=== PATIENT | female | born 1955 | race Caucasian/White ===

== ENCOUNTER 2024-06-09 19:38 | Outpatient (REF) | payer MEDICARE, MEDICAID, SELFPAY ==
[2024-06-09 19:59] LABS: Abs Immature Grans 0.01 10^3/uL (0.0-0.06); Absolute Basophil Count 0.04 10^3/uL (0.0-0.2); Absolute Eosinophil Count 0.19 10^3/uL (0.0-0.7); Absolute Lymphocyte Count 0.97 10^3/uL (1.2-3.4); Absolute Neutrophil Count 1.95 10^3/uL (1.2-6.7); Basophils % 1.2 %; Eosinophils % 5.5 %; HCT 29.5 % (36.0-46.0); HGB 9.5 g/dL (11.2-15.7); Immature Grans % 0.3 %; MCH 22.8 pg (27.0-33.0); MCHC 32.2 % (32.0-36.0); MCV 71 fL (80-95); Monocytes % 8.7 %; Neutrophils % 56.3 %; RBC 4.17 10^6/uL (3.93-5.22); RDW 17.8 % (11.7-14.6); WBC 3.46 10^3/uL (4.4-10.8)
[2024-06-09 20:33] LABS: Acanthocytes 1+; Diff Comment RBC Morph Reviewed; Microcytosis 1+; Platelet Count 82 10^3/uL (130-400)
[2024-06-09 21:29] LABS: ALT 31 U/L (14-59); AST 26 U/L (15-37); Albumin 3.7 g/dL (3.4-5.0); Alkaline Phosphatase 122 U/L (46-116); Anion Gap 13.6 mmol/L (3-11); BUN 10 mg/dL (7-18); Bilirubin, Total 1.39 mg/dL (0.2-1.0); CO2 18.4 mmol/L (21.0-32.0); Chloride 99 mmol/L (98-107); Estimated GFR 61.75 (mL/min/1.73m2); Ferritin 37 ng/mL (8-252); Folate > 20.0 ng/mL (8.6-20.0); Glucose 130 mg/dL (74-106); Magnesium 1.6 mg/dL (1.8-2.4); Potassium 5.1 mmol/L (3.5-5.1); Sodium 131 mmol/L (136-145); TSH (W/Ref FT4) 2.38 uIU/mL (0.36-3.74); Total Protein 6.2 g/dL (6.4-8.2); Vitamin B12 909 pg/mL (193-986); Vitamin D 25 Total 54.4 ng/mL (30-100)
[2024-06-09 21:36] LABS: Hemoglobin A1C 6.6 % (<5.7)
[2024-06-09 21:37] LABS: Iron 19 ug/dL (50-170); Total Iron Binding Capacity 486 ug/dL (250-450); Transferrin Sat 4 % (15-50)
[2024-06-09 22:12] LABS: NT-proBNP 114 pg/mL (<300)
== END 2024-06-09 19:39 | disposition home or self-care (01) ==
LOC: LBN 19:38
PROVIDERS: Visit Provider Nurse Practitioner Gerontology
DX: D52.9 Folate deficiency anemia, unspecified (principal); R73.09 Other abnormal glucose; R53.82 Chronic fatigue, unspecified; I11.0 Hypertensive heart disease with heart failure
CPT/HCPCS: 80053; 82306; 82607; 82728; 82746; 83036; 83540; 83550; 83735; 83880; 84443; 85025

== ENCOUNTER 2024-06-11 15:04 | Emergency (ER) | payer MEDICARE, MEDICAID, SELFPAY ==
--- NOTE | 2024-06-11 15:00 | DI.RAD_ITS ---
Exam(s) XR PORTABLE CHEST AP EXAM: XR PORTABLE CHEST AP CLINICAL HISTORY: AMS TECHNIQUE: 2D digital imaging was performed of the chest. One image was obtained. An AP view was ob tained. COMPARISON: No exams were available for comparison FINDINGS: MEDIASTINUM: Normal. HEART: Normal. PULMONARY VASCULATURE: Normal. LUNGS: Clear. PLEURAL SPACE: No pleural effusion or pneumothorax. BONE:Within normal limits for the patient's age. There is mild inferior subluxation of the right olman ral head relative to the glenoid. OTHER FINDINGS:There is elevation of the left hemidiaphragm. IMPRESSION: 1. No acute pulmonary findings. 2. Mild inferior subluxation of the right humeral head relative to the glenoid. DATA REPOSITORY: RADIATION DOSE DELIVERED:
[2024-06-11 15:07] VITALS: BP 137/76; PULSE 90; RESP 15; TEMP 37.1; O2SAT 100
[2024-06-11 15:14] VITALS: BP 137/76; PULSE 90; RESP 15; TEMP 37.1; O2SAT 100
--- NOTE | 2024-06-11 15:15 | DI.CT_ITS ---
Exam(s) CT HEAD WO EXAM: CT HEAD WO CLINICAL HISTORY: Altered mental status. TECHNIQUE: Imaging Protocol: Axial computed tomography images with coronal and sagittal reformatted images were created and reviewed COMPARISON: No exams were available for comparison FINDINGS: Ventricles and Extra axial spaces: Normal in size and morphology for the patient's age. Hemorrhage: None. Cerebral parenchyma: Evidence of an acute territorial infarct. No mass effect. Midline shift: None. Brainstem/Cerebellum: Normal. Calvarium: Normal. Visualized Paranasal sinuses/Mastoids: Clear. Soft Tissues: Unremarkable. IMPRESSION: No acute intracranial process. RADIATION DOSE DELIVERED: 814.69mGy.cm Total DLP DATA REPOSITORY: All CT scans at this facility are submitted to the National Radiology Data Registry (NRDR) Dose Index Registry (DIR) with the [employer] ([employer]). RADIATION OPTIMIZATION: All CT scans at this facility use at least one of these dose optimization te chniques: automated exposure control; mA and/or kV adjustment per patient size (includes targeted exa ms where dose is matched to clinical indication); or iterative reconstruction.
[2024-06-11 15:26] LABS: Abs Immature Grans 0.01 10^3/uL (0.0-0.06); Absolute Basophil Count 0.03 10^3/uL (0.0-0.2); Absolute Eosinophil Count 0.14 10^3/uL (0.0-0.7); Absolute Monocyte Count 0.22 10^3/uL (0.1-0.8); Absolute Neutrophil Count 1.71 10^3/uL (1.2-6.7); Basophils % 1.1 %; HCT 28.4 % (36.0-46.0); Immature Grans % 0.4 %; Lymphocytes % 24.9 %; MCH 22.4 pg (27.0-33.0); MCHC 31.7 % (32.0-36.0); MCV 71 fL (80-95); MPV 9.1 fL (8.0-11.0); Monocytes % 7.8 %; Neutrophils % 60.8 %; RBC 4.01 10^6/uL (3.93-5.22); RDW 17.5 % (11.7-14.6); RDW-SD 44.7 fL; WBC 2.81 10^3/uL (4.4-10.8)
[2024-06-11 15:40] LABS: Ammonia 59 umol/L (11-32)
[2024-06-11 15:47] LABS: ALT 32 U/L (14-59); AST 26 U/L (15-37); Albumin 3.5 g/dL (3.4-5.0); Alkaline Phosphatase 109 U/L (46-116); Anion Gap 8.1 mmol/L (3-11); BUN 10 mg/dL (7-18); Bilirubin, Total 1.47 mg/dL (0.2-1.0); CO2 22.9 mmol/L (21.0-32.0); CREATININE 0.9 mg/dL (0.55-1.02); Calcium 9.2 mg/dL (8.5-10.1); Chloride 96 mmol/L (98-107); Estimated GFR 70.07 (mL/min/1.73m2); Glucose 120 mg/dL (74-106); Magnesium 1.2 mg/dL (1.8-2.4); Potassium 4.7 mmol/L (3.5-5.1); Sodium 127 mmol/L (136-145); Total Protein 6.2 g/dL (6.4-8.2); Troponin I 10 ng/L (<or=51)
[2024-06-11 15:51] LABS: Diff Comment Diff Reviewed; Microcytosis 2+; Platelet Count 60 10^3/uL (130-400)
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
[2024-06-11 16:11] LABS: Acetaminophen < 2 ug/mL (10-30); Salicylate < 2.8 mg/dL (<2.8)
[2024-06-11 16:29] LABS: ETHANOL BLOOD < 3.0 mg/dL (<10)
[2024-06-11] MEDS: levETIRAcetam 2,000 MG in Normal Saline 100 ML 400 MG IVPB (16:36)
[2024-06-11 16:40] LABS: Bilirubin Negative (Negative); Blood Negative (Negative); Clarity Sl Cloudy (Clear); Glucose Negative (Negative); Ketones Negative (Negative); Leukocyte Esterase Trace (Negative); Nitrite Negative (Negative); Specific Gravity 1.015 (1.005-1.025); Urobilinogen 0.2 mg/dL (Up to 0.2); pH 5.5 (5-8)
--- NOTE | 2024-06-11 16:42 | NUR.NOTE ---
Nursing Note: PT stated to this RN And MD If I go back there ([facility] I am going to kill myself. When offered PO medications she declined, when offered food she also declined says I want to kill myself
[2024-06-11 16:51] LABS: Bacteria Moderate HPF (Negative); C & S Indicated? Yes; Casts Negative LPF (Negative); Crystals Negative HPF (Negative); Epithelial Cells Rare HPF (Negative); Mucus Negative (Negative); RBC Negative HPF (0-2)
--- NOTE | 2024-06-11 16:54 | NUR.NOTE ---
Nursing Note: pt pulled IV out stated I don't want it
[2024-06-11 17:13] LABS: Troponin I 10 ng/L (<or=51)
[2024-06-11] MEDS: Haloperidol 5 MG/ML VIAL 4 MG IM (18:59)
[2024-06-11] MEDS: diphenhydrAMINE 50 MG/ML VIAL 12.5 MG IM/IVP (18:59)
--- NOTE | 2024-06-11 19:02 | NUR.NOTE ---
Nursing Note: prior to pt being walked to , patient got her self dressed and was wandering the hallways of the unit looking for a place to leave the building. She threatened to break the windows to get out. Staff offered a place to sit with a table at the day room in zone b to wait to see what her family was going to do. She agreed to walk to the unit with security this RN and medic
[2024-06-11] MEDS: Rifaximin 550 MG TAB PO (20:15)
[2024-06-11] MEDS: Lactulose 20 GM/30 ML CUP 40 GM PO (20:15)
[2024-06-11] MEDS: Magnesium Oxide 400 MG TAB 800 MG PO (20:15)
[2024-06-11] MEDS: LORazepam 1 MG TAB PO (20:15)
[2024-06-11] MEDS: Gabapentin 300 MG CAP 600 MG PO (20:15)
[2024-06-11 20:20] VITALS: RESP 20
--- NOTE | 2024-06-14 08:08 | NUR.NOTE ---
Access chart to reconcile EKG orders with EKG's in [facility]. Duplicate order cancelled. Nursing Note:
== END 2024-06-11 20:22 | disposition skilled nursing facility (03) ==
PROVIDERS: Emergency Provider Emergency Medicine
DX: L29.9 Pruritus, unspecified (principal); D61.818 Other pancytopenia; E72.20 Disorder of urea cycle metabolism, unspecified; E83.42 Hypomagnesemia; R45.1 Restlessness and agitation; E11.9 Type 2 diabetes mellitus without complications; Z86.711 Personal history of pulmonary embolism; Z79.02 Long term (current) use of antithrombotics/antiplatelets; Z79.4 Long term (current) use of insulin
CPT/HCPCS: 36415; 80053; 87077; 96365; 96366; 96372; 96375; 99284; 70450; 71045; 80320; 80329; 81003; 81015; 82140; 83735; 84484; 85025; 87086; 87186; J1200; J1630; J1953

== ENCOUNTER 2024-06-16 21:35 | Outpatient (REF) | payer MEDICARE, MEDICAID, SELFPAY ==
[2024-06-16 19:21] LABS: Abs Immature Grans 0.01 10^3/uL (0.0-0.06); Absolute Basophil Count 0.03 10^3/uL (0.0-0.2); Absolute Eosinophil Count 0.12 10^3/uL (0.0-0.7); Absolute Lymphocyte Count 0.78 10^3/uL (1.2-3.4); Absolute Monocyte Count 0.27 10^3/uL (0.1-0.8); Absolute Neutrophil Count 2.29 10^3/uL (1.2-6.7); Basophils % 0.9 %; Eosinophils % 3.4 %; HCT 28.3 % (36.0-46.0); HGB 8.8 g/dL (11.2-15.7); Immature Grans % 0.3 %; Lymphocytes % 22.3 %; MCH 22.4 pg (27.0-33.0); MCHC 31.1 % (32.0-36.0); MCV 72 fL (80-95); Monocytes % 7.7 %; Neutrophils % 65.4 %; RBC 3.92 10^6/uL (3.93-5.22); RDW 18.1 % (11.7-14.6); RDW-SD 47.5 fL
[2024-06-16 19:59] LABS: Anisocytosis 1+; Diff Comment RBC Morph Reviewed; Microcytosis 1+; Platelet Count 66 10^3/uL (130-400); Poikilocytes 1+
[2024-06-19 16:16] LABS: Levetiracetam 53.5 mcg/mL
== END 2024-06-16 21:36 | disposition home or self-care (01) ==
LOC: LBN 21:35
PROVIDERS: Visit Provider Nurse Practitioner Gerontology
DX: D69.1 Qualitative platelet defects (principal)
CPT/HCPCS: 80177; 85025

== ENCOUNTER 2024-06-23 18:16 | Outpatient (REF) | payer MEDICARE, MEDICAID, SELFPAY ==
[2024-06-23 19:49] LABS: Absolute Basophil Count 0.03 10^3/uL (0.0-0.2); Absolute Eosinophil Count 0.26 10^3/uL (0.0-0.7); Absolute Monocyte Count 0.32 10^3/uL (0.1-0.8); Absolute Neutrophil Count 1.82 10^3/uL (1.2-6.7); Eosinophils % 8.3 %; HCT 26.7 % (36.0-46.0); HGB 8.5 g/dL (11.2-15.7); Lymphocytes % 22.4 %; MCH 22.4 pg (27.0-33.0); MCHC 31.8 % (32.0-36.0); MCV 70 fL (80-95); MPV 10.7 fL (8.0-11.0); Monocytes % 10.2 %; Neutrophils % 58.1 %; RBC 3.79 10^6/uL (3.93-5.22); RDW 17.6 % (11.7-14.6); RDW-SD 45.4 fL; WBC 3.13 10^3/uL (4.4-10.8)
[2024-06-23 20:13] LABS: Diff Comment RBC Morph Reviewed; Microcytosis 2+; Platelet Count 54 10^3/uL (130-400)
[2024-06-23 20:17] LABS: ALT 32 U/L (14-59); AST 20 U/L (15-37); Albumin 3.7 g/dL (3.4-5.0); Alkaline Phosphatase 95 U/L (46-116); Anion Gap 10.2 mmol/L (3-11); BUN 9 mg/dL (7-18); Bilirubin, Total 1.23 mg/dL (0.2-1.0); CO2 25.8 mmol/L (21.0-32.0); CREATININE 0.9 mg/dL (0.55-1.02); Chloride 97 mmol/L (98-107); Estimated GFR 70.07 (mL/min/1.73m2); Glucose 128 mg/dL (74-106); Potassium 4.3 mmol/L (3.5-5.1); Sodium 133 mmol/L (136-145); Total Protein 5.9 g/dL (6.4-8.2)
== END 2024-06-23 18:17 | disposition home or self-care (01) ==
LOC: LBN 18:16
PROVIDERS: Visit Provider Nurse Practitioner Gerontology
DX: E87.6 Hypokalemia (principal)
CPT/HCPCS: 80053; 85025

== ENCOUNTER 2024-07-01 12:06 | Outpatient (REF) | payer MEDICARE, MEDICAID, SELFPAY ==
[2024-07-01 12:17] LABS: HCT 26.3 % (36.0-46.0); HGB 8.2 g/dL (11.2-15.7); MCHC 31.2 % (32.0-36.0); MPV 9.8 fL (8.0-11.0); RBC 3.73 10^6/uL (3.93-5.22); RDW 17.6 % (11.7-14.6); RDW-SD 45.2 fL; WBC 2.79 10^3/uL (4.4-10.8)
[2024-07-01 12:26] LABS: ALT 26 U/L (14-59); AST 18 U/L (15-37); Albumin 3.3 g/dL (3.4-5.0); Alkaline Phosphatase 90 U/L (46-116); Anion Gap 8.5 mmol/L (3-11); BUN 8 mg/dL (7-18); Bilirubin, Total 1.09 mg/dL (0.2-1.0); CO2 24.5 mmol/L (21.0-32.0); CREATININE 0.8 mg/dL (0.55-1.02); Calcium 8.7 mg/dL (8.5-10.1); Chloride 99 mmol/L (98-107); Estimated GFR 80.71 (mL/min/1.73m2); Glucose 163 mg/dL (74-106); Potassium 5.2 mmol/L (3.5-5.1); Sodium 132 mmol/L (136-145); Total Protein 5.6 g/dL (6.4-8.2)
[2024-07-01 12:33] LABS: MCV 71 fL (80-95); Platelet Count 53 10^3/uL (130-400)
== END 2024-07-01 12:07 | disposition home or self-care (01) ==
LOC: LBN 12:06
PROVIDERS: Visit Provider Nurse Practitioner Gerontology
DX: D64.9 Anemia, unspecified (principal); D69.6 Thrombocytopenia, unspecified; R79.89 Other specified abnormal findings of blood chemistry
CPT/HCPCS: 80053; 85027

== ENCOUNTER 2024-07-07 15:05 | Outpatient (REF) | payer MEDICARE, MEDICAID, SELFPAY ==
[2024-07-07 15:41] LABS: HCT 26.3 % (36.0-46.0); HGB 8.2 g/dL (11.2-15.7); MCH 21.8 pg (27.0-33.0); MPV 10.1 fL (8.0-11.0); RBC 3.76 10^6/uL (3.93-5.22); RDW-SD 44.3 fL; WBC 2.78 10^3/uL (4.4-10.8)
[2024-07-07 15:57] LABS: ALT 26 U/L (14-59); AST 21 U/L (15-37); Albumin 3.4 g/dL (3.4-5.0); Alkaline Phosphatase 84 U/L (46-116); Anion Gap 6.5 mmol/L (3-11); BUN 15 mg/dL (7-18); Bilirubin, Total 1.08 mg/dL (0.2-1.0); CO2 28.5 mmol/L (21.0-32.0); CREATININE 1.1 mg/dL (0.55-1.02); Calcium 8.8 mg/dL (8.5-10.1); Chloride 90 mmol/L (98-107); Estimated GFR 55.07 (mL/min/1.73m2); Glucose 191 mg/dL (74-106); Potassium 4.2 mmol/L (3.5-5.1); Sodium 125 mmol/L (136-145); Total Protein 5.7 g/dL (6.4-8.2)
[2024-07-07 16:10] LABS: MCHC 31.2 % (32.0-36.0); MCV 70 fL (80-95); Platelet Count 55 10^3/uL (130-400); RDW 17.4 % (11.7-14.6)
== END 2024-07-07 15:06 | disposition home or self-care (01) ==
LOC: LBN 15:05
PROVIDERS: PCP Nurse Practitioner Gerontology; Visit Provider Nurse Practitioner Gerontology
DX: D69.6 Thrombocytopenia, unspecified (principal)
CPT/HCPCS: 80053; 85027

== ENCOUNTER 2024-07-10 21:20 | Outpatient (REF) | payer MEDICARE, MEDICAID, SELFPAY ==
[2024-07-10 17:49] LABS: ALT 25 U/L (14-59); AST 21 U/L (15-37); Albumin 3.6 g/dL (3.4-5.0); Alkaline Phosphatase 95 U/L (46-116); Anion Gap 9.6 mmol/L (3-11); BUN 19 mg/dL (7-18); Bilirubin, Total 1.13 mg/dL (0.2-1.0); CO2 26.4 mmol/L (21.0-32.0); CREATININE 1.3 mg/dL (0.55-1.02); Calcium 8.9 mg/dL (8.5-10.1); Chloride 96 mmol/L (98-107); Estimated GFR 44.79 (mL/min/1.73m2); Glucose 289 mg/dL (74-106); Potassium 4.1 mmol/L (3.5-5.1); Sodium 132 mmol/L (136-145)
== END 2024-07-10 21:21 | disposition home or self-care (01) ==
LOC: LBN 21:20
PROVIDERS: PCP Nurse Practitioner Gerontology; Visit Provider Nurse Practitioner Gerontology
DX: E87.1 Hypo-osmolality and hyponatremia (principal)
CPT/HCPCS: 80053

== ENCOUNTER 2024-07-14 18:22 | Outpatient (REF) | payer MEDICARE, MEDICAID, SELFPAY ==
[2024-07-14 19:16] LABS: Abs Immature Grans 0.01 10^3/uL (0.0-0.06); Absolute Basophil Count 0.03 10^3/uL (0.0-0.2); Absolute Lymphocyte Count 0.65 10^3/uL (1.2-3.4); Absolute Monocyte Count 0.25 10^3/uL (0.1-0.8); Absolute Neutrophil Count 1.79 10^3/uL (1.2-6.7); Eosinophils % 9.9 %; HCT 25.3 % (36.0-46.0); Immature Grans % 0.3 %; Lymphocytes % 21.5 %; MCH 21.9 pg (27.0-33.0); MCHC 31.6 % (32.0-36.0); MCV 69 fL (80-95); MPV 10.3 fL (8.0-11.0); Monocytes % 8.3 %; RBC 3.66 10^6/uL (3.93-5.22); RDW 17.5 % (11.7-14.6); WBC 3.03 10^3/uL (4.4-10.8)
[2024-07-14 19:36] LABS: AST 22 U/L (15-37); Albumin 3.5 g/dL (3.4-5.0); Alkaline Phosphatase 102 U/L (46-116); BUN 13 mg/dL (7-18); Bilirubin, Total 1.18 mg/dL (0.2-1.0); Calcium 8.7 mg/dL (8.5-10.1); Chloride 89 mmol/L (98-107); Glucose 267 mg/dL (74-106); Sodium 125 mmol/L (136-145)
[2024-07-14 20:08] LABS: ALT 30 U/L (14-59); CREATININE 1.2 mg/dL (0.55-1.02); Estimated GFR 49.31 (mL/min/1.73m2)
[2024-07-14 20:16] LABS: Diff Comment RBC Morph Reviewed; Hypochromasia 2+; Microcytosis 2+; Platelet Count 74 10^3/uL (130-400)
== END 2024-07-14 18:23 | disposition home or self-care (01) ==
LOC: LBN 18:22
PROVIDERS: PCP Nurse Practitioner Gerontology; Visit Provider Nurse Practitioner Gerontology
DX: D69.1 Qualitative platelet defects (principal); E87.1 Hypo-osmolality and hyponatremia
CPT/HCPCS: 80053; 85025

== ENCOUNTER 2024-07-24 09:04 | Outpatient (REF) | payer MEDICARE, MEDICAID, SELFPAY ==
[2024-07-24 11:28] LABS: Abs Immature Grans 0.01 10^3/uL (0.0-0.06); Absolute Basophil Count 0.02 10^3/uL (0.0-0.2); Absolute Eosinophil Count 0.27 10^3/uL (0.0-0.7); Absolute Lymphocyte Count 0.87 10^3/uL (1.2-3.4); Absolute Monocyte Count 0.24 10^3/uL (0.1-0.8); Absolute Neutrophil Count 2.01 10^3/uL (1.2-6.7); Basophils % 0.6 %; Eosinophils % 7.9 %; HCT 25.7 % (36.0-46.0); HGB 8.2 g/dL (11.2-15.7); Immature Grans % 0.3 %; Lymphocytes % 25.4 %; MCHC 31.9 % (32.0-36.0); MCV 69 fL (80-95); MPV 10.3 fL (8.0-11.0); Neutrophils % 58.8 %; RBC 3.72 10^6/uL (3.93-5.22); RDW 18.1 % (11.7-14.6); RDW-SD 44.4 fL; WBC 3.42 10^3/uL (4.4-10.8)
[2024-07-24 11:36] LABS: ALT 26 U/L (14-59); AST 20 U/L (15-37); Albumin 3.3 g/dL (3.4-5.0); Alkaline Phosphatase 94 U/L (46-116); Anion Gap 11.6 mmol/L (3-11); BUN 11 mg/dL (7-18); Bilirubin, Total 0.87 mg/dL (0.2-1.0); CO2 26.4 mmol/L (21.0-32.0); CREATININE 1.1 mg/dL (0.55-1.02); Calcium 8.6 mg/dL (8.5-10.1); Chloride 96 mmol/L (98-107); Estimated GFR 54.73 (mL/min/1.73m2); Glucose 212 mg/dL (74-106); Potassium 3.5 mmol/L (3.5-5.1); Sodium 134 mmol/L (136-145); Total Protein 5.6 g/dL (6.4-8.2)
[2024-07-24 11:47] LABS: Diff Comment Diff Reviewed; Hypochromasia 2+; Microcytosis 2+; Platelet Count 84 10^3/uL (130-400)
== END 2024-07-24 09:05 | disposition home or self-care (01) ==
LOC: LBN 09:04
PROVIDERS: PCP Nurse Practitioner Gerontology; Visit Provider Nurse Practitioner Gerontology
DX: D69.6 Thrombocytopenia, unspecified (principal); E87.1 Hypo-osmolality and hyponatremia; E83.42 Hypomagnesemia
CPT/HCPCS: 80053; 85025

== ENCOUNTER 2024-07-28 20:17 | Outpatient (REF) | payer MEDICARE, MEDICAID, SELFPAY ==
[2024-07-28 20:05] LABS: Abs Immature Grans 0.01 10^3/uL (0.0-0.06); Absolute Basophil Count 0.03 10^3/uL (0.0-0.2); Absolute Eosinophil Count 0.23 10^3/uL (0.0-0.7); Absolute Lymphocyte Count 0.73 10^3/uL (1.2-3.4); Absolute Monocyte Count 0.37 10^3/uL (0.1-0.8); Absolute Neutrophil Count 3.15 10^3/uL (1.2-6.7); Basophils % 0.7 %; Eosinophils % 5.1 %; HCT 26.6 % (36.0-46.0); HGB 8.2 g/dL (11.2-15.7); Immature Grans % 0.2 %; Lymphocytes % 16.2 %; MCH 21.3 pg (27.0-33.0); MCHC 30.8 % (32.0-36.0); MCV 69 fL (80-95); MPV 10.4 fL (8.0-11.0); Monocytes % 8.2 %; Neutrophils % 69.6 %; Platelet Count 104 10^3/uL (130-400); RBC 3.85 10^6/uL (3.93-5.22); RDW 18.2 % (11.7-14.6); RDW-SD 45.2 fL; WBC 4.52 10^3/uL (4.4-10.8)
[2024-07-28 20:22] LABS: Anisocytosis 1+; Diff Comment RBC Morph Reviewed; Hypochromasia 2+
[2024-07-28 20:24] LABS: Microcytosis 1+; Poikilocytes 2+; Polychromasia Present
[2024-07-28 20:34] LABS: ALT 23 U/L (14-59); AST 19 U/L (15-37); Albumin 3.4 g/dL (3.4-5.0); Alkaline Phosphatase 97 U/L (46-116); Anion Gap 9.1 mmol/L (3-11); BUN 12 mg/dL (7-18); Bilirubin, Total 1.19 mg/dL (0.2-1.0); CO2 28.9 mmol/L (21.0-32.0); CREATININE 1.2 mg/dL (0.55-1.02); Calcium 8.7 mg/dL (8.5-10.1); Chloride 91 mmol/L (98-107); Estimated GFR 49.31 (mL/min/1.73m2); Glucose 242 mg/dL (74-106); Potassium 3.9 mmol/L (3.5-5.1); Sodium 129 mmol/L (136-145)
== END 2024-07-28 20:18 | disposition home or self-care (01) ==
LOC: LBN 20:17
PROVIDERS: PCP Nurse Practitioner Gerontology; Visit Provider Nurse Practitioner Gerontology
DX: E87.6 Hypokalemia (principal)
CPT/HCPCS: 80053; 85025

== ENCOUNTER 2024-08-04 18:17 | Outpatient (REF) | payer MEDICARE, MEDICAID, SELFPAY ==
[2024-08-04 20:15] LABS: Abs Immature Grans 0.01 10^3/uL (0.0-0.06); Absolute Basophil Count 0.01 10^3/uL (0.0-0.2); Absolute Eosinophil Count 0.16 10^3/uL (0.0-0.7); Absolute Lymphocyte Count 0.58 10^3/uL (1.2-3.4); Absolute Monocyte Count 0.23 10^3/uL (0.1-0.8); Basophils % 0.4 %; Eosinophils % 6.4 %; HGB 7.6 g/dL (11.2-15.7); Immature Grans % 0.4 %; Lymphocytes % 23.3 %; MCH 21.3 pg (27.0-33.0); MCHC 30.4 % (32.0-36.0); MCV 70 fL (80-95); MPV 10.4 fL (8.0-11.0); Monocytes % 9.2 %; Neutrophils % 60.3 %; RBC 3.56 10^6/uL (3.93-5.22); RDW 18.7 % (11.7-14.6); RDW-SD 46.2 fL; WBC 2.49 10^3/uL (4.4-10.8)
[2024-08-04 20:37] LABS: Anisocytosis 1+; Diff Comment RBC Morph Reviewed; Platelet Count 75 10^3/uL (130-400)
[2024-08-04 20:38] LABS: Hypochromasia 1+; Microcytosis 1+
[2024-08-04 20:43] LABS: ALT 22 U/L (14-59); AST 25 U/L (15-37); Albumin 3.3 g/dL (3.4-5.0); Alkaline Phosphatase 98 U/L (46-116); Anion Gap 11.4 mmol/L (3-11); BUN 12 mg/dL (7-18); Bilirubin, Total 1.13 mg/dL (0.2-1.0); CO2 24.6 mmol/L (21.0-32.0); CREATININE 1.2 mg/dL (0.55-1.02); Calcium 8.6 mg/dL (8.5-10.1); Chloride 97 mmol/L (98-107); Estimated GFR 49.31 (mL/min/1.73m2); Glucose 229 mg/dL (74-106); Potassium 4.2 mmol/L (3.5-5.1); Sodium 133 mmol/L (136-145); Total Protein 5.8 g/dL (6.4-8.2)
== END 2024-08-04 18:18 | disposition home or self-care (01) ==
LOC: LBN 18:17
PROVIDERS: PCP Nurse Practitioner Gerontology; Visit Provider Nurse Practitioner Gerontology
DX: E87.1 Hypo-osmolality and hyponatremia (principal); D64.9 Anemia, unspecified
CPT/HCPCS: 80053; 85025

== ENCOUNTER 2024-08-11 16:43 | Outpatient (REF) | payer MEDICARE, MEDICAID, SELFPAY ==
[2024-08-11 19:15] LABS: Abs Immature Grans 0.01 10^3/uL (0.0-0.06); Absolute Basophil Count 0.02 10^3/uL (0.0-0.2); Absolute Eosinophil Count 0.23 10^3/uL (0.0-0.7); Absolute Lymphocyte Count 0.61 10^3/uL (1.2-3.4); Absolute Monocyte Count 0.39 10^3/uL (0.1-0.8); Basophils % 0.6 %; Eosinophils % 7.3 %; HCT 23.9 % (36.0-46.0); HGB 7.4 g/dL (11.2-15.7); Immature Grans % 0.3 %; Lymphocytes % 19.3 %; MCH 21.4 pg (27.0-33.0); MCV 69 fL (80-95); MPV 10.1 fL (8.0-11.0); Monocytes % 12.3 %; Neutrophils % 60.2 %; RBC 3.46 10^6/uL (3.93-5.22); RDW 18.7 % (11.7-14.6); RDW-SD 46.5 fL; WBC 3.16 10^3/uL (4.4-10.8)
[2024-08-11 19:30] LABS: Diff Comment Diff Reviewed; Hypochromasia 1+; Microcytosis 2+; Platelet Count 66 10^3/uL (130-400)
[2024-08-11 19:39] LABS: ALT 20 U/L (14-59); AST 27 U/L (15-37); Albumin 3.2 g/dL (3.4-5.0); Alkaline Phosphatase 103 U/L (46-116); Anion Gap 7.6 mmol/L (3-11); BUN 11 mg/dL (7-18); Bilirubin, Total 1.23 mg/dL (0.2-1.0); CO2 27.4 mmol/L (21.0-32.0); CREATININE 1.1 mg/dL (0.55-1.02); Calcium 8.6 mg/dL (8.5-10.1); Chloride 93 mmol/L (98-107); Estimated GFR 54.73 (mL/min/1.73m2); Glucose 241 mg/dL (74-106); Potassium 4.2 mmol/L (3.5-5.1); Sodium 128 mmol/L (136-145); Total Protein 5.7 g/dL (6.4-8.2)
== END 2024-08-11 16:44 | disposition home or self-care (01) ==
LOC: LBN 16:43
PROVIDERS: PCP Nurse Practitioner Gerontology; Visit Provider Nurse Practitioner Gerontology
DX: E87.1 Hypo-osmolality and hyponatremia (principal); D69.6 Thrombocytopenia, unspecified
CPT/HCPCS: 80053; 85025

== ENCOUNTER 2024-08-25 17:55 | Outpatient (REF) | payer MEDICARE, MEDICAID, SELFPAY ==
[2024-08-25 18:28] LABS: Abs Immature Grans 0.01 10^3/uL (0.0-0.06); Absolute Basophil Count 0.01 10^3/uL (0.0-0.2); Absolute Eosinophil Count 0.21 10^3/uL (0.0-0.7); Absolute Lymphocyte Count 0.63 10^3/uL (1.2-3.4); Absolute Monocyte Count 0.23 10^3/uL (0.1-0.8); Absolute Neutrophil Count 1.35 10^3/uL (1.2-6.7); Basophils % 0.4 %; Eosinophils % 8.6 %; HCT 23.5 % (36.0-46.0); HGB 7.3 g/dL (11.2-15.7); Immature Grans % 0.4 %; Lymphocytes % 25.8 %; MCH 21.2 pg (27.0-33.0); MCHC 31.1 % (32.0-36.0); MCV 68 fL (80-95); MPV 10.4 fL (8.0-11.0); Monocytes % 9.4 %; Neutrophils % 55.4 %; RBC 3.44 10^6/uL (3.93-5.22); RDW 19.2 % (11.7-14.6); RDW-SD 47.4 fL; Reticulocyte 2.2 % (0.5-2.4); WBC 2.44 10^3/uL (4.4-10.8)
[2024-08-25 18:36] LABS: Platelet Count 71 10^3/uL (130-400)
[2024-08-25 18:37] LABS: Microcytosis 1+
[2024-08-25 19:49] LABS: Ferritin 21 ng/mL (8-252); Vitamin B12 907 pg/mL (193-986)
[2024-08-25 19:50] LABS: Folate > 20.0 ng/mL (8.6-20.0)
[2024-08-26 17:52] LABS: ALT 22 U/L (14-59); AST 22 U/L (15-37); Albumin 3.3 g/dL (3.4-5.0); Alkaline Phosphatase 101 U/L (46-116); Anion Gap 4.9 mmol/L (3-11); BUN 12 mg/dL (7-18); Bilirubin, Total 1.23 mg/dL (0.2-1.0); CO2 29.1 mmol/L (21.0-32.0); CREATININE 1.1 mg/dL (0.55-1.02); Calcium 8.6 mg/dL (8.5-10.1); Chloride 93 mmol/L (98-107); Estimated GFR 54.73 (mL/min/1.73m2); Glucose 200 mg/dL (74-106); NT-proBNP 158 pg/mL (<300); Potassium 4.2 mmol/L (3.5-5.1); Sodium 127 mmol/L (136-145); Total Protein 5.6 g/dL (6.4-8.2)
== END 2024-08-25 17:56 | disposition home or self-care (01) ==
LOC: LBN 17:55
PROVIDERS: PCP Nurse Practitioner Gerontology; Referring Provider Nurse Practitioner Gerontology; Visit Provider Internal Medicine Hematology & Oncology
DX: D64.9 Anemia, unspecified (principal); D51.9 Vitamin B12 deficiency anemia, unspecified
CPT/HCPCS: 80053; 82607; 82728; 82746; 83880; 85025; 85045

== ENCOUNTER 2024-09-01 18:10 | Outpatient (REF) | payer MEDICARE, MEDICAID, SELFPAY ==
[2024-09-01 18:25] LABS: Absolute Basophil Count 0.01 10^3/uL (0.0-0.2); Absolute Eosinophil Count 0.13 10^3/uL (0.0-0.7); Absolute Lymphocyte Count 0.53 10^3/uL (1.2-3.4); Absolute Monocyte Count 0.27 10^3/uL (0.1-0.8); Basophils % 0.5 %; Eosinophils % 6.4 %; HCT 23.1 % (36.0-46.0); MCHC 30.3 % (32.0-36.0); MCV 69 fL (80-95); MPV 9.9 fL (8.0-11.0); Monocytes % 13.2 %; Neutrophils % 53.9 %; RBC 3.33 10^6/uL (3.93-5.22); RDW 19.7 % (11.7-14.6); RDW-SD 48.9 fL; WBC 2.04 10^3/uL (4.4-10.8)
[2024-09-01 18:37] LABS: ALT 19 U/L (14-59); AST 19 U/L (15-37); Albumin 3.2 g/dL (3.4-5.0); Alkaline Phosphatase 100 U/L (46-116); Anion Gap 8.6 mmol/L (3-11); BUN 14 mg/dL (7-18); Bilirubin, Total 1.12 mg/dL (0.2-1.0); CO2 26.4 mmol/L (21.0-32.0); CREATININE 1.2 mg/dL (0.55-1.02); Calcium 8.6 mg/dL (8.5-10.1); Chloride 92 mmol/L (98-107); Estimated GFR 49.31 (mL/min/1.73m2); Glucose 264 mg/dL (74-106); Potassium 4.4 mmol/L (3.5-5.1); Sodium 127 mmol/L (136-145); Total Protein 5.5 g/dL (6.4-8.2)
[2024-09-01 18:49] LABS: Platelet Count 60 10^3/uL (130-400)
[2024-09-01 18:51] LABS: Microcytosis 1+
== END 2024-09-01 18:11 | disposition home or self-care (01) ==
LOC: LBN 18:10
PROVIDERS: PCP Nurse Practitioner Gerontology; Visit Provider Nurse Practitioner Gerontology
DX: E87.1 Hypo-osmolality and hyponatremia (principal); Z79.01 Long term (current) use of anticoagulants; E87.6 Hypokalemia
CPT/HCPCS: 80053; 85025

== ENCOUNTER 2024-09-01 19:52 | Emergency (ER) | payer MEDICARE, MEDICAID, SELFPAY ==
[2024-09-01] VITALS (102 sets, daily range): BP systolic 116–119; BP diastolic 47–55; PULSE 82–89; RESP 13–37; TEMP 37.1–37.2; O2SAT 93–100
--- NOTE | 2024-09-01 19:45 | RT.EKG_ITS ---
APPROVED REPORT Exam: Resting ECG Reason for Exam: chest pain Patient Location: E HR:82 bpm ECG Measurements Heart Rate 82 AXIS MS 175 P 21 QRSd 97 QRS 49 QT 413 T 40 QTc 484 Conclusion Sinus rhythm...normal P axis, V-rate 60- [address] segment or T wave abnormalities to suggest occlusive TN
--- NOTE | 2024-09-01 19:48 | W.ED.GENAD ---
Discharge Plan Disposition Patient Disposition: Home Condition: Good Discharge Details Clinical Impression: Anemia Primary Care Provider: Abbey Smith ED Provider: Ammy Kauffman Home Meds and New Rx's Prescriptions: Continued folic acid 1 mg tablet 1 mg PO DAILY furosemide 40 mg tablet 60 mg PO DAILY Rx Instructions: takes w/20mg tablet for a total dose of 60mg QD magnesium gluconate [Mag-G] 27 mg magnesium (500 mg) tablet 27 mg PO TID pantoprazole [Protonix] 40 mg tablet,delayed release (DR/EC) 40 mg PO DAILY levetiracetam 1,000 mg tablet 1,000 mg PO BID Incruse Ellipta 62.5 mcg/actuation blister with device 1 inh inhalation DAILY lactulose 10 gram/15 mL solution 30 g PO QID Xifaxan 550 mg tablet 550 mg PO BID insulin aspart U-100 100 unit/mL (3 mL) insulin pen 1 sliding scale dose subcut TID spironolactone 100 mg tablet 50 mg PO DAILY cholecalciferol (vitamin D3) 25 mcg (1,000 unit) capsule 25 mcg PO DAILY insulin degludec [Tresiba FlexTouch U-200] 200 unit/mL (3 mL) insulin pen 60 unit subcut BID gabapentin 300 mg capsule 1,200 mg PO QHS cholestyramine (with sugar) 4 gram powder in packet 1 packet PO BID potassium chloride [K-Tab] 20 mEq tablet extended release 20 meq PO DAILY nystatin [Nyamyc] 100,000 unit/gram powder 1 applic topical BID albuterol 90 mcg/actuation aerosol 180 mcg inhalation .Q4 PRN hydroxyzine HCl 10 mg tablet 25 mg PO BID PRN epinephrine 0.3 mg/0.3 mL auto-injector 0.3 ml subcut Q5-15M PRN Rx Instructions: do not exceed 2 doses per episode Ultra Fresh PM Ointment 1 applic ophthalmic (eye) BID cholecalciferol (vitamin D3) [D3 DOTS] 50 mcg (2,000 unit) tablet 50 mcg PO DAILY torsemide 20 mg tablet 40 mg PO DAILY quetiapine [Seroquel] 25 mg tablet 25 mg PO BID hydrocortisone acetate 25 mg suppository 25 mg [place] Q12H PRN Patient Comments: PRN FOR HEMORRHOIDS azelastine 137 mcg (0.1 %) spray,non-aerosol 2 spray intranasal Q12H PRN Patient Comments: PRN FOR ALLERGIES Rx Instructions: administer into each nostril Discharge Instructions Instructions: Hematocrit Test Additional Instructions: Your hemoglobin is not low enough to require a transfusion. Please followup with your primary care doctor about your blood counts, as well as your chest xray which shows some signs of fluid overload. Return to the emergency department for new or worsening symptoms including chest pain, shortness of breath, feeling like you are going to pass out, or if you have any other concerns. HPI General Mode of arrival: EMS. Date/Time Provider Initiated Documentation: 09/01/24 19:57. Limitations to Documentation: no limitations. Information obtained by: patient, EMS and old records reviewed. 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 for Hg of 7.0 on outpatient labs. Patient reports cough for several days and whole-body aches, otherwise denies any symptoms. No chest pain, shortness of breath, lightheadedness, syncope, nausea, vomiting, or other concerns. Related Data Home Medications ?Medication ?Instructions ?Recorded ?Confirmed albuterol 90 mcg/actuation aerosol 180 mcg inhalation .Q4 PRN 06/11/24 09/01/24 inhaler cholecalciferol (vitamin D3) 25 25 mcg PO DAILY 06/11/24 09/01/24 mcg (1,000 unit) capsule cholestyramine (with sugar) 4 gram 1 packet PO BID 06/11/24 09/01/24 powder for susp in a packet epinephrine 0.3 mg/0.3 mL 0.3 ml subcut Q5-15M PRN 06/11/24 09/01/24 injection, auto-injector folic acid 1 mg tablet 1 mg PO DAILY 06/11/24 09/01/24 furosemide 40 mg tablet 60 mg PO DAILY 06/11/24 09/01/24 gabapentin 300 mg capsule 1,200 mg PO QHS 06/11/24 09/01/24 hydroxyzine HCl 10 mg tablet 25 mg PO BID PRN 06/11/24 09/01/24 insulin aspart U-100 100 unit/mL 1 sliding scale dose subcut TID 06/11/24 09/01/24 (3 mL) subcutaneous pen insulin degludec 200 unit/mL (3 60 unit subcut BID 06/11/24 09/01/24 mL) subcutaneous pen (Tresiba FlexTouch U-200 insulin) lactulose 10 gram/15 mL oral 30 g PO QID 06/11/24 09/01/24 solution levetiracetam 1,000 mg tablet 1,000 mg PO BID 06/11/24 09/01/24 magnesium gluconate 27 mg 27 mg PO TID 06/11/24 09/01/24 magnesium (500 mg) tablet (Mag-G) nystatin 100,000 unit/gram topical 1 applic topical BID 06/11/24 09/01/24 powder (Nyamyc) pantoprazole 40 mg tablet,delayed 40 mg PO DAILY 06/11/24 09/01/24 release (Protonix) potassium chloride 20 mEq 20 meq PO DAILY 06/11/24 09/01/24 tablet,extended release (K-Tab) rifaximin 550 mg tablet (Xifaxan) 550 mg PO BID 06/11/24 09/01/24 spironolactone 100 mg tablet 50 mg PO DAILY 06/11/24 09/01/24 umeclidinium 62.5 mcg/actuation 1 inh inhalation DAILY 06/11/24 09/01/24 blister powder for inhalation (Incruse Ellipta) artificial tears with lanolin eye 1 applic ophthalmic (eye) BID 09/01/24 09/01/24 ointment (Ultra Fresh PM eye ointment) azelastine 137 mcg (0.1 %) nasal 2 spray intranasal Q12H PRN 09/01/24 09/01/24 spray cholecalciferol (vitamin D3) 50 50 mcg PO DAILY 09/01/24 09/01/24 mcg (2,000 unit) tablet (D3 DOTS) hydrocortisone acetate 25 mg 25 mg [place] Q12H PRN 09/01/24 09/01/24 rectal suppository quetiapine 25 mg tablet (Seroquel) 25 mg PO BID 09/01/24 09/01/24 torsemide 20 mg tablet 40 mg PO DAILY 09/01/24 09/01/24 Allergies Allergy/AdvReac Type Severity Reaction Status Date / Time acetaminophen Allergy Unknown Other (See Verified 09/01/24 21:03 Comment) cyclosporine Allergy Unknown Other (See Verified 09/01/24 21:03 Comment) fluticasone (From Advair Allergy Unknown Other (See Verified 09/01/24 21:03 Diskus) Comment) ibuprofen Allergy Unknown Other (See Verified 09/01/24 21:03 Comment) pregabalin (From Lyrica) Allergy Unknown Other (See Verified 09/01/24 21:03 Comment) salmeterol Allergy Unknown Other (See Verified 09/01/24 21:03 Comment) strawberry Allergy Unknown Other (See Verified 09/01/24 21:03 Comment) General MARCELLO: 3 Review of Systems Narrative: see HPI Exam Narrative Exam Narrative: General: Alert, well appearing, well nourished, in no acute distress. Head: Normocephalic, atraumatic Neck: Trachea midline, ?Neck supple. ENT: ?MMM.? No oropharygeal lesions or exudate. Cardiac: ?RRR, no murmurs appreciated Resp: No respiratory distress. CTAB. Abd: ?Soft, non-distended, nontender : ?No suprapubic tenderness. No CVA tenderness. Extremities: ?No deformities.? No peripheral edema. Neurologic: GCS 15. ? 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 for Hg of 7.0 on outpatient labs. Patient reports cough for several days and whole-body aches, otherwise denies any symptoms. Vital signs reassuring on arrival. No respiratory distress on exam. Will send CBC & T&S. EKG NSR, appropriate intervals, no ST segment or T wave abnoramlities to suggest occlusive KS. CBC as below, Hg of 7.6. Patient is not symptomatic with this; would not transfuse as this time. Given cough and body aches, respiratory viral panel and CXR ordered. Viral panel negative. CXR with no focal pneumonia on my view, radiology read below with possible CHF. Clinically patient with clear lungs, no respiratory distress, no LE edema, and no hypoxia; no indication of acute heart failure at this time and appropriate for outpatient workup and management. Discharged back to the [facility]; discharge instructions including return precautions were reviewed with patient and sent with patient. All questions were answered and she is in full agreement with the plan. Awaiting transport. Imaging Data Radiologic Study: Imaging: X-Ray Radiologist's impression: FINDINGS: Lungs: No consolidation. Mild vascular congestion centrally. Mild interstitial prominence. Pleural spaces: No pleural effusion. No pneumothorax. Heart/Mediastinum: Mild cardiomegaly. Bones/joints: Unremarkable. IMPRESSION: Consider congestive heart failure or fluid overload. Lab Data Lab results reviewed: Yes I reviewed the patient's lab results. Labs: Laboratory Tests Range/Units 09/01/24 09/01/24 10:23 20:16 WBC (4.4-10.8) 10^3/uL 2.54 L RBC (3.93-5.22) 10^6/uL 3.59 L Hgb (11.2-15.7) g/dL 7.6 L Hct (36.0-46.0) % 24.3 L MCV (80-95) fL 68 L MCH (27.0-33.0) pg 21.2 L MCHC (32.0-36.0) % 31.3 L RDW (11.7-14.6) % 19.0 H Plt Count (130-400) 10^3/uL 78 L MPV (8.0-11.0) fL 9.5 Immature Gran % % 0.4 Neutrophils % % 57.1 Lymphocytes % % 26.8 Monocytes % % 9.8 Eosinophils % % 5.1 Basophils % % 0.8 Nucleated RBC % (0.0-0.3) % 0.0 Absolute Neutrophils (1.2-6.7) 10^3/uL 1.45 Absolute Lymphocytes (1.2-3.4) 10^3/uL 0.68 L Absolute Monocytes (0.1-0.8) 10^3/uL 0.25 Absolute Eosinophils (0.0-0.7) 10^3/uL 0.13 Absolute Basophils (0.0-0.2) 10^3/uL 0.02 RBC Morphology See Below Hypochromasia 1+ Anisocytosis 1+ Microcytosis 2+ COVID-19 Source Nasopharynx SARS-CoV-2 (PCR) (Negative) Negative Influenza Type A (PCR) (Negative) Negative Influenza Type B (PCR) (Negative) Negative RSV (PCR) (Negative) Negative Blood Type Recheck O Positive Quality:SDOH Health Related Social Needs: No Data to Display PFSH All Active Problems (Updated 09/01/24 @ 22:28 by Ammy Kauffman MD) Anemia (Chronic) Social History Smoking risk assessment performed?: No Alcohol Intake: never Drug use: Never Substance use type: does not use Housing: correction Do you feel safe at home: Yes Do you feel safe in your relationship?: Yes
--- NOTE | 2024-09-01 20:00 | DI.RAD_ITS ---
Exam(s) XR CHEST 2V PA LATERAL EXAM: XR CHEST 2V PA LATERAL CLINICAL HISTORY: cough TECHNIQUE: 2D digital imaging was performed. Two views. COMPARISON: CR XR PORTABLE CHEST AP from 06/11/2024 FINDINGS: HEART: Mildly enlarged. Aorta: Mildly tortuous. PULMONARY VASCULATURE: Mildly prominent. MEDIASTINUM: Unremarkable. LUNGS: Mildly increased interstitial markings and peribronchial cuffing. No focal area of consolidat ion. PLEURAL SPACE: No pleural effusion or pneumothorax. BONE:Unremarkable for age. SOFT TISSUES: Unremarkable. IMPRESSION: Mild CHF. DATA REPOSITORY: RADIATION DOSE DELIVERED:
[2024-09-01 20:28] LABS: Abs Immature Grans 0.01 10^3/uL (0.0-0.06); Absolute Basophil Count 0.02 10^3/uL (0.0-0.2); Absolute Eosinophil Count 0.13 10^3/uL (0.0-0.7); Absolute Lymphocyte Count 0.68 10^3/uL (1.2-3.4); Absolute Monocyte Count 0.25 10^3/uL (0.1-0.8); Absolute Neutrophil Count 1.45 10^3/uL (1.2-6.7); Basophils % 0.8 %; Eosinophils % 5.1 %; HCT 24.3 % (36.0-46.0); HGB 7.6 g/dL (11.2-15.7); Immature Grans % 0.4 %; Lymphocytes % 26.8 %; MCH 21.2 pg (27.0-33.0); MCHC 31.3 % (32.0-36.0); MCV 68 fL (80-95); MPV 9.5 fL (8.0-11.0); Monocytes % 9.8 %; Neutrophils % 57.1 %; RBC 3.59 10^6/uL (3.93-5.22); RDW-SD 46.7 fL; WBC 2.54 10^3/uL (4.4-10.8)
[2024-09-01 20:42] LABS: Platelet Count 78 10^3/uL (130-400)
[2024-09-01 20:43] LABS: Anisocytosis 1+; Diff Comment RBC Morph Reviewed; Hypochromasia 1+; Microcytosis 2+
[2024-09-01 21:05] LABS: COVID-19 PCR Negative (Negative); Influenza A PCR Negative (Negative); Influenza B PCR Negative (Negative); RSV PCR Negative (Negative)
[2024-09-01 21:07] LABS: Source Nasopharynx
--- NOTE | 2024-09-01 22:16 | DI.VRAD_ITS ---
PROCEDURE INFORMATION: Exam: XR Chest Exam date and time: 09/01/2024 9:03 PM Age: 69 years old Clinical indication: Cough TECHNIQUE: Imaging protocol: Radiologic exam of the chest. Views: 2 views. COMPARISON: CR XR PORTABLE CHEST AP 06/11/2024 3:32 PM FINDINGS: Lungs: No consolidation. Mild vascular congestion centrally. Mild interstitial prominence. Pleural spaces: No pleural effusion. No pneumothorax. Heart/Mediastinum: Mild cardiomegaly. Bones/joints: Unremarkable. IMPRESSION: Consider congestive heart failure or fluid overload. Dictated and Authenticated by: Bernard Bills MD. Ordering:PELON Gimenez MD
== END 2024-09-01 23:27 | disposition home or self-care (01) ==
PROVIDERS: Emergency Provider Student in an Organized Health Care Education/Training Program; PCP Nurse Practitioner Gerontology
DX: R05.1 Acute cough (principal); R52 Pain, unspecified; D64.9 Anemia, unspecified; K74.60 Unspecified cirrhosis of liver; D61.818 Other pancytopenia; E11.9 Type 2 diabetes mellitus without complications
CPT/HCPCS: 36415; 86850; 86900; 86901; 87637; 93005; 99284; 71046; 85025; 86870; 86880; 86885; 86902; 86905; 93010

== ENCOUNTER 2024-09-03 18:37 | Outpatient (REF) | payer MEDICARE, MEDICAID, SELFPAY ==
[2024-09-03 17:45] LABS: HCT 21.2 % (36.0-46.0); MCH 20.8 pg (27.0-33.0); MCHC 30.2 % (32.0-36.0); MCV 69 fL (80-95); MPV 10.6 fL (8.0-11.0); Platelet Count 55 10^3/uL (130-400); RBC 3.08 10^6/uL (3.93-5.22); RDW 19.3 % (11.7-14.6); RDW-SD 48.1 fL; WBC 2.02 10^3/uL (4.4-10.8)
[2024-09-03 18:00] LABS: ALT 21 U/L (14-59); AST 19 U/L (15-37); Albumin 3.1 g/dL (3.4-5.0); Alkaline Phosphatase 95 U/L (46-116); Anion Gap 5.5 mmol/L (3-11); BUN 12 mg/dL (7-18); CO2 26.5 mmol/L (21.0-32.0); Calcium 8.6 mg/dL (8.5-10.1); Chloride 95 mmol/L (98-107); Estimated GFR 61.36 (mL/min/1.73m2); Glucose 226 mg/dL (74-106); NT-proBNP 276 pg/mL (<300); Sodium 127 mmol/L (136-145); Total Protein 5.2 g/dL (6.4-8.2)
[2024-09-03 18:28] LABS: Absolute Lymphocyte Count 0.61 10^3/uL (1.2-3.4); Absolute Neutrophil Count 0.97 10^3/uL (1.2-6.7)
[2024-09-03 18:29] LABS: HGB 6.4 g/dL (11.2-15.7)
[2024-09-03 18:30] LABS: Absolute Eosinophil Count 0.16 10^3/uL (0.0-0.7); Absolute Monocyte Count 0.28 10^3/uL (0.1-0.8)
[2024-09-03 18:31] LABS: Diff Comment Manual Differential; RBC Morphology Normal
== END 2024-09-03 18:38 | disposition home or self-care (01) ==
LOC: LBN 18:37
PROVIDERS: PCP Nurse Practitioner Gerontology; Visit Provider Nurse Practitioner Gerontology
DX: E87.1 Hypo-osmolality and hyponatremia (principal); E87.6 Hypokalemia
CPT/HCPCS: 80053; 83880; 85025

== ENCOUNTER 2024-09-03 19:52 | Emergency (ER) | payer MEDICARE, MEDICAID, SELFPAY ==
[2024-09-03] VITALS (42 sets, daily range): BP systolic 93–140; BP diastolic 33–60; PULSE 79–88; RESP 10–22; TEMP 36.4–37.1; O2SAT 95–99
--- NOTE | 2024-09-03 20:11 | W.ED.GENAD ---
Discharge Plan Disposition Patient Disposition: Home Condition: Stable Discharge Details Clinical Impression: Anemia, External hemorrhoids, Cirrhosis Primary Care Provider: Abbey Smith ED Provider: Cecilia Kaur Home Meds and New Rx's Prescriptions: No Action folic acid 1 mg tablet 1 mg PO DAILY furosemide 40 mg tablet 60 mg PO DAILY Rx Instructions: takes w/20mg tablet for a total dose of 60mg QD magnesium gluconate [Mag-G] 27 mg magnesium (500 mg) tablet 27 mg PO TID pantoprazole [Protonix] 40 mg tablet,delayed release (DR/EC) 40 mg PO DAILY levetiracetam 1,000 mg tablet 1,000 mg PO BID Incruse Ellipta 62.5 mcg/actuation blister with device 1 inh inhalation DAILY lactulose 10 gram/15 mL solution 30 g PO QID Xifaxan 550 mg tablet 550 mg PO BID insulin aspart U-100 100 unit/mL (3 mL) insulin pen 1 sliding scale dose subcut TID spironolactone 100 mg tablet 50 mg PO DAILY cholecalciferol (vitamin D3) 25 mcg (1,000 unit) capsule 25 mcg PO DAILY insulin degludec [Tresiba FlexTouch U-200] 200 unit/mL (3 mL) insulin pen 60 unit subcut BID gabapentin 300 mg capsule 1,200 mg PO QHS cholestyramine (with sugar) 4 gram powder in packet 1 packet PO BID potassium chloride [K-Tab] 20 mEq tablet extended release 20 meq PO DAILY nystatin [Nyamyc] 100,000 unit/gram powder 1 applic topical BID albuterol 90 mcg/actuation aerosol 180 mcg inhalation .Q4 PRN hydroxyzine HCl 10 mg tablet 25 mg PO BID PRN epinephrine 0.3 mg/0.3 mL auto-injector 0.3 ml subcut Q5-15M PRN Rx Instructions: do not exceed 2 doses per episode Ultra Fresh PM Ointment 1 applic ophthalmic (eye) BID cholecalciferol (vitamin D3) [D3 DOTS] 50 mcg (2,000 unit) tablet 50 mcg PO DAILY torsemide 20 mg tablet 40 mg PO DAILY quetiapine [Seroquel] 25 mg tablet 25 mg PO BID hydrocortisone acetate 25 mg suppository 25 mg [place] Q12H PRN Patient Comments: PRN FOR HEMORRHOIDS azelastine 137 mcg (0.1 %) spray,non-aerosol 2 spray intranasal Q12H PRN Patient Comments: PRN FOR ALLERGIES Rx Instructions: administer into each nostril Discharge Instructions Instructions: Blood transfusion Additional Instructions: You were seen in the emergency department today for evaluation of low hemoglobin. In our department, you had laboratory studies which confirmed that your counts are low. You received a transfusion of packed red blood cell. Your hemoglobin is likely low due to combination of your cirrhosis as well as your bleeding. It is safe for you to return home and continue all medications as prescribed, and follow-up with your outpatient providers for recheck of your labs. Return to the emergency department if you have any concerns. Thank you for allowing us to be part of your care. HPI General Mode of arrival: EMS. Date/Time Provider Initiated Documentation: 09/03/24 19:55. Limitations to Documentation: no limitations. Information obtained by: patient and old records reviewed. HPI Narrative: HPI: This is a 69-year-old female patient with a past medical history significant for cirrhosis, pancytopenia, hemorrhoids, presenting for evaluation of low H&H. The patient resides at a [facility] facility, was seen at our emergency department 2 days ago for similar complaints. At that time the patient had a hemoglobin of 7.6 and was asymptomatic, and did not not receive a transfusion. She reports that she has felt more tired since discharge, she is sleeping excessively. She has a history of bleeding external hemorrhoids that have been present for several months, notes blood on the toilet tissue. She is otherwise been without change in her health, with no recent medication changes, abdominal pain, chest pain, fevers, or illnesses. The patient reports that she has had no change in her hemorrhoidal bleeding, has not noted any significantly bloody stool, hematuria, or hematemesis. Exam: Gen: Awake and alert, in no apparent distress HEENT: Non-icteric sclera, mild conjunctival pallor appreciated Neck: Supple Lungs: No apparent respiratory distress, normal respiratory effort. CV: Appears well perfused, heart with regular rate and rhythm, strong distal pulses Abdomen: Distended but soft, nontender without rigidity, rebound, or guarding : Rectal examination supervised by RICHARD Brandon which shows extensive external hemorrhoidal disease without evidence of thrombosis, anteriorly located hemorrhoid is quite friable. There is no blood appreciated on the wall of after SUN, no palpable internal hemorrhoids. MSK: Moves 4 extremities without apparent limitation in ROM Skin: Visualized skin without rashes, cyanosis. Neuro: Normal Gait, no obvious focal deficits or facial asymmetry. Speaks in full, clear sentences. Psych: Appropriate for situation. MDM: This is a 69-year-old female patient presenting for evaluation of anemia. My differential includes but is not limited to baseline pancytopenia due to cirrhosis, GI losses due to hemorrhoidal bleeding. I have a lower concern for internal hemorrhoids, and with the lack of krystal hematochezia have a lower concern for lower GI bleed such as diverticular bleed, AVM. Considered coagulopathy in the setting of cirrhosis, no evidence for upper GI bleed or variceal bleed on history or physical. We will obtain laboratory studies to include CBC, CMP, magnesium, INR, and type and screen. ED Course: I reviewed the patient's laboratory studies, which showed a leukopenia of 2.3, anemia to 7.0, and thrombocytopenia to 61. The patient's chemistry panel reveals a baseline hyponatremia 186, with no evidence for liver dysfunction. Her magnesium is quite low at 1.3, which has been demonstrated on prior laboratory studies. Bilirubin modestly elevated to 1.2, and her type and screen reveals that she has antibodies. This delayed the administration of her 1 unit of packed red blood cells, which she believes is not indicated given her falling hemoglobin and her symptomatic fatigue. I have provided her with 2 g of magnesium for repletion. I signed out care of this patient to the oncoming provider prior to completion of her transfusion. I anticipate that she will be discharged back to the [facility] after this is complete. Remained hemodynamically appropriate while under my care. Cecilia Kaur MD Related Data Home Medications ?Medication ?Instructions ?Recorded ?Confirmed albuterol 90 mcg/actuation aerosol 180 mcg inhalation .Q4 PRN 06/11/24 09/03/24 inhaler cholecalciferol (vitamin D3) 25 25 mcg PO DAILY 06/11/24 09/03/24 mcg (1,000 unit) capsule cholestyramine (with sugar) 4 gram 1 packet PO BID 06/11/24 09/03/24 powder for susp in a packet epinephrine 0.3 mg/0.3 mL 0.3 ml subcut Q5-15M PRN 06/11/24 09/03/24 injection, auto-injector folic acid 1 mg tablet 1 mg PO DAILY 06/11/24 09/03/24 furosemide 40 mg tablet 60 mg PO DAILY 06/11/24 09/03/24 gabapentin 300 mg capsule 1,200 mg PO QHS 06/11/24 09/03/24 hydroxyzine HCl 10 mg tablet 25 mg PO BID PRN 06/11/24 09/03/24 insulin aspart U-100 100 unit/mL 1 sliding scale dose subcut TID 06/11/24 09/03/24 (3 mL) subcutaneous pen insulin degludec 200 unit/mL (3 60 unit subcut BID 06/11/24 09/03/24 mL) subcutaneous pen (Tresiba FlexTouch U-200 insulin) lactulose 10 gram/15 mL oral 30 g PO QID 06/11/24 09/03/24 solution levetiracetam 1,000 mg tablet 1,000 mg PO BID 06/11/24 09/03/24 magnesium gluconate 27 mg 27 mg PO TID 06/11/24 09/03/24 magnesium (500 mg) tablet (Mag-G) nystatin 100,000 unit/gram topical 1 applic topical BID 06/11/24 09/03/24 powder (Nyamyc) pantoprazole 40 mg tablet,delayed 40 mg PO DAILY 06/11/24 09/03/24 release (Protonix) potassium chloride 20 mEq 20 meq PO DAILY 06/11/24 09/03/24 tablet,extended release (K-Tab) rifaximin 550 mg tablet (Xifaxan) 550 mg PO BID 06/11/24 09/03/24 spironolactone 100 mg tablet 50 mg PO DAILY 06/11/24 09/03/24 umeclidinium 62.5 mcg/actuation 1 inh inhalation DAILY 06/11/24 09/03/24 blister powder for inhalation (Incruse Ellipta) artificial tears with lanolin eye 1 applic ophthalmic (eye) BID 09/01/24 09/03/24 ointment (Ultra Fresh PM eye ointment) azelastine 137 mcg (0.1 %) nasal 2 spray intranasal Q12H PRN 09/01/24 09/03/24 spray cholecalciferol (vitamin D3) 50 50 mcg PO DAILY 09/01/24 09/03/24 mcg (2,000 unit) tablet (D3 DOTS) hydrocortisone acetate 25 mg 25 mg NE Q12H PRN 09/01/24 09/03/24 rectal suppository quetiapine 25 mg tablet (Seroquel) 25 mg PO BID 09/01/24 09/03/24 torsemide 20 mg tablet 40 mg PO DAILY 09/01/24 09/03/24 Allergies Allergy/AdvReac Type Severity Reaction Status Date / Time acetaminophen Allergy Unknown Other (See Verified 09/03/24 19:59 Comment) cyclosporine Allergy Unknown Other (See Verified 09/03/24 19:59 Comment) fluticasone (From Advair Allergy Unknown Other (See Verified 09/03/24 19:59 Diskus) Comment) ibuprofen Allergy Unknown Other (See Verified 09/03/24 19:59 Comment) pregabalin (From Lyrica) Allergy Unknown Other (See Verified 09/03/24 19:59 Comment) salmeterol Allergy Unknown Other (See Verified 09/03/24 19:59 Comment) strawberry Allergy Unknown Other (See Verified 09/03/24 19:59 Comment) General Stated Complaint: GenMedical MARCELLO: 3 Course Vital Signs Vital signs: Vital Signs Temperature 37.1 C 09/03/24 20:00 Pulse 83 09/03/24 20:00 Respiratory Rate 18 09/03/24 20:00 Blood Pressure 135/57 L 09/03/24 20:00 Pulse Oximetry 98 09/03/24 20:00 Temperature 37.1 C 09/03/24 20:00 Temperature Source Temporal Artery Scan 09/03/24 20:00 Pulse 83 09/03/24 20:00 Respiratory Rate 18 09/03/24 20:00 Blood Pressure 135/57 L 09/03/24 20:00 Blood Pressure Position Sitting 09/03/24 20:00 Pulse Oximetry 98 09/03/24 20:00 Oxygen Delivery Method Room Air 09/03/24 20:00 Oxygen Flow Rate 0 09/03/24 20:00 Pain Level 0 09/03/24 20:00 Medical Decision Making Quality:SDOH Health Related Social Needs: No Data to Display PFSH All Active Problems (Updated 09/03/24 @ 23:05 by Cecilia Kaur MD) Cirrhosis (Acute) External hemorrhoids (Acute) Anemia (Chronic) Social History Smoking/Tobacco Use Status: Never Smoking risk assessment performed?: Yes Alcohol Intake: never Drug use: Never Substance use type: does not use Housing: [facility] Do you feel safe at home: Yes Do you feel safe in your relationship?: Yes Additional Social history: [facility]
[2024-09-03 20:18] LABS: Abs Immature Grans 0.01 10^3/uL (0.0-0.06); Absolute Basophil Count 0.01 10^3/uL (0.0-0.2); Absolute Eosinophil Count 0.14 10^3/uL (0.0-0.7); Absolute Lymphocyte Count 0.59 10^3/uL (1.2-3.4); Absolute Monocyte Count 0.26 10^3/uL (0.1-0.8); Absolute Neutrophil Count 1.35 10^3/uL (1.2-6.7); Basophils % 0.4 %; Eosinophils % 5.9 %; HCT 23.2 % (36.0-46.0); Immature Grans % 0.4 %; MCH 20.9 pg (27.0-33.0); MCHC 30.2 % (32.0-36.0); MCV 69 fL (80-95); MPV 9.5 fL (8.0-11.0); Neutrophils % 57.3 %; RBC 3.35 10^6/uL (3.93-5.22); RDW 19.5 % (11.7-14.6); RDW-SD 48.4 fL; WBC 2.36 10^3/uL (4.4-10.8)
[2024-09-03 20:22] LABS: INR 1.1 (0.9-1.1); Prothrombin Time 11.1 sec (9.1-11.1)
[2024-09-03 20:26] LABS: ALT 22 U/L (14-59); AST 20 U/L (15-37); Albumin 3.1 g/dL (3.4-5.0); Alkaline Phosphatase 97 U/L (46-116); Anion Gap 5.9 mmol/L (3-11); BUN 11 mg/dL (7-18); Bilirubin, Total 1.27 mg/dL (0.2-1.0); CO2 25.1 mmol/L (21.0-32.0); CREATININE 1.1 mg/dL (0.55-1.02); Calcium 8.4 mg/dL (8.5-10.1); Chloride 95 mmol/L (98-107); Estimated GFR 54.73 (mL/min/1.73m2); Glucose 230 mg/dL (74-106); Magnesium 1.3 mg/dL (1.8-2.4); Sodium 126 mmol/L (136-145)
[2024-09-03 20:34] LABS: Diff Comment RBC Morph Reviewed; Hypochromasia 1+; Microcytosis 2+; Platelet Count 61 10^3/uL (130-400)
[2024-09-03] MEDS: MAGNESIUM SULFATE 2 GM/50 ML BAG IV_INF (20:41)
[2024-09-04] VITALS (26 sets, daily range): BP systolic 122; BP diastolic 59; PULSE 82; RESP 14–29; O2SAT 97–98
[2024-09-04 01:08] LABS: HCT 24.7 % (36.0-46.0)
[2024-09-04 01:09] LABS: HGB 7.6 g/dL (11.2-15.7)
== END 2024-09-04 01:32 | disposition home or self-care (01) ==
PROVIDERS: Emergency Medicine; Emergency Provider Student in an Organized Health Care Education/Training Program; PCP Nurse Practitioner Gerontology
DX: D64.9 Anemia, unspecified (principal); K74.60 Unspecified cirrhosis of liver; K64.4 Residual hemorrhoidal skin tags; D61.818 Other pancytopenia
CPT/HCPCS: 36430; 80053; 86850; 86900; 86901; 86920; 96365; 99285; 83735; 85014; 85018; 85025; 85610; 86870; 86902; 99284; J3475; P9016

== ENCOUNTER 2024-09-08 19:23 | Outpatient (REF) | payer MEDICARE, MEDICAID, SELFPAY ==
[2024-09-08 18:42] LABS: HCT 29.4 % (36.0-46.0); HGB 9.2 g/dL (11.2-15.7); MCH 22.3 pg (27.0-33.0); MCHC 31.3 % (32.0-36.0); RBC 4.12 10^6/uL (3.93-5.22); RDW-SD 53.7 fL
[2024-09-08 18:56] LABS: Anion Gap 7.4 mmol/L (3-11); BUN 16 mg/dL (7-18); CO2 28.6 mmol/L (21.0-32.0); CREATININE 1.3 mg/dL (0.55-1.02); Calcium 9.6 mg/dL (8.5-10.1); Chloride 95 mmol/L (98-107); Estimated GFR 44.79 (mL/min/1.73m2); Glucose 191 mg/dL (74-106); Potassium 4.5 mmol/L (3.5-5.1); Sodium 131 mmol/L (136-145)
[2024-09-08 19:16] LABS: MCV 71 fL (80-95); Platelet Count 90 10^3/uL (130-400)
[2024-09-08 19:17] LABS: RDW 21.8 % (11.7-14.6)
== END 2024-09-08 19:24 | disposition home or self-care (01) ==
LOC: LBN 19:23
PROVIDERS: PCP Nurse Practitioner Gerontology; Visit Provider Nurse Practitioner Gerontology
DX: E87.1 Hypo-osmolality and hyponatremia (principal)
CPT/HCPCS: 80048; 85027

== ENCOUNTER 2024-09-11 21:18 | Outpatient (REF) | payer MEDICARE, MEDICAID, SELFPAY ==
[2024-09-11 18:32] LABS: Abs Immature Grans 0.02 10^3/uL (0.0-0.06); Absolute Basophil Count 0.01 10^3/uL (0.0-0.2); Absolute Eosinophil Count 0.01 10^3/uL (0.0-0.7); Absolute Lymphocyte Count 0.24 10^3/uL (1.2-3.4); Absolute Monocyte Count 0.13 10^3/uL (0.1-0.8); Absolute Neutrophil Count 3.35 10^3/uL (1.2-6.7); Basophils % 0.3 %; Eosinophils % 0.3 %; HGB 8.7 g/dL (11.2-15.7); Immature Grans % 0.5 %; Lymphocytes % 6.4 %; MCHC 31.1 % (32.0-36.0); MCV 74 fL (80-95); Monocytes % 3.5 %; RBC 3.78 10^6/uL (3.93-5.22); RDW-SD 60.9 fL; WBC 3.76 10^3/uL (4.4-10.8)
[2024-09-11 18:33] LABS: Bilirubin Negative (Negative); Blood Negative (Negative); Clarity Sl Cloudy (Clear); Glucose 100 mg/dL (Negative); Ketones Negative (Negative); Leukocyte Esterase Small (Negative); Nitrite Negative (Negative); Specific Gravity 1.015 (1.005-1.025); Urobilinogen 0.2 mg/dL (Up to 0.2)
[2024-09-11 18:35] LABS: Bacteria Rare HPF (Negative); C & S Indicated? C&S Done As Ordered; Casts Negative LPF (Negative); Crystals Negative HPF (Negative); Epithelial Cells Negative HPF (Negative); Mucus Negative (Negative); RBC 0-2 HPF (0-2)
[2024-09-11 18:41] LABS: Platelet Count 50 10^3/uL (130-400)
[2024-09-11 18:42] LABS: Anisocytosis 1+; Hypochromasia 1+; Microcytosis 1+
[2024-09-11 18:43] LABS: Poikilocytes 2+
[2024-09-11 18:44] LABS: ALT 25 U/L (14-59); AST 22 U/L (15-37); Albumin 3.5 g/dL (3.4-5.0); Alkaline Phosphatase 99 U/L (46-116); Anion Gap 7.8 mmol/L (3-11); BUN 24 mg/dL (7-18); Bilirubin, Total 1.92 mg/dL (0.2-1.0); CO2 28.2 mmol/L (21.0-32.0); CREATININE 1.4 mg/dL (0.55-1.02); Chloride 86 mmol/L (98-107); Estimated GFR 40.98 (mL/min/1.73m2); Glucose 295 mg/dL (74-106); NT-proBNP 195 pg/mL (<300); Potassium 4.4 mmol/L (3.5-5.1); Total Protein 5.9 g/dL (6.4-8.2)
[2024-09-11 18:53] LABS: Sodium 122 mmol/L (136-145)
== END 2024-09-11 21:19 | disposition home or self-care (01) ==
LOC: LBN 21:18
PROVIDERS: PCP Nurse Practitioner Gerontology; Visit Provider Nurse Practitioner Gerontology
DX: N39.0 Urinary tract infection, site not specified (principal); R50.9 Fever, unspecified; E86.0 Dehydration
CPT/HCPCS: 80053; 81003; 81015; 83880; 85025; 87086

== ENCOUNTER 2024-09-15 18:08 | Outpatient (REF) | payer MEDICARE, MEDICAID, SELFPAY ==
[2024-09-15 18:47] LABS: Abs Immature Grans 0.04 10^3/uL (0.0-0.06); Absolute Basophil Count 0.05 10^3/uL (0.0-0.2); Absolute Eosinophil Count 0.11 10^3/uL (0.0-0.7); Absolute Monocyte Count 0.55 10^3/uL (0.1-0.8); Absolute Neutrophil Count 4.38 10^3/uL (1.2-6.7); Basophils % 0.7 %; Eosinophils % 1.5 %; HCT 32.9 % (36.0-46.0); HGB 10.5 g/dL (11.2-15.7); Immature Grans % 0.5 %; MCHC 31.9 % (32.0-36.0); MCV 75 fL (80-95); Monocytes % 7.5 %; Neutrophils % 59.8 %; Platelet Count 124 10^3/uL (130-400); RBC 4.38 10^6/uL (3.93-5.22); RDW 26.3 % (11.7-14.6); RDW-SD 68.8 fL; WBC 7.33 10^3/uL (4.4-10.8)
[2024-09-15 18:54] LABS: Anisocytosis 1+
[2024-09-15 19:04] LABS: Anion Gap 9.4 mmol/L (3-11); BUN 16 mg/dL (7-18); CO2 27.6 mmol/L (21.0-32.0); CREATININE 1.3 mg/dL (0.55-1.02); Calcium 9.5 mg/dL (8.5-10.1); Chloride 94 mmol/L (98-107); Estimated GFR 44.79 (mL/min/1.73m2); Glucose 154 mg/dL (74-106); Potassium 4.4 mmol/L (3.5-5.1); Sodium 131 mmol/L (136-145)
== END 2024-09-15 18:09 | disposition home or self-care (01) ==
LOC: LBN 18:08
PROVIDERS: PCP Nurse Practitioner Gerontology; Visit Provider Nurse Practitioner Gerontology
DX: N39.0 Urinary tract infection, site not specified (principal); R50.9 Fever, unspecified; E86.0 Dehydration
CPT/HCPCS: 80048; 85025

== ENCOUNTER 2024-09-22 17:46 | Outpatient (REF) | payer MEDICARE, MEDICAID, SELFPAY ==
[2024-09-22 19:12] LABS: Abs Immature Grans 0.01 10^3/uL (0.0-0.06); Absolute Basophil Count 0.03 10^3/uL (0.0-0.2); Absolute Eosinophil Count 0.11 10^3/uL (0.0-0.7); Absolute Lymphocyte Count 0.68 10^3/uL (1.2-3.4); Absolute Monocyte Count 0.37 10^3/uL (0.1-0.8); Basophils % 0.7 %; Eosinophils % 2.7 %; HCT 33.1 % (36.0-46.0); HGB 10.7 g/dL (11.2-15.7); Immature Grans % 0.2 %; Lymphocytes % 16.6 %; MCH 25.5 pg (27.0-33.0); MCHC 32.3 % (32.0-36.0); MCV 79 fL (80-95); MPV 9.9 fL (8.0-11.0); Neutrophils % 70.8 %; RDW 27.9 % (11.7-14.6); RDW-SD 76.1 fL; WBC 4.09 10^3/uL (4.4-10.8)
[2024-09-22 19:23] LABS: Anion Gap 8.9 mmol/L (3-11); BUN 17 mg/dL (7-18); CO2 28.1 mmol/L (21.0-32.0); CREATININE 1.1 mg/dL (0.55-1.02); Calcium 9.2 mg/dL (8.5-10.1); Chloride 93 mmol/L (98-107); Estimated GFR 54.73 (mL/min/1.73m2); Glucose 302 mg/dL (74-106); Potassium 4.4 mmol/L (3.5-5.1); Sodium 130 mmol/L (136-145)
[2024-09-22 19:48] LABS: Platelet Count 71 10^3/uL (130-400)
[2024-09-22 19:49] LABS: Anisocytosis 2+; Diff Comment RBC Morph Reviewed; Poikilocytes 1+
== END 2024-09-22 17:47 | disposition home or self-care (01) ==
LOC: LBN 17:46
PROVIDERS: PCP Nurse Practitioner Gerontology; Visit Provider Nurse Practitioner Gerontology
DX: E11.69 Type 2 diabetes mellitus with other specified complication (principal)
CPT/HCPCS: 80048; 85025

== ENCOUNTER 2024-09-29 17:59 | Outpatient (REF) | payer MEDICARE, MEDICAID, SELFPAY ==
[2024-09-29 18:16] LABS: Absolute Basophil Count 0.02 10^3/uL (0.0-0.2); Absolute Eosinophil Count 0.14 10^3/uL (0.0-0.7); Absolute Lymphocyte Count 0.94 10^3/uL (1.2-3.4); Absolute Monocyte Count 0.28 10^3/uL (0.1-0.8); Absolute Neutrophil Count 1.93 10^3/uL (1.2-6.7); Basophils % 0.6 %; Eosinophils % 4.2 %; HCT 32.5 % (36.0-46.0); Lymphocytes % 28.4 %; MCH 26.8 pg (27.0-33.0); MCHC 33.8 % (32.0-36.0); MCV 79 fL (80-95); MPV 10.2 fL (8.0-11.0); Monocytes % 8.5 %; Neutrophils % 58.3 %; RBC 4.11 10^6/uL (3.93-5.22); RDW 27.2 % (11.7-14.6); RDW-SD 75.1 fL; WBC 3.31 10^3/uL (4.4-10.8)
[2024-09-29 18:27] LABS: Anion Gap 8.2 mmol/L (3-11); BUN 18 mg/dL (7-18); CO2 28.8 mmol/L (21.0-32.0); CREATININE 1.2 mg/dL (0.55-1.02); Calcium 9.5 mg/dL (8.5-10.1); Chloride 91 mmol/L (98-107); Estimated GFR 49.31 (mL/min/1.73m2); Glucose 353 mg/dL (74-106); Magnesium 1.6 mg/dL (1.8-2.4); Potassium 4.7 mmol/L (3.5-5.1); Sodium 128 mmol/L (136-145)
[2024-09-29 19:29] LABS: Anisocytosis 2+; Diff Comment RBC Morph Reviewed; Platelet Count 75 10^3/uL (130-400)
[2024-09-29 19:30] LABS: Poikilocytes 1+
== END 2024-09-29 18:00 | disposition home or self-care (01) ==
LOC: LBN 17:59
PROVIDERS: PCP Nurse Practitioner Gerontology; Visit Provider Nurse Practitioner Gerontology
DX: E83.42 Hypomagnesemia (principal); E87.6 Hypokalemia; E87.1 Hypo-osmolality and hyponatremia; E11.69 Type 2 diabetes mellitus with other specified complication
CPT/HCPCS: 80048; 83735; 85025

== ENCOUNTER 2024-10-06 19:28 | Outpatient (REF) | payer MEDICARE, MEDICAID, SELFPAY ==
[2024-10-06 19:37] LABS: Ferritin 273 ng/mL (8-252)
[2024-10-06 20:20] LABS: NT-proBNP 133 pg/mL (<300)
[2024-10-07 11:08] LABS: Anion Gap 10.2 mmol/L (3-11); BUN 17 mg/dL (7-18); CO2 26.8 mmol/L (21.0-32.0); CREATININE 1.2 mg/dL (0.55-1.02); Calcium 9.1 mg/dL (8.5-10.1); Chloride 92 mmol/L (98-107); Estimated GFR 49.31 (mL/min/1.73m2); Glucose 297 mg/dL (74-106); Potassium 4.2 mmol/L (3.5-5.1); Sodium 129 mmol/L (136-145)
== END 2024-10-06 19:29 | disposition home or self-care (01) ==
LOC: LBN 19:28
PROVIDERS: PCP Nurse Practitioner Gerontology; Visit Provider Nurse Practitioner Gerontology
DX: D64.9 Anemia, unspecified (principal); D50.9 Iron deficiency anemia, unspecified
CPT/HCPCS: 80048; 82728; 83880; 85025

== ENCOUNTER 2024-10-13 19:33 | Outpatient (REF) | payer MEDICARE, MEDICAID, SELFPAY ==
[2024-10-13 20:07] LABS: Anion Gap 7.5 mmol/L (3-11); BUN 16 mg/dL (7-18); CO2 28.5 mmol/L (21.0-32.0); CREATININE 1.1 mg/dL (0.55-1.02); Chloride 92 mmol/L (98-107); Estimated GFR 54.73 (mL/min/1.73m2); Glucose 209 mg/dL (74-106); Magnesium 1.4 mg/dL (1.8-2.4); Potassium 4.2 mmol/L (3.5-5.1); Sodium 128 mmol/L (136-145)
[2024-10-13 20:32] LABS: Abs Immature Grans 0.02 10^3/uL (0.0-0.06); Absolute Basophil Count 0.03 10^3/uL (0.0-0.2); Absolute Eosinophil Count 0.13 10^3/uL (0.0-0.7); Absolute Lymphocyte Count 0.94 10^3/uL (1.2-3.4); Absolute Monocyte Count 0.29 10^3/uL (0.1-0.8); Absolute Neutrophil Count 2.01 10^3/uL (1.2-6.7); Basophils % 0.9 %; Eosinophils % 3.8 %; HGB 10.9 g/dL (11.2-15.7); Immature Grans % 0.6 %; Lymphocytes % 27.5 %; MCH 28.2 pg (27.0-33.0); MCHC 35.2 % (32.0-36.0); MCV 80 fL (80-95); MPV 9.7 fL (8.0-11.0); Monocytes % 8.5 %; Neutrophils % 58.7 %; RBC 3.86 10^6/uL (3.93-5.22); RDW 26.3 % (11.7-14.6); RDW-SD 71.8 fL; WBC 3.42 10^3/uL (4.4-10.8)
[2024-10-13 21:01] LABS: Anisocytosis 1+; Diff Comment RBC Morph Reviewed; Platelet Count 70 10^3/uL (130-400); Polychromasia Present
[2024-10-13 21:02] LABS: Poikilocytes 1+
== END 2024-10-13 19:34 | disposition home or self-care (01) ==
LOC: LBN 19:33
PROVIDERS: PCP Nurse Practitioner Gerontology; Visit Provider Nurse Practitioner Gerontology
DX: E83.42 Hypomagnesemia (principal); E87.1 Hypo-osmolality and hyponatremia; D50.9 Iron deficiency anemia, unspecified
CPT/HCPCS: 80048; 83735; 85025

== ENCOUNTER 2024-10-20 18:28 | Outpatient (REF) | payer MEDICARE, MEDICAID, SELFPAY ==
[2024-10-20 19:18] LABS: Abs Immature Grans 0.01 10^3/uL (0.0-0.06); Absolute Basophil Count 0.03 10^3/uL (0.0-0.2); Absolute Eosinophil Count 0.25 10^3/uL (0.0-0.7); Absolute Monocyte Count 0.37 10^3/uL (0.1-0.8); Basophils % 0.8 %; Eosinophils % 6.3 %; HCT 34.9 % (36.0-46.0); HGB 12.4 g/dL (11.2-15.7); Immature Grans % 0.3 %; MCHC 35.5 % (32.0-36.0); MCV 82 fL (80-95); MPV 9.8 fL (8.0-11.0); Monocytes % 9.3 %; Neutrophils % 53.3 %; RBC 4.28 10^6/uL (3.93-5.22); RDW 24.9 % (11.7-14.6); RDW-SD 70.3 fL
[2024-10-20 19:32] LABS: Anion Gap 10.1 mmol/L (3-11); BUN 14 mg/dL (7-18); CO2 26.9 mmol/L (21.0-32.0); CREATININE 1.1 mg/dL (0.55-1.02); Calcium 9.6 mg/dL (8.5-10.1); Chloride 91 mmol/L (98-107); Estimated GFR 54.73 (mL/min/1.73m2); Glucose 243 mg/dL (74-106); Potassium 4.4 mmol/L (3.5-5.1); Sodium 128 mmol/L (136-145)
[2024-10-20 19:39] LABS: Absolute Neutrophil Count 2.13 10^3/uL (1.2-6.7); Platelet Count 93 10^3/uL (130-400)
[2024-10-20 19:40] LABS: Anisocytosis 2+; Diff Comment RBC Morph Reviewed; Poikilocytes 1+
== END 2024-10-20 18:29 | disposition home or self-care (01) ==
LOC: LBN 18:28
PROVIDERS: PCP Nurse Practitioner Gerontology; Visit Provider Nurse Practitioner Gerontology
DX: E87.1 Hypo-osmolality and hyponatremia (principal); G89.4 Chronic pain syndrome
CPT/HCPCS: 80048; 85025

== ENCOUNTER 2024-10-30 22:36 | Outpatient (REF) | payer MEDICARE, MEDICAID, SELFPAY ==
[2024-10-30 21:43] LABS: Bilirubin Negative (Negative); Blood Negative (Negative); Clarity Clear (Clear); Glucose Negative (Negative); Ketones Negative (Negative); Leukocyte Esterase Negative (Negative); Nitrite Negative (Negative); Specific Gravity 1.015 (1.005-1.025); Urobilinogen 0.2 mg/dL (Up to 0.2)
== END 2024-10-30 22:37 | disposition home or self-care (01) ==
LOC: LBN 22:36
PROVIDERS: PCP Nurse Practitioner Gerontology; Visit Provider Nurse Practitioner Gerontology
DX: N39.0 Urinary tract infection, site not specified (principal)
CPT/HCPCS: 81003; 87086

== ENCOUNTER 2024-11-10 19:57 | Outpatient (REF) | payer MEDICARE, MEDICAID, SELFPAY ==
[2024-11-10 19:46] LABS: Abs Immature Grans 0.01 10^3/uL (0.0-0.06); Absolute Basophil Count 0.02 10^3/uL (0.0-0.2); Absolute Eosinophil Count 0.16 10^3/uL (0.0-0.7); Absolute Lymphocyte Count 0.88 10^3/uL (1.2-3.4); Absolute Monocyte Count 0.33 10^3/uL (0.1-0.8); Absolute Neutrophil Count 1.93 10^3/uL (1.2-6.7); Basophils % 0.6 %; Eosinophils % 4.8 %; HCT 31.6 % (36.0-46.0); HGB 11.4 g/dL (11.2-15.7); Immature Grans % 0.3 %; Lymphocytes % 26.4 %; MCH 31.4 pg (27.0-33.0); MCHC 36.1 % (32.0-36.0); MCV 87 fL (80-95); MPV 10.7 fL (8.0-11.0); Monocytes % 9.9 %; RBC 3.63 10^6/uL (3.93-5.22); RDW 20.1 % (11.7-14.6); RDW-SD 65.6 fL; WBC 3.33 10^3/uL (4.4-10.8)
[2024-11-10 19:54] LABS: Anion Gap 10.3 mmol/L (3-11); BUN 17 mg/dL (7-18); CO2 26.7 mmol/L (21.0-32.0); CREATININE 1.3 mg/dL (0.55-1.02); Calcium 9.5 mg/dL (8.5-10.1); Chloride 93 mmol/L (98-107); Estimated GFR 44.79 (mL/min/1.73m2); Glucose 411 mg/dL (74-106); Magnesium 1.4 mg/dL (1.8-2.4); Potassium 4.6 mmol/L (3.5-5.1); Sodium 130 mmol/L (136-145)
[2024-11-10 20:07] LABS: Anisocytosis 2+; Platelet Count 84 10^3/uL (130-400)
== END 2024-11-10 19:58 | disposition home or self-care (01) ==
LOC: LBN 19:57
PROVIDERS: PCP Nurse Practitioner Gerontology; Visit Provider Nurse Practitioner Gerontology
DX: E83.42 Hypomagnesemia (principal); E87.1 Hypo-osmolality and hyponatremia; E11.69 Type 2 diabetes mellitus with other specified complication
CPT/HCPCS: 80048; 83735; 85025

== ENCOUNTER 2024-11-13 11:48 | Emergency (ER) | payer MEDICARE, MEDICAID, SELFPAY ==
[2024-11-13 11:49] VITALS: BP 136/71; PULSE 82; RESP 18; TEMP 36.4; O2SAT 96
[2024-11-13 11:52] VITALS: BP 136/71; PULSE 82; RESP 18; TEMP 36.4; O2SAT 96
--- NOTE | 2024-11-13 12:35 | W.ED.GENAD ---
Discharge Plan Disposition Patient Disposition: Home Condition: Good Discharge Details Clinical Impression: Edema of both lower legs, URI (upper respiratory infection) Primary Care Provider: Abbey Smith ED Provider: Jenny Bustillos Home Meds and New Rx's Prescriptions: Continued folic acid 1 mg tablet 1 mg PO DAILY magnesium gluconate [Mag-G] 27 mg magnesium (500 mg) tablet 27 mg PO TID pantoprazole [Protonix] 40 mg tablet,delayed release (DR/EC) 40 mg PO DAILY levetiracetam 1,000 mg tablet 1,000 mg PO BID Incruse Ellipta 62.5 mcg/actuation blister with device 1 inh inhalation DAILY lactulose 10 gram/15 mL solution 30 g PO QID Xifaxan 550 mg tablet 550 mg PO BID insulin aspart U-100 100 unit/mL (3 mL) insulin pen 1 sliding scale dose subcut TID spironolactone 100 mg tablet 50 mg PO DAILY insulin degludec [Tresiba FlexTouch U-200] 200 unit/mL (3 mL) insulin pen 60 unit subcut BID gabapentin 300 mg capsule 1,200 mg PO QHS nystatin [Nyamyc] 100,000 unit/gram powder 1 applic topical BID albuterol 90 mcg/actuation aerosol 180 mcg inhalation .Q4 PRN hydroxyzine HCl 10 mg tablet 25 mg PO BID PRN epinephrine 0.3 mg/0.3 mL auto-injector 0.3 ml subcut Q5-15M PRN Rx Instructions: do not exceed 2 doses per episode cholecalciferol (vitamin D3) [D3 DOTS] 50 mcg (2,000 unit) tablet 50 mcg PO DAILY torsemide 20 mg tablet 60 mg PO DAILY quetiapine [Seroquel] 25 mg tablet 25 mg PO BID hydrocortisone acetate 25 mg suppository 25 mg GA Q12H PRN Patient Comments: PRN FOR HEMORRHOIDS azelastine 137 mcg (0.1 %) spray,non-aerosol 2 spray intranasal Q12H PRN Patient Comments: PRN FOR ALLERGIES Rx Instructions: administer into each nostril gabapentin 300 mg capsule 600 mg PO QAM Discharge Instructions Instructions: Swelling, Upper Respiratory Infection ED Additional Instructions: As we discussed, your exam and labs are reassuring. You do have significant swelling in your lower legs and I encourage that you elevate these as much as possible and continue with the compression. Please continue with your diuretics. Your chest x-ray did not show pneumonia or excess fluid. Your body aches, runny nose, cough and sinus pain are likely associated with viral infection. You were negative for flu and covid today. Please continue with your home medciations. Rest. Fluids as recommended by your primary care. If you develop any new/worsening symptoms, please seek care urgently once again. Otherwise, please follow up with primary care in 1-2 weeks. Referrals: Abbey Smith NP [Primary Care Provider] - [facility] General Date/Time Provider Initiated Documentation: 11/13/24 12:14. Limitations to Documentation: no limitations. Information obtained by: patient, RN notes reviewed and old records reviewed. History of Present Illness 69 year old F presents to the emergency department with the chief complaint of BLE edema, body aches, cough, runny nose, described as moderate and similar to prior episodes, Quality is described as aching (general body aches), Patient started experiencing this day(s) (2) and it has been constant. No relieving factors improve symptom(s), No exacerbating factors reported . Patient notes cough, malaise and weakness (generalized fatigue); denies chest pain, diaphoresis, fever/chills, nausea/vomiting, rash and shortness of breath. Patient did receive the following treatments prior to arrival, none Related Data Home Medications ?Medication ?Instructions ?Recorded ?Confirmed albuterol 90 mcg/actuation aerosol 180 mcg inhalation .Q4 PRN 06/11/24 11/13/24 inhaler epinephrine 0.3 mg/0.3 mL 0.3 ml subcut Q5-15M PRN 06/11/24 11/13/24 injection, auto-injector folic acid 1 mg tablet 1 mg PO DAILY 06/11/24 11/13/24 gabapentin 300 mg capsule 1,200 mg PO QHS 06/11/24 11/13/24 hydroxyzine HCl 10 mg tablet 25 mg PO BID PRN 06/11/24 11/13/24 insulin aspart U-100 100 unit/mL 1 sliding scale dose subcut TID 06/11/24 11/13/24 (3 mL) subcutaneous pen insulin degludec 200 unit/mL (3 60 unit subcut BID 06/11/24 11/13/24 mL) subcutaneous pen (Tresiba FlexTouch U-200 insulin) lactulose 10 gram/15 mL oral 30 g PO QID 06/11/24 11/13/24 solution levetiracetam 1,000 mg tablet 1,000 mg PO BID 06/11/24 11/13/24 magnesium gluconate 27 mg 27 mg PO TID 06/11/24 11/13/24 magnesium (500 mg) tablet (Mag-G) nystatin 100,000 unit/gram topical 1 applic topical BID 06/11/24 11/13/24 powder (Nyamyc) pantoprazole 40 mg tablet,delayed 40 mg PO DAILY 06/11/24 11/13/24 release (Protonix) rifaximin 550 mg tablet (Xifaxan) 550 mg PO BID 06/11/24 11/13/24 spironolactone 100 mg tablet 50 mg PO DAILY 06/11/24 11/13/24 umeclidinium 62.5 mcg/actuation 1 inh inhalation DAILY 06/11/24 11/13/24 blister powder for inhalation (Incruse Ellipta) azelastine 137 mcg (0.1 %) nasal 2 spray intranasal Q12H PRN 09/01/24 11/13/24 spray cholecalciferol (vitamin D3) 50 50 mcg PO DAILY 09/01/24 11/13/24 mcg (2,000 unit) tablet (D3 DOTS) hydrocortisone acetate 25 mg 25 mg GA Q12H PRN 09/01/24 11/13/24 rectal suppository quetiapine 25 mg tablet (Seroquel) 25 mg PO BID 09/01/24 11/13/24 torsemide 20 mg tablet 60 mg PO DAILY 09/01/24 11/13/24 gabapentin 300 mg capsule 600 mg PO QAM 11/13/24 11/13/24 Allergies Allergy/AdvReac Type Severity Reaction Status Date / Time amitriptyline Allergy Intermediate Unknown Verified 11/13/24 12:01 azithromycin Allergy Intermediate Unknown Verified 11/13/24 12:01 ciprofloxacin Allergy Intermediate Unknown Verified 11/13/24 12:01 codeine Allergy Intermediate Unknown Verified 11/13/24 12:01 cortisone Allergy Intermediate Unknown Verified 11/13/24 12:01 erythromycin base Allergy Intermediate Unknown Verified 11/13/24 12:01 guaifenesin (From Robitussin) Allergy Intermediate Unknown Verified 11/13/24 12:01 iron Allergy Intermediate Unknown Verified 11/13/24 12:01 metronidazole (From Flagyl) Allergy Intermediate Unknown Verified 11/13/24 12:01 morphine Allergy Intermediate Unknown Verified 11/13/24 12:01 oxycodone (From Percocet) Allergy Intermediate Unknown Verified 11/13/24 12:01 Penicillins Allergy Intermediate Unknown Verified 11/13/24 12:01 Sulfa (Sulfonamide Allergy Intermediate Unknown Verified 11/13/24 12:01 Antibiotics) acetaminophen Allergy Unknown Other (See Verified 11/13/24 12:01 Comment) cyclosporine Allergy Unknown Other (See Verified 11/13/24 12:01 Comment) fluticasone (From Advair Allergy Unknown Other (See Verified 11/13/24 12:01 Diskus) Comment) ibuprofen Allergy Unknown Other (See Verified 11/13/24 12:01 Comment) pregabalin (From Lyrica) Allergy Unknown Other (See Verified 11/13/24 12:01 Comment) salmeterol Allergy Unknown Other (See Verified 11/13/24 12:01 Comment) strawberry Allergy Unknown Other (See Verified 11/13/24 12:01 Comment) General Stated Complaint: GenMedical MARCELLO: 4 Review of Systems Constitutional Constitutional: Reports as per HPI and Denies headache(s) ENT Ears, Nose, Mouth, and Throat: Reports as per HPI and Denies headache(s) Cardiovascular Cardiovascular: Reports as per HPI, Denies chest pain and Denies dyspnea Respiratory Respiratory: Reports as per HPI and Denies dyspnea Gastrointestinal Gastrointestinal: Reports as per HPI, Denies abdominal pain, Denies change in bowel habits, Denies nausea and Denies vomiting Integumentary/Breasts Skin/Breast: Reports as per HPI and Denies rash Neurologic Neurologic: Reports as per HPI and Denies headache(s) Exam Const General: cooperative, healthy appearing, comfortable, no acute distress, well developed and well groomed Nutritional Appearance: average body habitus and well nourished Orientation: alert and awake [facility] Head: normal to inspection, normocephalic and atraumatic General nose exam: nares normal Face and sinus: normal facial exam and face symmetric Mouth: oral mucosae normal, lip normal, tongue normal, oropharynx normal and moist mucous membranes Throat: tonsils normal and uvula midline Eyes General: appearance normal, both eyes and all related structures Neck Neck: normal visual inspection Resp Effort & Inspection: normal respiratory effort, able to speak in complete sentences and no respiratory distress Auscultation: clear to auscultation bilaterally, no rales, no rhonchi and no wheezes Cardio Rate: regular rate Rhythm: regular rhythm Heart Sounds: S1 normal and S2 normal Skin General skin exam: no rashes or lesions noted Neuro General: patient alert and patient awake Cognition: normal cognition Speech: speech normal Gait: normal gait Extrem General: no calf tenderness, edema Laterality: bilateral (2+ pitting edema distal to the knee) and pedal edema Course Vital Signs Vital signs: Vital Signs Temperature 36.4 C L 11/13/24 11:49 Pulse 82 11/13/24 11:49 Respiratory Rate 18 11/13/24 11:49 Blood Pressure 136/71 11/13/24 11:49 Pulse Oximetry 96 11/13/24 11:49 Temperature 36.4 C L 11/13/24 11:52 Temperature Source Tympanic 11/13/24 11:52 Pulse 82 11/13/24 11:52 Respiratory Rate 18 11/13/24 11:52 Blood Pressure 136/71 11/13/24 11:52 Pulse Oximetry 96 11/13/24 11:52 Pain Level 6 11/13/24 11:52 Medical Decision Making Patient is a pleasant 69 year old female, brought in via ems, with c/c of increased BLE edema, general body aches. She noted increased swelling about four days ago. Has history of this, no chagne in her diuretics recently, no missed doses. Endorses sinus pressure, runny nose and cough as well. Cough started today. ENT symptoms and bodyaches began 2 days ago. States she has had some SOB with this as well, this seems to be increased from her baseline SOB. No fevers/chills. No cahnge in bowel or bladder habits. PMH signficant for cirrhosis and anemia. Had transfusion in August, none needed since then. Resides at assisted living facility. On exam, patient appears nontoxic. She is 2+ distal pulses. She does have 2+ pitting edema below the knee. While the patient does report some generalized bodyaches I do not appreciate any evidence to suggest anasarca, no swelling above the knee nothing into the abdomen. Her lungs are clear, no evidence to suggest pneumonia or fluid overload. Abdomen is benign. She does report some sinus tenderness but this seems to be nonfocal, bilateral and with the onset about 2 days ago, not suggestive of a bacterial cause. Patient does have significant lower extremity edema, she while this does have this at baseline, she reports that it is elevated compared to her normal. Will obtain BNP as well as chest x-ray. With general body aches, considered flu or COVID, will do testing on this. Will also obtain baseline labs given patient's medical history. Discussed plan with the patient is in agreement. Will begin her on IV diuretic. CXR reviewed by radiologist: GABINO: 2 views: Heart size is normal. The mediastinum is not widened. Lungs are clear. No infiltrates nor pleural effusions. Labs reviewed. Magnesium is low, will replenish orally. Platelets are low at 82 but this appears to be baseline for the patient. Stable H&H. Troponin within normal limits. BNP within normal limits. I discussed these findings with the patient. She is feeling improved. She is negative for flu and COVID. We did discuss that her body aches as well as her ENT symptoms are likely associated with viral illness despite having been negative for flu and COVID. I did encourage supportive care. She reports that she is allergic to everything thus if declines any analgesics for her body aches. I did encourage follow-up with primary care. I do encourage her elevating her legs and continuing with compression on her legs to help with the swelling. Given the BNP, I do not see need to change her current diuretic management. I discussed this plan with the patient who is in agreement with this plan. Return precautions were discussed. All of her questions and concerns were addressed and she is in agreement this plan. This documentation was generated using [employer] system, please disregard any oddities of phrase or misspellings. Quality:SDOH Health Related Social Needs: No Data to Display PFSH All Active Problems (Updated 11/13/24 @ 15:05 by EVANS Franco) URI (upper respiratory infection) (Acute) Edema of both lower legs (Acute) Nail dystrophy (Acute) Social History Smoking/Tobacco Use Status: Never Smoking risk assessment performed?: Yes Alcohol Intake: never Drug use: Never Substance use type: does not use Housing: half-way Do you feel safe at home: Yes Do you feel safe in your relationship?: Yes Additional Social history: lives at the [facility]
--- NOTE | 2024-11-13 12:45 | RT.EKG_ITS ---
APPROVED REPORT Exam: Resting ECG Reason for Exam: fluid overload Patient Location: E HR:87 bpm ECG Measurements Heart Rate 87 AXIS CA 236 P 31 QRSd 95 QRS 53 QT 421 T 53 QTc 506 Conclusion Sinus rhythm...normal P axis, V-rate 60- 99 Prolonged CA interval...CA >220, V-rate 50- 90 Prolonged QT interval...QTc >500mS No STEMI
--- NOTE | 2024-11-13 13:00 | DI.RAD_ITS ---
Exam(s) XR CHEST 2V PA LATERAL EXAM: XR CHEST 2V PA LATERAL CLINICAL HISTORY: cough, increased LE edema. TECHNIQUE: 2D digital imaging was performed. COMPARISON: CR,XR XR CHEST 2V PA LATERAL from 09/01/2024 FINDINGS: 2 views: Heart size is normal. The mediastinum is not widened. Lungs are clear. No infiltrates nor pleural effusions. IMPRESSION: No acute pulmonary findings. DATA REPOSITORY: RADIATION DOSE DELIVERED:
[2024-11-13] MEDS: Furosemide 40 MG/4 ML VIAL IVP (13:37)
[2024-11-13 13:41] LABS: Abs Immature Grans 0.01 10^3/uL (0.0-0.06); Absolute Basophil Count 0.03 10^3/uL (0.0-0.2); Absolute Eosinophil Count 0.26 10^3/uL (0.0-0.7); Absolute Lymphocyte Count 0.97 10^3/uL (1.2-3.4); Absolute Monocyte Count 0.27 10^3/uL (0.1-0.8); Absolute Neutrophil Count 1.63 10^3/uL (1.2-6.7); Basophils % 0.9 %; Eosinophils % 8.2 %; HCT 31.6 % (36.0-46.0); HGB 11.4 g/dL (11.2-15.7); Immature Grans % 0.3 %; Lymphocytes % 30.6 %; MCH 31.5 pg (27.0-33.0); MCHC 36.1 % (32.0-36.0); MCV 87 fL (80-95); MPV 9.1 fL (8.0-11.0); Monocytes % 8.5 %; Neutrophils % 51.5 %; RBC 3.62 10^6/uL (3.93-5.22); RDW 18.8 % (11.7-14.6); RDW-SD 61.8 fL; WBC 3.17 10^3/uL (4.4-10.8)
[2024-11-13 14:01] LABS: Diff Comment Diff Reviewed; Platelet Count 82 10^3/uL (130-400); RBC Morphology Normal
[2024-11-13 14:11] LABS: ALT 26 U/L (14-59); AST 23 U/L (15-37); Albumin 3.3 g/dL (3.4-5.0); Alkaline Phosphatase 103 U/L (46-116); Anion Gap 5.6 mmol/L (3-11); BUN 15 mg/dL (7-18); Bilirubin, Total 2.4 mg/dL (0.2-1.0); CO2 31.4 mmol/L (21.0-32.0); Calcium 9.6 mg/dL (8.5-10.1); Chloride 98 mmol/L (98-107); Estimated GFR 61.36 (mL/min/1.73m2); Glucose 157 mg/dL (74-106); Magnesium 1.5 mg/dL (1.8-2.4); NT-proBNP 98 pg/mL (<300); Potassium 3.9 mmol/L (3.5-5.1); Sodium 135 mmol/L (136-145); Total Protein 5.9 g/dL (6.4-8.2); Troponin I 17 ng/L (<or=51)
[2024-11-13 14:55] VITALS: BP 142/62; PULSE 66
[2024-11-13] MEDS: Magnesium Oxide 400 MG TAB 800 MG PO (15:15)
--- NOTE | 2024-11-14 07:35 | NUR.NOTE ---
Nursing Note:Needed to access the chart to find the time of discharge on the patient from her visit yesterday 11/13/24.
== END 2024-11-13 15:26 | disposition home or self-care (01) ==
PROVIDERS: Emergency Provider Physician Assistant; PCP Nurse Practitioner Gerontology
DX: R22.43 Localized swelling, mass and lump, lower limb, bilateral (principal); J06.9 Acute upper respiratory infection, unspecified; R94.31 Abnormal electrocardiogram [ECG] [EKG]
CPT/HCPCS: 80053; 82962; 93005; 96374; 99284; 71046; 83735; 83880; 84484; 85025; 93010; J1940

== ENCOUNTER 2024-11-17 17:14 | Outpatient (REF) | payer MEDICARE, MEDICAID, SELFPAY ==
[2024-11-17 18:06] LABS: Abs Immature Grans 0.01 10^3/uL (0.0-0.06); Absolute Basophil Count 0.02 10^3/uL (0.0-0.2); Absolute Eosinophil Count 0.22 10^3/uL (0.0-0.7); Absolute Lymphocyte Count 1.03 10^3/uL (1.2-3.4); Absolute Monocyte Count 0.31 10^3/uL (0.1-0.8); Absolute Neutrophil Count 2.67 10^3/uL (1.2-6.7); Basophils % 0.5 %; Eosinophils % 5.2 %; HCT 30.3 % (36.0-46.0); Immature Grans % 0.2 %; Lymphocytes % 24.2 %; MCH 31.5 pg (27.0-33.0); MCHC 36.3 % (32.0-36.0); MCV 87 fL (80-95); Monocytes % 7.3 %; Neutrophils % 62.6 %; RBC 3.49 10^6/uL (3.93-5.22); RDW 17.5 % (11.7-14.6); RDW-SD 53.4 fL; WBC 4.26 10^3/uL (4.4-10.8)
[2024-11-17 18:14] LABS: Anion Gap 10.8 mmol/L (3-11); BUN 13 mg/dL (7-18); CO2 28.2 mmol/L (21.0-32.0); CREATININE 1.2 mg/dL (0.55-1.02); Chloride 87 mmol/L (98-107); Estimated GFR 49.31 (mL/min/1.73m2); Glucose 270 mg/dL (74-106); Potassium 3.8 mmol/L (3.5-5.1); Sodium 126 mmol/L (136-145)
[2024-11-17 18:34] LABS: Platelet Count 72 10^3/uL (130-400)
[2024-11-17 18:49] LABS: Bilirubin Negative (Negative); Blood Small (Negative); Clarity Clear (Clear); Glucose Negative (Negative); Ketones Negative (Negative); Leukocyte Esterase Large (Negative); Nitrite Negative (Negative); Specific Gravity <= 1.005 (1.005-1.025)
[2024-11-17 19:43] LABS: Bacteria Many HPF (Negative); C & S Indicated? C&S Done As Ordered; Casts Negative LPF (Negative); Crystals Negative HPF (Negative); Epithelial Cells Rare HPF (Negative); Mucus Negative (Negative); RBC 0-2 HPF (0-2); WBC 20-50 HPF (0-5)
== END 2024-11-17 17:15 | disposition home or self-care (01) ==
LOC: LBN 17:14
PROVIDERS: PCP Nurse Practitioner Gerontology; Visit Provider Nurse Practitioner Gerontology
DX: E87.6 Hypokalemia (principal); R71.0 Precipitous drop in hematocrit; R71.8 Other abnormality of red blood cells
CPT/HCPCS: 80048; 87077; 81003; 81015; 85025; 87086; 87186

== ENCOUNTER 2024-11-25 09:26 | Emergency (ER) | payer MEDICARE, MEDICAID, SELFPAY ==
[2024-11-25] VITALS (30 sets, daily range): BP systolic 109–127; BP diastolic 51–74; PULSE 61–91; RESP 12–20; TEMP 37.2; O2SAT 94–100
--- NOTE | 2024-11-25 09:30 | RT.EKG_ITS ---
APPROVED REPORT Exam: Resting ECG Reason for Exam: chest pain Patient Location: E HR:87 bpm ECG Measurements Heart Rate 87 AXIS AL 235 P 33 QRSd 98 QRS 59 QT 413 T 60 QTc 498 Conclusion Sinus rhythm...normal P axis, V-rate 60- 99 Prolonged AL interval...AL >220, V-rate 50- 90 No STEMI
--- NOTE | 2024-11-25 09:45 | DI.CT_ITS ---
Exam(s) CT CHEST/ABD/PEL W EXAM: CT CHEST/ABD/PEL W CLINICAL HISTORY: abd pain, lower abdominal pains, intermittant CP. TECHNIQUE: Imaging Protocol: Axial computed tomography images with coronal and sagittal reformatted images were created and reviewed. Computer aided detection (CAD) was utilized. CONTRAST MATERIAL: Intravenous: Omnipaque 350 Contrast volume:100 ml Oral: / no COMPARISON: CR XR CHEST 2V PA LATERAL from 11/13/2024 FINDINGS: CHEST: Pulmonary parenchyma: No consolidation. No dominant measurable mass. Tracheobronchial tree: No bronchiectasis. No mucous plugging.No bronchial wall thickening. Pleura: No effusion or pneumothorax. Mediastinum: Within normal limits. Pulmonary arteries: No visible emboli. Cardiovascular: The heart is mildly enlarged. Mitral annular and aortic valvular calcifications. Mi nimal coronary artery calcifications.. No pericardial effusion. Thoracic aorta non-dilated. Bones: Unremarkable for age. No lytic or blastic lesions.No compression fractures. Soft tissues: Unremarkable. ABDOMEN and PELVIS: Liver: Normal density. No suspicious mass. Tips noted. Appears patent. Hepatic arteries are mildly prominent. Splenic vein is prominent. Mild perisplenic varices. Gallbladder and biliary tract: No evidence of stones or wall thickening. No biliary dilatation. Pancreas: Normal density, no abnormal calcifications or inflammatory process. Spleen: Enlarged at 14.3 cm. Kidneys: Normal size, contour and axis. No radiodense stones. No obstructive uropathy. No suspicious masses seen. Adrenal glands: No masses seen. Aorta: Abdominal portion non-dilated. Lymph nodes: Within normal limits. Soft tissues: Unremarkable. Bladder: Unremarkable. Bowel: No obstruction or bowel wall thickening. Peritoneal cavity: No ascites. No focal collection. No mesenteric inflammatory response. No free ai r. Bones: Unremarkable for age. Reproductive organs: Hysterectomy. IMPRESSION: No acute abnormality in the chest, abdomen or pelvis. TIP shunt again noted which appears patent. Splenomegaly. RADIATION DOSE DELIVERED: 414.27mGy.cm Total DLP DATA REPOSITORY: All CT scans at this facility are submitted to the National Radiology Data Registry (NRDR) Dose Index Registry (DIR) with the [employer] (A[employer]). RADIATION OPTIMIZATION: All CT scans at this facility use at least one of these dose optimization te chniques: automated exposure control; mA and/or kV adjustment per patient size (includes targeted exa ms where dose is matched to clinical indication); or iterative reconstruction.
--- NOTE | 2024-11-25 09:49 | W.ED.GENAD ---
Discharge Plan Disposition Patient Disposition: Home Discharge Details Clinical Impression: Irritation of vulva, Hemorrhoid Primary Care Provider: bAbey Smith ED Provider: Ruth Aleman Home Meds and New Rx's Prescriptions: New ketoconazole 2 % cream 1 applic topical DAILY Qty: 15 0RF Rx Instructions: Apply to affected and immediate surrounding area for 2 weeks. Continued folic acid 1 mg tablet 1 mg PO DAILY pantoprazole [Protonix] 40 mg tablet,delayed release (DR/EC) 40 mg PO DAILY levetiracetam 1,000 mg tablet 1,000 mg PO BID Incruse Ellipta 62.5 mcg/actuation blister with device 1 inh inhalation DAILY lactulose 10 gram/15 mL solution 30 g PO QID Xifaxan 550 mg tablet 550 mg PO BID insulin aspart U-100 100 unit/mL (3 mL) insulin pen 1 sliding scale dose subcut TID spironolactone 100 mg tablet 50 mg PO DAILY insulin degludec [Tresiba FlexTouch U-200] 200 unit/mL (3 mL) insulin pen 64 unit subcut BID nystatin [Nyamyc] 100,000 unit/gram powder 1 applic topical BID albuterol 90 mcg/actuation aerosol 180 mcg inhalation .Q4 PRN hydroxyzine HCl 10 mg tablet 25 mg PO BID PRN epinephrine 0.3 mg/0.3 mL auto-injector 0.3 ml subcut Q5-15M PRN Rx Instructions: do not exceed 2 doses per episode cholecalciferol (vitamin D3) [D3 DOTS] 50 mcg (2,000 unit) tablet 50 mcg PO DAILY torsemide 20 mg tablet 40 mg PO BID quetiapine [Seroquel] 25 mg tablet 25 mg PO BID hydrocortisone acetate 25 mg suppository 25 mg NJ Q12H PRN Patient Comments: PRN FOR HEMORRHOIDS azelastine 137 mcg (0.1 %) spray,non-aerosol 2 spray intranasal Q12H PRN Patient Comments: PRN FOR ALLERGIES Rx Instructions: administer into each nostril gabapentin 300 mg capsule 600 mg PO HS Lactobacillus acidophilus Tablet 50 mmu cells PO DAILY linezolid 600 mg tablet 600 mg PO BID magnesium oxide 500 mg magnesium tablet 500 mg PO TID Patient Comments: TAKE ONE TABLET BY MOUTH THREE TIMES A DAY polyethylene glycol 3350 [ClearLax] 17 gram/dose powder 17 g PO BID Discharge Instructions Additional Instructions: Your workup today was reassuring. There are no abnormalities noted on your CT scan of chest/abdomen/pelvis or signs of UTI at this time. You may follow up with general surgery for treatment of your external hemorrhoid if it continues to bother you You were given a dose of oral fluconazole to help with your tanner intertrigo. Please use the ketoconazole cream prescribed. You may continue to use the nystatin powder. Keep your groin area clean and dry, cleaning promptly after each bowel movement of or urine output. Stay well hydrated. Drink plenty of fluids throughout the day and eat regular meals. Continue to take your medications as prescribed. Return to emergency care if you develop new severe abdominal pain, inability to urinate, new vomiting/are unable to hold down food or fluids, chest pains, shortness of breath, episodes of passing out, or if you are very worried and need to be rechecked again immediately. Referrals: [facility] [Provider Group] Abbey Smith NP [Primary Care Provider] - [facility] General Date/Time Provider Initiated Documentation: 11/25/24 09:30. HPI Narrative: Reny is a 69 year old female who presents to the emergency department today for evaluation of groin pain. She reports she has had intermittent chest pains, swelling to her vulvar area, nausea, and lower back pain x 1 month. Reports cough for the last few days, denies other viral symptoms. Has been able to take PO without difficulty. She denies fever, sore throat, shortness of breath, vomiting, change in bowel function. History also obtained from RICHARD Francois at the [facility]- she reports pt complained of vaginal/groin pain this morning and was seen by ACAD[employer]ICE PRESIDENT; pt requested to come to ED for evaluation. PT is currently being treated for UTI with linezolid. H/o urinary incontinence, wears depends. She did not receive her AM medicines. Physical exam remarkable for diffuse abdominal tenderness with palpation; no rigidity or guarding, normoactive BS. Diffuse lower back pain with palpation, appears uncomfortable with sitting up. +erythema and faintly ertythematous rash with satelline lesions to skin folds in groin, tender to palpation. +external hemorrhoid. Normal heart sounds. Easy work of breathing, lung sounds clear bilaterally. D/dx includes but is not limited to: UTI, pyelonephritis, tanner intertrigo, viral illness, muscle strain, PNA. Pt does not meet SIRS criteria. Low suspicion for ACS based on reassuring history, troponins (initial and 1 hour) obtained. I independently interpreted the following tests: CBC, CMP, and troponin (15, 18) all reassuring, no significant changes from baseline. UA not consistent with UTI. EKG unremarkable, NSR raet 87, no changes with acute ischemia, prolonged NJ (235), slightly prolonged QTc (497, no change from previous) CT chest/abdomen/pelvis performed- no acute abnormalities noted by radiologist While in the emergency department, Reny received PO diflucan for treatment of tanner intertrigo. AM meds ordered. Topical ketoconazole given for antifungal/antiinflammatory effect. I did review pt's urine culture results from 11/17/24- >100,00 enteroccocuc avius- grp d, no resistance. Workup today reassuring, symptoms most consistent with tanner intertrigo. No concern for superimposed bacterial infection/cellulitis at this time. Unclear etiology of abdominal and lower back pain, recommend further evaluation and f/u with PCP. Reviewed discharge instructions with patient, including symptomatic management and red flags indicating need for return to emergency care. Pt to be discharged back to the [facility]. Referral made to general surgery for management of external hemorrhoids. Related Data Home Medications ?Medication ?Instructions ?Recorded ?Confirmed albuterol 90 mcg/actuation aerosol 180 mcg inhalation .Q4 PRN 06/11/24 11/25/24 inhaler epinephrine 0.3 mg/0.3 mL 0.3 ml subcut Q5-15M PRN 06/11/24 11/25/24 injection, auto-injector folic acid 1 mg tablet 1 mg PO DAILY 06/11/24 11/25/24 hydroxyzine HCl 10 mg tablet 25 mg PO BID PRN 06/11/24 11/25/24 insulin aspart U-100 100 unit/mL 1 sliding scale dose subcut TID 06/11/24 11/25/24 (3 mL) subcutaneous pen insulin degludec 200 unit/mL (3 64 unit subcut BID 06/11/24 11/25/24 mL) subcutaneous pen (Tresiba FlexTouch U-200 insulin) lactulose 10 gram/15 mL oral 30 g PO QID 06/11/24 11/25/24 solution levetiracetam 1,000 mg tablet 1,000 mg PO BID 06/11/24 11/25/24 nystatin 100,000 unit/gram topical 1 applic topical BID 06/11/24 11/25/24 powder (Nyamyc) pantoprazole 40 mg tablet,delayed 40 mg PO DAILY 06/11/24 11/25/24 release (Protonix) rifaximin 550 mg tablet (Xifaxan) 550 mg PO BID 06/11/24 11/25/24 spironolactone 100 mg tablet 50 mg PO DAILY 06/11/24 11/25/24 umeclidinium 62.5 mcg/actuation 1 inh inhalation DAILY 06/11/24 11/25/24 blister powder for inhalation (Incruse Ellipta) azelastine 137 mcg (0.1 %) nasal 2 spray intranasal Q12H PRN 09/01/24 11/25/24 spray cholecalciferol (vitamin D3) 50 50 mcg PO DAILY 09/01/24 11/25/24 mcg (2,000 unit) tablet (D3 DOTS) hydrocortisone acetate 25 mg 25 mg NJ Q12H PRN 09/01/24 11/25/24 rectal suppository quetiapine 25 mg tablet (Seroquel) 25 mg PO BID 09/01/24 11/25/24 torsemide 20 mg tablet 40 mg PO BID 09/01/24 11/25/24 gabapentin 300 mg capsule 600 mg PO HS 11/13/24 11/25/24 Lactobacillus acidophilus 50 mmu cells PO DAILY 11/25/24 11/25/24 ketoconazole 2 % topical cream 1 applic topical DAILY #15 grams 11/25/24 linezolid 600 mg tablet 600 mg PO BID 11/25/24 11/25/24 magnesium oxide 500 mg PO TID 11/25/24 11/25/24 polyethylene glycol 3350 17 17 g PO BID 11/25/24 11/25/24 gram/dose oral powder (ClearLax) Previous Rx's ?Medication ?Instructions ?Recorded ketoconazole 2 % topical cream 1 applic topical DAILY #15 grams 11/25/24 Allergies Allergy/AdvReac Type Severity Reaction Status Date / Time amitriptyline Allergy Intermediate Unknown Verified 11/25/24 10:04 azithromycin Allergy Intermediate Unknown Verified 11/25/24 10:04 ciprofloxacin Allergy Intermediate Unknown Verified 11/25/24 10:04 codeine Allergy Intermediate Unknown Verified 11/25/24 10:04 cortisone Allergy Intermediate Unknown Verified 11/25/24 10:04 erythromycin base Allergy Intermediate Unknown Verified 11/25/24 10:04 guaifenesin (From Robitussin) Allergy Intermediate Unknown Verified 11/25/24 10:04 iron Allergy Intermediate Unknown Verified 11/25/24 10:04 metronidazole (From Flagyl) Allergy Intermediate Unknown Verified 11/25/24 10:04 morphine Allergy Intermediate Unknown Verified 11/25/24 10:04 oxycodone (From Percocet) Allergy Intermediate Unknown Verified 11/25/24 10:04 Penicillins Allergy Intermediate Unknown Verified 11/25/24 10:04 Sulfa (Sulfonamide Allergy Intermediate Unknown Verified 11/25/24 10:04 Antibiotics) acetaminophen Allergy Unknown Other (See Verified 11/25/24 10:04 Comment) cyclosporine Allergy Unknown Other (See Verified 11/25/24 10:04 Comment) fluticasone (From Advair Allergy Unknown Other (See Verified 11/25/24 10:04 Diskus) Comment) ibuprofen Allergy Unknown Other (See Verified 11/25/24 10:04 Comment) pregabalin (From Lyrica) Allergy Unknown Other (See Verified 11/25/24 10:04 Comment) salmeterol Allergy Unknown Other (See Verified 11/25/24 10:04 Comment) strawberry Allergy Unknown Other (See Verified 11/25/24 10:04 Comment) General Stated Complaint: [employer] MARGARINE MARCELLO: 3 Review of Systems Narrative: see HPI Exam Const General: cooperative, healthy appearing and comfortable Nutritional Appearance: average body habitus Orientation: alert HENMT Mouth: moist mucous membranes Resp Effort & Inspection: normal respiratory effort and able to speak in complete sentences Auscultation: clear to auscultation bilaterally Cardio Rate: regular rate Rhythm: regular rhythm GI Inspection: normal to inspection and non-distended Palpation: soft, not firm, no guarding, not rigid and tender (diffuse) Auscultation: normal bowel sounds Rectal Exam - female: hemorrhoids (external hemorrhoid noted at 6 o clock position) External Female Exam: erythema (along skin folds with faintly erythematous rash), no external swelling and no ecchymosis Back/Spine/Pelvis Thoracic/Lumbar Spine: paraspinal tenderness (diffuse) Course Vital Signs Vital signs: Vital Signs Temperature 37.2 C 11/25/24 09:31 Pulse 88 11/25/24 09:31 Respiratory Rate 20 11/25/24 09:31 Blood Pressure 127/70 11/25/24 09:31 Pulse Oximetry 94 11/25/24 09:31 Temperature 37.2 C 11/25/24 09:31 Temperature Source Oral 11/25/24 09:31 Pulse 88 11/25/24 09:31 Respiratory Rate 20 11/25/24 09:31 Blood Pressure 127/70 11/25/24 09:31 Blood Pressure Position Sitting 11/25/24 09:31 Pulse Oximetry 94 11/25/24 09:31 Oxygen Delivery Method Room Air 11/25/24 09:31 Oxygen Flow Rate 0 11/25/24 09:31 Medical Decision Making Imaging Data Radiologic Study: Radiologist's impression: Exam(s) CT CHEST/ABD/PEL W EXAM: CT CHEST/ABD/PEL W CLINICAL HISTORY: abd pain, lower abdominal pains, intermittant CP. TECHNIQUE: Imaging Protocol: Axial computed tomography images with coronal and sagittal reformatted images were created and reviewed. Computer aided detection (CAD) was utilized. CONTRAST MATERIAL: Intravenous: Omnipaque 350 Contrast volume:100 ml Oral: / no COMPARISON: CR XR CHEST 2V PA LATERAL from 11/13/2024 FINDINGS: CHEST: Pulmonary parenchyma: No consolidation. No dominant measurable mass. Tracheobronchial tree: No bronchiectasis. No mucous plugging.No bronchial wall thickening. Pleura: No effusion or pneumothorax. Mediastinum: Within normal limits. Pulmonary arteries: No visible emboli. Cardiovascular: The heart is mildly enlarged. Mitral annular and aortic valvular calcifications. Minimal coronary artery calcifications.. No pericardial effusion. Thoracic aorta non-dilated. Bones: Unremarkable for age. No lytic or blastic lesions.No compression fractures. Soft tissues: Unremarkable. ABDOMEN and PELVIS: Liver: Normal density. No suspicious mass. Tips noted. Appears patent. Hepatic arteries are mildly prominent. Splenic vein is prominent. Mild perisplenic varices. Gallbladder and biliary tract: No evidence of stones or wall thickening. No biliary dilatation. Pancreas: Normal density, no abnormal calcifications or inflammatory process. Spleen: Enlarged at 14.3 cm. Kidneys: Normal size, contour and axis. No radiodense stones. No obstructive uropathy. No suspicious masses seen. Adrenal glands: No masses seen. Aorta: Abdominal portion non-dilated. Lymph nodes: Within normal limits. Soft tissues: Unremarkable. Bladder: Unremarkable. Bowel: No obstruction or bowel wall thickening. Peritoneal cavity: No ascites. No focal collection. No mesenteric inflammatory response. No free air. Bones: Unremarkable for age. Reproductive organs: Hysterectomy. IMPRESSION: No acute abnormality in the chest, abdomen or pelvis. TIP shunt again noted which appears patent. Splenomegaly. Quality:SDOH Health Related Social Needs: No Data to Display PFSH All Active Problems (Updated 11/25/24 @ 13:04 by Ruth Hamilton) Hemorrhoid (Acute) Irritation of vulva (Acute) URI (upper respiratory infection) (Acute) Edema of both lower legs (Acute) Nail dystrophy (Acute) Social History Smoking/Tobacco Use Status: Never Smoking risk assessment performed?: Yes Alcohol Intake: never Drug use: Never Substance use type: does not use Housing: long term Do you feel safe at home: Yes Do you feel safe in your relationship?: Yes Additional Social history: lives at the [facility]
[2024-11-25 10:31] LABS: Abs Immature Grans 0.02 10^3/uL (0.0-0.06); Absolute Basophil Count 0.01 10^3/uL (0.0-0.2); Absolute Eosinophil Count 0.14 10^3/uL (0.0-0.7); Absolute Lymphocyte Count 0.71 10^3/uL (1.2-3.4); Absolute Neutrophil Count 2.08 10^3/uL (1.2-6.7); Basophils % 0.3 %; Eosinophils % 4.3 %; HCT 29.8 % (36.0-46.0); HGB 10.8 g/dL (11.2-15.7); Immature Grans % 0.6 %; Lymphocytes % 21.8 %; MCH 31.9 pg (27.0-33.0); MCHC 36.2 % (32.0-36.0); MCV 88 fL (80-95); MPV 9.9 fL (8.0-11.0); Monocytes % 9.2 %; Neutrophils % 63.8 %; RBC 3.39 10^6/uL (3.93-5.22); RDW 15.4 % (11.7-14.6); RDW-SD 45.1 fL; WBC 3.26 10^3/uL (4.4-10.8)
[2024-11-25 10:48] LABS: ALT 24 U/L (14-59); AST 23 U/L (15-37); Albumin 3.3 g/dL (3.4-5.0); Alkaline Phosphatase 100 U/L (46-116); Anion Gap 8.3 mmol/L (3-11); BUN 17 mg/dL (7-18); Bilirubin, Total 2.1 mg/dL (0.2-1.0); CO2 30.7 mmol/L (21.0-32.0); CREATININE 1.1 mg/dL (0.55-1.02); Chloride 94 mmol/L (98-107); Estimated GFR 54.73 (mL/min/1.73m2); Glucose 152 mg/dL (74-106); Potassium 3.6 mmol/L (3.5-5.1); Sodium 133 mmol/L (136-145); Total Protein 5.9 g/dL (6.4-8.2); Troponin I 15 ng/L (<or=51)
[2024-11-25 10:53] LABS: Diff Comment Diff Reviewed; Platelet Count 77 10^3/uL (130-400); RBC Morphology Normal
[2024-11-25 11:19] LABS: Bilirubin Negative (Negative); Blood Negative (Negative); Clarity Clear (Clear); Glucose 250 mg/dL (Negative); Ketones Negative (Negative); Leukocyte Esterase Negative (Negative); Nitrite Negative (Negative); Urobilinogen 0.2 mg/dL (Up to 0.2); pH 6.5 (5-8)
[2024-11-25] MEDS: Ketoconazole 2% CREAM 15 GM TUBE TP (11:26)
[2024-11-25] MEDS: Fluconazole 150 MG TAB PO (11:26)
[2024-11-25 11:40] LABS: Troponin I 18 ng/L (<or=51)
[2024-11-25] MEDS: Omnipaque 350 MG/ML 500 ML BTL-Imaging package IJ (11:59)
[2024-11-25] MEDS: Normal Saline - Diluent 50 ML VIAL IJ (12:01)
[2024-11-25] MEDS: Linezolid 600 MG TAB PO (13:02)
[2024-11-25] MEDS: Pantoprazole 40 MG TABCR PO (13:02)
[2024-11-25] MEDS: QUEtiapine 25 MG TAB PO (13:02)
[2024-11-25] MEDS: Torsemide 20 MG TAB 40 MG PO (13:02)
[2024-11-25] MEDS: Rifaximin 550 MG TAB PO (13:02)
[2024-11-25] MEDS: Spironolactone 50 MG TAB PO (13:02)
[2024-11-25] MEDS: levETIRAcetam 500 MG TAB 1000 MG PO (13:03)
[2024-11-25] MEDS: Magnesium Oxide 400 MG TAB PO (13:03)
== END 2024-11-25 14:10 | disposition home or self-care (01) ==
PROVIDERS: Emergency Provider Nurse Practitioner Family; PCP Nurse Practitioner Gerontology
DX: N90.89 Other specified noninflammatory disorders of vulva and perineum (principal); K64.8 Other hemorrhoids; R11.0 Nausea
CPT/HCPCS: 36415; 36416; 51701; 74177; 80053; 82962; 93005; 99285; 71260; 81003; 84484; 85025; 93010; 99284; J3490

== ENCOUNTER 2024-12-02 15:35 | Observation (INO) | payer MEDICARE, MEDICAID, SELFPAY ==
[2024-12-02] VITALS (178 sets, daily range): BP systolic 96–139; BP diastolic 36–65; PULSE 49–90; RESP 10–37; TEMP 36.9–37.9; O2SAT 77–100
--- NOTE | 2024-12-02 15:30 | RT.EKG_ITS ---
APPROVED REPORT Exam: Resting ECG Reason for Exam: abd pain/back Patient Location: E HR:77 bpm ECG Measurements Heart Rate 77 AXIS IA 178 P 9 QRSd 98 QRS 55 QT 447 T 65 QTc 505 Conclusion Sinus rhythm...normal P axis, V-rate 60- 99 Prolonged QT interval...QTc >500mS
--- NOTE | 2024-12-02 15:40 | W.ED.GENAD ---
Discharge Plan Disposition Patient Disposition: Admit to [facility] Condition: Stable Discharge Details Clinical Impression: Hypomagnesemia, Left sided abdominal pain Primary Care Provider: Abbey Smith ED Provider: Ruth Aleman Home Meds and New Rx's Prescriptions: No Action folic acid 1 mg tablet 1 mg PO DAILY pantoprazole [Protonix] 40 mg tablet,delayed release (DR/EC) 40 mg PO DAILY levetiracetam 1,000 mg tablet 1,000 mg PO BID Incruse Ellipta 62.5 mcg/actuation blister with device 1 inh inhalation DAILY lactulose 10 gram/15 mL solution 30 g PO QID Xifaxan 550 mg tablet 550 mg PO BID insulin aspart U-100 100 unit/mL (3 mL) insulin pen 1 sliding scale dose subcut TID spironolactone 100 mg tablet 50 mg PO DAILY insulin degludec [Tresiba FlexTouch U-200] 200 unit/mL (3 mL) insulin pen 64 unit subcut BID nystatin [Nyamyc] 100,000 unit/gram powder 1 applic topical BID albuterol 90 mcg/actuation aerosol 180 mcg inhalation .Q4 PRN hydroxyzine HCl 10 mg tablet 25 mg PO BID PRN epinephrine 0.3 mg/0.3 mL auto-injector 0.3 ml subcut Q5-15M PRN Rx Instructions: do not exceed 2 doses per episode cholecalciferol (vitamin D3) [D3 DOTS] 50 mcg (2,000 unit) tablet 50 mcg PO DAILY torsemide 20 mg tablet 40 mg PO BID quetiapine [Seroquel] 25 mg tablet 25 mg PO BID hydrocortisone acetate 25 mg suppository 25 mg MO Q12H PRN Patient Comments: PRN FOR HEMORRHOIDS azelastine 137 mcg (0.1 %) spray,non-aerosol 2 spray intranasal Q12H PRN Patient Comments: PRN FOR ALLERGIES Rx Instructions: administer into each nostril gabapentin 300 mg capsule 600 mg PO HS ibuprofen [Advil] 200 mg tablet 200 mg PO TID-QID PRN Lactobacillus acidophilus Tablet 50 mmu cells PO DAILY linezolid 600 mg tablet 600 mg PO BID magnesium oxide 500 mg magnesium tablet 500 mg PO TID Patient Comments: TAKE ONE TABLET BY MOUTH THREE TIMES A DAY polyethylene glycol 3350 [ClearLax] 17 gram/dose powder 17 g PO BID ketoconazole 2 % cream 1 applic topical DAILY Qty: 15 0RF Rx Instructions: Apply to affected and immediate surrounding area for 2 weeks. HPI General Date/Time Provider Initiated Documentation: 12/02/24 15:40. HPI Narrative: Reny is a 69 year old female who presents to the emergency department today for evaluation of L sided abdominal pain radiating around to flank and down L thigh accompanied by L sided headache with lightheadedness, neck/shoulder discomfort, tingling to L side of face, L arm, L leg, and R foot, nausea w/ decreased PO intake, and shortness of breath with exertion x 2-3 days. She reports she has not been able to take anything for WHIPPLE due to allergies, reports headache has been getting worse since onset. Also reports chills yesterday. Denies vision changes, trauma, sore throat, congestion, cough, vomiting, change in bowel/bladder dysfunction, dysuria. Was recently treated for UTI. Past medical history is significant for T2DM, GILLESPIE related cirrhosis, esophageal varices, chronic hyponatremia, and pancytopenia (per previous ED records). Physical exam remarkable for patient who appears uncomfortable, but is able to be distracted. Abdomen is soft, nondistended, tender to palpation to the left upper and lower quadrant. Easy work of breathing, lung sounds clear bilaterally. Sinus rhythm, normal heart sounds. 5/5 muscle strength upper and lower extremities. Sensation grossly intact. Tenderness to palpation of left paraspinal and trapezius muscles, no midline tenderness/step-off/deformity. Patient does not cooperate with cranial nerve exam, however normal facial strength is noted, no droop noted. Slightly tacky mucous membranes. Strong peripheral radial pulses bilaterally. Had a italo horse in R leg when lifting leg. D/dx includes but is not limited to: Diverticulitis, colitis, mesenteric adenitis, mesenteric ischemia, electrolyte imbalance, dehydration, migraine headache, DKA/HHS, muscle spasm. Patient does not meet SIRS criteria for sepsis I independently interpreted the following tests: CBC notable for significantly worsening thrombocytopenia, platelets 21. Anemia slightly worsened from previous, H&H today 9.4 and 25 (compared to 10.8 and 28.9 on 11/25/2024). Hypomagnesemia noted, magnesium 1.2. Slightly elevated lactate of 2.1. EKG notable for slightly prolonged QTc of 505. Otherwise normal sinus rhythm, rate 77, normal MO interval. No changes consistent with acute ischemia. While in the emergency department, Reny received 2 g IV magnesium and 400 mg p.o. magnesium for prolonged QTc in setting of hypomagnesemia. 700 cc IV fluid given for rehydration. Reny reports headache is only slightly improved. CTA abdomen/pelvis performed. Discussed findings with radiologist Dr. Castro. Lack of contrast within TIPS shunt concerning for possible occlusion. Spleen is noted to be enlarged, unchanged from previous. Head CT obtained due to thrombocytopenia and WHIPPLE; unremarkable. Discussed case with Dr Shah, hospitalist at [facility]. Unclear cause of abdominal pain. She recommended that IR review images; Dr Mera reviewed images and reported that TIPS appeared patent, though US can be used to confirm. Bladder is noted to be dilated; there is no fluid to tap for diagnostic paracentesis. Unclear etiology of abdominal pain. Discussed case with Dr. Chaney, hospitalist. Patient to be admitted for overnight observation/magnesium repletion. Recommend ultrasound in morning. Related Data Home Medications ?Medication ?Instructions ?Recorded ?Confirmed albuterol 90 mcg/actuation aerosol 180 mcg inhalation .Q4 PRN 06/11/24 12/02/24 inhaler epinephrine 0.3 mg/0.3 mL 0.3 ml subcut Q5-15M PRN 06/11/24 12/02/24 injection, auto-injector folic acid 1 mg tablet 1 mg PO DAILY 06/11/24 12/02/24 hydroxyzine HCl 10 mg tablet 25 mg PO BID PRN 06/11/24 12/02/24 insulin aspart U-100 100 unit/mL 1 sliding scale dose subcut TID 06/11/24 12/02/24 (3 mL) subcutaneous pen insulin degludec 200 unit/mL (3 64 unit subcut BID 06/11/24 12/02/24 mL) subcutaneous pen (Tresiba FlexTouch U-200 insulin) lactulose 10 gram/15 mL oral 30 g PO QID 06/11/24 12/02/24 solution levetiracetam 1,000 mg tablet 1,000 mg PO BID 06/11/24 12/02/24 nystatin 100,000 unit/gram topical 1 applic topical BID 06/11/24 12/02/24 powder (Nyamyc) pantoprazole 40 mg tablet,delayed 40 mg PO DAILY 06/11/24 12/02/24 release (Protonix) rifaximin 550 mg tablet (Xifaxan) 550 mg PO BID 06/11/24 12/02/24 spironolactone 100 mg tablet 50 mg PO DAILY 06/11/24 12/02/24 umeclidinium 62.5 mcg/actuation 1 inh inhalation DAILY 06/11/24 12/02/24 blister powder for inhalation (Incruse Ellipta) azelastine 137 mcg (0.1 %) nasal 2 spray intranasal Q12H PRN 09/01/24 12/02/24 spray cholecalciferol (vitamin D3) 50 50 mcg PO DAILY 09/01/24 12/02/24 mcg (2,000 unit) tablet (D3 DOTS) hydrocortisone acetate 25 mg 25 mg MO Q12H PRN 09/01/24 12/02/24 rectal suppository quetiapine 25 mg tablet (Seroquel) 25 mg PO BID 09/01/24 12/02/24 torsemide 20 mg tablet 40 mg PO BID 09/01/24 12/02/24 gabapentin 300 mg capsule 600 mg PO HS 11/13/24 12/02/24 Lactobacillus acidophilus 50 mmu cells PO DAILY 11/25/24 12/02/24 ketoconazole 2 % topical cream 1 applic topical DAILY #15 grams 11/25/24 12/02/24 linezolid 600 mg tablet 600 mg PO BID 11/25/24 12/02/24 magnesium oxide 500 mg PO TID 11/25/24 12/02/24 polyethylene glycol 3350 17 17 g PO BID 11/25/24 12/02/24 gram/dose oral powder (ClearLax) ibuprofen 200 mg tablet (Advil) 200 mg PO TID-QID PRN 12/02/24 12/02/24 Previous Rx's ?Medication ?Instructions ?Recorded ketoconazole 2 % topical cream 1 applic topical DAILY #15 grams 11/25/24 Allergies Allergy/AdvReac Type Severity Reaction Status Date / Time amitriptyline Allergy Intermediate Unknown Verified 11/25/24 10:04 azithromycin Allergy Intermediate Unknown Verified 11/25/24 10:04 ciprofloxacin Allergy Intermediate Unknown Verified 11/25/24 10:04 codeine Allergy Intermediate Unknown Verified 11/25/24 10:04 cortisone Allergy Intermediate Unknown Verified 11/25/24 10:04 erythromycin base Allergy Intermediate Unknown Verified 11/25/24 10:04 guaifenesin (From Robitussin) Allergy Intermediate Unknown Verified 11/25/24 10:04 iron Allergy Intermediate Unknown Verified 11/25/24 10:04 metronidazole (From Flagyl) Allergy Intermediate Unknown Verified 11/25/24 10:04 morphine Allergy Intermediate Unknown Verified 11/25/24 10:04 oxycodone (From Percocet) Allergy Intermediate Unknown Verified 11/25/24 10:04 Penicillins Allergy Intermediate Unknown Verified 11/25/24 10:04 Sulfa (Sulfonamide Allergy Intermediate Unknown Verified 11/25/24 10:04 Antibiotics) acetaminophen Allergy Unknown Other (See Verified 11/25/24 10:04 Comment) cyclosporine Allergy Unknown Other (See Verified 11/25/24 10:04 Comment) fluticasone (From Advair Allergy Unknown Other (See Verified 11/25/24 10:04 Diskus) Comment) ibuprofen Allergy Unknown Other (See Verified 11/25/24 10:04 Comment) pregabalin (From Lyrica) Allergy Unknown Other (See Verified 11/25/24 10:04 Comment) salmeterol Allergy Unknown Other (See Verified 11/25/24 10:04 Comment) strawberry Allergy Unknown Other (See Verified 11/25/24 10:04 Comment) General MARCELLO: 3 Review of Systems Narrative: see HPI Exam Const Nutritional Appearance: obese Orientation: alert and awake [facility] General nose exam: external nose normal Face and sinus: normal facial exam and dry mucous membranes (slightly tacky) Neck Neck: normal visual inspection, full ROM and no lymphadenopathy Other: +tenderness with palpation of L trapezius and paraspinal muscles Resp Effort & Inspection: normal respiratory effort and able to speak in complete sentences Auscultation: clear to auscultation bilaterally Cardio Rate: regular rate Rhythm: regular rhythm Pulses: normal peripheral pulses GI Inspection: normal to inspection and non-distended Palpation: soft, not firm, not rigid and tender in the LLQ Auscultation: normal bowel sounds Neuro Cranial Nerves: facial strength normal, tongue midline and able to rotate head bilaterally Motor: muscle tone normal throughout and strength 5/5 throughout Sensory Exam: no sensory deficits noted Extrem General: normal to inspection and pedal edema bilaterally (moderate) Medical Decision Making Imaging Data Radiologic Study: Radiologist's impression: Exam(s) CT ABDOMEN PELVIS CTA EXAM: CT ABDOMEN PELVIS CTA CLINICAL HISTORY: L sided abd pain, thrombocytopenia. TECHNIQUE: Imaging Protocol: Axial computed tomography images with coronal and sagittal reformatted images were created and reviewed CONTRAST MATERIAL: Intravenous: Omnipaque 350 Contrast volume:100 ml Oral: None COMPARISON: CT CT CHEST/ABD/PEL W from 11/25/2024 FINDINGS: ABDOMINAL AORTA: There is no evidence of abdominal aortic aneurysm and there is also no aneurysmal dilatation of the iliac arteries nor of the common femoral arteries. The celiac, SMA, and inferior mesenteric arteries are patent. There is no significant stenosis at the origin of these vessels nor at the origin of the renal arteries.There is no evidence of aortic dissection. ABDOMEN: There is no ascites. LIVER: There is again noted a TIPS shunt in place which extends from the main portal vein to the intrahepatic IVC. There is paucity of contrast within the TIPS shunt which may imply that it is occluded. No discrete focal hepatic lesions identified. GALLBLADDER/BILIARY: The gallbladder surgically absent. CBD is mildly dilated. PANCREAS: No evidence of pancreatic mass nor dilatation of the pancreatic duct. SPLEEN: The spleen is again noted to be significantly enlarged, measuring 15.5 cm AP and measuring 15 cm craniocaudal. The splenic vein is again noted to be patent and dilated to diameter of 1.4 cm. It is not thrombosed but there are multiple collaterals. There also para esophageal gastric varices. ADRENALS: There are no significant adrenal masses. KIDNEYS: No cysts evident. No calculi nor hydronephrosis. No solid renal masses. ABDOMINAL AORTA: The abdominal aorta is not enlarged. LYMPH NODES: Multiple slightly enlarged mesenteric lymph nodes are noted. No gross lymphadenopathy. No obvious mesenteric masses. ABDOMINAL WALL: No evidence of significant anterior abdominal wall hernia. GI: Small bowel loops are fluid-filled and upper normal diameters. There is no evidence of small-bowel obstruction nor free air nor abscess. Moderate amount of fecal material is noted throughout the colon. PELVIS: LYMPH NODES: There is no intrapelvic nor inguinal adenopathy. GI: No evidence of appendicitis.No evidence of sigmoid diverticulitis. URINARY BLADDER: Urinary bladder is distended, measuring 15 cm AP by 6.6 cm craniocaudal by 13 cm AP. REPRODUCTIVE: The uterus is surgically absent. There are no abnormal adnexal masses nor free fluid in the pelvis. OSSEOUS: No significant osseous lesions.. No fractures evident. Chronic disc space narrowing at L3-4 and L5-S1 levels noted. Schmorl's node invaginations are noted in the superior endplate of L4. IMPRESSION: 1. No evidence of abdominal aortic aneurysm nor nor abdominal aortic dissection. Iliac arteries are also intact. 2. TIPS shunt in place. Difficult on this study to confirm if there is flow in the shunt but there is possibly that this shunt is occluded here. There are multiple collateral vessels in gastric/para esophageal varices. If clinically indicated Doppler ultrasound of the TIPS stent can be performed to determine patency. 3. Spleen is significantly enlarged measuring up to 15.5 cm. The splenic vein is patent but enlarged to diameter 1.4 cm. 4. Previous cholecystectomy. CBD is mildly dilated most probably consistent with post cholecystectomy status. 5. previous hysterectomy. No abnormal adnexal masses. The urinary bladder is significantly distended. Radiologic Study #2: Radiologist's impression: Exam(s) CT HEAD WO EXAM: CT HEAD WO CLINICAL HISTORY: headache. TECHNIQUE: Imaging Protocol: Axial computed tomography images with coronal and sagittal reformatted images were created and reviewed COMPARISON: CT CT HEAD WO from 06/11/2024 FINDINGS: There are no skull fractures. There is no fluid in the visualized paranasal sinuses. There is no evidence of intracranial hemorrhage, mass effect, or shift of midline structures. There are no extra-axial fluid collections. The ventricles are not enlarged or shifted and there is no blood within the ventricular system nor within the basal cisterns. IMPRESSION: No acute intracranial findings on this noninfused CT scan of the brain. 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
[2024-12-02 16:21] LABS: Abs Immature Grans 0.01 10^3/uL (0.0-0.06); Absolute Basophil Count 0.01 10^3/uL (0.0-0.2); Absolute Eosinophil Count 0.12 10^3/uL (0.0-0.7); Absolute Monocyte Count 0.16 10^3/uL (0.1-0.8); Absolute Neutrophil Count 2.33 10^3/uL (1.2-6.7); Basophils % 0.3 %; Eosinophils % 3.8 %; HCT 25.2 % (36.0-46.0); HGB 9.4 g/dL (11.2-15.7); Immature Grans % 0.3 %; Lactate 2.1 mmol/L (<or=2.0); MCH 32.9 pg (27.0-33.0); MCHC 37.3 % (32.0-36.0); MCV 88 fL (80-95); MPV 9.6 fL (8.0-11.0); Monocytes % 5.1 %; Neutrophils % 74.5 %; RBC 2.86 10^6/uL (3.93-5.22); RDW 12.6 % (11.7-14.6); RDW-SD 39.5 fL; WBC 3.13 10^3/uL (4.4-10.8)
[2024-12-02] MEDS: hydrOXYzine HCL 25 MG TAB PO (16:38)
[2024-12-02] MEDS: Prochlorperazine 10 MG/2 ML VIAL IVP (16:38)
[2024-12-02] MEDS: Lactated Ringers 500 ML IV (16:38)
[2024-12-02] MEDS: Lidocaine 5% Patch 1 PATCH TP (16:38)
--- NOTE | 2024-12-02 16:45 | DI.CT_ITS ---
Exam(s) CT ABDOMEN PELVIS CTA EXAM: CT ABDOMEN PELVIS CTA CLINICAL HISTORY: L sided abd pain, thrombocytopenia. TECHNIQUE: Imaging Protocol: Axial computed tomography images with coronal and sagittal reformatted images were created and reviewed CONTRAST MATERIAL: Intravenous: Omnipaque 350 Contrast volume:100 ml Oral: None COMPARISON: CT CT CHEST/ABD/PEL W from 11/25/2024 FINDINGS: ABDOMINAL AORTA: There is no evidence of abdominal aortic aneurysm and there is also no aneurysmal di latation of the iliac arteries nor of the common femoral arteries. The celiac, SMA, and inferior mes enteric arteries are patent. There is no significant stenosis at the origin of these vessels nor at the origin of the renal arteries.There is no evidence of aortic dissection. ABDOMEN: There is no ascites. LIVER: There is again noted a TIPS shunt in place which extends from the main portal vein to the intr ahepatic IVC. There is paucity of contrast within the TIPS shunt which may imply that it is occluded . No discrete focal hepatic lesions identified. GALLBLADDER/BILIARY: The gallbladder surgically absent. CBD is mildly dilated. PANCREAS: No evidence of pancreatic mass nor dilatation of the pancreatic duct. SPLEEN: The spleen is again noted to be significantly enlarged, measuring 15.5 cm AP and measuring 15 cm craniocaudal. The splenic vein is again noted to be patent and dilated to diameter of 1.4 cm. I t is not thrombosed but there are multiple collaterals. There also para esophageal gastric varices. ADRENALS: There are no significant adrenal masses. KIDNEYS: No cysts evident. No calculi nor hydronephrosis. No solid renal masses. ABDOMINAL AORTA: The abdominal aorta is not enlarged. LYMPH NODES: Multiple slightly enlarged mesenteric lymph nodes are noted. No gross lymphadenopathy. No obvious mesenteric masses. ABDOMINAL WALL: No evidence of significant anterior abdominal wall hernia. GI: Small bowel loops are fluid-filled and upper normal diameters. There is no evidence of small-bow el obstruction nor free air nor abscess. Moderate amount of fecal material is noted throughout the c olon. PELVIS: LYMPH NODES: There is no intrapelvic nor inguinal adenopathy. GI: No evidence of appendicitis.No evidence of sigmoid diverticulitis. URINARY BLADDER: Urinary bladder is distended, measuring 15 cm AP by 6.6 cm craniocaudal by 13 cm AP. REPRODUCTIVE: The uterus is surgically absent. There are no abnormal adnexal masses nor free fluid i n the pelvis. OSSEOUS: No significant osseous lesions.. No fractures evident. Chronic disc space narrowing at L3- 4 and L5-S1 levels noted. Schmorl's node invaginations are noted in the superior endplate of L4. IMPRESSION: 1. No evidence of abdominal aortic aneurysm nor nor abdominal aortic dissection. Iliac arteries are also intact. 2. TIPS shunt in place. Difficult on this study to confirm if there is flow in the shunt but there i s possibly that this shunt is occluded here. There are multiple collateral vessels in gastric/para e sophageal varices. If clinically indicated Doppler ultrasound of the TIPS stent can be performed to determine patency. 3. Spleen is significantly enlarged measuring up to 15.5 cm. The splenic vein is patent but enlarged to diameter 1.4 cm. 4. Previous cholecystectomy. CBD is mildly dilated most probably consistent with post cholecystectom y status. 5. previous hysterectomy. No abnormal adnexal masses. The urinary bladder is significantly distended. Findings discussed by phone with ER provider 12/02/2024 at 7:20 p.m. RADIATION DOSE DELIVERED: 917.93mGy.cm Total DLP DATA REPOSITORY: All CT scans at this facility are submitted to the National Radiology Data Registry (NRDR) Dose Index Registry (DIR) with the [employer] ([employer]). RADIATION OPTIMIZATION: All CT scans at this facility use at least one of these dose optimization te chniques: automated exposure control; mA and/or kV adjustment per patient size (includes targeted exa ms where dose is matched to clinical indication); or iterative reconstruction.
[2024-12-02 16:47] LABS: Platelet Count 21 10^3/uL (130-400)
[2024-12-02 16:48] LABS: ALT 39 U/L (14-59); AST 40 U/L (15-37); Albumin 3.5 g/dL (3.4-5.0); Alkaline Phosphatase 102 U/L (46-116); Anion Gap 5.5 mmol/L (3-11); BUN 23 mg/dL (7-18); Bilirubin, Total 2.6 mg/dL (0.2-1.0); CO2 32.5 mmol/L (21.0-32.0); CREATININE 1.1 mg/dL (0.55-1.02); Calcium 9.1 mg/dL (8.5-10.1); Chloride 93 mmol/L (98-107); Estimated GFR 54.73 (mL/min/1.73m2); Glucose 104 mg/dL (74-106); Lipase 108 U/L (<78); Magnesium 1.2 mg/dL (1.8-2.4); NT-proBNP 197 pg/mL (<300); Potassium 3.5 mmol/L (3.5-5.1); Sodium 131 mmol/L (136-145); Total Protein 6.1 g/dL (6.4-8.2); Troponin I 11 ng/L (<or=51)
[2024-12-02 16:52] LABS: Bilirubin Negative (Negative); Blood Negative (Negative); Clarity Clear (Clear); Glucose Negative (Negative); Ketones Negative (Negative); Leukocyte Esterase Negative (Negative); Nitrite Negative (Negative); Specific Gravity 1.015 (1.005-1.025); Urobilinogen 0.2 mg/dL (Up to 0.2)
[2024-12-02 17:22] LABS: INR 1.2 (0.9-1.1); PTT Activated 28.1 sec (20.6-30.2); Prothrombin Time 12.1 sec (9.1-11.1)
[2024-12-02 17:33] LABS: D-Dimer 758 ng/mlFEU (<500)
[2024-12-02 17:49] LABS: Troponin I 10 ng/L (<or=51)
--- NOTE | 2024-12-02 18:15 | RT.EKG_ITS ---
APPROVED REPORT Exam: Resting ECG Reason for Exam: prolonged QTc, hypomag Patient Location: E HR:78 bpm ECG Measurements Heart Rate 78 AXIS OR 181 P 37 QRSd 96 QRS 48 QT 451 T 52 QTc 513 Conclusion Sinus rhythm...normal P axis, V-rate 60- 99 Prolonged QT interval...QTc >500mS
[2024-12-02] MEDS: Magnesium Oxide 400 MG TAB PO (18:17)
[2024-12-02] MEDS: MAGNESIUM SULFATE 2 GM/50 ML BAG IV_INF ×2 (18:17→23:49)
[2024-12-02] MEDS: Normal Saline - Diluent 50 ML VIAL IJ (18:37)
[2024-12-02] MEDS: Omnipaque 350 MG/ML 100 ML BTL IJ (18:37)
--- NOTE | 2024-12-02 19:30 | DI.CT_ITS ---
Exam(s) CT HEAD WO EXAM: CT HEAD WO CLINICAL HISTORY: headache. TECHNIQUE: Imaging Protocol: Axial computed tomography images with coronal and sagittal reformatted images were created and reviewed COMPARISON: CT CT HEAD WO from 06/11/2024 FINDINGS: There are no skull fractures. There is no fluid in the visualized paranasal sinuses. There is no evidence of intracranial hemorrhage, mass effect, or shift of midline structures. There are no extra-axial fluid collections. The ventricles are not enlarged or shifted and there is no blo od within the ventricular system nor within the basal cisterns. IMPRESSION: No acute intracranial findings on this noninfused CT scan of the brain. Report called by myself to ER provider 12/02/2024 at 8:15 p.m. RADIATION DOSE DELIVERED: 839.81mGy.cm Total DLP DATA REPOSITORY: All CT scans at this facility are submitted to the National Radiology Data Registry (NRDR) Dose Index Registry (DIR) with the [employer] ([employer]). RADIATION OPTIMIZATION: All CT scans at this facility use at least one of these dose optimization te chniques: automated exposure control; mA and/or kV adjustment per patient size (includes targeted exa ms where dose is matched to clinical indication); or iterative reconstruction.
[2024-12-02 19:41] LABS: Troponin I 12 ng/L (<or=51)
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
[2024-12-02] MEDS: Potassium Bicarbonate/Cit AC 25 MEQ TABLET.EFF PO (22:07)
[2024-12-02 22:19] LABS: Fibrinogen 352 mg/dL (171-384)
[2024-12-02 23:00] LABS: COVID-19 PCR Negative (Negative); Influenza A PCR Negative (Negative); Influenza B PCR Negative (Negative); RSV PCR Negative (Negative)
[2024-12-02 23:02] LABS: Source Nasopharynx
--- NOTE | 2024-12-02 23:13 | W.PC.ACHO ---
Registration Status: Primary Language: Preferred Language: ED Information & Data Chief Complaint Abd Prob 12/02/24 15:50 Chief Complaint Abd Prob 12/02/24 15:42 Triage Note 2 days of left sided 12/02/24 15:42 abdominal pain and back pain . Reports feeling like someone kicked her in the back. Reports 7/10 pain in head, abdomen and back, leg as well. LBM today, normal for her (on lactulose). Denies urinary symptoms. Most Recent Vital Signs Temperature 36.9 C 12/02/24 23:05 Temperature Source Oral 12/02/24 15:42 Pulse 85 12/02/24 23:05 Pulse 77 12/02/24 17:40 Respiratory Rate 17 12/02/24 23:05 Blood Pressure 126/52 L 12/02/24 23:05 Blood Pressure Mean 85 12/02/24 16:15 Blood Pressure Position Supine 12/02/24 15:42 Pulse Oximetry 96 12/02/24 23:05 Oxygen Delivery Method Room Air 12/02/24 15:42 Oxygen Flow Rate 0 12/02/24 15:42 Pain Level 10 12/02/24 23:05 Allergies amitriptyline Allergy (Intermediate, Verified 11/25/24 10:04) Unknown azithromycin Allergy (Intermediate, Verified 11/25/24 10:04) Unknown ciprofloxacin Allergy (Intermediate, Verified 11/25/24 10:04) Unknown codeine Allergy (Intermediate, Verified 11/25/24 10:04) Unknown cortisone Allergy (Intermediate, Verified 11/25/24 10:04) Unknown erythromycin base Allergy (Intermediate, Verified 11/25/24 10:04) Unknown guaifenesin (From Robitussin) Allergy (Intermediate, Verified 11/25/24 10:04) Unknown iron Allergy (Intermediate, Verified 11/25/24 10:04) Unknown metronidazole (From Flagyl) Allergy (Intermediate, Verified 11/25/24 10:04) Unknown morphine Allergy (Intermediate, Verified 11/25/24 10:04) Unknown oxycodone (From Percocet) Allergy (Intermediate, Verified 11/25/24 10:04) Unknown Penicillins Allergy (Intermediate, Verified 11/25/24 10:04) Unknown Sulfa (Sulfonamide Antibiotics) Allergy (Intermediate, Verified 11/25/24 10:04) Unknown acetaminophen Allergy (Unknown, Verified 11/25/24 10:04) Other (See Comment) per [facility] records cyclosporine Allergy (Unknown, Verified 11/25/24 10:04) Other (See Comment) per [facility] records fluticasone (From Advair Diskus) Allergy (Unknown, Verified 11/25/24 10:04) Other (See Comment) per [facility] records ibuprofen Allergy (Unknown, Verified 11/25/24 10:04) Other (See Comment) per [facility] records pregabalin (From Lyrica) Allergy (Unknown, Verified 11/25/24 10:04) Other (See Comment) per [facility] records salmeterol Allergy (Unknown, Verified 11/25/24 10:04) Other (See Comment) per [facility] Records strawberry Allergy (Unknown, Verified 11/25/24 10:04) Other (See Comment) per [facility] records Active Medications Generic Name Dose Route Start Last Admin Trade Name Freq PRN Reason Stop Dose Admin Iohexol 100 ml 12/02/24 18:45 12/02/24 18:37 Omnipaque 350 Mg/Ml 100 Ml Btl IJ 01/01/25 23:59 100 ml DIRECTED YVROSE Administration Sodium Chloride 50 ml 12/02/24 18:45 12/02/24 18:37 Normal Saline - Diluent 50 Ml Vial IJ 50 ml .FOR DI USE YVROSE Administration IV IV Catheter Type [Right Peripheral IV Antecubital] IV Catheter Type [Left Forearm Saline Lock ] IV Catheter Type [Left Hand] Saline Lock IV Catheter Gauge [Right 18 Antecubital] IV Catheter Gauge [Left 20 Forearm] IV Catheter Gauge [Left Hand] 22 Diagnostics 12/02/24 12/02/24 12/02/24 Range/Units 22:19 19:12 17:15 WBC (4.4-10.8) 10^3/uL RBC (3.93-5.22) 10^6/uL Hgb (11.2-15.7) g/dL Hct (36.0-46.0) % MCV (80-95) fL MCH (27.0-33.0) pg MCHC (32.0-36.0) % RDW (11.7-14.6) % Plt Count (130-400) 10^3/uL MPV (8.0-11.0) fL Immature Gran % % Neutrophils % % Lymphocytes % % Monocytes % % Eosinophils % % Basophils % % Nucleated RBC % (0.0-0.3) % Absolute Neutrophils (1.2-6.7) 10^3/uL Absolute Lymphocytes (1.2-3.4) 10^3/uL Absolute Monocytes (0.1-0.8) 10^3/uL Absolute Eosinophils (0.0-0.7) 10^3/uL Absolute Basophils (0.0-0.2) 10^3/uL PT (9.1-11.1) sec INR (0.9-1.1) APTT (20.6-30.2) sec Fibrinogen D-Dimer (<500) ng/mlFEU VBG Lactate (<or=2.0) mmol/L Sodium (136-145) mmol/L Potassium (3.5-5.1) mmol/L Chloride (98-107) mmol/L Carbon Dioxide (21.0-32.0) mmol/L Anion Gap (3-11) mmol/L BUN (7-18) mg/dL Creatinine (0.55-1.02) mg/dL Est GFR (CKD-EPI 2020) (mL/min/1.73m2) Glucose (74-106) mg/dL Calcium (8.5-10.1) mg/dL Phosphorus 4.0 (2.6-4.7) mg/dL Magnesium (1.8-2.4) mg/dL Total Bilirubin (0.2-1.0) mg/dL AST (15-37) U/L ALT (14-59) U/L Alkaline Phosphatase (46-116) U/L Troponin I 12 10 (<or=51) ng/L NT-Pro-B Natriuret Pep (<300) pg/mL Total Protein (6.4-8.2) g/dL Albumin (3.4-5.0) g/dL Lipase (<78) U/L Urine Color (Yellow) Urine Clarity (Clear) Urine pH (5-8) Ur Specific [place] (1.005-1.025) Urine Protein (Neg-Trace) mg/dL Urine Ketones (Negative) mg/dL Urine Blood (Negative) Urine Nitrite (Negative) Urine Bilirubin (Negative) Urine Urobilinogen (Up to 0.2) mg/dL Ur Leukocyte Esterase (Negative) Urine Glucose (Negative) mg/dL COVID-19 Source Nasopharynx SARS-CoV-2 (PCR) Negative (Negative) Influenza Type A (PCR) Negative (Negative) Influenza Type B (PCR) Negative (Negative) RSV (PCR) Negative (Negative) Pathology Consult Spec 12/02/24 12/02/24 Range/Units 16:26 16:12 WBC 3.13 L (4.4-10.8) 10^3/uL RBC 2.86 L (3.93-5.22) 10^6/uL Hgb 9.4 L (11.2-15.7) g/dL Hct 25.2 L (36.0-46.0) % MCV 88 (80-95) fL MCH 32.9 (27.0-33.0) pg MCHC 37.3 H (32.0-36.0) % RDW 12.6 (11.7-14.6) % Plt Count 21 L* (130-400) 10^3/uL MPV 9.6 (8.0-11.0) fL Immature Gran % 0.3 % Neutrophils % 74.5 % Lymphocytes % 16.0 % Monocytes % 5.1 % Eosinophils % 3.8 % Basophils % 0.3 % Nucleated RBC % 0.0 (0.0-0.3) % Absolute Neutrophils 2.33 (1.2-6.7) 10^3/uL Absolute Lymphocytes 0.50 L (1.2-3.4) 10^3/uL Absolute Monocytes 0.16 (0.1-0.8) 10^3/uL Absolute Eosinophils 0.12 (0.0-0.7) 10^3/uL Absolute Basophils 0.01 (0.0-0.2) 10^3/uL PT 12.1 H (9.1-11.1) sec INR 1.2 H (0.9-1.1) APTT 28.1 (20.6-30.2) sec Fibrinogen Pending D-Dimer 758 H (<500) ng/mlFEU VBG Lactate 2.1 (<or=2.0) mmol/L Sodium 131 L (136-145) mmol/L Potassium 3.5 (3.5-5.1) mmol/L Chloride 93 L (98-107) mmol/L Carbon Dioxide 32.5 H (21.0-32.0) mmol/L Anion Gap 5.5 (3-11) mmol/L BUN 23 H (7-18) mg/dL Creatinine 1.1 H (0.55-1.02) mg/dL Est GFR (CKD-EPI 2020) 54.73 (mL/min/1.73m2) Glucose 104 (74-106) mg/dL Calcium 9.1 (8.5-10.1) mg/dL Phosphorus (2.6-4.7) mg/dL Magnesium 1.2 L (1.8-2.4) mg/dL Total Bilirubin 2.6 H (0.2-1.0) mg/dL AST 40 H (15-37) U/L ALT 39 (14-59) U/L Alkaline Phosphatase 102 (46-116) U/L Troponin I 11 (<or=51) ng/L NT-Pro-B Natriuret Pep 197 (<300) pg/mL Total Protein 6.1 L (6.4-8.2) g/dL Albumin 3.5 (3.4-5.0) g/dL Lipase 108 H (<78) U/L Urine Color Yellow (Yellow) Urine Clarity Clear (Clear) Urine pH 7.0 (5-8) Ur Specific [place] 1.015 (1.005-1.025) Urine Protein Negative (Neg-Trace) mg/dL Urine Ketones Negative (Negative) mg/dL Urine Blood Negative (Negative) Urine Nitrite Negative (Negative) Urine Bilirubin Negative (Negative) Urine Urobilinogen 0.2 (Up to 0.2) mg/dL Ur Leukocyte Esterase Negative (Negative) Urine Glucose Negative (Negative) mg/dL COVID-19 Source SARS-CoV-2 (PCR) (Negative) Influenza Type A (PCR) (Negative) Influenza Type B (PCR) (Negative) RSV (PCR) (Negative) Pathology Consult Spec Pending [id number] Documentation Fingerstick Glucose Start: 12/02/24 15:58 Freq: .Stat Status: Active Protocol: Activity Type Activity Date Activity User E-sign Co-sign Detail Recorded Client Recorded Date Recorded By Document 12/02/24 16:13 BKG DAEMON(3) [id number] 12/02/24 16:15 BKG DAEMON(4) Intake and Output - 24 Hour Total 12/02/24 15:27 thru 12/02/24 22:31 Intake Total 1000 Output Total 3075 Balance -2074 Weight 87.3 kg Intake: IV 550 Oral 450 Output: Urine 3075 Other: # Voids 1 # Bowel Movements 2 Falls Risk Assessment History of Falls No History 12/02/24 15:50 Contributing Factors No Factors 12/02/24 15:50 Ambulatory Aids Independent 12/02/24 15:50 Tubes/Lines None 12/02/24 15:50 Gait Evaluation No gait disturbance 12/02/24 15:50 Fall Total Score 0 12/02/24 15:50 Level of Risk Standard/Low Risk 12/02/24 15:50 Problems (Last Reviewed 12/02/24 @ 21:51 by José Chaney) Thrombocytopenia (Chronic) Liver 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) (Acute) Abdominal pain (Acute) Left sided abdominal pain (Acute) Hypomagnesemia (Acute) Edema of both lower legs (Acute) v v v v v v v v v Sending and/or Receiving Nurses: Please use comment section below to note any information pertinent to the patient hand-off not included above. Information / Comments: 5'5 87.3kg hx of concern:GILLESPIE last week she was here for UTI and yeast infection. yeast infection improving very slowly. wears brief mostly continent. has voided 2L total, voiding well. small smear of stool, hx of hemorrhoids, ractal prolapse. Baseline: impulsive; poor historian. IR team @ [facility] consulted for TIPS shut, not concerned. stay overnight for ultrasound in am. LFTs poor, overall dehydrated, Plts 21 pt got mag, K+, 500mls LR, compazine, zofran, hydroxazine, lidoderm left lower back SBA/1x 18g LAC 20gLFA Report received from: [place] B @ [id number]
[2024-12-02] MEDS: Normal Saline Flush 10 ML SYR IVP (23:49)
[2024-12-02 23:53] LABS: TSH (W/Ref FT4) 4.58 uIU/mL (0.36-3.74)
[2024-12-03 00:10] LABS: FREE T4 0.76 ng/dL (0.76-1.46)
[2024-12-03 03:25] VITALS: BP 120/65; PULSE 81; RESP 15; TEMP 37.4; O2SAT 94
[2024-12-03] MEDS: Acetaminophen 325 MG TAB PO ×2 (05:05→15:39)
[2024-12-03 06:42] LABS: HCT 22.7 % (36.0-46.0); HGB 8.3 g/dL (11.2-15.7); MCH 32.5 pg (27.0-33.0); MCHC 36.6 % (32.0-36.0); MCV 89 fL (80-95); MPV 9.2 fL (8.0-11.0); RBC 2.55 10^6/uL (3.93-5.22); RDW 12.6 % (11.7-14.6); RDW-SD 39.3 fL; WBC 3.87 10^3/uL (4.4-10.8)
[2024-12-03 06:49] LABS: INR 1.2 (0.9-1.1); Prothrombin Time 11.7 sec (9.1-11.1)
[2024-12-03 06:55] LABS: ALT 35 U/L (14-59); AST 34 U/L (15-37); Albumin 3.2 g/dL (3.4-5.0); Alkaline Phosphatase 98 U/L (46-116); Anion Gap 7.1 mmol/L (3-11); BUN 27 mg/dL (7-18); Bilirubin, Total 2.5 mg/dL (0.2-1.0); CO2 30.9 mmol/L (21.0-32.0); CREATININE 1.1 mg/dL (0.55-1.02); Calcium 8.9 mg/dL (8.5-10.1); Chloride 96 mmol/L (98-107); Estimated GFR 54.73 (mL/min/1.73m2); Glucose 67 mg/dL (74-106); Magnesium 2.1 mg/dL (1.8-2.4); Potassium 4.1 mmol/L (3.5-5.1); Sodium 134 mmol/L (136-145); Total Protein 5.5 g/dL (6.4-8.2)
[2024-12-03 06:58] LABS: Platelet Count 21 10^3/uL (130-400)
[2024-12-03 07:45] VITALS: BP 104/51; PULSE 77; RESP 15; TEMP 36.6; O2SAT 97
--- NOTE | 2024-12-03 08:00 | DI.US_ITS ---
Exam(s) US ABDOMEN LIMITED EXAM: US ABDOMEN LIMITED CLINICAL HISTORY: Obstructed TIPS TECHNIQUE: Ultrasound abdomen performed using standard protocol. COMPARISON: CT CT ABDOMEN PELVIS CTA from 12/02/2024 FINDINGS: LIVER: Coarse echotexture, consistent with cirrhosis.. No focal liver lesions are seen. Flow is not ed within the TIPS throughout its length. No visible filling defects. GALLBLADDER: Cholecystectomy BILIARY SYSTEM: No intrahepatic or extrahepatic biliary ductal dilation. Right KIDNEY: Normal size. No evidence of renal calculi. No evidence of hydronephrosis. No renal mas s or cyst identified. PANCREAS: Normal where visualized. ASCITES: None seen. IMPRESSION: Blood flow is visible within the TIPS without evidence of areas of narrowing or other filling defects . Cirrhotic appearing liver. No ascites. DATA REPOSITORY:
[2024-12-03] MEDS: Glucose Oral Gel 15 GM/37.5 GM TUBE PO (08:04)
[2024-12-03] MEDS: Normal Saline Flush 10 ML SYR IVP ×2 (09:04→19:37)
[2024-12-03] MEDS: Lactulose 20 GM/30 ML CUP 30 GM PO ×3 (09:05→19:36)
--- NOTE | 2024-12-03 09:07 | PGE_ITS ---
Date of Service Date of service: 12/03/24 Time of Service: 09:07 Assessment and Plan Assessment and plan (1) Abdominal pain: Start date: 12/02/24 Status: Acute Assessment and plan: Resolved and afebrile TIPS procedure status postcholecystectomy with mildly dilated common bile duct occlusion ruled out as per US of the abdomen Chronic cirrhosis without significant ascites- continue outpatient management with symptomatic treatment while inpatient . Resides at the [facility] and report GI symptoms among other residents. Will resume diet s/p imaging and evaluate tolerance (2) Hypomagnesemia: Start date: 12/02/24 Status: Chronic Assessment and plan: Resolve - Magnesium in AM Continue oral magnesium PRN antiemetics for her nausea at the residential. 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 US shows patent TIPS Follow-up [facility] gastroenterology on discharge as per PCP (4) Edema of both lower legs: Status: Chronic Assessment and plan: On chronic diuretics BMP in AM Echocardiogram outpatient . (5) Pancytopenia: Status: Chronic Assessment and plan: Thrombocytopenia slightly worsened but otherwise stable at 21 w/o acute bleeding. Occult blood stool No anticoagulation and TEDS for DVT prophylaxis (6) Hyponatremia: Status: Chronic Assessment and plan: Na 134 - chronic w/o marked confusion (7) Type 2 diabetes mellitus: Status: Chronic Assessment and plan: Continue glucometer measurements before meals and at bedtime with moderate sliding scale correction insulin coverage while hospitalized. Resume outpatient therapy on d/c (8) Hypoglycemia: Status: Acute Assessment and plan: Gluc 67- corrected at 145 D5%LR @ 80cc/hr while NPO And as above Resume diet s/p US and evaluate tolerance Subjective Subjective Patient reports: no new complaints, feels better, tolerating liquids well (NPO), tolerating a regular diet (NPO) and other (Reports feeling tired, no further abdominal pain); denies voiding w/o difficulty, nausea, vomiting, shortness of breath or fever Exam Narrative Exam Narrative: Constitutional The patient in bed, sleepy but arousable - comfortable without acute distress HENMT: Facial structures with normal appearance, slighlty dry oral mucous membranes Eyes: slightly icteric sclera, well aligned, intact ROM Neuro:alert and oriented X3 ( no time orientation except year). No neurological focal deficit Resp: Unlabored breathing, clear lung bilaterally Cardio: regular rhythm, S1, S2, no murmur,positive bilateral pedal and radial pulses GI: Abdomen is not distended, soft and non tender, bowel sounds are present : Negative Costovertebral angle tenderness, no bladder distension Extremities: moves all 4 ext Psych: RASS 0, congruent mood and flat affect. Objective Last Vital Signs Temp 36.6 C 12/03/24 07:45 Pulse 77 12/03/24 07:45 Resp 15 12/03/24 07:45 BP 104/51 L 12/03/24 07:45 Pulse Ox 97 12/03/24 07:45 Laboratory Results - last 24 hr 12/02/24 12/02/24 12/02/24 16:12 16:26 17:15 WBC 3.13 L RBC 2.86 L Hgb 9.4 L Hct 25.2 L MCV 88 MCH 32.9 MCHC 37.3 H RDW 12.6 Plt Count 21 L* MPV 9.6 Immature Gran % 0.3 Neutrophils % 74.5 Lymphocytes % 16.0 Monocytes % 5.1 Eosinophils % 3.8 Basophils % 0.3 Nucleated RBC % 0.0 Absolute Neutrophils 2.33 Absolute Lymphocytes 0.50 L Absolute Monocytes 0.16 Absolute Eosinophils 0.12 Absolute Basophils 0.01 PT 12.1 H INR 1.2 H APTT 28.1 D-Dimer 758 H VBG Lactate 2.1 Sodium 131 L Potassium 3.5 Chloride 93 L Carbon Dioxide 32.5 H Anion Gap 5.5 BUN 23 H Creatinine 1.1 H Est GFR (CKD-EPI 2020) 54.73 Glucose 104 Calcium 9.1 Phosphorus 4.0 Magnesium 1.2 L Total Bilirubin 2.6 H AST 40 H ALT 39 Alkaline Phosphatase 102 Troponin I 11 10 NT-Pro-B Natriuret Pep 197 Total Protein 6.1 L Albumin 3.5 Lipase 108 H TSH 4.58 H Free T4 0.76 Urine Color Yellow Urine Clarity Clear Urine pH 7.0 Ur Specific [place] 1.015 Urine Protein Negative Urine Ketones Negative Urine Blood Negative Urine Nitrite Negative Urine Bilirubin Negative Urine Urobilinogen 0.2 Ur Leukocyte Esterase Negative Urine Glucose Negative COVID-19 Source SARS-CoV-2 (PCR) Influenza Type A (PCR) Influenza Type B (PCR) RSV (PCR) 12/02/24 12/02/24 12/03/24 19:12 22:19 06:23 WBC 3.87 L RBC 2.55 L Hgb 8.3 L Hct 22.7 L MCV 89 MCH 32.5 MCHC 36.6 H RDW 12.6 Plt Count 21 L* MPV 9.2 Immature Gran % Neutrophils % Lymphocytes % Monocytes % Eosinophils % Basophils % Nucleated RBC % Absolute Neutrophils Absolute Lymphocytes Absolute Monocytes Absolute Eosinophils Absolute Basophils PT 11.7 H INR 1.2 H APTT D-Dimer VBG Lactate Sodium 134 L Potassium 4.1 Chloride 96 L Carbon Dioxide 30.9 Anion Gap 7.1 BUN 27 H Creatinine 1.1 H Est GFR (CKD-EPI 2020) 54.73 Glucose 67 L Calcium 8.9 Phosphorus Magnesium 2.1 Total Bilirubin 2.5 H AST 34 ALT 35 Alkaline Phosphatase 98 Troponin I 12 NT-Pro-B Natriuret Pep Total Protein 5.5 L Albumin 3.2 L Lipase TSH Free T4 Urine Color Urine Clarity Urine pH Ur Specific [place] Urine Protein Urine Ketones Urine Blood Urine Nitrite Urine Bilirubin Urine Urobilinogen Ur Leukocyte Esterase Urine Glucose COVID-19 Source Nasopharynx SARS-CoV-2 (PCR) Negative Influenza Type A (PCR) Negative Influenza Type B (PCR) Negative RSV (PCR) Negative Time Spent with Patient Time Spent with Patient: >50 minutes Time was spent: preparing to see the patient(eg.review tests), obtaining and/or reviewing separately otained hiistory, ordering medications,tests, procedures, referring, communicating with other health critical care registered nurse, indepentently interpreting results, counseling the patient and care coordination
[2024-12-03] MEDS: Torsemide 20 MG TAB 40 MG PO ×2 (09:08→15:05)
[2024-12-03] MEDS: levETIRAcetam 500 MG TAB 1000 MG PO ×2 (09:09→19:36)
[2024-12-03] MEDS: Rifaximin 550 MG TAB PO ×2 (09:10→19:37)
[2024-12-03] MEDS: Pantoprazole 40 MG TABCR PO (09:10)
[2024-12-03] MEDS: Cholecalciferol (Vitamin D3) 1,000 UNIT TAB 2000 UNITS PO (09:11)
[2024-12-03] MEDS: QUEtiapine 25 MG TAB PO ×2 (09:11→19:37)
[2024-12-03] MEDS: Lactobacillus Acidophilus CAP 1 CAP PO (09:12)
[2024-12-03] MEDS: Spironolactone 50 MG TAB PO (09:12)
[2024-12-03] MEDS: Folic Acid 1 MG TAB PO (09:13)
[2024-12-03] MEDS: DEXTROSE 5%-LACTATED RINGERS 1,000 ML 80 ML IV (09:24)
--- NOTE | 2024-12-03 09:40 | INITIAL_ITS ---
Date of service: 12/03/24 Time of Service: 09:40 Care Management Initial Assmt Initial Assessment Reason for Hospitalization: abdominal pain and hypomagnesemia Functional Status/Living Situation Patient Presentation: Reny presented to the ED yesterday afternoon with c/o abdominal pain, low grade fever and hypomagnesemia. She is on daily lactulose for her liver failure. She is s/p TIPS, and there is some question this may be occluded. Reny was sleeping a good amount today, but CM found her awake this afternoon. She stated that she was feeling a bit better. She was happy to know that Mary Grace from the [facility] had called to check on her. Reny stated that the [facility] is home to her. Her sister visits sometimes, and she does get involved in the activities at the facility. Town of Residence: [place] at the [facility] Resides with: Other (lives at the [facility]) Significant Other/Family: Local (has a sister and a niece.) Caregiver/Guardian: the [facility] Employment Status: Unemployed Medications Medication Management: No Issues/Barriers identified Physical Functioning/Mobility Assistive Device: There is a walker in her room, but she stated that she doesn't usually use a walker, only here. Advance Directives Advance Directives: Do you have an Advance Directive: AD On File at [facility]: N 06/11/24 15:15 Date Asked 12/02/24 12/02/24 15:53 AD Date Reviewed COLST On File at [facility] COLST Date Scanned Code Status Resuscitation Status DNR/DNI Insurance Coverage/Financial Issues Insurance: AARP/.HLTH [place] Replacement Medicaid of [place] Care Team Visit Care Team Role Provider Type Tracie Juarez APRN MD [facility] STAFF PHYSICIAN Abbey Smith NP Primary Care Provider NURSE PRACTITIONER Ruth Hamilton Emergency Provider NURSE PRACTITIONER José Chaney Admit Provider NON-[facility] STAFF PHYSICIAN Attending Provider Discharge Potential Discharge Needs: Other (Facility provider f/u) Anticipated Barriers to Discharge: None Identified Patient/Family Education Needs: Review discharge instructions, discuss Ask Me Three Transportation: [facility] (unsure how she transports. PT consult is ordered, but not completed yet.) Plan: Anticipate that Reny will return to the [facility] once medically cleared. She will f/u with the facility provider and continue per her plan of care. She will transport via [facility]. CM will continue to follow. Social Determinants of Health Screening Social Determinants of health last assessed in clinic: 12/02/24 Will the Patient Participate in the Screening?: Declined to provide Do you worry about having a steady place to live?: no Problems where you live: no known problems In the past 12 months, have you had to go without electric, gas, oil or water in your home?: no Has lack of transportation kept you from medical appointments or from doing things needed for daily living?: no Has anyone in your life made you feel unsafe or unsupported?: no How hard is it for you to pay for the very basics like food, housing, medical care, and heating? Would you say it is:: Not hard at all Do you want help finding or keeping work or a job?: I do not need or want help If for any reason you need help with day-to-day activities such as bathing, preparing meals, shopping, managing finances, etc., do you get the help you need?: I need a lot more help How often do you feel lonely or isolated from those around you?: Never Do you speak a language other than [place] at home?: No Does the patient want assistance with any of the above?: No Health Related Social Needs Health related social needs: problems with daily activities (Z73.9) PFSH All Active Problems (Updated 12/03/24 @ 09:17 by Tracie Juarez APRN) Hypoglycemia (Acute) Type 2 diabetes mellitus (Chronic) Pancytopenia (Chronic) Hyponatremia (Chronic) Thrombocytopenia (Chronic) Liver 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) (Chronic) Abdominal pain (Acute) Left sided abdominal pain (Acute) Hypomagnesemia (Chronic) Hemorrhoid (Acute) Irritation of vulva (Acute) URI (upper respiratory infection) (Acute) Edema of both lower legs (Chronic) Nail dystrophy (Acute) Social History Smoking/Tobacco Use Status: Never Smoking risk assessment performed?: Yes Alcohol Intake: never Drug use: Never Substance use type: does not use Housing: assisted living facility Do you feel safe at home: Yes Do you feel safe in your relationship?: Yes Additional Social history: lives at [facility] Within the Past 30 Days Yes or No: No
[2024-12-03] MEDS: Magnesium Oxide 400 MG TAB PO ×3 (10:18→19:37)
[2024-12-03] MEDS: Umeclidinium 7 CAP INHALER 1 CAP IH (11:00)
[2024-12-03 11:43] VITALS: BP 113/68; PULSE 86; RESP 16; TEMP 36.8; O2SAT 97
[2024-12-03] MEDS: Insulin Aspart 300 UNITS/3 ML PEN SC ×3 (12:46→22:08)
[2024-12-03 15:31] VITALS: BP 111/51; PULSE 80; RESP 20; TEMP 36.8; O2SAT 96
[2024-12-03 19:32] VITALS: BP 113/58; PULSE 85; RESP 15; TEMP 36.5; O2SAT 96
[2024-12-03] MEDS: Gabapentin 300 MG CAP 600 MG PO (19:36)
[2024-12-03] MEDS: Polyethylene Glycol 3350 17 GM PACKET PO (19:37)
[2024-12-04 06:40] LABS: HCT 21.6 % (36.0-46.0); HGB 7.9 g/dL (11.2-15.7); MCH 32.6 pg (27.0-33.0); MCHC 36.6 % (32.0-36.0); MCV 89 fL (80-95); MPV 9.4 fL (8.0-11.0); RBC 2.42 10^6/uL (3.93-5.22); RDW 12.7 % (11.7-14.6); RDW-SD 40.1 fL; WBC 2.85 10^3/uL (4.4-10.8)
[2024-12-04 06:49] LABS: INR 1.2 (0.9-1.1); Prothrombin Time 12.2 sec (9.1-11.1)
[2024-12-04 06:56] LABS: ALT 32 U/L (14-59); AST 30 U/L (15-37); Albumin 3.2 g/dL (3.4-5.0); Alkaline Phosphatase 98 U/L (46-116); Anion Gap 9.2 mmol/L (3-11); BUN 26 mg/dL (7-18); Bilirubin, Total 2.4 mg/dL (0.2-1.0); CO2 30.8 mmol/L (21.0-32.0); CREATININE 1.2 mg/dL (0.55-1.02); Calcium 8.7 mg/dL (8.5-10.1); Chloride 97 mmol/L (98-107); Estimated GFR 49.31 (mL/min/1.73m2); Glucose 80 mg/dL (74-106); Magnesium 1.4 mg/dL (1.8-2.4); Potassium 3.7 mmol/L (3.5-5.1); Sodium 137 mmol/L (136-145); Total Protein 5.7 g/dL (6.4-8.2)
[2024-12-04 07:22] LABS: Platelet Count 17 10^3/uL (130-400)
[2024-12-04 07:30] VITALS: BP 97/48; PULSE 79; RESP 20; TEMP 37.3; O2SAT 93
[2024-12-04] MEDS: Umeclidinium 7 CAP INHALER 1 CAP IH (07:54)
[2024-12-04] MEDS: QUEtiapine 25 MG TAB PO (08:14)
[2024-12-04] MEDS: Pantoprazole 40 MG TABCR PO (08:14)
[2024-12-04] MEDS: Cholecalciferol (Vitamin D3) 1,000 UNIT TAB 2000 UNITS PO (08:14)
[2024-12-04] MEDS: Torsemide 20 MG TAB 40 MG PO (08:14)
[2024-12-04] MEDS: Rifaximin 550 MG TAB PO (08:14)
[2024-12-04] MEDS: Magnesium Oxide 400 MG TAB PO ×2 (08:14→13:08)
[2024-12-04] MEDS: levETIRAcetam 500 MG TAB 1000 MG PO (08:14)
[2024-12-04] MEDS: Spironolactone 50 MG TAB PO (08:15)
[2024-12-04] MEDS: Folic Acid 1 MG TAB PO (08:15)
[2024-12-04] MEDS: Lactulose 20 GM/30 ML CUP 30 GM PO ×2 (08:15→11:47)
[2024-12-04] MEDS: Normal Saline Flush 10 ML SYR IVP (08:15)
[2024-12-04] MEDS: Lactobacillus Acidophilus CAP 1 CAP PO (08:15)
[2024-12-04] MEDS: Acetaminophen 325 MG TAB PO (08:18)
[2024-12-04] MEDS: MAGNESIUM SULFATE 4 GM/100 ML BAG IV_INF (09:14)
--- NOTE | 2024-12-04 10:04 | DSE_ITS ---
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 female patient from the [facility] with a PMHx of T2DM, GILLESPIE related cirrhosis, esophageal varices, chronic hyponatremia, pancytopenia , recent UTI and chronic cirrhosis secondary to GILLESPIE with esophageal varices s/p TIPS presented to the ED for evaluation of L sided abdominal pain radiating around to flank and down L thigh accompanied by L sided headache with lightheadedness, neck/shoulder discomfort, tingling to L side of face, L arm, L leg, and R foot, nausea w/ decreased PO intake, chills and shortness of breath with exertion x 2-3 days. Work-up in the ED questioned TIPS occlusion as per CT of the abdomen, ongoing slepnomegaly. [facility] gastroenterology reviewed the CT and did not believe that the TIPS was occluded and recommended an abdominal US. CBC reflected chronic pantocytopenia with Platelets at 21 w/o acute source of bleeding, chemistry reflected chronic hyponatremia with Na 134, Mg was 1.2 treated with IV replacement, lactate 2.1 but otherwise without actionable items. UA was n egative. QTc was 505 as per an showing negative sings of coronary occlusion with negative troponins. The patient was admitted to observation for follow-up abdominal ultrasound. Ultrasound for follow-up confirmed TIPS patency. on the day of discharge the patient was hemodynamically stable and afebrile, tolerated oral intake. Labs showed ongoing pancytopenia without meeting criteria for transfusion. The patient will return to the [facility] with as needed oral compazine for nausea and will need to follow-up with [facility] GI and hemato-oncology as per outpatient practitioner referrals. Spoke to hematology at [facility] Dr. Lara with recommendations against platelet transfusion in the absence of bleeding with platelets most likely to be sequestered in the spleen, agrees that further work-up is needed and also recommended for discussion with Dr. Alon Mead who sees the patient in hematology in [facility]. Dr Mead also recommended against platelet transfusion today and will see the patient next Sunday for further work-up; she had missed her appointment on 12/03/24. Spoke to Dr. Hernandez pathologist at [facility] who agrees with no platelets transfusion with the current clinical picture. Case and recommendation discussed with Dr. Laina Leal, medical detailist at the [facility]; patient to return to ED if acute bleeding and CBC to be repeated on 12/06/2024. Recommendations for outpatient PCP follow-up: Needs referral to GI and hemato-oncology Dr. Alon Mead appointment on Sunday12/10/24 to be confirmed and verified Should follow palliative care outpatient Pancytopenia trending/ CBC in 2 days CBC ordered for 12/06/[address] Leslie [place] Meds and New Rx's Prescriptions: New prochlorperazine maleate [Compazine] 5 mg tablet 5 mg PO QID PRNQty: 40 0RF Continued folic acid 1 mg tablet 1 mg PO DAILY pantoprazole [Protonix] 40 mg tablet,delayed release (DR/EC) 40 mg PO DAILY levetiracetam 1,000 mg tablet 1,000 mg PO BID Incruse Ellipta 62.5 mcg/actuation blister with device 1 inh inhalation DAILY lactulose 10 gram/15 mL solution 30 g PO QID Xifaxan 550 mg tablet 550 mg PO BID insulin aspart U-100 100 unit/mL (3 mL) insulin pen 1 sliding scale dose subcut TID spironolactone 100 mg tablet 50 mg PO DAILY insulin degludec [Tresiba FlexTouch U-200] 200 unit/mL (3 mL) insulin pen 64 unit subcut BID nystatin [Nyamyc] 100,000 unit/gram powder 1 applic topical BID albuterol 90 mcg/actuation aerosol 180 mcg inhalation .Q4 PRN hydroxyzine HCl 10 mg tablet 25 mg PO BID PRN epinephrine 0.3 mg/0.3 mL auto-injector 0.3 ml subcut Q5-15M PRN Rx Instructions: do not exceed 2 doses per episode cholecalciferol (vitamin D3) [D3 DOTS] 50 mcg (2,000 unit) tablet 50 mcg PO DAILY torsemide 20 mg tablet 40 mg PO BID quetiapine [Seroquel] 25 mg tablet 25 mg PO BID hydrocortisone acetate 25 mg suppository 25 mg RI Q12H PRN Patient Comments: PRN FOR HEMORRHOIDS azelastine 137 mcg (0.1 %) spray,non-aerosol 2 spray intranasal Q12H PRN Patient Comments: PRN FOR ALLERGIES Rx Instructions: administer into each nostril gabapentin 300 mg capsule 600 mg PO HS Lactobacillus acidophilus Tablet 50 mmu cells PO DAILY magnesium oxide 500 mg magnesium tablet 500 mg PO TID Patient Comments: TAKE ONE TABLET BY MOUTH THREE TIMES A DAY polyethylene glycol 3350 [ClearLax] 17 gram/dose powder 17 g PO BID ketoconazole 2 % cream 1 applic topical DAILY Qty: 15 0RF Rx Instructions: Apply to affected and immediate surrounding area for 2 weeks. Held ibuprofen [Advil] 200 mg tablet 200 mg PO TID-QID PRN Hold Instructions: Resume on 12/18/24. Discussed with PCP Discontinued linezolid 600 mg tablet 600 mg PO BID No Action spironolactone 50 mg tablet 50 mg PO DAILY Discharge Instructions Referrals: Abbey Smith [employer] [Primary Care Provider] - (PCP follow-up within 7 days of discharge -will need to see GI and hemato-onco at [facility] ) Activity:: Activity as Tolerated Equipment/Supplies:: Walker Diet:: diabetic Discharge Orders Discharge Orders: Discharge Order (Routine); Ordered 12/04/24 Ordered By: Tracie Juarez DS: Summary Time Spent with Patient providing and/or coordinating discharge services: Greater than 30 minutes Status at Discharge Functional status at discharge: uses cane/walker Overall status at discharge: patient is progressing back to baseline Mental Status: mental status grossly normal Speech and Movement: speech and movement normal Mood: congruent mood Affect: normal affect Quality:SDOH Health Related Social Needs: Health related social needs problems with daily activi ties (Z73.9) Exam Narrative Exam Narrative: Constitutional The patient in bed, sleepy but arousable - comfortable without acute distress HENMT: Facial structures with normal appearance, slighlty dry oral mucous membranes Eyes: slightly icteric sclera, well aligned, intact ROM Neuro:alert and oriented X3 ( no time orientation except year). No neurological focal deficit Resp: Unlabored breathing, clear lung bilaterally Cardio: regular rhythm, S1, S2, no murmur,positive bilateral pedal and radial pulses GI: Abdomen is not distended, soft and non tender, bowel sounds are present : Negative Costovertebral angle tenderness, no bladder distension Extremities: moves all 4 ext Psych: RASS 0, congruent mood and flat affect. Psych Mental Status: mental status grossly normal Speech and Movement: speech and movement normal Mood: congruent mood Affect: normal affect DS: Data Vitals/I&O Vitals and I&O: Vital Signs Temperature 37.3 C 12/04/24 07:30 Temperature Source Temporal Artery Scan 12/04/24 07:30 Pulse 79 12/04/24 07:30 Pulse Rhythm Regular 12/02/24 23:56 Pulse 77 12/02/24 17:40 Respiratory Rate 20 12/04/24 07:30 Respiratory Effort Normal, Non-Labored 12/02/24 23:56 Respiratory Depth Normal 12/02/24 23:56 Respiratory Pattern Normal 12/02/24 23:56 Blood Pressure 97/48 L 12/04/24 07:30 Blood Pressure Mean 85 12/02/24 16:15 Blood Pressure Position Supine 12/02/24 15:42 Pulse Oximetry 93 12/04/24 07:30 Oxygen Delivery Method Room Air 12/04/24 07:30 Oxygen Flow Rate 0 12/04/24 07:30 Pain Level 6 12/04/24 08:18 Comment RN notified 12/04/24 07:30 Intake & Output 12/03/24 12/03/24 12/04/24 11:59 23:59 11:59 Intake Total 1210 / 1848.667 638.667 / 1848.667 Output Total 1400 / 3450 2050 / 3450 1100 / 1100 Balance -190 / -1601.333 -1411.333 / -1601.333 -1100 / -1100 Weight 81.9 kg 83 kg Intake: IV 30 / 668.667 638.667 / 668.667 Oral 1180 / 1180 Output: Urine 1400 / 3450 2050 / 3450 1100 / 1100 Other: Urine Color Straw Straw Straw Urine Appearance Clear Clear Clear Urine Odor None Normal Normal Stool Size Moderate Moderate Stool Characteristics Soft Soft Brown Formed Data Completed and Pending Labs on day of discharge: Labs from last 24 hours 12/04/24 12/02/24 12/02/24 06:10 16:12 16:12 WBC 2.85 L RBC 2.42 L Hgb 7.9 L Hct 21.6 L MCV 89 MCH 32.6 MCHC 36.6 H RDW 12.7 Plt Count 17 L* MPV 9.4 PT 12.2 H INR 1.2 H Sodium 137 Potassium 3.7 Chloride 97 L Carbon Dioxide 30.8 Anion Gap 9.2 BUN 26 H Creatinine 1.2 H Est GFR (CKD-EPI 2020) 49.31 Glucose 80 Calcium 8.7 Magnesium 1.4 L Total Bilirubin 2.4 H AST 30 ALT 32 Alkaline Phosphatase 98 Total Protein 5.7 L Albumin 3.2 L Pathology Consult Spec SEE COMMENT Cancelled PFSH All Active Problems (Updated 12/04/24 @ 09:18 by Tracie Juarez APRN) Hypoglycemia (Acute) Type 2 diabetes mellitus (Chronic) Pancytopenia (Chronic) Hyponatremia (Chronic) Thrombocytopenia (Chronic) Liver 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) (Chronic) Abdominal pain (Acute) Left sided abdominal pain (Acute) Hypomagnesemia (Chronic) Hemorrhoid (Acute) Irritation of vulva (Acute) URI (upper respiratory infection) (Acute) Edema of both lower legs (Chronic) Nail dystrophy (Acute) Social History Smoking/Tobacco Use Status: Never Smoking risk assessment performed?: Yes Alcohol Intake: never Drug use: Never Substance use type: does not use Housing: assisted living facility Do you feel safe at home: Yes Do you feel safe in your relationship?: Yes Additional Social history: [facility] Time Spent with Patient Time Spent with Patient: 70-84 minutes4 Time was spent: preparing to see the patient(eg.review tests), obtaining and/or reviewing separately otained hiistory, ordering medications,tests, procedures, referring, communicating with other health direct care professional, indepentently interpreting results, counseling the patient and care coordination
--- NOTE | 2024-12-04 10:17 | PT.INIE ---
PT Notes Visit Reasons: Abdominal pain, Hypomagnesemia Physical Therapy Inpatient Initial Evaluation Date: 12/04/2024 Referring Doctor: Tracie Juarez NP PT Orders: PT CONSULT: Eval for assistive device , Safety Consult for D/C Precautions: IV B anticupital fossa Patient Profile/Admitting Diagnosis: Patient is 69-year-old female presenting from the [facility] with abdominal pain patient diagnosed with hypomagnesia. Patient admitted for observation and medical management. 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 She ambulates without assistive device and receives assistance for ADLs and meals . Equipment Owned/DME: None Subjective: Patient reports she is tired and does not need to use the walker for walking. Objective: [] General Observation: Female supine in bed IV infusing. Mental Status: Alert and oriented to person and place. Able to follow commands. Agreeable to participate Pain: Denies ROM: [] BUE: WNL BLE: WNL Strength: [] BUE: grossly 5/5 RLE:Hip flexion: 3+/5; hip abduction: 3-/5; hip extension: 3 /5; knee extension: 4 /5; knee flexion: 3- /5 ankle DF: 4 /5 ; ankle PF: 4/5 LLE: Hip flexion: 3+ /5; hip abduction: 3- /5; hip extension:3 /5; knee extension: 4 /5; knee flexion: 3- /5 ankle DF: 4/5 ; ankle PF: 4 /5 Interpretation: Sensation: intact Bed Mobility/Transfers: [] Supine to sit independent Sit to stand SBA Stand to sit SBA Bed to chair SBA Gait: ambulation without AD CGA 75 feet with wide GLORIA, stagger stepping , reduced step length, wavering path side to side in ordoñez ambulation 50 feet with SBA with FWW reciprocal pattern , improved step length no stagger steps and straight path Balance: [] Static Sitting: Normal Dynamic Sitting:Good Static Standing: Good Dynamic Standing: Fair+ Special Tests: 4 STAGE BALANCE TEST: Feet together 30 seconds 1/2 Stance 20 seconds Tandem stance 6 seconds Single leg stance left 2 seconds, right 4 seconds Mobility Limitations Standardized Measure [] [facility] 6 clicks Basic Mobility Inpatient Short Form: [] Raw Score: 22 CMS Score: 20.91% Informed Consent/Education: Patient instructed in purpose of PT consult. Assessment: Patient is a 69-year-old female who presents with clinical signs and symptoms consistent with current/admitting diagnoses that have resulted to mobility limitations, gait instability, generalized weakness, and impairment of motor control as demonstrated by the following impairment level findings: 1. Decreased strength to BUE and BLE major muscle groups 2. Impaired standing balance without upper extremity support 3. Impaired functional activity tolerance Impairments are contributing to the following functional limitations: 1. Inability to safely ambulate without assistive device 2. Increase completion time for mobility ADL performance 3. Increased fall risk Patient is assessed as a moderate complexity based on the following: History: 69-year-old female with impairment level findings, functional limitations, and past medical history as indicated above Examination: Demonstrable impairment in strength, balance, and mobility level with underlying impairments and functional limitations as documented above Presentation: Evolving/stable Decision Making: Moderate Goals: N/A. d/t patient discharge back to the [facility] Plan of Care/Treatment Plan: N/A. PT evaluation only DISCHARGE RECOMMENDATIONS: Return to the [facility] with PT to progress with gait training. Patient would benefit from FWW to improve stability with ambulation TREATMENT CODE/TIME: [id number] Thank you for the opportunity to participate in the care of this patient. Letty Royal PT [facility]
[2024-12-04 11:18] VITALS: BP 109/63; PULSE 73; RESP 16; TEMP 36.6; O2SAT 94
[2024-12-04] MEDS: Insulin Aspart 300 UNITS/3 ML PEN SC (11:41)
--- NOTE | 2024-12-04 11:55 | W.PM.PROGNOT ---
Date of Service Date of service: 12/04/24 Time of Service: 11:55 Assessment and Plan Assessment and plan (1) Abdominal pain: Start date: 12/02/24 Status: Acute Assessment and plan: Resolved and afebrile TIPS procedure status postcholecystectomy with mildly dilated common bile duct occlusion ruled out as per US of the abdomen Chronic cirrhosis without significant ascites- continue outpatient management with symptomatic treatment while inpatient . Resides at the [facility] and report GI symptoms among other residents. Will resume diet s/p imaging and evaluate tolerance (2) Hypomagnesemia: Start date: 12/02/24 Status: Chronic Assessment and plan: Resolve - Magnesium in AM Continue oral magnesium PRN antiemetics for her nausea at the correction. 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 US shows patent TIPS Follow-up [facility] gastroenterology on discharge as per PCP (4) Edema of both lower legs: Status: Chronic Assessment and plan: On chronic diuretics BMP in AM Echocardiogram outpatient . (5) Pancytopenia: Status: Chronic Assessment and plan: Thrombocytopenia slightly worsened with baselin around 70 on 11/25/24, presenting on 12/02 at 24 but otherwise stable at 21 X 2 days w/o acute bleeding and negative occult blood in stools - platelets at at 17 today . Occult blood stool No anticoagulation and TEDS for DVT prophylaxis (6) Hyponatremia: Status: Chronic Assessment and plan: Na 134 - chronic w/o marked confusion (7) Type 2 diabetes mellitus: Status: Chronic Assessment and plan: Continue glucometer measurements before meals and at bedtime with moderate sliding scale correction insulin coverage while hospitalized. Resume outpatient therapy on d/c (8) Hypoglycemia: Status: Acute Assessment and plan: Gluc 67- corrected at 145 D5%LR @ 80cc/hr while NPO And as above Resume diet s/p US and evaluate tolerance Subjective Subjective Patient reports: no new complaints, feels better, tolerating liquids well, tolerating a regular diet, bowel movement and other (Reports feeling tired, no further abdominal pain); denies voiding w/o difficulty, nausea, vomiting, shortness of breath or fever Exam Narrative Exam Narrative: Constitutional The patient in bed, sleepy but arousable - comfortable without acute distress HENMT: Facial structures with normal appearance, slighlty dry oral mucous membranes Eyes: slightly icteric sclera, well aligned, intact ROM Neuro:alert and oriented X3 ( no time orientation except year). No neurological focal deficit Resp: Unlabored breathing, clear lung bilaterally Cardio: regular rhythm, S1 S2, no murmur, positive bilateral pedal and radial pulses GI: Abdomen is not distended, soft and non tender, bowel sounds are present : Negative Costovertebral angle tenderness, no bladder distension Extremities: moves all 4 ext Psych: RASS 0, congruent mood and flat affect. Objective Last Vital Signs Temp 36.6 C 12/04/24 11:18 Pulse 73 12/04/24 11:18 Resp 16 12/04/24 11:18 BP 109/63 12/04/24 11:18 Pulse Ox 94 12/04/24 11:18 Laboratory Results - last 24 hr 12/02/24 12/02/24 12/04/24 16:12 16:12 06:10 WBC 2.85 L RBC 2.42 L Hgb 7.9 L Hct 21.6 L MCV 89 MCH 32.6 MCHC 36.6 H RDW 12.7 Plt Count 17 L* MPV 9.4 PT 12.2 H INR 1.2 H Sodium 137 Potassium 3.7 Chloride 97 L Carbon Dioxide 30.8 Anion Gap 9.2 BUN 26 H Creatinine 1.2 H Est GFR (CKD-EPI 2020) 49.31 Glucose 80 Calcium 8.7 Magnesium 1.4 L Total Bilirubin 2.4 H AST 30 ALT 32 Alkaline Phosphatase 98 Total Protein 5.7 L Albumin 3.2 L Pathology Consult Spec Cancelled SEE COMMENT
[2024-12-04 12:59] LABS: Ammonia 70 umol/L (11-32)
[2024-12-04 13:33] LABS: Bilirubin, Direct 0.7 mg/dL (0.0-0.2)
--- NOTE | 2024-12-04 13:58 | CMDISCH_ITS ---
Date of service: 12/04/24 Time of Service: 13:59 LACE Index Scoring Tool Questions: Length of Stay (in days): 2 Was the patient admitted via the E.D.?: Yes Comorbidities: Diabetes w/o Complication and Liver or Renal Disease E.D. Visits: 5 Answers: Total Score: 14 Risk of Readmission: High Risk Care Management Discharge Plan Reason for Hospitalization: abdominal pain Discharge Plan: Reny is discharged home to the [facility] today. She will f/u with the facility provider. She will have a palliative care visit on 12/08. She will see hematology on 12/10. CBC to be repeated on 12/06/24. She is also being referred to GI and hemato-oncology. Reny will follow her prescribed plan of care and transport via [facility] private vehicle, as coordinated by CM. Reny is very happy to be returning home. Patient/Family Education Needs: Review of discharge instructions, activity, limitations, and discuss ask me 3. SDOH Health Related Social Needs: Health related social needs problems with daily activi ties (Z73.9)
== END 2024-12-04 14:21 | disposition skilled nursing facility (03) ==
LOC: ER 22:23 → MS 23:34
PROVIDERS: Admitting Provider Family Medicine; Emergency Provider Nurse Practitioner Family; PCP Nurse Practitioner Gerontology; Responsible Provider Nurse Practitioner Acute Care; Visit Provider Family Medicine
DX: R10.32 Left lower quadrant pain (principal); E83.42 Hypomagnesemia; R60.0 Localized edema; E11.22 Type 2 diabetes mellitus with diabetic chronic kidney disease; N18.31 Chronic kidney disease, stage 3a; Z79.4 Long term (current) use of insulin; D69.6 Thrombocytopenia, unspecified; E87.1 Hypo-osmolality and hyponatremia; D61.818 Other pancytopenia; Z66 Do not resuscitate; K74.69 Other cirrhosis of liver; J44.9 Chronic obstructive pulmonary disease, unspecified; Z95.828 Presence of other vascular implants and grafts; E11.649 Type 2 diabetes mellitus with hypoglycemia without coma; I85.10 Secondary esophageal varices without bleeding; Z79.899 Other long term (current) drug therapy
CPT/HCPCS: 00123; 36415; 36416; 80053; 82962; 83690; 85027; 85384; 86850; 86900; 86901; 87637; 93005; 94640; 96361; 96365; 96366; 96375; 97162; 97530; 99285; 70450; 74174; 76705; 81003; 82140; 82248; 82270; 83605; 83735; 83880; 84100; 84439; 84443; 84484; 85025; 85379; 85610; 85730; 93010; 94664; 99223; 99233; 99239; G0378; J0780; J1815; J3475; J3490

== ENCOUNTER 2024-12-06 08:35 | Outpatient (REF) | payer MEDICARE, MEDICAID, SELFPAY ==
[2024-12-06 09:11] LABS: BUN 16 mg/dL (7-18); CREATININE 1.1 mg/dL (0.55-1.02); Calcium 8.9 mg/dL (8.5-10.1); Chloride 97 mmol/L (98-107); Estimated GFR 54.73 (mL/min/1.73m2); Glucose 145 mg/dL (74-106); Sodium 134 mmol/L (136-145)
[2024-12-06 09:15] LABS: Abs Immature Grans 0.03 10^3/uL (0.0-0.06); Absolute Basophil Count 0.01 10^3/uL (0.0-0.2); Absolute Eosinophil Count 0.13 10^3/uL (0.0-0.7); Absolute Lymphocyte Count 0.73 10^3/uL (1.2-3.4); Absolute Monocyte Count 0.34 10^3/uL (0.1-0.8); Absolute Neutrophil Count 2.37 10^3/uL (1.2-6.7); Basophils % 0.3 %; Eosinophils % 3.6 %; HGB 7.7 g/dL (11.2-15.7); Immature Grans % 0.8 %; Lymphocytes % 20.2 %; MCH 32.5 pg (27.0-33.0); MCV 88 fL (80-95); MPV 10.6 fL (8.0-11.0); Monocytes % 9.4 %; Neutrophils % 65.7 %; RBC 2.37 10^6/uL (3.93-5.22); RDW 12.5 % (11.7-14.6); RDW-SD 39.5 fL; WBC 3.61 10^3/uL (4.4-10.8)
[2024-12-06 09:29] LABS: HCT 20.8 % (36.0-46.0); Platelet Count 25 10^3/uL (130-400)
[2024-12-06 09:30] LABS: Diff Comment PLT Morph Reviewed; RBC Morphology Normal
== END 2024-12-06 08:36 | disposition home or self-care (01) ==
LOC: LBN 08:35
PROVIDERS: Nurse Practitioner Acute Care; PCP Nurse Practitioner Gerontology; Visit Provider Nurse Practitioner Gerontology
DX: D61.818 Other pancytopenia (principal); D69.6 Thrombocytopenia, unspecified; E83.42 Hypomagnesemia; E87.6 Hypokalemia; K74.69 Other cirrhosis of liver; K76.82 Hepatic encephalopathy
CPT/HCPCS: 80048; 85025

== ENCOUNTER 2024-12-09 19:35 | Outpatient (REF) | payer MEDICARE, MEDICAID, SELFPAY ==
[2024-12-09 18:18] LABS: HCT 22.5 % (36.0-46.0); MCH 32.7 pg (27.0-33.0); MCHC 35.6 % (32.0-36.0); MPV 10.1 fL (8.0-11.0); Platelet Count 106 10^3/uL (130-400); RBC 2.45 10^6/uL (3.93-5.22); RDW 13.1 % (11.7-14.6); RDW-SD 42.3 fL; WBC 4.84 10^3/uL (4.4-10.8)
[2024-12-09 18:37] LABS: ALT 34 U/L (14-59); AST 23 U/L (15-37); Albumin 3.7 g/dL (3.4-5.0); Alkaline Phosphatase 139 U/L (46-116); Anion Gap 7.9 mmol/L (3-11); BUN 14 mg/dL (7-18); CO2 28.1 mmol/L (21.0-32.0); CREATININE 1.4 mg/dL (0.55-1.02); Calcium 8.9 mg/dL (8.5-10.1); Chloride 95 mmol/L (98-107); Estimated GFR 40.98 (mL/min/1.73m2); Ferritin 434 ng/mL (8-252); Glucose 184 mg/dL (74-106); Potassium 4.2 mmol/L (3.5-5.1); Sodium 131 mmol/L (136-145); Total Protein 5.8 g/dL (6.4-8.2)
[2024-12-09 18:43] LABS: Bands % 1 %; MCV 92 fL (80-95)
[2024-12-09 18:44] LABS: Absolute Eosinophil Count 0.05 10^3/uL (0.0-0.7); Absolute Lymphocyte Count 1.31 10^3/uL (1.2-3.4); Absolute Monocyte Count 0.24 10^3/uL (0.1-0.8)
[2024-12-09 18:45] LABS: Diff Comment Manual Differential; Metamyelocytes % 1; Myelocytes % 1; Promyelocytes % 1
[2024-12-09 18:47] LABS: Hypochromasia 1+
== END 2024-12-09 19:36 | disposition home or self-care (01) ==
LOC: LBN 19:35
PROVIDERS: PCP Nurse Practitioner Gerontology; Referring Provider Nurse Practitioner Gerontology
DX: D63.1 Anemia in chronic kidney disease (principal); E87.8 Other disorders of electrolyte and fluid balance, not elsewhere classified; E61.1 Iron deficiency
CPT/HCPCS: 80053; 82728; 85025

== ENCOUNTER 2024-12-21 16:00 | Outpatient (REF) | payer MEDICARE, MEDICAID, SELFPAY ==
[2024-12-21 17:37] LABS: Bilirubin Negative (Negative); Blood Trace-lysed (Negative); Clarity Cloudy (Clear); Glucose 500 mg/dL (Negative); Ketones Negative (Negative); Leukocyte Esterase Moderate (Negative); Nitrite Negative (Negative); Urobilinogen 0.2 mg/dL (Up to 0.2)
[2024-12-21 17:44] LABS: Bacteria Packed HPF (Negative); C & S Indicated? C&S Done As Ordered; Casts Negative LPF (Negative); Crystals Negative HPF (Negative); Epithelial Cells Negative HPF (Negative); Mucus Negative (Negative); RBC 0-2 HPF (0-2); WBC 20-50 HPF (0-5)
== END 2024-12-21 16:01 | disposition home or self-care (01) ==
LOC: LBN 16:00
PROVIDERS: Internal Medicine; PCP Nurse Practitioner Gerontology; Referring Provider Nurse Practitioner Gerontology; Visit Provider Nurse Practitioner Gerontology
DX: N39.0 Urinary tract infection, site not specified (principal)
CPT/HCPCS: 87077; 81003; 81015; 87086; 87186

== ENCOUNTER 2024-12-25 17:54 | Outpatient (REF) | payer MEDICARE, MEDICAID, SELFPAY ==
[2024-12-25 18:00] LABS: Abs Immature Grans 0.01 10^3/uL (0.0-0.06); Absolute Basophil Count 0.01 10^3/uL (0.0-0.2); Absolute Lymphocyte Count 0.61 10^3/uL (1.2-3.4); Absolute Monocyte Count 0.23 10^3/uL (0.1-0.8); Absolute Neutrophil Count 1.83 10^3/uL (1.2-6.7); Basophils % 0.4 %; Eosinophils % 3.6 %; HCT 30.3 % (36.0-46.0); HGB 10.5 g/dL (11.2-15.7); Immature Grans % 0.4 %; Lymphocytes % 21.9 %; MCH 32.1 pg (27.0-33.0); MCHC 34.7 % (32.0-36.0); MCV 93 fL (80-95); MPV 9.9 fL (8.0-11.0); Monocytes % 8.2 %; Neutrophils % 65.5 %; RBC 3.27 10^6/uL (3.93-5.22); RDW 15.7 % (11.7-14.6); RDW-SD 53.3 fL; WBC 2.79 10^3/uL (4.4-10.8)
[2024-12-25 18:11] LABS: ALT 30 U/L (14-59); AST 24 U/L (15-37); Albumin 3.7 g/dL (3.4-5.0); Alkaline Phosphatase 141 U/L (46-116); Anion Gap 7.8 mmol/L (3-11); BUN 15 mg/dL (7-18); CO2 29.2 mmol/L (21.0-32.0); CREATININE 1.3 mg/dL (0.55-1.02); Chloride 90 mmol/L (98-107); Estimated GFR 44.79 (mL/min/1.73m2); Glucose 423 mg/dL (74-106); Magnesium 1.4 mg/dL (1.8-2.4); Potassium 4.4 mmol/L (3.5-5.1); Sodium 127 mmol/L (136-145); Total Protein 6.1 g/dL (6.4-8.2)
[2024-12-25 18:19] LABS: Diff Comment PLT Morph Reviewed; Platelet Count 77 10^3/uL (130-400); RBC Morphology Normal
== END 2024-12-25 17:55 | disposition home or self-care (01) ==
LOC: LBN 17:54
PROVIDERS: PCP Nurse Practitioner Gerontology; Visit Provider Nurse Practitioner Gerontology
DX: E87.6 Hypokalemia (principal); E83.42 Hypomagnesemia; D50.9 Iron deficiency anemia, unspecified
CPT/HCPCS: 80053; 83735; 85025

== ENCOUNTER 2024-12-29 19:05 | Outpatient (REF) | payer MEDICARE, MEDICAID, SELFPAY ==
[2024-12-29 18:14] LABS: Anion Gap 6.9 mmol/L (3-11); BUN 25 mg/dL (7-18); CO2 30.1 mmol/L (21.0-32.0); CREATININE 1.2 mg/dL (0.55-1.02); Calcium 8.7 mg/dL (8.5-10.1); Chloride 92 mmol/L (98-107); Estimated GFR 49.31 (mL/min/1.73m2); Glucose 335 mg/dL (74-106); Potassium 4.2 mmol/L (3.5-5.1); Sodium 129 mmol/L (136-145)
[2024-12-31 14:51] LABS: Ferritin 226 ng/mL (8-252)
== END 2024-12-29 19:06 | disposition home or self-care (01) ==
LOC: LBN 19:05
PROVIDERS: Internal Medicine Hematology & Oncology; PCP Nurse Practitioner Gerontology; Visit Provider Nurse Practitioner Gerontology
DX: E87.6 Hypokalemia (principal); D64.9 Anemia, unspecified
CPT/HCPCS: 80048; 82728

== ENCOUNTER 2025-01-05 18:25 | Outpatient (REF) | payer MEDICARE, MEDICAID, SELFPAY ==
[2025-01-05 18:26] LABS: Abs Immature Grans 0.03 10^3/uL (0.0-0.06); Absolute Basophil Count 0.02 10^3/uL (0.0-0.2); Absolute Eosinophil Count 0.13 10^3/uL (0.0-0.7); Absolute Monocyte Count 0.35 10^3/uL (0.1-0.8); Basophils % 0.6 %; Eosinophils % 3.8 %; HCT 26.2 % (36.0-46.0); HGB 9.2 g/dL (11.2-15.7); Immature Grans % 0.9 %; Lymphocytes % 23.3 %; MCH 31.8 pg (27.0-33.0); MCHC 35.1 % (32.0-36.0); MCV 91 fL (80-95); MPV 10.6 fL (8.0-11.0); Monocytes % 10.2 %; Neutrophils % 61.2 %; RBC 2.89 10^6/uL (3.93-5.22); RDW 14.6 % (11.7-14.6); RDW-SD 48.8 fL; WBC 3.43 10^3/uL (4.4-10.8)
[2025-01-05 18:27] LABS: Bilirubin Negative (Negative); Blood Trace-lysed (Negative); Clarity Sl Cloudy (Clear); Glucose Negative (Negative); Ketones Negative (Negative); Leukocyte Esterase Large (Negative); Nitrite Negative (Negative); Urobilinogen 0.2 mg/dL (Up to 0.2); pH 6.5 (5-8)
[2025-01-05 18:31] LABS: Anion Gap 7.6 mmol/L (3-11); BUN 15 mg/dL (7-18); CO2 29.4 mmol/L (21.0-32.0); CREATININE 1.2 mg/dL (0.55-1.02); Calcium 9.2 mg/dL (8.5-10.1); Chloride 88 mmol/L (98-107); Estimated GFR 49.31 (mL/min/1.73m2); Glucose 234 mg/dL (74-106); Potassium 4.3 mmol/L (3.5-5.1); Sodium 125 mmol/L (136-145)
[2025-01-05 18:35] LABS: Bacteria Packed HPF (Negative); C & S Indicated? C&S Done As Ordered; WBC >50 HPF (0-5)
[2025-01-05 18:53] LABS: Diff Comment PLT Morph Reviewed; Platelet Count 56 10^3/uL (130-400); RBC Morphology Normal
== END 2025-01-05 18:26 | disposition home or self-care (01) ==
LOC: LBN 18:25
PROVIDERS: PCP Nurse Practitioner Gerontology; Visit Provider Nurse Practitioner Gerontology
DX: N39.0 Urinary tract infection, site not specified (principal)
CPT/HCPCS: 80048; 87077; 81003; 81015; 85025; 87086; 87186

== ENCOUNTER 2025-01-26 21:19 | Outpatient (REF) | payer MEDICARE, MEDICAID, SELFPAY ==
[2025-01-26 20:03] LABS: Abs Immature Grans 0.01 10^3/uL (0.0-0.06); Absolute Basophil Count 0.02 10^3/uL (0.0-0.2); Absolute Eosinophil Count 0.16 10^3/uL (0.0-0.7); Absolute Lymphocyte Count 0.98 10^3/uL (1.2-3.4); Absolute Monocyte Count 0.32 10^3/uL (0.1-0.8); Basophils % 0.5 %; Eosinophils % 4.1 %; HCT 32.2 % (36.0-46.0); HGB 10.9 g/dL (11.2-15.7); Immature Grans % 0.3 %; Lymphocytes % 25.2 %; MCH 30.4 pg (27.0-33.0); MCHC 33.9 % (32.0-36.0); MCV 90 fL (80-95); MPV 10.7 fL (8.0-11.0); Magnesium 1.3 mg/dL (1.8-2.4); Monocytes % 8.2 %; Neutrophils % 61.7 %; Platelet Count 92 10^3/uL (130-400); RBC 3.58 10^6/uL (3.93-5.22); RDW 14.7 % (11.7-14.6); RDW-SD 48.4 fL; WBC 3.89 10^3/uL (4.4-10.8)
[2025-01-26 20:16] LABS: Hemoglobin A1C 7.4 % (<5.7)
== END 2025-01-26 21:20 | disposition home or self-care (01) ==
LOC: LBN 21:19
PROVIDERS: PCP Nurse Practitioner Gerontology; Visit Provider Nurse Practitioner Gerontology
DX: R73.03 Prediabetes (principal); E83.42 Hypomagnesemia; D63.1 Anemia in chronic kidney disease
CPT/HCPCS: 83036; 83735; 85025

== ENCOUNTER 2025-02-02 18:18 | Outpatient (REF) | payer MEDICARE, MEDICAID, SELFPAY ==
[2025-02-02 18:35] LABS: Abs Immature Grans 0.01 10^3/uL (0.0-0.06); Absolute Basophil Count 0.03 10^3/uL (0.0-0.2); Absolute Eosinophil Count 0.25 10^3/uL (0.0-0.7); Absolute Lymphocyte Count 0.89 10^3/uL (1.2-3.4); Absolute Monocyte Count 0.26 10^3/uL (0.1-0.8); Absolute Neutrophil Count 2.05 10^3/uL (1.2-6.7); Basophils % 0.9 %; Eosinophils % 7.2 %; HCT 31.9 % (36.0-46.0); Immature Grans % 0.3 %; Lymphocytes % 25.5 %; MCH 30.6 pg (27.0-33.0); MCHC 34.5 % (32.0-36.0); MCV 89 fL (80-95); MPV 10.7 fL (8.0-11.0); Monocytes % 7.4 %; Neutrophils % 58.7 %; RBC 3.59 10^6/uL (3.93-5.22); RDW 14.6 % (11.7-14.6); WBC 3.49 10^3/uL (4.4-10.8)
[2025-02-02 18:47] LABS: Anion Gap 9.2 mmol/L (3-11); BUN 15 mg/dL (7-18); CO2 29.8 mmol/L (21.0-32.0); CREATININE 1.3 mg/dL (0.55-1.02); Calcium 9.1 mg/dL (8.5-10.1); Chloride 86 mmol/L (98-107); Estimated GFR 44.79 (mL/min/1.73m2); Glucose 398 mg/dL (74-106); Potassium 4.1 mmol/L (3.5-5.1); Sodium 125 mmol/L (136-145)
[2025-02-02 18:57] LABS: Platelet Count 76 10^3/uL (130-400)
== END 2025-02-02 18:19 | disposition home or self-care (01) ==
LOC: LBN 18:18
PROVIDERS: PCP Nurse Practitioner Gerontology; Visit Provider Nurse Practitioner Gerontology
DX: E87.8 Other disorders of electrolyte and fluid balance, not elsewhere classified (principal)
CPT/HCPCS: 80048; 85025

== ENCOUNTER 2025-02-09 18:27 | Outpatient (REF) | payer MEDICARE, MEDICAID, SELFPAY ==
[2025-02-09 19:06] LABS: Absolute Basophil Count 0.02 10^3/uL (0.0-0.2); Absolute Eosinophil Count 0.27 10^3/uL (0.0-0.7); Absolute Lymphocyte Count 0.79 10^3/uL (1.2-3.4); Absolute Monocyte Count 0.32 10^3/uL (0.1-0.8); Absolute Neutrophil Count 2.11 10^3/uL (1.2-6.7); Basophils % 0.6 %; Eosinophils % 7.7 %; HGB 10.5 g/dL (11.2-15.7); Lymphocytes % 22.5 %; MCH 31.2 pg (27.0-33.0); MCHC 36.2 % (32.0-36.0); MCV 86 fL (80-95); MPV 10.6 fL (8.0-11.0); Monocytes % 9.1 %; Neutrophils % 60.1 %; RBC 3.37 10^6/uL (3.93-5.22); RDW 14.3 % (11.7-14.6); RDW-SD 44.8 fL; WBC 3.51 10^3/uL (4.4-10.8)
[2025-02-09 19:21] LABS: INR 1.1 (0.9-1.1); Prothrombin Time 10.9 sec (9.1-11.1)
[2025-02-09 19:27] LABS: Platelet Count 75 10^3/uL (130-400)
[2025-02-09 19:36] LABS: ALT 32 U/L (14-59); AST 25 U/L (15-37); Albumin 3.7 g/dL (3.4-5.0); Alkaline Phosphatase 135 U/L (46-116); Anion Gap 10.1 mmol/L (3-11); BUN 15 mg/dL (7-18); Bilirubin, Total 2.1 mg/dL (0.2-1.0); CO2 27.9 mmol/L (21.0-32.0); CREATININE 1.1 mg/dL (0.55-1.02); Calcium 8.7 mg/dL (8.5-10.1); Chloride 84 mmol/L (98-107); Estimated GFR 54.73 (mL/min/1.73m2); Glucose 385 mg/dL (74-106); NT-proBNP 82 pg/mL (<300); Potassium 3.6 mmol/L (3.5-5.1)
[2025-02-09 19:52] LABS: Sodium 122 mmol/L (136-145)
[2025-02-09 20:42] LABS: Ferritin 66 ng/mL (8-252)
== END 2025-02-09 18:28 | disposition home or self-care (01) ==
LOC: LBN 18:27
PROVIDERS: Internal Medicine Hematology & Oncology; PCP Nurse Practitioner Gerontology; Visit Provider Nurse Practitioner Gerontology
DX: D50.9 Iron deficiency anemia, unspecified (principal)
CPT/HCPCS: 80053; 82728; 83880; 85025; 85610

== ENCOUNTER → 2025-02-12 12:44 | Outpatient (BNVA) | payer MEDICARE, MEDICAID, SELFPAY | PROVIDERS: PCP Nurse Practitioner Gerontology; Referring Provider Nurse Practitioner Gerontology; Visit Provider Surgery | DX: K64.4 Residual hemorrhoidal skin tags (principal); K64.8 Other hemorrhoids; K75.81 Nonalcoholic steatohepatitis (NASH); K74.60 Unspecified cirrhosis of liver | CPT/HCPCS: 99203 ==

== ENCOUNTER 2025-02-24 10:43 | Outpatient (REF) | payer MEDICARE, MEDICAID, SELFPAY ==
[2025-02-24 10:43] LABS: Abs Immature Grans 0.01 10^3/uL (0.0-0.06); HCT 33.0 % (36.0-46.0); HGB 11.7 g/dL (11.2-15.7); Immature Grans % 0.2 %; MCH 29.9 pg (27.0-33.0); MCHC 35.5 % (32.0-36.0); MCV 84 fL (80-95); MPV 9.7 fL (8.0-11.0); RBC 3.91 10^6/uL (3.93-5.22); RDW 14.1 % (11.7-14.6); RDW-SD 43.3 fL; WBC 4.60 10^3/uL (4.4-10.8)
[2025-02-24 10:47] LABS: ALT 29 U/L (14-59); AST 28 U/L (15-37); Albumin 3.6 g/dL (3.4-5.0); Alkaline Phosphatase 135 U/L (46-116); Anion Gap 7.5 mmol/L (3-11); BUN 17 mg/dL (7-18); Bilirubin, Total 2.5 mg/dL (0.2-1.0); CO2 30.5 mmol/L (21.0-32.0); Calcium 8.7 mg/dL (8.5-10.1); Chloride 83 mmol/L (98-107); Estimated GFR 61.36 (mL/min/1.73m2); Glucose 170 mg/dL (74-106); Potassium 3.6 mmol/L (3.5-5.1); Total Protein 5.9 g/dL (6.4-8.2)
[2025-02-24 10:57] LABS: Sodium 121 mmol/L (136-145)
[2025-02-24 11:04] LABS: Platelet Count 92 10^3/uL (130-400); RBC Morphology Normal
== END 2025-02-24 10:44 | disposition home or self-care (01) ==
LOC: LBN 10:43
PROVIDERS: PCP Nurse Practitioner Gerontology; Visit Provider Nurse Practitioner Gerontology
DX: E87.8 Other disorders of electrolyte and fluid balance, not elsewhere classified (principal); D63.1 Anemia in chronic kidney disease
CPT/HCPCS: 80053; 85025

== ENCOUNTER 2025-03-02 19:31 | Outpatient (REF) | payer MEDICARE, MEDICAID, SELFPAY ==
[2025-03-02 20:05] LABS: Abs Immature Grans 0.01 10^3/uL (0.0-0.06); HCT 32.2 % (36.0-46.0); HGB 11.5 g/dL (11.2-15.7); Immature Grans % 0.3 %; MCH 30.7 pg (27.0-33.0); MCHC 35.7 % (32.0-36.0); MCV 86 fL (80-95); MPV 10.0 fL (8.0-11.0); RBC 3.74 10^6/uL (3.93-5.22); RDW 14.6 % (11.7-14.6); RDW-SD 45.7 fL; WBC 3.83 10^3/uL (4.4-10.8)
[2025-03-02 20:32] LABS: ALT 32 U/L (14-59); AST 25 U/L (15-37); Albumin 3.7 g/dL (3.4-5.0); Alkaline Phosphatase 137 U/L (46-116); Anion Gap 6.3 mmol/L (3-11); BUN 15 mg/dL (7-18); Bilirubin, Total 2.0 mg/dL (0.2-1.0); CO2 28.7 mmol/L (21.0-32.0); Calcium 8.8 mg/dL (8.5-10.1); Chloride 83 mmol/L (98-107); Estimated GFR 49.31 (mL/min/1.73m2); Ferritin 76 ng/mL (8-252); Glucose 249 mg/dL (74-106); Potassium 4.4 mmol/L (3.5-5.1); Total Protein 6.1 g/dL (6.4-8.2)
[2025-03-02 20:33] LABS: Platelet Count 89 10^3/uL (130-400); RBC Morphology Normal
[2025-03-02 20:47] LABS: Sodium 118 mmol/L (136-145)
== END 2025-03-02 19:32 | disposition home or self-care (01) ==
LOC: LBN 19:31
PROVIDERS: PCP Nurse Practitioner Gerontology; Visit Provider Nurse Practitioner Family
DX: D63.1 Anemia in chronic kidney disease (principal); E87.8 Other disorders of electrolyte and fluid balance, not elsewhere classified
CPT/HCPCS: 80053; 82728; 85025

== ENCOUNTER 2025-03-02 23:09 | Emergency (ER) | payer MEDICARE, MEDICAID, SELFPAY ==
[2025-03-02] VITALS (7 sets, daily range): BP systolic 130–148; BP diastolic 67–82; PULSE 95–96; RESP 15–20; O2SAT 94–98
--- NOTE | 2025-03-02 23:11 | W.ED.GENAD ---
Discharge Plan Disposition Patient Disposition: Senior Living Facility(SNF) Discharge Details Clinical Impression: Hyponatremia Primary Care Provider: Lianet Smith ED Provider: Ernesto Ruff and Da Rx's Prescriptions: Continued folic acid 1 mg tablet 1 mg PO DAILY pantoprazole [Protonix] 40 mg tablet,delayed release (DR/EC) 40 mg PO DAILY levetiracetam 1,000 mg tablet 1,000 mg PO BID Incruse Ellipta 62.5 mcg/actuation blister with device 1 inh inhalation DAILY lactulose 10 gram/15 mL solution 30 g PO QID Xifaxan 550 mg tablet 550 mg PO BID insulin aspart U-100 100 unit/mL (3 mL) insulin pen 1 sliding scale dose subcut TID insulin degludec [Tresiba FlexTouch U-200] 200 unit/mL (3 mL) insulin pen 64 unit subcut BID nystatin [Nyamyc] 100,000 unit/gram powder 1 applic topical BID albuterol 90 mcg/actuation aerosol 180 mcg inhalation .Q4 PRN hydroxyzine HCl 10 mg tablet 25 mg PO BID PRN epinephrine 0.3 mg/0.3 mL auto-injector 0.3 ml subcut Q5-15M PRN Rx Instructions: do not exceed 2 doses per episode cholecalciferol (vitamin D3) [D3 DOTS] 50 mcg (2,000 unit) tablet 50 mcg PO DAILY torsemide 20 mg tablet 40 mg PO BID quetiapine [Seroquel] 25 mg tablet 25 mg PO BID hydrocortisone acetate 25 mg suppository 25 mg [place] Q12H PRN Patient Comments: PRN FOR HEMORRHOIDS azelastine 137 mcg (0.1 %) spray,non-aerosol 2 spray intranasal Q12H PRN Patient Comments: PRN FOR ALLERGIES Rx Instructions: administer into each nostril gabapentin 300 mg capsule 600 mg PO HS ibuprofen [Advil] 200 mg tablet 200 mg PO TID-QID PRN spironolactone 50 mg tablet 50 mg PO DAILY prochlorperazine maleate [Compazine] 5 mg tablet 5 mg PO QID PRNQty: 40 0RF Lactobacillus acidophilus Tablet 50 mmu cells PO DAILY magnesium oxide 500 mg magnesium tablet 500 mg PO TID Patient Comments: TAKE ONE TABLET BY MOUTH THREE TIMES A DAY polyethylene glycol 3350 [ClearLax] 17 gram/dose powder 17 g PO BID ketoconazole 2 % cream 1 applic topical DAILY Qty: 15 0RF Rx Instructions: Apply to affected and immediate surrounding area for 2 weeks. Discharge Instructions Instructions: Hyponatremia Additional Instructions: You were seen for hyponatremia as your sodium was quite low when checked earlier in the day. It did come up slightly on its own on repeat check tonight. You received normal saline overnight with repeat sodium done this morning. It is now close to your baseline and when corrected for your glucose is 124. You are on 2 different diuretics and fairly large doses which may be contributing to your hyponatremia. Discussed with your provider the possibility of salt tablets to help with this problem. Your sodium should be rechecked in 2 to 3 days. Return to ED for any confusion or mental status change, neurologic change, other concerns. HPI General Mode of arrival: EMS. Date/Time Provider Initiated Documentation: 03/02/25 23:11. Limitations to Documentation: no limitations. Information obtained by: patient, RN notes reviewed and old records reviewed. HPI Narrative: Patient presents to ED by ambulance from [facility] with reported hyponatremia. Patient has history of same. She reports feeling completely baseline with no confusion, weakness, paresthesias. She has been eating and drinking normally. She denies any vomiting or diarrhea. They have been limiting her free water intake. She has labs drawn periodically and has been drifting down from her normal 125-130 range, now 118 when checked today. She reports having this worked up in the past with apparently no clear etiology being found. Related Data Home Medications ?Medication ?Instructions ?Recorded ?Confirmed albuterol 90 mcg/actuation aerosol 180 mcg inhalation .Q4 PRN 06/11/24 03/03/25 inhaler epinephrine 0.3 mg/0.3 mL 0.3 ml subcut Q5-15M PRN 06/11/24 03/03/25 injection, auto-injector folic acid 1 mg tablet 1 mg PO DAILY 06/11/24 03/03/25 hydroxyzine HCl 10 mg tablet 25 mg PO BID PRN 06/11/24 03/03/25 insulin aspart U-100 100 unit/mL 1 sliding scale dose subcut TID 06/11/24 03/03/25 (3 mL) subcutaneous pen insulin degludec 200 unit/mL (3 64 unit subcut BID 06/11/24 03/03/25 mL) subcutaneous pen (Tresiba FlexTouch U-200 insulin) lactulose 10 gram/15 mL oral 30 g PO QID 06/11/24 03/03/25 solution levetiracetam 1,000 mg tablet 1,000 mg PO BID 06/11/24 03/03/25 nystatin 100,000 unit/gram topical 1 applic topical BID 06/11/24 03/03/25 powder (Nyamyc) pantoprazole 40 mg tablet,delayed 40 mg PO DAILY 06/11/24 03/03/25 release (Protonix) rifaximin 550 mg tablet (Xifaxan) 550 mg PO BID 06/11/24 03/03/25 umeclidinium 62.5 mcg/actuation 1 inh inhalation DAILY 06/11/24 03/03/25 blister powder for inhalation (Incruse Ellipta) azelastine 137 mcg (0.1 %) nasal 2 spray intranasal Q12H PRN 09/01/24 03/03/25 spray cholecalciferol (vitamin D3) 50 50 mcg PO DAILY 09/01/24 03/03/25 mcg (2,000 unit) tablet (D3 DOTS) hydrocortisone acetate 25 mg 25 mg [place] Q12H PRN 09/01/24 03/03/25 rectal suppository quetiapine 25 mg tablet (Seroquel) 25 mg PO BID 09/01/24 03/03/25 torsemide 20 mg tablet 40 mg PO BID 09/01/24 03/03/25 gabapentin 300 mg capsule 600 mg PO HS 11/13/24 03/03/25 Lactobacillus acidophilus 50 mmu cells PO DAILY 11/25/24 03/03/25 ketoconazole 2 % topical cream 1 applic topical DAILY #15 grams 11/25/24 03/03/25 magnesium oxide 500 mg PO TID 11/25/24 03/03/25 polyethylene glycol 3350 17 17 g PO BID 11/25/24 03/03/25 gram/dose oral powder (ClearLax) ibuprofen 200 mg tablet (Advil) 200 mg PO TID-QID PRN 12/02/24 03/03/25 Held on 12/04/24. Instructions: Resume on 12/18/24. Discussed with PCP prochlorperazine maleate 5 mg 5 mg PO QID PRN #40 tabs 04/17/25 07/15/25 tablet (Compazine) spironolactone 50 mg tablet 50 mg PO DAILY 12/04/24 03/03/25 Previous Rx's ?Medication ?Instructions ?Recorded ketoconazole 2 % topical cream 1 applic topical DAILY #15 grams 11/25/24 prochlorperazine maleate 5 mg 5 mg PO QID PRN #40 tabs 12/04/24 tablet (Compazine) Allergies Allergy/AdvReac Type Severity Reaction Status Date / Time amitriptyline Allergy Intermediate Unknown Verified 02/17/25 13:00 azithromycin Allergy Intermediate Unknown Verified 02/17/25 13:00 ciprofloxacin Allergy Intermediate Unknown Verified 02/17/25 13:00 codeine Allergy Intermediate Unknown Verified 02/17/25 13:00 cortisone Allergy Intermediate Unknown Verified 02/17/25 13:00 erythromycin base Allergy Intermediate Unknown Verified 02/17/25 13:00 guaifenesin (From Robitussin) Allergy Intermediate Unknown Verified 02/17/25 13:00 iron Allergy Intermediate Unknown Verified 02/17/25 13:00 metronidazole (From Flagyl) Allergy Intermediate Unknown Verified 02/17/25 13:00 morphine Allergy Intermediate Unknown Verified 02/17/25 13:00 oxycodone (From Percocet) Allergy Intermediate Unknown Verified 02/17/25 13:00 Penicillins Allergy Intermediate Unknown Verified 02/17/25 13:00 Sulfa (Sulfonamide Allergy Intermediate Unknown Verified 02/17/25 13:00 Antibiotics) acetaminophen Allergy Unknown Other (See Verified 02/17/25 13:00 Comment) cyclosporine Allergy Unknown Other (See Verified 02/17/25 13:00 Comment) fluticasone (From Advair Allergy Unknown Other (See Verified 02/17/25 13:00 Diskus) Comment) ibuprofen Allergy Unknown Other (See Verified 02/17/25 13:00 Comment) pregabalin (From Lyrica) Allergy Unknown Other (See Verified 02/17/25 13:00 Comment) salmeterol Allergy Unknown Other (See Verified 02/17/25 13:00 Comment) strawberry Allergy Unknown Other (See Verified 02/17/25 13:00 Comment) General MARCELLO: 3 Exam Narrative Exam Narrative: Const: WDWN elderly female in NAD. VS per triage. HEENT: NC/AT. Normal facial exam. Neck: Supple. Trachea midline. Lungs: Normal respiratory effort. GI: Soft/ND/NT. Neuro: A+O x 3. Normal speech, mentation, gait. Cranial nerves II - XII grossly intact. No gross motor or sensory deficit. Medical Decision Making Patient presenting to ED with worsening hyponatremia. Patient currently asymptomatic with no complaints. IV established and given her chronic hyponatremia and lack of symptoms we will proceed with just a 500 mL bolus of saline. Repeat CBC and BMP obtained tonight. Patient's sodium is 120 tonight. Her glucose is 219 so her corrected sodium is 122. Continues to have evidence of pancytopenia but it is much improved compared to previous values. Platelet count is 92. After 500 mL bolus we will continue saline at 100 and hour until 5 AM. Repeat BMP at 6 AM. Patient received just about 1 L of normal saline overnight. Repeat BMP this morning with a sodium of 122 which corrects to 124 as her glucose remains at 213. She has had no changes in mental status and no complaints. While she reports no known etiology for her hyponatremia I do note that she is on both spironolactone and torsemide which is likely contributing. She may benefit from being on sodium tablets to help keep her level reasonable. In any event I think she is safe for discharge back to ECF, repeat labs in a couple of days and follow-up with provider there. Return precautions provided. Medical Records Medical records reviewed: Yes I reviewed the patient's medical records. Lab Data Lab results reviewed: Yes I reviewed the patient's lab results. 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
[2025-03-03] VITALS (35 sets, daily range): BP systolic 119–137; BP diastolic 59–76; PULSE 88–95; RESP 16; O2SAT 90–98
[2025-03-03] LABS: HCT 31.7 % (36.0-46.0); HGB 11.4 g/dL (11.2-15.7); MCH 29.7 pg (27.0-33.0); MCHC 36.0 % (32.0-36.0); MCV 83 fL (80-95); MPV 9.2 fL (8.0-11.0); RBC 3.84 10^6/uL (3.93-5.22); RDW 14.1 % (11.7-14.6); RDW-SD 41.4 fL; WBC 4.06 10^3/uL (4.4-10.8)
[2025-03-03] MEDS: Normal Saline 500 ML IV (00:02)
[2025-03-03 00:09] LABS: Anion Gap 8.6 mmol/L (3-11); BUN 13 mg/dL (7-18); CO2 28.4 mmol/L (21.0-32.0); Calcium 9.0 mg/dL (8.5-10.1); Chloride 83 mmol/L (98-107); Estimated GFR 54.73 (mL/min/1.73m2); Glucose 219 mg/dL (74-106); Potassium 3.7 mmol/L (3.5-5.1)
[2025-03-03 00:13] LABS: Sodium 120 mmol/L (136-145)
[2025-03-03 00:14] LABS: Platelet Count 92 10^3/uL (130-400)
[2025-03-03] MEDS: Normal Saline 1,000 ML 100 ML IV (01:14)
[2025-03-03 06:15] LABS: Anion Gap 8.5 mmol/L (3-11); BUN 14 mg/dL (7-18); CO2 29.5 mmol/L (21.0-32.0); Calcium 8.5 mg/dL (8.5-10.1); Chloride 84 mmol/L (98-107); Estimated GFR 61.36 (mL/min/1.73m2); Glucose 213 mg/dL (74-106); Potassium 3.7 mmol/L (3.5-5.1)
[2025-03-03 06:38] LABS: Sodium 122 mmol/L (136-145)
== END 2025-03-03 07:22 | disposition skilled nursing facility (03) ==
PROVIDERS: Emergency Provider Emergency Medicine; PCP Nurse Practitioner Gerontology
DX: E87.1 Hypo-osmolality and hyponatremia (principal)
CPT/HCPCS: 80048; 85027; 96360; 96361; 99284; 99283

== ENCOUNTER 2025-03-05 21:01 | Outpatient (REF) | payer MEDICARE, MEDICAID, SELFPAY ==
[2025-03-05 17:03] LABS: Anion Gap 8.0 mmol/L (3-11); BUN 15 mg/dL (7-18); CO2 30.0 mmol/L (21.0-32.0); Calcium 9.2 mg/dL (8.5-10.1); Chloride 84 mmol/L (98-107); Estimated GFR 61.36 (mL/min/1.73m2); Glucose 250 mg/dL (74-106); Potassium 4.1 mmol/L (3.5-5.1)
[2025-03-05 17:05] LABS: Sodium 122 mmol/L (136-145)
== END 2025-03-05 21:02 | disposition home or self-care (01) ==
LOC: LBN 21:01
PROVIDERS: PCP Nurse Practitioner Gerontology; Visit Provider Nurse Practitioner Gerontology
DX: E87.8 Other disorders of electrolyte and fluid balance, not elsewhere classified (principal)
CPT/HCPCS: 80048

== ENCOUNTER 2025-03-10 02:10 | Outpatient (CLI) | payer MEDICARE, MEDICAID, SELFPAY ==
--- NOTE | 2025-03-10 | DI.MAMMO_ITS ---
Exam(s) MG MAMMO SCREENING 60 MIN DUR EXAM: MG MAMMO SCREENING 60 MIN DUR CLINICAL HISTORY: SCREENING PREVENTITIVE TECHNIQUE: Mammograms were interpreted according to the usual protocol including computer analysis with CAD system, tomosynthesis and C-view imaging. COMPARISON: None. FINDINGS: There is suboptimal positioning on both MLO views with little pectoral muscle. The patient could not tolerate full compression. The breasts are composed of mainly fatty density , Breast Density category A. No suspicious masses or suspicious microcalcifications are seen. There are scattered bilateral benign appearing calcifications. No skin thickening or abnormal axillary lymph nodes are seen. There has been no significant change from prior exams. IMPRESSION: BI-RADS Category 2 - Benign Findings Yearly screening mammography is recommended. Breast Density- Category A - The breast are almost entirely fatty. Breast density Category C or D implies that the patient has dense breast tissue. Dense breast tissue can make it harder to find cancer on a mammogram. Dense breast tissue is also associated with an increased risk of breast cancer. This information about the result of the mammogram report was provided to the patient to raise their awareness. Use this report when you speak with the patient about their risks for breast cancer, which includes their family history. At that time, you may recommend additional screening tests (Ultrasound or MRI) as these tests may add significant information. A negative radiographic report should not delay biopsy if a dominant or clinically suspicious mass is present. Up to ten percent of cancers are not identified on mammography. A negative report may reinforce clinical impression. Adenosis and dense breasts may obscure an underlying neoplasm. False positive reports average 6 to 10%. Patient will receive a letter notifying them of these results.
== END 2025-03-10 02:30 ==
LOC: DI 02:11
PROVIDERS: PCP Nurse Practitioner Gerontology; Visit Provider Nurse Practitioner Gerontology
DX: Z12.31 Encounter for screening mammogram for malignant neoplasm of breast (principal); R92.313 Mammographic fatty tissue density, bilateral breasts
CPT/HCPCS: 77063; 77067

== ENCOUNTER 2025-03-10 17:11 | Outpatient (REF) | payer MEDICARE, MEDICAID, SELFPAY ==
[2025-03-10 15:28] LABS: Abs Immature Grans 0.00 10^3/uL (0.0-0.06); HCT 32.3 % (36.0-46.0); HGB 11.9 g/dL (11.2-15.7); Immature Grans % 0.0 %; MCH 30.8 pg (27.0-33.0); MCHC 36.8 % (32.0-36.0); MCV 84 fL (80-95); MPV 9.6 fL (8.0-11.0); RBC 3.86 10^6/uL (3.93-5.22); RDW 14.3 % (11.7-14.6); RDW-SD 43.3 fL; WBC 3.81 10^3/uL (4.4-10.8)
[2025-03-10 15:35] LABS: ALT 31 U/L (14-59); AST 28 U/L (15-37); Albumin 3.9 g/dL (3.4-5.0); Alkaline Phosphatase 138 U/L (46-116); Anion Gap 7.9 mmol/L (3-11); BUN 12 mg/dL (7-18); Bilirubin, Total 2.0 mg/dL (0.2-1.0); CO2 29.1 mmol/L (21.0-32.0); Calcium 9.3 mg/dL (8.5-10.1); Chloride 86 mmol/L (98-107); Estimated GFR 69.64 (mL/min/1.73m2); Glucose 206 mg/dL (74-106); Potassium 4.4 mmol/L (3.5-5.1); Total Protein 6.2 g/dL (6.4-8.2)
[2025-03-10 15:41] LABS: Sodium 123 mmol/L (136-145)
[2025-03-10 16:13] LABS: Platelet Count 94 10^3/uL (130-400)
== END 2025-03-10 17:12 | disposition home or self-care (01) ==
LOC: LBN 17:11
PROVIDERS: PCP Nurse Practitioner Gerontology; Visit Provider Nurse Practitioner Gerontology
DX: E87.8 Other disorders of electrolyte and fluid balance, not elsewhere classified (principal); D63.1 Anemia in chronic kidney disease
CPT/HCPCS: 80053; 85025

== ENCOUNTER 2025-03-16 18:24 | Outpatient (REF) | payer MEDICARE, MEDICAID, SELFPAY ==
[2025-03-16 18:33] LABS: Abs Immature Grans 0.01 10^3/uL (0.0-0.06); HCT 32.5 % (36.0-46.0); HGB 11.5 g/dL (11.2-15.7); Immature Grans % 0.3 %; MCH 29.9 pg (27.0-33.0); MCHC 35.4 % (32.0-36.0); MCV 85 fL (80-95); MPV 10.3 fL (8.0-11.0); RBC 3.84 10^6/uL (3.93-5.22); RDW 14.9 % (11.7-14.6); RDW-SD 45.5 fL; WBC 3.93 10^3/uL (4.4-10.8)
[2025-03-16 18:43] LABS: Anion Gap 8.1 mmol/L (3-11); BUN 13 mg/dL (7-18); CO2 29.9 mmol/L (21.0-32.0); Calcium 9.2 mg/dL (8.5-10.1); Chloride 85 mmol/L (98-107); Estimated GFR 61.36 (mL/min/1.73m2); Glucose 198 mg/dL (74-106); Potassium 4.2 mmol/L (3.5-5.1)
[2025-03-16 18:53] LABS: Sodium 123 mmol/L (136-145)
[2025-03-16 19:08] LABS: Platelet Count 86 10^3/uL (130-400)
== END 2025-03-16 18:25 | disposition home or self-care (01) ==
LOC: LBN 18:24
PROVIDERS: PCP Nurse Practitioner Gerontology; Visit Provider Nurse Practitioner Gerontology
DX: E87.8 Other disorders of electrolyte and fluid balance, not elsewhere classified (principal)
CPT/HCPCS: 80048; 85025

== ENCOUNTER 2025-03-25 18:29 | Outpatient (REF) | payer MEDICARE, MEDICAID, SELFPAY ==
[2025-03-25 18:07] LABS: Abs Immature Grans 0.01 10^3/uL (0.0-0.06); HCT 29.6 % (36.0-46.0); HGB 10.9 g/dL (11.2-15.7); Immature Grans % 0.3 %; MCH 30.5 pg (27.0-33.0); MCHC 36.8 % (32.0-36.0); MCV 83 fL (80-95); MPV 10.7 fL (8.0-11.0); RBC 3.57 10^6/uL (3.93-5.22); RDW 14.5 % (11.7-14.6); RDW-SD 43.7 fL; WBC 3.05 10^3/uL (4.4-10.8)
[2025-03-25 18:23] LABS: Platelet Count 72 10^3/uL (130-400); RBC Morphology Normal
[2025-03-25 18:25] LABS: Anion Gap 8.2 mmol/L (3-11); BUN 17 mg/dL (7-18); CO2 28.8 mmol/L (21.0-32.0); Calcium 8.7 mg/dL (8.5-10.1); Chloride 87 mmol/L (98-107); Estimated GFR 49.31 (mL/min/1.73m2); Glucose 310 mg/dL (74-106); Potassium 4.0 mmol/L (3.5-5.1)
[2025-03-25 18:33] LABS: Sodium 124 mmol/L (136-145)
== END 2025-03-25 18:30 | disposition home or self-care (01) ==
LOC: LBN 18:29
PROVIDERS: PCP Nurse Practitioner Gerontology; Visit Provider Nurse Practitioner Gerontology
DX: E87.1 Hypo-osmolality and hyponatremia (principal)
CPT/HCPCS: 80048; 85025

== ENCOUNTER 2025-03-30 18:00 | Outpatient (REF) | payer MEDICARE, MEDICAID, SELFPAY ==
[2025-03-30 19:06] LABS: Abs Immature Grans 0.01 10^3/uL (0.0-0.06); HCT 31.8 % (36.0-46.0); HGB 11.4 g/dL (11.2-15.7); Immature Grans % 0.3 %; MCH 30.1 pg (27.0-33.0); MCHC 35.8 % (32.0-36.0); MCV 84 fL (80-95); MPV 10.4 fL (8.0-11.0); RBC 3.79 10^6/uL (3.93-5.22); RDW 14.8 % (11.7-14.6); RDW-SD 45.2 fL; WBC 3.64 10^3/uL (4.4-10.8)
[2025-03-30 19:18] LABS: Anion Gap 7.2 mmol/L (3-11); BUN 17 mg/dL (7-18); CO2 30.8 mmol/L (21.0-32.0); Calcium 9.2 mg/dL (8.5-10.1); Chloride 85 mmol/L (98-107); Estimated GFR 49.31 (mL/min/1.73m2); Glucose 256 mg/dL (74-106); Potassium 4.1 mmol/L (3.5-5.1)
[2025-03-30 19:24] LABS: Platelet Count 92 10^3/uL (130-400)
[2025-03-30 19:25] LABS: RBC Morphology Normal
[2025-03-30 19:27] LABS: Sodium 123 mmol/L (136-145)
== END 2025-03-30 18:01 | disposition home or self-care (01) ==
LOC: LBN 18:00
PROVIDERS: PCP Nurse Practitioner Gerontology; Visit Provider Nurse Practitioner Gerontology
DX: D63.1 Anemia in chronic kidney disease (principal)
CPT/HCPCS: 80048; 85025

== ENCOUNTER 2025-04-11 22:28 | Emergency (ER) | payer MEDICARE, MEDICAID, SELFPAY ==
--- NOTE | 2025-04-11 22:29 | W.ED.GENAD ---
Discharge Plan Disposition Patient Disposition: Transfer-Acute Inpatient Care Specific Acute Inpt Facility: [facility] Condition: Serious Discharge Details Clinical Impression: Ischemia, bowel Primary Care Provider: Lianet Smith ED Provider: Ernesto Ruff [place] Jackie and Da Rx's Prescriptions: No Action hydrocortisone-pramoxine 1-1 % cream 1 applic RI TID-QID PRN (Reason: itching) Qty: 30 1RF pantoprazole [Protonix] 40 mg tablet,delayed release (DR/EC) 40 mg PO DAILY levetiracetam 1,000 mg tablet 1,000 mg PO BID Incruse Ellipta 62.5 mcg/actuation blister with device 1 inh inhalation DAILY lactulose 10 gram/15 mL solution 30 g PO QID Xifaxan 550 mg tablet 550 mg PO BID insulin aspart U-100 100 unit/mL (3 mL) insulin pen 1 sliding scale dose subcut TID insulin degludec [Tresiba FlexTouch U-200] 200 unit/mL (3 mL) insulin pen 64 unit subcut BID albuterol 90 mcg/actuation aerosol 180 mcg inhalation .Q4 PRN hydroxyzine HCl 10 mg tablet 25 mg PO BID PRN epinephrine 0.3 mg/0.3 mL auto-injector 0.3 ml subcut Q5-15M PRN Rx Instructions: do not exceed 2 doses per episode torsemide 20 mg tablet 40 mg PO BID quetiapine [Seroquel] 25 mg tablet 25 mg PO BID hydrocortisone acetate 25 mg suppository 25 mg RI Q12H PRN Patient Comments: PRN FOR HEMORRHOIDS azelastine 137 mcg (0.1 %) spray,non-aerosol 2 spray intranasal Q12H PRN Patient Comments: PRN FOR ALLERGIES Rx Instructions: administer into each nostril gabapentin 300 mg capsule 600 mg PO HS ibuprofen [Advil] 200 mg tablet 200 mg PO TID-QID PRN spironolactone 50 mg tablet 50 mg PO DAILY prochlorperazine maleate [Compazine] 5 mg tablet 5 mg PO QID PRNQty: 40 0RF polyethylene glycol 3350 [ClearLax] 17 gram/dose powder 17 g PO BID ketoconazole 2 % cream 1 applic topical DAILY Qty: 15 0RF Rx Instructions: Apply to affected and immediate surrounding area for 2 weeks. HPI General Mode of arrival: EMS. Date/Time Provider Initiated Documentation: 04/11/25 22:29. Limitations to Documentation: no limitations. Information obtained by: patient, RN notes reviewed and old records reviewed. HPI Narrative: Patient presents to ED from [facility] with complaint of abdominal pain and distention. Patient has a history of cirrhosis secondary to GILLESPIE. She also reports history of cholecystectomy and hysterectomy. She is taking lactulose twice a day. Reports essentially no bowel movement to speak of since yesterday. Began having abdominal pain around 10 AM this morning. Has worsened throughout the day and is generalized. She has nausea but no vomiting. She feels bloated and distended. She denies any fever, chest pain, shortness of breath, back pain, urinary symptoms. She has multiple allergies including to NSAIDs and opiates and because of her liver disease cannot use acetaminophen. Related Data Home Medications ?Medication ?Instructions ?Recorded ?Confirmed albuterol 90 mcg/actuation aerosol 180 mcg inhalation .Q4 PRN 06/11/24 04/11/25 inhaler epinephrine 0.3 mg/0.3 mL 0.3 ml subcut Q5-15M PRN 06/11/24 04/11/25 injection, auto-injector hydroxyzine HCl 10 mg tablet 25 mg PO BID PRN 06/11/24 04/11/25 insulin aspart U-100 100 unit/mL 1 sliding scale dose subcut TID 06/11/24 04/11/25 (3 mL) subcutaneous pen insulin degludec 200 unit/mL (3 64 unit subcut BID 06/11/24 04/11/25 mL) subcutaneous pen (Tresiba FlexTouch U-200 insulin) lactulose 10 gram/15 mL oral 30 g PO QID 06/11/24 04/11/25 solution levetiracetam 1,000 mg tablet 1,000 mg PO BID 06/11/24 04/11/25 pantoprazole 40 mg tablet,delayed 40 mg PO DAILY 06/11/24 04/11/25 release (Protonix) rifaximin 550 mg tablet (Xifaxan) 550 mg PO BID 06/11/24 04/11/25 umeclidinium 62.5 mcg/actuation 1 inh inhalation DAILY 06/11/24 04/11/25 blister powder for inhalation (Incruse Ellipta) azelastine 137 mcg (0.1 %) nasal 2 spray intranasal Q12H PRN 09/01/24 04/11/25 spray hydrocortisone acetate 25 mg 25 mg RI Q12H PRN 09/01/24 04/11/25 rectal suppository quetiapine 25 mg tablet (Seroquel) 25 mg PO BID 09/01/24 04/11/25 torsemide 20 mg tablet 40 mg PO BID 09/01/24 04/11/25 gabapentin 300 mg capsule 600 mg PO HS 11/13/24 04/11/25 ketoconazole 2 % topical cream 1 applic topical DAILY #15 grams 11/25/24 04/11/25 polyethylene glycol 3350 17 17 g PO BID 11/25/24 04/11/25 gram/dose oral powder (ClearLax) ibuprofen 200 mg tablet (Advil) 200 mg PO TID-QID PRN 12/02/24 04/11/25 prochlorperazine maleate 5 mg 5 mg PO QID PRN #40 tabs 12/04/24 04/11/25 tablet (Compazine) spironolactone 50 mg tablet 50 mg PO DAILY 12/04/24 04/11/25 hydrocortisone-pramoxine 1 %-1 % 1 applic RI TID-QID PRN itching 03/12/25 04/11/25 rectal cream #30 grams Previous Rx's ?Medication ?Instructions ?Recorded ketoconazole 2 % topical cream 1 applic topical DAILY #15 grams 11/25/24 prochlorperazine maleate 5 mg 5 mg PO QID PRN #40 tabs 12/04/24 tablet (Compazine) hydrocortisone-pramoxine 1 %-1 % 1 applic RI TID-QID PRN itching 03/12/25 rectal cream #30 grams Allergies Allergy/AdvReac Type Severity Reaction Status Date / Time amitriptyline Allergy Intermediate Unknown Verified 03/12/25 13:20 azithromycin Allergy Intermediate Unknown Verified 03/12/25 13:20 ciprofloxacin Allergy Intermediate Unknown Verified 03/12/25 13:20 codeine Allergy Intermediate Unknown Verified 03/12/25 13:20 cortisone Allergy Intermediate Unknown Verified 03/12/25 13:20 erythromycin base Allergy Intermediate Unknown Verified 03/12/25 13:20 guaifenesin (From Robitussin) Allergy Intermediate Unknown Verified 03/12/25 13:20 iron Allergy Intermediate Unknown Verified 03/12/25 13:20 metronidazole (From Flagyl) Allergy Intermediate Unknown Verified 03/12/25 13:20 morphine Allergy Intermediate Unknown Verified 03/12/25 13:20 oxycodone (From Percocet) Allergy Intermediate Unknown Verified 03/12/25 13:20 Penicillins Allergy Intermediate Unknown Verified 03/12/25 13:20 Sulfa (Sulfonamide Allergy Intermediate Unknown Verified 03/12/25 13:20 Antibiotics) acetaminophen Allergy Unknown Other (See Verified 03/12/25 13:20 Comment) cyclosporine Allergy Unknown Other (See Verified 03/12/25 13:20 Comment) fluticasone (From Advair Allergy Unknown Other (See Verified 03/12/25 13:20 Diskus) Comment) ibuprofen Allergy Unknown Other (See Verified 03/12/25 13:20 Comment) pregabalin (From Lyrica) Allergy Unknown Other (See Verified 03/12/25 13:20 Comment) salmeterol Allergy Unknown Other (See Verified 03/12/25 13:20 Comment) strawberry Allergy Unknown Other (See Verified 03/12/25 13:20 Comment) General MARCELLO: 3 Exam Narrative Exam Narrative: Const: Obese female in NAD, but does appear uncomfortable. VS per triage. HEENT: NC/AT. Normal facial exam. Neck: Supple. Trachea midline. Lungs: Normal respiratory effort. Lungs are clear. Cor: RRR with murmur. Good radial pulses. GI: Soft. Seems distended and tympanitic. Diffuse tenderness without guarding. Neuro: A+O x 3. Normal speech, mentation, gait. Cranial nerves II - XII grossly intact. No gross motor or sensory deficit. Medical Decision Making Patient presenting to ED with abdominal pain that is generalized in nature as well as distention and nausea. Managing pain is somewhat difficult with patient due to allergies. She appears quite uncomfortable. After long discussion we have decided to try low-dose of hydromorphone to see if we can get her comfortable. Will use ondansetron for nausea. Does have a history of hyponatremia which is chronic so we will start LR pending labs. Given the tympanitic distention, nausea, lack of bowel movements suspect possible bowel obstruction. Does not appear to have a fluid wave so doubt spontaneous bacterial peritonitis. 02:30 - Patient with multiple episodes of vomiting, unclear if related to hydromorphone or GI etiology. She did not develop any type of allergic reaction. She was given ondansetron and prochlorperazine. Laboratory studies are significant for a white count of 3.7, hemoglobin 11.6, platelets 83. These are around her baseline. Her venous gas shows a pH of 7.48 and pCO2 of 43 and a lactate of 1.8. Her sodium is low at 119. Typically runs in the lower 120 range. She is on LR at 200 an hour. Creatinine is baseline at 1.1. Total bilirubin also baseline at 2.2 with normal AST and ALT. Magnesium quite low at 1.1 and this was replaced intravenously. Lipase a little up at 185. Received a call from radiology to report that patient has probable ischemic bowel involving terminal ileum and ascending colon with pneumatosis but no perforation. I have ordered the patient for a liter of LR. She will also receive ceftriaxone. She has allergies to metronidazole and penicillins. Call placed to [facility] to inquire about transfer of patient whose chronic comorbidities would make surgery and management of her acute problem very risky here. 03:00 - Discussed with surgery at [facility]. We discussed patient's comorbidities, CODE STATUS, presentation and findings. He did feel patient should be evaluated at a tertiary care facility. Did recommend fluid resuscitation which we have started. Discussed with ED physician, Dr. Baird. Patient will be accepted as an ED to ED transfer. She remains hemodynamically stable currently. She is DNR/DNI. Did discuss with her the use of pressors if her blood pressure became persistently low. She was okay with this short-term. She understands that she is going to [facility] to be evaluated and discuss all options available to her. She will be transferred by ambulance with medic on an emergent basis. Medical Records Medical records reviewed: Yes I reviewed the patient's medical records. Lab Data Lab results reviewed: Yes I reviewed the patient's lab results. Lab results narrative: see MDM Quality:SDOH Health Related Social Needs: Health related social needs daily activities Critical Care Time Critical Care Time Critical Care Time: Yes Total Critical Care Time: 60 Attestation: Upon my evaluation, this patient had a high probability of imminent or life-threatening deterioration, which required my direct attention, intervention, and personal management. I have personally provided 60 minutes of critical care time exclusive of time spent on separately billable procedures. Time includes monitoring for potential decompensation, ordering of tests and medications, review of laboratory and radiology results, discussion with consultants and documentation . Interventions were performed as documented above in procedures. 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) Hemorrhoid (Acute) Irritation of vulva (Acute) Nail dystrophy (Acute) Medical History (Updated 04/12/25 @ 03:11 by Ernesto Ruff MD) Thrombocytopenia Type 2 diabetes mellitus Pancytopenia Liver 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) Surgical History (Updated 04/12/25 @ 00:33 by Ernesto Ruff MD) S/P cholecystectomy S/P hysterectomy S/P TIPS (transjugular intrahepatic portosystemic shunt) Social History Smoking/Tobacco Use Status: Never Smoking risk assessment performed?: Yes Alcohol Intake: never Drug use: Never Substance use type: does not use Housing: assisted living facility Do you feel safe at home: Yes Do you feel safe in your relationship?: Yes Additional Social history: lives at the [facility]
[2025-04-11 22:33] VITALS: BP 141/67; PULSE 80; RESP 18; TEMP 37.1; O2SAT 95
[2025-04-11] MEDS: Lactated Ringers 1,000 ML 200 ML IV (23:27)
[2025-04-11] MEDS: HYDROmorphone 2 MG/ML SYR 0.5 MG IVP (23:27)
[2025-04-11 23:37] LABS: BE (Venous) 9 mmol/L (-2-3); HCO3 (Venous) 32 mmol/L (23-28); O2 Sat (Venous) 75 %; TCO2 (Venous) 29 mmol/L (24-29); pCO2 (Venous) 43 mmHg (41-51); pO2 (Venous) 41 mmHg
[2025-04-11 23:40] LABS: Abs Immature Grans 0.02 10^3/uL (0.0-0.06); HCT 31.5 % (36.0-46.0); HGB 11.6 g/dL (11.2-15.7); Immature Grans % 0.5 %; MCH 29.7 pg (27.0-33.0); MCHC 36.8 % (32.0-36.0); MCV 81 fL (80-95); MPV 9.3 fL (8.0-11.0); RBC 3.90 10^6/uL (3.93-5.22); RDW 14.6 % (11.7-14.6); RDW-SD 42.5 fL; WBC 3.73 10^3/uL (4.4-10.8)
[2025-04-11 23:50] LABS: Platelet Count 83 10^3/uL (130-400)
[2025-04-11] MEDS: Ondansetron 4 MG/2 ML VIAL IVP (23:55)
[2025-04-11 23:56] LABS: ALT 27 U/L (14-59); AST 23 U/L (15-37); Albumin 3.6 g/dL (3.4-5.0); Alkaline Phosphatase 122 U/L (46-116); Anion Gap 5.8 mmol/L (3-11); BUN 14 mg/dL (7-18); Bilirubin, Total 2.2 mg/dL (0.2-1.0); CO2 31.2 mmol/L (21.0-32.0); Calcium 8.8 mg/dL (8.5-10.1); Chloride 82 mmol/L (98-107); Estimated GFR 54.73 (mL/min/1.73m2); Glucose 244 mg/dL (74-106); Magnesium 1.1 mg/dL (1.8-2.4); Potassium 3.6 mmol/L (3.5-5.1); Total Protein 6.5 g/dL (6.4-8.2)
[2025-04-11 23:59] LABS: Sodium 119 mmol/L (136-145)
--- NOTE | 2025-04-12 00:03 | DI.CT_ITS ---
Exam(s) CT ABDOMEN PELVIS W EXAM: CT ABDOMEN PELVIS W CLINICAL HISTORY: abd pain/distension. TECHNIQUE: Imaging Protocol: Axial computed tomography images with coronal and sagittal reformatted images were created and reviewed CONTRAST MATERIAL: Intravenous: Omnipaque-350 75cc Oral: None COMPARISON: CT CT ABDOMEN PELVIS CTA from 12/02/2024 FINDINGS: VISUALIZED LUNG BASES: No nodules nor pleural effusions evident. ABDOMEN: GI: There is significant pneumatosis in the right-side of the colon, indicating significant bowel ischemia. This extends from the cecum up to the proximal transverse colon. There is no gas within the portal venous system evident. LIVER: TIPS stent again noted. No distinct masses in liver and no gas within intrahepatic portal veins. No dilated intrahepatic ducts. GALLBLADDER/BILIARY: Gallbladder surgically absent. CBD is not dilated. PANCREAS: No evidence of pancreatic mass nor dilatation of the pancreatic duct. SPLEEN: Splenomegaly again noted. Craniocaudal spleen measurement is 14.5 cm. There are no intrasplenic lesions evident. Splenic vein is again noted be wide measuring up to 1.6 cm. No intraluminal thrombosis. Other collateral vessels also seen. The TIPS stent again extends from the main portal vein to the IVC. ADRENALS: There are no significant adrenal masses. KIDNEYS:No cysts evident. No solid renal masses. No calculi nor hydronephrosis.. ABDOMINAL AORTA: Abdominal aorta is not enlarged. Celiac and superior mesenteric arteries are patent as is the inferior mesenteric artery. LYMPH NODES:There is no retroperitoneal nor paraaortic adenopathy. ABDOMINAL WALL: No evidence of significant anterior abdominal wall nor inguinal hernia. GI: There is uniform circumferential wall thickening of the navarro of the duodenal C-loop PELVIS: GI: No evidence of appendicitis.No evidence of sigmoid diverticulitis. LYMPH NODES: There is no intrapelvic nor inguinal adenopathy. REPRODUCTIVE: Uterus is again noted be surgically absent.. There are no adnexal masses nor free fluid in the pelvis. URINARY BLADDER: There is mild uniform thickening of the urinary bladder wall. No intramural nor intraluminal gas. No radiopaque calculi. OSSEOUS: No fractures and no significant osseous lesions. Degenerative changes both hips. Multilevel facet arthropathy. This most evident at L4-5 level. No listhesis. Advanced disc space narrowing at L5-S1. Schmorl's node invagination noted in the superior endplate of L4. Also multiple Schmorl's nodes in the opposing endplates L4 and L5. IMPRESSION: 1. There is pneumatosis coli of the entire right side of the colon from the tip of the cecum to and including the a hepatic flexure of the colon. These findings are concerning for significant acute bowel ischemia. 2. Cirrhotic appearing liver with TIPS stent in place and there is also splenomegaly again noted. There is no ascites. 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 3. There is some bladder distension and uniform thickening of the bladder wall. Possible cystitis. 4. There has been prior hysterectomy and cholecystectomy. Preliminary virtual Radiology report was reviewed. RADIATION DOSE DELIVERED: 701.25mGy.cm Total DLP DATA REPOSITORY: All CT scans at this facility are submitted to the National Radiology Data Registry (NRDR) Dose Index Registry (DIR) with the [employer] (ACR). RADIATION OPTIMIZATION: All CT scans at this facility use at least one of these dose optimization techniques: automated exposure control; mA and/or kV adjustment per patient size (includes targeted exams where dose is matched to clinical indication); or iterative reconstruction.
[2025-04-12 00:10] LABS: Lipase 185 U/L (<78)
[2025-04-12] MEDS: MAGNESIUM SULFATE 2 GM/50 ML BAG IV_INF (00:21)
[2025-04-12] MEDS: Prochlorperazine 10 MG/2 ML VIAL 5 MG IVP ×2 (00:46→03:27)
[2025-04-12] MEDS: Normal Saline - Diluent 50 ML VIAL IJ (01:05)
[2025-04-12] MEDS: Normal Saline Flush 10 ML SYR IVP (01:05)
[2025-04-12] MEDS: Omnipaque 350 MG/ML 100 ML BTL IJ (01:05)
[2025-04-12 01:23] LABS: Ammonia 21 umol/L (11-32)
--- NOTE | 2025-04-12 01:59 | DI.VRAD_ITS ---
Addendum created by Hong Vargas MD on 04/12/2025 2:01:50 AM EDT: ADDENDUM: THIS REPORT CONTAINS FINDINGS THAT MAY BE CRITICAL TO PATIENT CARE. The findings were verbally communicated via telephone conference with RUBI GOMEZ at 2:00 AM EDT on 04/12/2025. The findings were acknowledged and understood. Discussion regarding features of pneumatosis coli and distal pneumatosis intestinalis concerning for acute bowel ischemia. Recommendation for emergent surgical consultation. Additional features of cirrhosis, splenomegaly, tips stent also discussed. Initial report created on 04/12/2025 1:58:51 AM EDT: PROCEDURE INFORMATION: Exam: CT Abdomen And Pelvis With Contrast Exam date and time: 04/12/2025 12:31 AM Age: 69 years old Clinical indication: Abdominal pain; Additional info: Abd pain/distension TECHNIQUE: Imaging protocol: Computed tomography of the abdomen and pelvis with contrast. Contrast material: OMNI 350; Contrast volume: 75 ml; Contrast route: INTRAVENOUS (IV); COMPARISON: CT ABDOMEN PELVIS CTA 12/02/2024 6:43 PM FINDINGS: Lungs: Mild lung base atelectasis bilaterally. Pleural spaces: No pleural effusion. Heart: Moderate cardiac enlargement. Mitral valve calcification. Minor coronary artery atherosclerotic calcium is visible. No pericardial effusion. Liver: Fatty liver change and features suggesting mild cirrhosis. Gallbladder and biliary ducts: Previous cholecystectomy. Pancreas: Normal. No ductal dilation. Spleen: Splenomegaly. Cephalo caudal length of spleen is 14.7 cm. Adrenal glands: The adrenal glands are normal in size and contour bilaterally. Kidneys and ureters: Kidneys are unremarkable bilaterally. No obstructive uropathy. No inflammatory features. Stomach and bowel: Gastric contour is unremarkable. There is wall thickening of the gastric antrum and pyloric region which could represent a gastritis process. Small bowel loops are normal in course. There is concern for pneumatosis intestinalis of the terminal ileum. This is concerning for ischemia of the distal small bowel. No proximal small bowel distension. No obstructive features of small bowel. Large bowel with features concerning for right colon pneumatosis coli. This is concerning for right colonic ischemia. See axial series 8: Images 70 through 42 for features of terminal ileum and right colon pneumatosis intestinalis. Also see coronal series 4: Images 56 through 34. Appendix: No evidence of appendicitis. Intraperitoneal space: No free fluid in the abdomen or pelvis. No free air. Vasculature: Tips stent extending from the right portal vein to the right hepatic vein. There appears to be contrast flow within the stent. Lymph nodes: Unremarkable. No enlarged lymph nodes. Urinary bladder: Urinary bladder is distended. There is wall thickening of the bladder measuring up to 8 mm. This could represent a cystitis process. There is no intravesicular gas. Reproductive: Previous hysterectomy. Bones/joints: Degenerative lumbar spine. Soft tissues: Abdominal wall soft tissues are unremarkable. IMPRESSION: 1. Pneumatosis coli of the right colon extending from the region of the cecum to the hepatic flexure. Distal ileum pneumatosis intestinalis. These findings are concerning for acute bowel ischemia. 2. Tips stent is in place. There appears to be contrast opacification within the tips stent. No portal venous gas evident. 3. Splenomegaly. 4. Cirrhotic liver change. 5. No free fluid. No free air. 6. Bladder distension and bladder wall thickening. Can not exclude cystitis. 7. Hiatal hernia without acute features. 8. Lung base atelectasis. 9. Degenerative lumbar spine. Dictated and Authenticated by: Hong Vargas MD. Orderin Speedy Orozco MD
[2025-04-12] MEDS: cefTRIAXone 2 GM/50 ML BAG IVPB (02:16)
[2025-04-12] MEDS: Lactated Ringers 1,000 ML 200 ML IV (02:16)
[2025-04-12] MEDS: Lactated Ringers 500 ML 1000 ML IV (02:17)
[2025-04-12 03:31] VITALS: PULSE 89; RESP 22; O2SAT 94
== END 2025-04-12 03:47 | disposition short-term general hospital (02) ==
PROVIDERS: Emergency Provider Emergency Medicine; PCP Nurse Practitioner Gerontology
DX: K55.9 Vascular disorder of intestine, unspecified (principal)
CPT/HCPCS: 36415; 80053; 82805; 83690; 96361; 96365; 96366; 96368; 96375; 96376; 99291; 74177; 82140; 83605; 83735; 85025; J0696; J0780; J1171; J2405; J3475; J3490

== ENCOUNTER 2025-04-19 14:26 | Observation (INO) | payer MEDICARE, MEDICAID, SELFPAY ==
[2025-04-19] VITALS (29 sets, daily range): BP systolic 102–136; BP diastolic 44–56; PULSE 71–86; RESP 14–19; TEMP 36.7; O2SAT 94–100
--- NOTE | 2025-04-19 14:30 | RT.EKG_ITS ---
APPROVED REPORT Exam: Resting ECG Reason for Exam: abd pain Patient Location: E HR:75 bpm ECG Measurements Heart Rate 75 AXIS WI 199 P 56 QRSd 103 QRS 80 QT 445 T 65 QTc 496 Conclusion Sinus rhythm...normal P axis, V-rate 60- 99 No STEMI
--- NOTE | 2025-04-19 14:30 | DI.CT_ITS ---
Exam(s) CT ABDOMEN PELVIS W EXAM: CT ABDOMEN PELVIS W CLINICAL HISTORY: Abdominal pain TECHNIQUE: Imaging Protocol: Axial computed tomography images with coronal and sagittal reformatted images were created and reviewed. CONTRAST MATERIAL: Intravenous: Omnipaque 350 Contrast volume:80 mL Oral: No COMPARISON: CT CT CHEST/ABD/PEL W from 11/25/[address] ABDOMEN PELVIS CTA from 12/02/[address] ABDOMEN PELVIS W from 04/12/2025 FINDINGS: ABDOMEN: Lung Bases: No acute abnormality. Liver: Normal density. There is a TIPS in place. No suspicious hepatic masses are present. Portal, Superior Mesenteric, and Splenic Veins: Please see below under bowel. Gallbladder and Biliary Tract: Status post cholecystectomy. There is no significant biliary ductal dilatation. Pancreas: There has been no change in appearance of the pancreas. No peripancreatic fluid collections or inflammation is seen. Spleen: The spleen is enlarged. Adrenals: No masses seen. Kidneys: Normal size, contour and axis. No radiodense stones or obstructive uropathy. No masses seen. Abdominal Aorta: Abdominal portion non-dilated. Atherosclerotic calcification is present. Bowel: There is diffuse thickening of the wall of the stomach. This is mildly improved compared to the prior examination. There is a small air-fluid collection at the medial aspect of the distal stomach/antrum. This may represent ulcer (series 8, image 34). There is no evidence of bowel obstruction . There is again seen pneumatosis involving the cecum ascending colon and proximal transverse colon. There has been progression compared to the prior examination. There is a focus of air which appears to be intravascular (series 4, image 36. There is also focus of extra luminal air in the right upper quadrant (series 4, image 28) just beneath the liver adjacent to the abdominal wall. There is stool throughout the colon suggesting constipation. Peritoneal Cavity: No ascites, collection or mesenteric inflammatory response. Please see the above discussion under bowel. Lymph Nodes: Within normal limits. Bones: Within normal limits for the patient's age. There is no change in appearance of the bones compared to the prior examinations. Soft Tissues: Unremarkable. PELVIS: Bladder: Symmetric distention, no gross wall thickening. Reproductive Organs: Uterus is not visualized. Lymph Nodes: Within normal limits. Bones: Within normal limits for the patient's age. IMPRESSION: 1. There has been slight progression of the extent of the pneumatosis coli since the prior examination. 2. There does appear to be a small focus of extraluminal air in the right upper quadrant. 3. There also appears to be a small focus of air in a vascular structure suggesting portal venous gas. 4. Slight improvement in the bowel wall thickening seen in the distal stomach and duodenum. 5. Small air-fluid collection at the medial aspect of the distal stomach which may represent an ulcer. 6. There is stool throughout the colon suggesting constipation. 7. Findings were discussed with Dr. Ovalle at 4:20 p.m. on 04/19/2025. RADIATION DOSE DELIVERED: 689.38mGy.cm Total DLP DATA REPOSITORY: All CT scans at this facility are submitted to the National Radiology Data Registry (NRDR) Dose Index Registry (DIR) with the [employer] (ACR). RADIATION OPTIMIZATION: All CT scans at this facility use at least one of these dose optimization techniques: automated exposure control; mA and/or kV adjustment per patient size (includes targeted exams where dose is matched to clinical indication); or iterative reconstruction.
--- NOTE | 2025-04-19 14:37 | W.ED.GENAD ---
Discharge Plan Disposition Patient Disposition: Admit to [facility] Condition: Serious Discharge Details Clinical Impression: Pneumatosis coli, Constipation, Abdominal pain, Hypomagnesemia Primary Care Provider: Lianet Smith ED Provider: Cruzito Ovalle Home Meds and New Rx's Prescriptions: No Action hydrocortisone-pramoxine 1-1 % cream 1 applic AZ TID-QID PRN (Reason: itching) Qty: 30 1RF pantoprazole [Protonix] 40 mg tablet,delayed release (DR/EC) 40 mg PO DAILY levetiracetam 1,000 mg tablet 1,000 mg PO BID Incruse Ellipta 62.5 mcg/actuation blister with device 1 inh inhalation DAILY lactulose 10 gram/15 mL solution 30 g PO QID Xifaxan 550 mg tablet 550 mg PO BID insulin degludec [Tresiba FlexTouch U-200] 200 unit/mL (3 mL) insulin pen 40 unit subcut BID albuterol 90 mcg/actuation aerosol 180 mcg inhalation .Q4 PRN epinephrine 0.3 mg/0.3 mL auto-injector 0.3 ml subcut Q5-15M PRN Rx Instructions: do not exceed 2 doses per episode torsemide 20 mg tablet 40 mg PO BID quetiapine [Seroquel] 25 mg tablet 25 mg PO BID gabapentin 300 mg capsule 600 mg PO HS spironolactone 50 mg tablet 50 mg PO DAILY cholecalciferol (vitamin D3) [Vitamin D3] 50 mcg (2,000 unit) capsule 50 mcg PO DAILY nitrofurantoin macrocrystal 100 mg capsule 100 mg PO BID Rx Instructions: Stop 04/20/25 magnesium L-lactate 84 mg tablet extended release 84 mg PO QID folic acid 1 mg tablet 1 mg PO DAILY Patient Comments: GIVE ONE TABLET BY MOUTH EVERY MORNING FOR SUPPLEMENT insulin lispro 100 unit/mL insulin pen 1 sliding scale dose SUBCUT TID Rx Instructions: Use per sliding scale SQ TID; inject 10 units SQ TID in addition to sliding scale; hold for BS <201 Acidophilus probiotic 0.5 mg tablet 0.5 mg PO BID bisacodyl 10 mg suppository 10 mg [place] DAILY PRN polyethylene glycol 3350 [ClearLax] 17 gram/dose powder 17 g PO BID HPI General Date/Time Provider Initiated Documentation: 04/19/25 14:37. HPI Narrative: MDM/Narrative: Initial Assessment: 69-year-old female with abdominal pain and constipation. Differential Diagnosis: - Constipation: History of fatty liver disease, inadequate lactulose administration. Plan: If no SBO, Increase lactulose dosage, consider enema and other prokinetic options. - Bowel obstruction: Potential twisting of intestines. Plan: Obtain CT scan to rule out obstruction. ED Course: - CT scan of the abdomen obtained. Final Assessment: CT scan performed to evaluate for bowel obstruction. Awaiting results to tailor treatment for abdominal pain and constipation. Clinical Impression: - Constipation - Abdominal pain [address] Gracia general surgery at [facility] who knows the patient well and manage her care during her most recent admission in their facility. I made him aware of the imaging findings today of free air in the right upper quadrant as well as portal venous gas. He states that given the patient's advanced comorbidities she is not a surgical candidate as he suspects that the patient would not survive the operation. He recommends that the patient is transition to comfort care. Will plan to admit to the hospitalist for further management. [address] Dawson (hospitalist) who agrees to admit patient pending palliative care consultation. Disposition: Admission [facility] HPI: The patient is a 69-year-old female with a known diagnosis of hepatic steatosis, presenting with abdominal pain. She reports constipation, with her last bowel movement occurring two days ago. She was recently hospitalized for five days due to complications related to hepatic steatosis and subsequently transferred to [facility]. The patient suspects that her constipation may be associated with her liver condition. She has been prescribed lactulose to be taken three times daily but is currently taking it only once daily. She has a history of hyperammonemia secondary to her liver condition. There have been no surgical interventions involving the intestines. The abdominal pain commenced yesterday and has intensified today. The pain is localized to the lower back and left side and is described as feeling like a bruise. She denies vomiting but reports nausea and anorexia. There are no associated fevers or chills. She has no history of paracentesis for ascites. PAST SURGICAL HISTORY: - Hysterectomy - Cholecystectomy ROS: Negative besides as mentioned above Exam: Vital signs: Reviewed. General Appearance: Alert and oriented. No acute distress. HEENT: NCAT, EOMI, not icteric. External ears normal. No rhinorrhea. Moist mucous membranes. Neck: Supple, full range of motion, no observable masses, No meningeal sign. Respiratory: No Respiratory distress. No tachypnea. Cardiovascular: RRR, no edema. Gastrointestinal: Diffuse abdominal tenderness. Back: No midline tenderness to palpation or palpable step-offs of the C/T/L spine. Skin: Warm and dry, no rash. Neurological: Normal Gait, Grossly intact. Psychiatric: Appropriate for situation. Labs: Laboratory Tests Range/Units 04/19/25 04/19/25 04/19/25 15:13 15:25 16:15 WBC (4.4-10.8) 10^3/uL 2.99 L RBC (3.93-5.22) 10^6/uL 3.53 L Hgb (11.2-15.7) g/dL 10.6 L Hct (36.0-46.0) % 29.1 L MCV (80-95) fL 82 MCH (27.0-33.0) pg 30.0 MCHC (32.0-36.0) % 36.4 H RDW (11.7-14.6) % 15.0 H Plt Count (130-400) 10^3/uL 88 L MPV (8.0-11.0) fL 9.1 Immature Gran % % 0.3 Neutrophils % % 58.2 Lymphocytes % % 25.4 Monocytes % % 10.4 Eosinophils % % 5.0 Basophils % % 0.7 Nucleated RBC % (0.0-0.3) % 0.0 Absolute Neutrophils (1.2-6.7) 10^3/uL 1.74 Absolute Lymphocytes (1.2-3.4) 10^3/uL 0.76 L Absolute Monocytes (0.1-0.8) 10^3/uL 0.31 Absolute Eosinophils (0.0-0.7) 10^3/uL 0.15 Absolute Basophils (0.0-0.2) 10^3/uL 0.02 PT (9.1-11.1) sec 12.0 H INR (0.9-1.1) 1.2 H APTT (20.6-30.2) sec 26.9 VBG Lactate (<or=2.0) mmol/L 2.0 Sodium (136-145) mmol/L 126 L Potassium (3.5-5.1) mmol/L 3.6 Chloride (98-107) mmol/L 86 L Carbon Dioxide (21.0-32.0) mmol/L 30.3 Anion Gap (3-11) mmol/L 9.7 BUN (7-18) mg/dL 11 Creatinine (0.55-1.02) mg/dL 1.1 H Est GFR (CKD-EPI 2020) (mL/min/1.73m2) 54.73 Glucose (74-106) mg/dL 189 H Calcium (8.5-10.1) mg/dL 8.8 Magnesium (1.8-2.4) mg/dL 1.1 L Total Bilirubin (0.2-1.0) mg/dL 2.6 H AST (15-37) U/L 21 ALT (14-59) U/L 24 Alkaline Phosphatase (46-116) U/L 113 Troponin I (<or=51) ng/L 12 10 Total Protein (6.4-8.2) g/dL 6.3 L Albumin (3.4-5.0) g/dL 3.7 Range/Units 04/19/25 17:38 WBC (4.4-10.8) 10^3/uL RBC (3.93-5.22) 10^6/uL Hgb (11.2-15.7) g/dL Hct (36.0-46.0) % MCV (80-95) fL MCH (27.0-33.0) pg MCHC (32.0-36.0) % RDW (11.7-14.6) % Plt Count (130-400) 10^3/uL MPV (8.0-11.0) fL Immature Gran % % Neutrophils % % Lymphocytes % % Monocytes % % Eosinophils % % Basophils % % Nucleated RBC % (0.0-0.3) % Absolute Neutrophils (1.2-6.7) 10^3/uL Absolute Lymphocytes (1.2-3.4) 10^3/uL Absolute Monocytes (0.1-0.8) 10^3/uL Absolute Eosinophils (0.0-0.7) 10^3/uL Absolute Basophils (0.0-0.2) 10^3/uL PT (9.1-11.1) sec INR (0.9-1.1) APTT (20.6-30.2) sec VBG Lactate (<or=2.0) mmol/L Sodium (136-145) mmol/L Potassium (3.5-5.1) mmol/L Chloride (98-107) mmol/L Carbon Dioxide (21.0-32.0) mmol/L Anion Gap (3-11) mmol/L BUN (7-18) mg/dL Creatinine (0.55-1.02) mg/dL Est GFR (CKD-EPI 2020) (mL/min/1.73m2) Glucose (74-106) mg/dL Calcium (8.5-10.1) mg/dL Magnesium (1.8-2.4) mg/dL Total Bilirubin (0.2-1.0) mg/dL AST (15-37) U/L ALT (14-59) U/L Alkaline Phosphatase (46-116) U/L Troponin I (<or=51) ng/L Cancelled Total Protein (6.4-8.2) g/dL Albumin (3.4-5.0) g/dL Radiology: Exam(s) CT ABDOMEN PELVIS W EXAM: CT ABDOMEN PELVIS W CLINICAL HISTORY: Abdominal pain TECHNIQUE: Imaging Protocol: Axial computed tomography images with coronal and sagittal reformatted images were created and reviewed. CONTRAST MATERIAL: Intravenous: Omnipaque 350 Contrast volume:80 mL Oral: No COMPARISON: CT CT CHEST/ABD/PEL W from 11/25/[address] ABDOMEN PELVIS CTA from 12/02/[address] ABDOMEN PELVIS W from 04/12/2025 FINDINGS: ABDOMEN: Lung Bases: No acute abnormality. Liver: Normal density. There is a TIPS in place. No suspicious hepatic masses are present. Portal, Superior Mesenteric, and Splenic Veins: Please see below under bowel. Gallbladder and Biliary Tract: Status post cholecystectomy. There is no significant biliary ductal dilatation. Pancreas: There has been no change in appearance of the pancreas. No peripancreatic fluid collections or inflammation is seen. Spleen: The spleen is enlarged. Adrenals: No masses seen. Kidneys: Normal size, contour and axis. No radiodense stones or obstructive uropathy. No masses seen. Abdominal Aorta: Abdominal portion non-dilated. Atherosclerotic calcification is present. Bowel: There is diffuse thickening of the wall of the stomach. This is mildly improved compared to the prior examination. There is a small air-fluid collection at the medial aspect of the distal stomach/antrum. This may represent ulcer (series 8, image 34). There is no evidence of bowel obstruction. There is again seen pneumatosis involving the cecum ascending colon and proximal transverse colon. There has been progression compared to the prior examination. There is a focus of air which appears to be intravascular (series 4, image 36. There is also focus of extra luminal air in the right upper quadrant (series 4, image 28) just beneath the liver adjacent to the abdominal wall. There is stool throughout the colon suggesting constipation. Peritoneal Cavity: No ascites, collection or mesenteric inflammatory response. Please see the above discussion under bowel. Lymph Nodes: Within normal limits. Bones: Within normal limits for the patient's age. There is no change in appearance of the bones compared to the prior examinations. Soft Tissues: Unremarkable. PELVIS: Bladder: Symmetric distention, no gross wall thickening. Reproductive Organs: Uterus is not visualized. Lymph Nodes: Within normal limits. Bones: Within normal limits for the patient's age. IMPRESSION: 1. There has been slight progression of the extent of the pneumatosis coli since the prior examination. 2. There does appear to be a small focus of extraluminal air in the right upper quadrant. 3. There also appears to be a small focus of air in a vascular structure suggesting portal venous gas. 4. Slight improvement in the bowel wall thickening seen in the distal stomach and duodenum. 5. Small air-fluid collection at the medial aspect of the distal stomach which may represent an ulcer. 6. There is stool throughout the colon suggesting constipation. 7. Findings were discussed with Dr. Ovalle at 4:20 p.m. on 04/19/2025. RADIATION DOSE DELIVERED: 689.38mGy.cm Total DLP DATA REPOSITORY: All CT scans at this facility are submitted to the National Radiology Data Registry (NRDR) Dose Index Registry (DIR) with the [employer] (ACR). RADIATION OPTIMIZATION: All CT scans at this facility use at least one of these dose optimization techniques: automated exposure control; mA and/or kV adjustment per patient size (includes targeted exams where dose is matched to clinical indication); or iterative reconstruction. Related Data Home Medications ?Medication ?Instructions ?Recorded ?Confirmed albuterol 90 mcg/actuation aerosol 180 mcg inhalation .Q4 PRN 06/11/24 04/19/25 inhaler epinephrine 0.3 mg/0.3 mL 0.3 ml subcut Q5-15M PRN 06/11/24 04/19/25 injection, auto-injector insulin degludec 200 unit/mL (3 40 unit subcut BID 06/11/24 04/19/25 mL) subcutaneous pen (Tresiba FlexTouch U-200 insulin) lactulose 10 gram/15 mL oral 30 g PO QID 06/11/24 04/19/25 solution levetiracetam 1,000 mg tablet 1,000 mg PO BID 06/11/24 04/19/25 pantoprazole 40 mg tablet,delayed 40 mg PO DAILY 06/11/24 04/19/25 release (Protonix) rifaximin 550 mg tablet (Xifaxan) 550 mg PO BID 06/11/24 04/19/25 umeclidinium 62.5 mcg/actuation 1 inh inhalation DAILY 06/11/24 04/19/25 blister powder for inhalation (Incruse Ellipta) quetiapine 25 mg tablet (Seroquel) 25 mg PO BID 09/01/24 04/19/25 torsemide 20 mg tablet 40 mg PO BID 09/01/24 04/19/25 gabapentin 300 mg capsule 600 mg PO HS 11/13/24 04/19/25 polyethylene glycol 3350 17 17 g PO BID 11/25/24 04/19/25 gram/dose oral powder (ClearLax) spironolactone 50 mg tablet 50 mg PO DAILY 12/04/24 04/19/25 hydrocortisone-pramoxine 1 %-1 % 1 applic AZ TID-QID PRN itching 03/12/25 04/19/25 rectal cream #30 grams Acidophilus probiotic 0.5 mg PO BID 04/19/25 04/19/25 bisacodyl 10 mg rectal suppository 10 mg AZ DAILY PRN 04/19/25 04/19/25 cholecalciferol (vitamin D3) 50 50 mcg PO DAILY 04/19/25 04/19/25 mcg (2,000 unit) capsule (Vitamin D3) folic acid 1 mg tablet 1 mg PO DAILY 04/19/25 04/19/25 insulin lispro 100 unit/mL 1 sliding scale dose subcut TID 04/19/25 04/19/25 subcutaneous pen magnesium L-lactate 84 mg 84 mg PO QID 04/19/25 04/19/25 tablet,extended release nitrofurantoin macrocrystal 100 mg 100 mg PO BID 04/19/25 04/19/25 capsule Previous Rx's ?Medication ?Instructions ?Recorded hydrocortisone-pramoxine 1 %-1 % 1 applic AZ TID-QID PRN itching 03/12/25 rectal cream #30 grams Allergies Allergy/AdvReac Type Severity Reaction Status Date / Time amitriptyline Allergy Intermediate Unknown Verified 03/12/25 13:20 azithromycin Allergy Intermediate Unknown Verified 03/12/25 13:20 ciprofloxacin Allergy Intermediate Unknown Verified 03/12/25 13:20 codeine Allergy Intermediate Unknown Verified 04/19/25 15:00 cortisone Allergy Intermediate Unknown Verified 04/19/25 15:00 erythromycin base Allergy Intermediate Unknown Verified 04/19/25 15:00 guaifenesin (From Robitussin) Allergy Intermediate Unknown Verified 03/12/25 13:20 iron Allergy Intermediate Unknown Verified 04/19/25 15:00 metronidazole (From Flagyl) Allergy Intermediate Unknown Verified 04/19/25 15:00 morphine Allergy Intermediate Unknown Verified 03/12/25 13:20 oxycodone (From Percocet) Allergy Intermediate Unknown Verified 04/19/25 15:00 Penicillins Allergy Intermediate Unknown Verified 03/12/25 13:20 Sulfa (Sulfonamide Allergy Intermediate Unknown Verified 03/12/25 13:20 Antibiotics) acetaminophen Allergy Unknown Other (See Verified 04/19/25 15:00 Comment) cyclosporine Allergy Unknown Other (See Verified 04/19/25 15:00 Comment) fluticasone (From Advair Allergy Unknown Other (See Verified 04/19/25 15:00 Diskus) Comment) ibuprofen Allergy Unknown Other (See Verified 04/19/25 15:00 Comment) pregabalin (From Lyrica) Allergy Unknown Other (See Verified 04/19/25 15:00 Comment) salmeterol Allergy Unknown Other (See Verified 04/19/25 15:00 Comment) strawberry Allergy Unknown Other (See Verified 04/19/25 15:00 Comment) General Stated Complaint: Abd Prob MARCELLO: 3 Course Vital Signs Vital signs: Vital Signs Temperature 36.7 C 04/19/25 14:28 Pulse 76 04/19/25 14:28 Respiratory Rate 18 04/19/25 14:28 Blood Pressure 136/53 L 04/19/25 14:28 Pulse Oximetry 96 04/19/25 14:28 Temperature 36.7 C 04/19/25 14:28 Temperature Source Oral 04/19/25 14:28 Pulse 76 04/19/25 14:28 Respiratory Rate 18 04/19/25 14:28 Blood Pressure 136/53 L 04/19/25 14:28 Pulse Oximetry 96 04/19/25 14:28 Oxygen Delivery Method Room Air 04/19/25 14:28 Oxygen Flow Rate 0 04/19/25 14:28 Pain Level 7 04/19/25 14:28 Medical Decision Making Quality:SDOH Health Related Social Needs: Health related social needs daily activities PFSH All Active Problems (Updated 04/19/25 @ 19:11 by Cruzito Ovalle MD) Hypomagnesemia (Acute) Abdominal pain (Acute) Constipation (Acute) Pneumatosis coli (Acute) Ischemia, bowel (Acute) Hyponatremia (Acute) Edema of both lower legs (Acute) [employer] exam for high-risk Medicare patient (Acute) Hemorrhoid (Acute) Irritation of vulva (Acute) Nail dystrophy (Acute) Medical History (Updated 04/19/25 @ 19:11 by Cruzito Ovalle MD) Thrombocytopenia Type 2 diabetes mellitus Pancytopenia 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
[2025-04-19 15:23] LABS: Abs Immature Grans 0.01 10^3/uL (0.0-0.06); HCT 29.1 % (36.0-46.0); HGB 10.6 g/dL (11.2-15.7); Immature Grans % 0.3 %; MCH 30.0 pg (27.0-33.0); MCHC 36.4 % (32.0-36.0); MCV 82 fL (80-95); MPV 9.1 fL (8.0-11.0); RBC 3.53 10^6/uL (3.93-5.22); RDW 15.0 % (11.7-14.6); RDW-SD 45.2 fL; WBC 2.99 10^3/uL (4.4-10.8)
[2025-04-19] MEDS: Normal Saline 1,000 ML 1000 ML IV (15:25)
[2025-04-19 15:43] LABS: Platelet Count 88 10^3/uL (130-400)
[2025-04-19] MEDS: Normal Saline Flush 10 ML SYR IVP (15:44)
[2025-04-19] MEDS: Omnipaque 350 MG/ML 100 ML BTL IJ (15:44)
[2025-04-19] MEDS: Normal Saline - Diluent 50 ML VIAL IJ (15:44)
[2025-04-19 15:45] LABS: ALT 24 U/L (14-59); AST 21 U/L (15-37); Albumin 3.7 g/dL (3.4-5.0); Alkaline Phosphatase 113 U/L (46-116); Anion Gap 9.7 mmol/L (3-11); BUN 11 mg/dL (7-18); Bilirubin, Total 2.6 mg/dL (0.2-1.0); CO2 30.3 mmol/L (21.0-32.0); Calcium 8.8 mg/dL (8.5-10.1); Chloride 86 mmol/L (98-107); Estimated GFR 54.73 (mL/min/1.73m2); Glucose 189 mg/dL (74-106); Magnesium 1.1 mg/dL (1.8-2.4); Potassium 3.6 mmol/L (3.5-5.1); Sodium 126 mmol/L (136-145); Total Protein 6.3 g/dL (6.4-8.2); Troponin I 12 ng/L (<or=51)
[2025-04-19 15:48] LABS: INR 1.2 (0.9-1.1); PTT Activated 26.9 sec (20.6-30.2); Prothrombin Time 12.0 sec (9.1-11.1)
[2025-04-19] MEDS: MAGNESIUM SULFATE 4 GM/100 ML BAG IV_INF (16:23)
[2025-04-19 16:47] LABS: Troponin I 10 ng/L (<or=51)
[2025-04-19] MEDS: Lactulose 20 GM/30 ML CUP 30 GM PO (17:22)
--- NOTE | 2025-04-19 17:56 | NUR.NOTE ---
Access pt chart of [facility] for Dr. Cruzito Ovalle. Patient was just discharged from that facility 04/15/2025. Printed DC summary, H&P, Nephrology and Surgical notes. Nursing Note:
--- NOTE | 2025-04-19 19:38 | W.PM.HP.N ---
Date of service: 04/19/25 Time of Service: 19:30 Assessment and Plan Assessment and plan (1) Pneumatosis coli: Status: Acute Assessment and plan: Onset approximately April 11, worsening per imaging and symptoms Not a surgical candidate per [facility] Supportive care for constipation Palliative care consulted for Apr 22 due to holiday weekend (2) Constipation: Status: Acute Assessment and plan: Presenting complaint of constipation Likely secondary to under-dosing of lactulose after long-term use Resume TID lactulose dosing, check ammonia with morning labs Continue home polyethylene glycol BID Continue home acidophilus daily Continue home PRN bisacodyl NM Consider enema, partial bowel prep (3) Hypomagnesemia: Status: Acute Assessment and plan: Acute on chronic Mag 4 mg IV given in ED Check morning labs (4) Hyponatremia: Status: Acute Assessment and plan: NS 1L bolus given in ED Check morning labs (5) Metabolic dysfunction-associated steatotic liver disease (MASLD): Status: Chronic Assessment and plan: Chronic with subsequent cirrhosis, MELD score 13 Patient sees [facility] GI Unclear life expectancy Continue lactulose, spironolactone, torsemide, rifaximin (6) Asymptomatic bacteriuria: Status: Acute Assessment and plan: Recent prescription for nitrofurantoin, culture not available Will check UA (7) Acquired pancytopenia: Status: Acute Assessment and plan: CBC below baseline across all results Secondary to cirrhosis Hold anticoagulation (8) Diabetes mellitus type 2, insulin dependent: Status: Acute Assessment and plan: Home regimen reportedly degludec 40 BID Will start on basal 10u BID with resistant correctional (9) COPD (chronic obstructive pulmonary disease): Status: Chronic Assessment and plan: Continue home regimen Duonebs PRN (10) History of seizure disorder: Status: Acute Assessment and plan: Unclear history, on levetiracetam, quetiapine Will continue home regimen (11) Chronic GERD: Status: Acute Assessment and plan: Continue home PPI History of Present Illness History of Present Illness Chief Complaint: constipation Narrative: Reny Lewis is a 69 year old woman presenting in the ED April 19 with abdominal pain for 2 days, after not having a bowel movement for 3 days. She had also presented April 11 with the same symptoms, and was transferred to [facility] where she was diagnosed with pneumatosis coli, decompensated cirrhosis and hyponatremia and discharged April 13. She has not been able to take her full daily doses of lactulose which she takes for hyperammonemia. No history of ascites requiring paracenteses. She reports nausea and poor appetite. No chest pain, no SOB. PMH: GILLESPIE, cirrhosis, 2015 TIPS, pancytopenia, DM on insulin, cholecystectomy, hysterectomy, bladder suspension, numerous medication allergies. In the ED, vitals were unremarkable. EKG unremarkable. CT abdomen showed worsening pneumatosis coli, small RUQ free air, small portal venous gas, stool throughout colon, distal stomach small air/fluid. CBC with pancytopenia, PLT 88, H&H 10.6/29.1, RBC low 3.53, WBC low 2.99, all somewhat worse from baseline. Chemistries with hyponatremia 126, hypochloremia 86, creatinine 1.1 (baseline), glucose 189, magnesium 1.1, tbili 2.6, troponin unremarkable. No transaminitis. Ammonia/lipase not checked. INR elevated 1.2. ED attending contacted [facility] Dr Gracia: familiar with patient and case from Apr 11- hospitalization, advised patient not surgical candidate, recommending comfort care. Patient is admitted for supportive care, awaiting palliative care consultation on SundayApril 22, due to holiday weekend. PFSH All Active Problems (Updated 04/20/25 @ 02:22 by Mynor Dawson MD) Chronic GERD (Acute) History of seizure disorder (Acute) Asymptomatic bacteriuria (Acute) Metabolic dysfunction-associated steatotic liver disease (MASLD) (Chronic) COPD (chronic obstructive pulmonary disease) (Chronic) Diabetes mellitus type 2, insulin dependent (Acute) Acquired pancytopenia (Acute) Hypomagnesemia (Acute) Abdominal pain (Acute) Constipation (Acute) Pneumatosis coli (Acute) Ischemia, bowel (Acute) Hyponatremia (Acute) Edema of both lower legs (Acute) [employer] exam for high-risk Medicare patient (Acute) Hemorrhoid (Acute) Irritation of vulva (Acute) Nail dystrophy (Acute) Medical History (Updated 04/20/25 @ 02:22 by Mynor Dawson MD) Thrombocytopenia Type 2 diabetes mellitus Pancytopenia Liver 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) Surgical History (Updated 04/12/25 @ 00:33 by Ernesto Ruff MD) S/P cholecystectomy S/P hysterectomy S/P TIPS (transjugular intrahepatic portosystemic shunt) Social History Smoking/Tobacco Use Status: Never Smoking risk assessment performed?: Yes Alcohol Intake: never Drug use: Never Substance use type: does not use Housing: intermediate Do you feel safe at home: Yes Do you feel safe in your relationship?: Yes Additional Social history: lives at the [facility] Allergies and Home Medications Allergies Allergy/AdvReac Type Severity Reaction Status Date / Time amitriptyline Allergy Intermediate Unknown Verified 03/12/25 13:20 azithromycin Allergy Intermediate Unknown Verified 03/12/25 13:20 ciprofloxacin Allergy Intermediate Unknown Verified 03/12/25 13:20 codeine Allergy Intermediate Unknown Verified 04/19/25 15:00 cortisone Allergy Intermediate Unknown Verified 04/19/25 15:00 erythromycin base Allergy Intermediate Unknown Verified 04/19/25 15:00 guaifenesin (From Robitussin) Allergy Intermediate Unknown Verified 03/12/25 13:20 iron Allergy Intermediate Unknown Verified 04/19/25 15:00 metronidazole (From Flagyl) Allergy Intermediate Unknown Verified 04/19/25 15:00 morphine Allergy Intermediate Unknown Verified 03/12/25 13:20 oxycodone (From Percocet) Allergy Intermediate Unknown Verified 04/19/25 15:00 Penicillins Allergy Intermediate Unknown Verified 03/12/25 13:20 Sulfa (Sulfonamide Allergy Intermediate Unknown Verified 03/12/25 13:20 Antibiotics) acetaminophen Allergy Unknown Other (See Verified 04/19/25 15:00 Comment) cyclosporine Allergy Unknown Other (See Verified 04/19/25 15:00 Comment) fluticasone (From Advair Allergy Unknown Other (See Verified 04/19/25 15:00 Diskus) Comment) ibuprofen Allergy Unknown Other (See Verified 04/19/25 15:00 Comment) pregabalin (From Lyrica) Allergy Unknown Other (See Verified 04/19/25 15:00 Comment) salmeterol Allergy Unknown Other (See Verified 04/19/25 15:00 Comment) strawberry Allergy Unknown Other (See Verified 04/19/25 15:00 Comment) Home Medications ?Medication ?Instructions ?Recorded ?Confirmed ?Type albuterol 90 mcg/actuation aerosol 180 mcg inhalation .Q4 PRN 06/11/24 04/19/25 History inhaler epinephrine 0.3 mg/0.3 mL 0.3 ml subcut Q5-15M PRN 06/11/24 04/19/25 History injection, auto-injector insulin degludec 200 unit/mL (3 40 unit subcut BID 06/11/24 04/19/25 History mL) subcutaneous pen (Tresiba FlexTouch U-200 insulin) lactulose 10 gram/15 mL oral 30 g PO QID 06/11/24 04/19/25 History solution levetiracetam 1,000 mg tablet 1,000 mg PO BID 06/11/24 04/19/25 History pantoprazole 40 mg tablet,delayed 40 mg PO DAILY 06/11/24 04/19/25 History release (Protonix) rifaximin 550 mg tablet (Xifaxan) 550 mg PO BID 06/11/24 04/19/25 History umeclidinium 62.5 mcg/actuation 1 inh inhalation DAILY 06/11/24 04/19/25 History blister powder for inhalation (Incruse Ellipta) quetiapine 25 mg tablet (Seroquel) 25 mg PO BID 09/01/24 04/19/25 History torsemide 20 mg tablet 40 mg PO BID 09/01/24 04/19/25 History gabapentin 300 mg capsule 600 mg PO HS 11/13/24 04/19/25 History polyethylene glycol 3350 17 17 g PO BID 11/25/24 04/19/25 History gram/dose oral powder (ClearLax) spironolactone 50 mg tablet 50 mg PO DAILY 12/04/24 04/19/25 History hydrocortisone-pramoxine 1 %-1 % 1 applic NM TID-QID PRN itching 03/12/25 04/19/25 Rx rectal cream #30 grams Acidophilus probiotic 0.5 mg PO BID 04/19/25 04/19/25 History bisacodyl 10 mg rectal suppository 10 mg NM DAILY PRN 04/19/25 04/19/25 History cholecalciferol (vitamin D3) 50 50 mcg PO DAILY 04/19/25 04/19/25 History mcg (2,000 unit) capsule (Vitamin D3) folic acid 1 mg tablet 1 mg PO DAILY 04/19/25 04/19/25 History insulin lispro 100 unit/mL 1 sliding scale dose subcut TID 04/19/25 04/19/25 History subcutaneous pen magnesium L-lactate 84 mg 84 mg PO QID 04/19/25 04/19/25 History tablet,extended release nitrofurantoin macrocrystal 100 mg 100 mg PO BID 04/19/25 04/19/25 History capsule Exam Narrative Exam Narrative: General: This is an obese, chronically ill-appearing woman in no acute distress HEENT: Normocephalic, atraumatic CV: RRR no MRG Resp: CTAB GI: mild distention with diffuse tenderness across all 4 quadrants MSK: voluntary motion x4 Neuro: Awake, alert, no focal deficits Results Labs 04/19/25 15:13 04/19/25 15:13 Labs: Laboratory Results - last 24 hr 04/19/25 04/19/25 04/19/25 15:13 15:25 16:15 WBC 2.99 L RBC 3.53 L Hgb 10.6 L Hct 29.1 L MCV 82 MCH 30.0 MCHC 36.4 H RDW 15.0 H Plt Count 88 L MPV 9.1 Immature Gran % 0.3 Neutrophils % 58.2 Lymphocytes % 25.4 Monocytes % 10.4 Eosinophils % 5.0 Basophils % 0.7 Nucleated RBC % 0.0 Absolute Neutrophils 1.74 Absolute Lymphocytes 0.76 L Absolute Monocytes 0.31 Absolute Eosinophils 0.15 Absolute Basophils 0.02 PT 12.0 H INR 1.2 H APTT 26.9 VBG Lactate 2.0 Sodium 126 L Potassium 3.6 Chloride 86 L Carbon Dioxide 30.3 Anion Gap 9.7 BUN 11 Creatinine 1.1 H Est GFR (CKD-EPI 2020) 54.73 Glucose 189 H Calcium 8.8 Magnesium 1.1 L Total Bilirubin 2.6 H AST 21 ALT 24 Alkaline Phosphatase 113 Troponin I 12 10 Total Protein 6.3 L Albumin 3.7 04/19/25 17:38 WBC RBC Hgb Hct MCV MCH MCHC RDW Plt Count MPV Immature Gran % Neutrophils % Lymphocytes % Monocytes % Eosinophils % Basophils % Nucleated RBC % Absolute Neutrophils Absolute Lymphocytes Absolute Monocytes Absolute Eosinophils Absolute Basophils PT INR APTT VBG Lactate Sodium Potassium Chloride Carbon Dioxide Anion Gap BUN Creatinine Est GFR (CKD-EPI 2020) Glucose Calcium Magnesium Total Bilirubin AST ALT Alkaline Phosphatase Troponin I Cancelled Total Protein Albumin Last Vital Signs Temp 36.7 C 04/19/25 14:41 Pulse 83 04/19/25 17:16 Resp 18 08/31/25 17:16 BP 106/52 L 04/19/25 17:15 Pulse Ox 99 04/19/25 17:16 Time Spent Time spent with Patient: 40-54 minutes Time was spent: preparing to see the patient(eg.review tests), obtaining and/or reviewing separately otained hiistory, ordering medications,tests, procedures, referring, communicating with other health critical care specialist, indepentently interpreting results, counseling the patient and care coordination
[2025-04-19] MEDS: Insulin Glargine 300 UNITS/3 ML PEN 10 UNITS SC (22:53)
--- NOTE | 2025-04-19 23:59 | W.PC.ACHO ---
Registration Status: ADM CORRINE Primary Language: Preferred Language: ED Information & Data Chief Complaint Abd Prob 04/19/25 14:37 Triage Note pt c/o abdominal pain and 04/19/25 14:28 constipation pt on lactulose Medical / Surgical History (Last Reviewed 04/11/25 @ 22:34 by Ernesto Ruff MD) Thrombocytopenia Type 2 diabetes mellitus Pancytopenia Liver 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) (Last Updated 04/12/25 @ 00:33 by Ernesto Ruff MD) S/P cholecystectomy S/P hysterectomy S/P TIPS (transjugular intrahepatic portosystemic shunt) Most Recent Vital Signs Temperature 36.7 C 04/19/25 14:41 Temperature Source Oral 04/19/25 14:41 Pulse 76 04/19/25 19:59 Pulse Rhythm Regular 04/19/25 21:59 Pulse 84 04/19/25 17:16 Respiratory Rate 16 04/19/25 19:59 Respiratory Effort Normal 04/19/25 21:59 Respiratory Depth Normal 04/19/25 21:59 Respiratory Pattern Normal 04/19/25 21:59 Blood Pressure 106/45 L 04/19/25 19:59 Blood Pressure Mean 65 04/19/25 19:59 Pulse Oximetry 94 04/19/25 19:59 Oxygen Delivery Method Room Air 04/19/25 19:59 Oxygen Flow Rate 0 04/19/25 19:59 Pain Level 7 04/19/25 14:41 Allergies amitriptyline Allergy (Intermediate, Verified 03/12/25 13:20) Unknown azithromycin Allergy (Intermediate, Verified 03/12/25 13:20) Unknown ciprofloxacin Allergy (Intermediate, Verified 03/12/25 13:20) Unknown codeine Allergy (Intermediate, Verified 04/19/25 15:00) Unknown cortisone Allergy (Intermediate, Verified 04/19/25 15:00) Unknown erythromycin base Allergy (Intermediate, Verified 04/19/25 15:00) Unknown guaifenesin (From Robitussin) Allergy (Intermediate, Verified 03/12/25 13:20) Unknown iron Allergy (Intermediate, Verified 04/19/25 15:00) Unknown metronidazole (From Flagyl) Allergy (Intermediate, Verified 04/19/25 15:00) Unknown morphine Allergy (Intermediate, Verified 03/12/25 13:20) Unknown oxycodone (From Percocet) Allergy (Intermediate, Verified 04/19/25 15:00) Unknown Penicillins Allergy (Intermediate, Verified 03/12/25 13:20) Unknown Sulfa (Sulfonamide Antibiotics) Allergy (Intermediate, Verified 03/12/25 13:20) Unknown acetaminophen Allergy (Unknown, Verified 04/19/25 15:00) Other (See Comment) [facility] cyclosporine Allergy (Unknown, Verified 04/19/25 15:00) Other (See Comment) [facility] fluticasone (From Advair Diskus) Allergy (Unknown, Verified 04/19/25 15:00) Other (See Comment) per [facility] ibuprofen Allergy (Unknown, Verified 04/19/25 15:00) Other (See Comment) per [facility] pregabalin (From Lyrica) Allergy (Unknown, Verified 04/19/25 15:00) Other (See Comment) per [facility] records salmeterol Allergy (Unknown, Verified 04/19/25 15:00) Other (See Comment) per [facility] strawberry Allergy (Unknown, Verified 04/19/25 15:00) Other (See Comment) per [facility] records Active Medications Generic Name Dose Route Start Last Admin Trade Name Freq PRN Reason Stop Dose Admin Insulin Glargine 10 units 04/19/25 22:00 04/19/25 22:53 Insulin Glargine 300 Units/3 Ml Pen SC 10 units Q12H YVROSE Administration Iohexol 100 ml 04/19/25 15:45 04/19/25 15:44 Omnipaque 350 Mg/Ml 100 Ml Btl IJ 05/19/25 23:59 80 ml DIRECTED YVROSE Administration Sodium Chloride 0 ml 04/19/25 15:43 04/19/25 15:44 Normal Saline Flush 10 Ml Syr IVP 10 ml PRN PRN Administration Sodium Chloride 50 ml 04/19/25 15:45 04/19/25 15:44 Normal Saline - Diluent 50 Ml Vial IJ 50 ml DIRECTED YVROSE Administration IV IV Catheter Type [Right Peripheral IV Forearm] IV Catheter Type [Right Wrist] Saline Lock IV Catheter Gauge [Right 18 Forearm] IV Catheter Gauge [Right Wrist 18 ] Diet Orders Category Date Time Status Regular/Normal [DIET] Nutrition 04/20/25 Breakfast Ordered Diagnostics 04/19/25 04/19/25 04/19/25 Range/Units 17:38 16:15 15:25 WBC (4.4-10.8) 10^3/uL RBC (3.93-5.22) 10^6/uL Hgb (11.2-15.7) g/dL Hct (36.0-46.0) % MCV (80-95) fL MCH (27.0-33.0) pg MCHC (32.0-36.0) % RDW (11.7-14.6) % Plt Count (130-400) 10^3/uL MPV (8.0-11.0) fL Immature Gran % % Neutrophils % % Lymphocytes % % Monocytes % % Eosinophils % % Basophils % % Nucleated RBC % (0.0-0.3) % Absolute Neutrophils (1.2-6.7) 10^3/uL Absolute Lymphocytes (1.2-3.4) 10^3/uL Absolute Monocytes (0.1-0.8) 10^3/uL Absolute Eosinophils (0.0-0.7) 10^3/uL Absolute Basophils (0.0-0.2) 10^3/uL PT 12.0 H (9.1-11.1) sec INR 1.2 H (0.9-1.1) APTT 26.9 (20.6-30.2) sec VBG Lactate (<or=2.0) mmol/L Sodium (136-145) mmol/L Potassium (3.5-5.1) mmol/L Chloride (98-107) mmol/L Carbon Dioxide (21.0-32.0) mmol/L Anion Gap (3-11) mmol/L BUN (7-18) mg/dL Creatinine (0.55-1.02) mg/dL Est GFR (CKD-EPI 2020) (mL/min/1.73m2) Glucose (74-106) mg/dL Calcium (8.5-10.1) mg/dL Magnesium (1.8-2.4) mg/dL Total Bilirubin (0.2-1.0) mg/dL AST (15-37) U/L ALT (14-59) U/L Alkaline Phosphatase (46-116) U/L Troponin I Cancelled 10 (<or=51) ng/L Total Protein (6.4-8.2) g/dL Albumin (3.4-5.0) g/dL 04/19/25 Range/Units 15:13 WBC 2.99 L (4.4-10.8) 10^3/uL RBC 3.53 L (3.93-5.22) 10^6/uL Hgb 10.6 L (11.2-15.7) g/dL Hct 29.1 L (36.0-46.0) % MCV 82 (80-95) fL MCH 30.0 (27.0-33.0) pg MCHC 36.4 H (32.0-36.0) % RDW 15.0 H (11.7-14.6) % Plt Count 88 L (130-400) 10^3/uL MPV 9.1 (8.0-11.0) fL Immature Gran % 0.3 % Neutrophils % 58.2 % Lymphocytes % 25.4 % Monocytes % 10.4 % Eosinophils % 5.0 % Basophils % 0.7 % Nucleated RBC % 0.0 (0.0-0.3) % Absolute Neutrophils 1.74 (1.2-6.7) 10^3/uL Absolute Lymphocytes 0.76 L (1.2-3.4) 10^3/uL Absolute Monocytes 0.31 (0.1-0.8) 10^3/uL Absolute Eosinophils 0.15 (0.0-0.7) 10^3/uL Absolute Basophils 0.02 (0.0-0.2) 10^3/uL PT (9.1-11.1) sec INR (0.9-1.1) APTT (20.6-30.2) sec VBG Lactate 2.0 (<or=2.0) mmol/L Sodium 126 L (136-145) mmol/L Potassium 3.6 (3.5-5.1) mmol/L Chloride 86 L (98-107) mmol/L Carbon Dioxide 30.3 (21.0-32.0) mmol/L Anion Gap 9.7 (3-11) mmol/L BUN 11 (7-18) mg/dL Creatinine 1.1 H (0.55-1.02) mg/dL Est GFR (CKD-EPI 2020) 54.73 (mL/min/1.73m2) Glucose 189 H (74-106) mg/dL Calcium 8.8 (8.5-10.1) mg/dL Magnesium 1.1 L (1.8-2.4) mg/dL Total Bilirubin 2.6 H (0.2-1.0) mg/dL AST 21 (15-37) U/L ALT 24 (14-59) U/L Alkaline Phosphatase 113 (46-116) U/L Troponin I 12 (<or=51) ng/L Total Protein 6.3 L (6.4-8.2) g/dL Albumin 3.7 (3.4-5.0) g/dL [id number] Documentation Fingerstick Glucose Start: 04/19/25 21:14 Freq: AC & HS Status: Active Protocol: Activity Type Activity Date Activity User E-sign Co-sign Detail Recorded Client Recorded Date Recorded By Document 04/19/25 22:00 RH [id number] 04/19/25 22:16 RH Intake and Output - 24 Hour Total 04/19/25 14:20 thru 04/19/25 23:04 Intake Total 1130 Balance 1130 Weight 89.811 kg Intake: IV 1010 Oral 120 Other: Urine Color Yellow Urine Appearance Clear Stool Size Small Stool Characteristics Soft Falls Risk Assessment History of Falls No History 04/19/25 21:05 Contributing Factors No Factors 04/19/25 21:05 Ambulatory Aids Independent 04/19/25 14:36 Tubes/Lines None 04/19/25 14:36 Gait Evaluation No gait disturbance 04/19/25 14:36 Cognition No cognitive impairment 04/19/25 14:36 Fall Total Score 0 04/19/25 21:05 Level of Risk Standard/Low Risk 04/19/25 21:05 Problems (Last Reviewed 04/11/25 @ 22:34 by Ernesto Ruff MD) Hypomagnesemia (Acute) Abdominal pain (Acute) Constipation (Acute) Pneumatosis coli (Acute) Notes 04/19/25 17:56 Nursing Notes by Kirsten Mahan Access pt chart of [facility] for Dr. Cruzito Ovalle. Patient was just discharged from that facility 04/15/2025. Printed DC summary, H&P, Nephrology and Surgical notes. Nursing Note: Initialized on 04/19/25 17:56 - END OF NOTE v v v v v v v v v Sending and/or Receiving Nurses: Please use comment section below to note any information pertinent to the patient hand-off not included above. Information / Comments: pt is from [facility], came to ER compaining of abdominal pain/constipation. PMH of live disease with cirrhosis GILLESPIE, paliative care consulted, independent, on RA, VS stable,MG still infusing when arrived to floor. Report received from: Efraín
[2025-04-20 02:51] LABS: Glucose Negative (Negative)
[2025-04-20 03:01] LABS: C & S Indicated? Yes; RBC 0-2 HPF (0-2)
[2025-04-20 06:33] LABS: Abs Immature Grans 0.00 10^3/uL (0.0-0.06); HCT 29.8 % (36.0-46.0); HGB 10.7 g/dL (11.2-15.7); Immature Grans % 0.0 %; MCH 29.9 pg (27.0-33.0); MCHC 35.9 % (32.0-36.0); MCV 83 fL (80-95); MPV 8.6 fL (8.0-11.0); RBC 3.58 10^6/uL (3.93-5.22); RDW 15.2 % (11.7-14.6); RDW-SD 45.3 fL; WBC 3.48 10^3/uL (4.4-10.8)
[2025-04-20 06:45] LABS: Ammonia 35 umol/L (11-32)
[2025-04-20 06:46] LABS: ALT 18 U/L (14-59); AST 17 U/L (15-37); Albumin 3.6 g/dL (3.4-5.0); Alkaline Phosphatase 105 U/L (46-116); Anion Gap 7.8 mmol/L (3-11); BUN 10 mg/dL (7-18); Bilirubin, Total 2.5 mg/dL (0.2-1.0); CO2 31.2 mmol/L (21.0-32.0); Calcium 8.9 mg/dL (8.5-10.1); Chloride 92 mmol/L (98-107); Estimated GFR 54.73 (mL/min/1.73m2); Glucose 159 mg/dL (74-106); Magnesium 1.8 mg/dL (1.8-2.4); Platelet Count 93 10^3/uL (130-400); Potassium 3.5 mmol/L (3.5-5.1); Sodium 131 mmol/L (136-145); Total Protein 6.0 g/dL (6.4-8.2)
[2025-04-20 07:03] LABS: Lipase 167 U/L (<78)
[2025-04-20 08:00] VITALS: BP 121/59; PULSE 81; RESP 16; TEMP 36.1; O2SAT 97
[2025-04-20] MEDS: Umeclidinium 7 CAP INHALER IH (08:04)
[2025-04-20] MEDS: Insulin Glargine 300 UNITS/3 ML PEN 10 UNITS SC ×2 (08:18→21:49)
[2025-04-20] MEDS: levETIRAcetam 500 MG TAB 1000 MG PO ×2 (08:20→20:19)
[2025-04-20] MEDS: Rifaximin 550 MG TAB PO ×2 (08:20→20:19)
[2025-04-20] MEDS: Lactobacillus Acidophilus CAP 1 CAP PO (08:20)
[2025-04-20] MEDS: Spironolactone 50 MG TAB PO (08:20)
[2025-04-20] MEDS: Pantoprazole 40 MG TABCR PO (08:20)
[2025-04-20] MEDS: Polyethylene Glycol 3350 17 GM PACKET PO ×2 (08:21→17:42)
[2025-04-20] MEDS: Torsemide 20 MG TAB 40 MG PO ×2 (08:21→20:18)
[2025-04-20] MEDS: QUEtiapine 25 MG TAB PO ×2 (08:21→20:19)
[2025-04-20] MEDS: Lactulose 20 GM/30 ML CUP 30 GM PO ×3 (08:22→19:37)
--- NOTE | 2025-04-20 10:46 | W.PM.PROGNOT ---
Date of Service Date of service: 04/20/25 Time of Service: 11:35 Assessment and Plan Assessment and plan (1) Pneumatosis coli: Status: Acute Assessment and plan: Onset approximately April 11, worsening per CT imaging and symptoms Not a surgical candidate per [facility] where she follows for her care Continue supportive care for constipation Pending palliative care consulted for Apr 22 due to holiday weekend (2) Constipation: Status: Acute Assessment and plan: Presenting complaint of constipation Likely secondary to under-dosing of lactulose after long-term use Increasing TID lactulose dosing to QID on admission, ammonia up to 35- thought process is altered Home polyethylene glycol BID increased to TID - Ongoing home acidophilus daily Ongoing home PRN bisacodyl ME Considered enema but patient is refusing Consider partial bowel prep (3) Hypomagnesemia: Status: Acute Assessment and plan: Acute on chronic now resolved s/p supplementation Check morning labs (4) Hyponatremia: Status: Acute Assessment and plan: NS 1L bolus given in ED Na 131 Check morning labs (5) Metabolic dysfunction-associated steatotic liver disease (MASLD): Status: Chronic Assessment and plan: Chronic with subsequent cirrhosis, MELD score 13 Sees [facility] Unclear life expectancy- palliative care consult ordered Ongoing lactulose, spironolactone, torsemide, rifaximin (6) Asymptomatic bacteriuria: Status: Acute Assessment and plan: Recent prescription for nitrofurantoin, culture not available UA positive for leukocute esterase - awaiting culture to give antibiotics if required Urine Cx pending (7) Acquired pancytopenia: Status: Acute Assessment and plan: CBC below baseline across all results Continue to trend Secondary to cirrhosis Hold anticoagulation- INR 1.2 on admit (8) Diabetes mellitus type 2, insulin dependent: Status: Acute Assessment and plan: Finger stick AC and HS with SSI coverage resistant correctional scale Home regimen reportedly degludec 40 BID Ongoing basal 10u BID (9) COPD (chronic obstructive pulmonary disease): Status: Chronic Assessment and plan: Ongoing home regimen Duonebs PRN (10) History of seizure disorder: Status: Acute Assessment and plan: On home dose levetiracetam Will continue home regimen On quetiapine at home but denies psych history (11) Chronic GERD: Status: Acute Assessment and plan: Continue home dose PPI Discussed with Dr. Leslie Subjective Subjective Patient reports: no new complaints, feels better (No c/o pain , does not want to be here), tolerating liquids well, voiding w/o difficulty and no bowel movement; denies nausea, vomiting, shortness of breath or fever Exam Narrative Exam Narrative: Constitutional The patient comfortable without acute distress Eyes: non-icteric sclera Neuro:alert and oriented X3 ( no time orientation except year). No neurological focal deficit Resp: Unlabored breathing, clear lung bilaterally Cardio: regular rhythm, S1, S2, no murmur, trace LEs swelling GI: Abdomen is large - mildly distended, soft and non-tender, bowel sounds are present : Negative Costovertebral angle tenderness, no bladder distension Extremities: moves all 4 ext Psych: RASS 1 Psych Speech and Movement: speech and movement normal and agitated Mood: labile mood and irritable mood Affect: normal affect, labile affect, hostile and irritable affect Thought Process: circumstantial, illogical, impoverished and perseverating Insight: poor Judgment: limited Objective Last Vital Signs Temp 36.1 C L 04/20/25 08:00 Pulse 81 04/20/25 08:00 Resp 16 04/20/25 08:00 BP 121/59 L 04/20/25 08:00 Pulse Ox 97 04/20/25 08:00 Laboratory Results - last 24 hr 04/19/25 04/19/25 04/19/25 15:13 15:25 16:15 WBC 2.99 L RBC 3.53 L Hgb 10.6 L Hct 29.1 L MCV 82 MCH 30.0 MCHC 36.4 H RDW 15.0 H Plt Count 88 L MPV 9.1 Immature Gran % 0.3 Neutrophils % 58.2 Lymphocytes % 25.4 Monocytes % 10.4 Eosinophils % 5.0 Basophils % 0.7 Nucleated RBC % 0.0 Absolute Neutrophils 1.74 Absolute Lymphocytes 0.76 L Absolute Monocytes 0.31 Absolute Eosinophils 0.15 Absolute Basophils 0.02 PT 12.0 H INR 1.2 H APTT 26.9 VBG Lactate 2.0 Sodium 126 L Potassium 3.6 Chloride 86 L Carbon Dioxide 30.3 Anion Gap 9.7 BUN 11 Creatinine 1.1 H Est GFR (CKD-EPI 2020) 54.73 Glucose 189 H Calcium 8.8 Magnesium 1.1 L Total Bilirubin 2.6 H AST 21 ALT 24 Alkaline Phosphatase 113 Ammonia Troponin I 12 10 Total Protein 6.3 L Albumin 3.7 Lipase Urine Color Urine Clarity Urine pH Ur Specific [place] Urine Protein Urine Ketones Urine Blood Urine Nitrite Urine Bilirubin Urine Urobilinogen Ur Leukocyte Esterase Urine RBC Urine WBC Ur Epithelial Cells Urine Crystals Urine Bacteria Urine Casts Urine Mucus Ur Culture Indicated? Urine Glucose 04/19/25 04/20/25 04/20/25 17:38 02:30 06:17 WBC 3.48 L RBC 3.58 L Hgb 10.7 L Hct 29.8 L MCV 83 MCH 29.9 MCHC 35.9 RDW 15.2 H Plt Count 93 L MPV 8.6 Immature Gran % 0.0 Neutrophils % 65.0 Lymphocytes % 21.0 Monocytes % 10.3 Eosinophils % 3.4 Basophils % 0.3 Nucleated RBC % 0.0 Absolute Neutrophils 2.26 Absolute Lymphocytes 0.73 L Absolute Monocytes 0.36 Absolute Eosinophils 0.12 Absolute Basophils 0.01 PT INR APTT VBG Lactate Sodium 131 L Potassium 3.5 Chloride 92 L Carbon Dioxide 31.2 Anion Gap 7.8 BUN 10 Creatinine 1.1 H Est GFR (CKD-EPI 2020) 54.73 Glucose 159 H Calcium 8.9 Magnesium 1.8 Total Bilirubin 2.5 H AST 17 ALT 18 Alkaline Phosphatase 105 Ammonia 35 H Troponin I Cancelled Total Protein 6.0 L Albumin 3.6 Lipase 167 H Urine Color Yellow Urine Clarity Clear Urine pH 7.0 Ur Specific [place] 1.010 Urine Protein Negative Urine Ketones Negative Urine Blood Negative Urine Nitrite Negative Urine Bilirubin Negative Urine Urobilinogen 0.2 Ur Leukocyte Esterase Large H Urine RBC 0-2 Urine WBC 10-20 H Ur Epithelial Cells Few Urine Crystals Negative Urine Bacteria Moderate Urine Casts Negative Urine Mucus Trace Ur Culture Indicated? Yes Urine Glucose Negative Time Spent with Patient Time Spent with Patient: >50 minutes Time was spent: preparing to see the patient(eg.review tests), obtaining and/or reviewing separately otained hiistory, ordering medications,tests, procedures, referring, communicating with other health women's health care nurse practitioner, indepentently interpreting results, counseling the patient, care coordination and other
[2025-04-20] MEDS: Insulin Aspart 300 UNITS/3 ML PEN SC ×2 (12:55→17:44)
[2025-04-21] MEDS: Pantoprazole 40 MG TABCR PO (06:10)
[2025-04-21 07:23] VITALS: BP 109/53; PULSE 84; RESP 17; TEMP 37.1; O2SAT 94
[2025-04-21] MEDS: Insulin Aspart 300 UNITS/3 ML PEN SC ×2 (08:21→12:14)
[2025-04-21] MEDS: Lactulose 20 GM/30 ML CUP 30 GM PO ×2 (08:22→12:31)
[2025-04-21] MEDS: Spironolactone 50 MG TAB PO (08:22)
[2025-04-21] MEDS: Lactobacillus Acidophilus CAP 1 CAP PO (08:22)
[2025-04-21] MEDS: Torsemide 20 MG TAB 40 MG PO (08:22)
[2025-04-21] MEDS: Rifaximin 550 MG TAB PO (08:23)
[2025-04-21] MEDS: QUEtiapine 25 MG TAB PO (08:23)
[2025-04-21] MEDS: levETIRAcetam 500 MG TAB 1000 MG PO (08:23)
[2025-04-21] MEDS: Polyethylene Glycol 3350 17 GM PACKET PO (08:24)
[2025-04-21] MEDS: Umeclidinium 7 CAP INHALER IH (09:19)
--- NOTE | 2025-04-21 11:42 | DSE_ITS ---
Date of service: 04/21/25 Time of Service: 11:42 DS: Diagnosis Discharge Diagnosis (1) Pneumatosis coli: Status: Acute (2) Constipation: Status: Acute (3) Hypomagnesemia: Status: Acute (4) Hyponatremia: Status: Acute (5) Metabolic dysfunction-associated steatotic liver disease (MASLD): Status: Chronic (6) Asymptomatic bacteriuria: Status: Acute (7) Acquired pancytopenia: Status: Acute (8) Diabetes mellitus type 2, insulin dependent: Status: Acute (9) COPD (chronic obstructive pulmonary disease): Status: Chronic (10) History of seizure disorder: Status: Acute (11) Chronic GERD: Status: Acute Discharge Plan Disposition Patient Disposition: Long-Term Facility(SNF) Condition: Stable Condition: Stable Discharge Details Reason For Visit: Pneumatosis Admit Date/Time: 04/19/25 19:22 Admit Provider: Mynor Dawson Attending Provider: Mynor Dawson Primary Care Provider: Lianet Smith Hospital Course Hospital Course: This is a 69-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 She had a similar presentation on April 11 and was transferred to [facility] where she was diagnosed with pneumatosis coli. They determined that she was not a surgical candidate in was discharged back to home with palliative care consultation and supportive care/symptom management. She had been unable to tolerate her full doses of lactulose and continued having nausea and poor appetite so was brought back here to the emergency department for evaluation. Labs vitals all unremarkable but CAT scan of the abdomen did show worsening pneumatosis coli [facility] was contacted again and they only recommend comfort care at this point stating she is not a surgical candidate. She was admitted to the medical surgical unit and monitored over the weekend. Hemodynamically she remained stable. She was tolerating oral intake, bowels functioning. She is stable for discharge back to the [facility]. She will be followed up outpatient with palliative. discharge discussed with DR Leslie Home Meds and New Rx's Prescriptions: Continued hydrocortisone-pramoxine 1-1 % cream 1 applic [place] TID-QID PRN (Reason: itching) Qty: 30 1RF pantoprazole [Protonix] 40 mg tablet,delayed release (DR/EC) 40 mg PO DAILY levetiracetam 1,000 mg tablet 1,000 mg PO BID Incruse Ellipta 62.5 mcg/actuation blister with device 1 inh inhalation DAILY lactulose 10 gram/15 mL solution 30 g PO QID Xifaxan 550 mg tablet 550 mg PO BID insulin degludec [Tresiba FlexTouch U-200] 200 unit/mL (3 mL) insulin pen 40 unit subcut BID albuterol 90 mcg/actuation aerosol 180 mcg inhalation .Q4 PRN epinephrine 0.3 mg/0.3 mL auto-injector 0.3 ml subcut Q5-15M PRN Rx Instructions: do not exceed 2 doses per episode torsemide 20 mg tablet 40 mg PO BID quetiapine [Seroquel] 25 mg tablet 25 mg PO BID gabapentin 300 mg capsule 600 mg PO HS spironolactone 50 mg tablet 50 mg PO DAILY cholecalciferol (vitamin D3) [Vitamin D3] 50 mcg (2,000 unit) capsule 50 mcg PO DAILY nitrofurantoin macrocrystal 100 mg capsule 100 mg PO BID Rx Instructions: Stop 04/20/25 magnesium L-lactate 84 mg tablet extended release 84 mg PO QID folic acid 1 mg tablet 1 mg PO DAILY Patient Comments: GIVE ONE TABLET BY MOUTH EVERY MORNING FOR SUPPLEMENT insulin lispro 100 unit/mL insulin pen 1 sliding scale dose SUBCUT TID Rx Instructions: Use per sliding scale SQ TID; inject 10 units SQ TID in addition to sliding scale; hold for BS <201 Acidophilus probiotic 0.5 mg tablet 0.5 mg PO BID bisacodyl 10 mg suppository 10 mg [place] DAILY PRN polyethylene glycol 3350 [ClearLax] 17 gram/dose powder 17 g PO BID Discharge Instructions Instructions: Constipation in adults Referrals: [facility] [Provider Group] Lianet Smith NP [Primary Care Provider, Medicine] Activity:: Activity as Tolerated Equipment/Supplies:: No Equipment Needed Diet:: As Tolerated Discharge Orders Discharge Orders: Discharge Order (Routine); Ordered 04/21/25 Ordered By: Lauren Blair DS: Summary Time Spent with Patient providing and/or coordinating discharge services: Greater than 30 minutes Status at Discharge Functional status at discharge: independent ambulation Overall status at discharge: patient is progressing back to baseline Mental Status: mental status grossly normal Speech and Movement: speech and movement normal Mood: congruent mood Affect: normal affect Quality:SDOH Health Related Social Needs: Health related social needs daily activities Exam Const General: cooperative, comfortable and no acute distress Nutritional Appearance: obese Orientation: alert, awake, oriented to person, oriented to place and oriented to time Limitations: other limitations (cognitive) [facility] Head: normal to inspection, normocephalic and atraumatic Mouth: oral mucosae normal Neck Neck: normal visual inspection and full ROM Chest Chest: normal inspection of the chest Resp Effort & Inspection: normal respiratory effort Auscultation: clear to auscultation bilaterally Cardio Rate: regular rate Rhythm: regular rhythm GI Inspection: normal to inspection and obesity Palpation: soft and nontender Auscultation: normal bowel sounds Skin General skin exam: no rashes or lesions noted Neuro General: patient alert, patient awake and patient oriented x3 Extrem General: normal to inspection, full ROM and no edema Psych Mental Status: mental status grossly normal Speech and Movement: speech and movement normal Mood: congruent mood Affect: normal affect Attitude: cooperative Insight: poor Judgment: poor DS: Data Vitals/I&O Vitals and I&O: Vital Signs Temperature 37.1 C 04/21/25 07:23 Temperature Source Temporal Artery Scan 04/21/25 07:23 Pulse 84 04/21/25 07:23 Pulse Rhythm Regular 04/19/25 21:59 Pulse 84 04/19/25 17:16 Respiratory Rate 17 04/21/25 07:23 Respiratory Effort Normal 04/19/25 21:59 Respiratory Depth Normal 04/19/25 21:59 Respiratory Pattern Normal 04/19/25 21:59 Blood Pressure 109/53 L 04/21/25 07:23 Blood Pressure Mean 71 04/21/25 07:23 Pulse Oximetry 94 04/21/25 07:23 Oxygen Delivery Method Room Air 04/21/25 07:23 Oxygen Flow Rate 0 04/21/25 07:23 Pain Level 7 04/19/25 14:41 Comment rn notified 04/21/25 07:23 Intake & Output 04/20/25 04/20/25 04/21/25 11:59 23:59 11:59 Intake Total 120 / 120 Output Total 300 / 300 Balance -300 / -180 120 / -180 Intake: Oral 120 / 120 Output: Urine 300 / 300 Other: Urine Color Yellow Yellow Urine Appearance Clear Clear Stool Size Moderate Stool Characteristics Soft Data Completed and Pending Labs on day of discharge: Preliminary micro results at discharge 04/20/25 02:30 Urine - Reflex from [facility] Urine Culture - Preliminary Enterococcus species Gram negative marylu PFSH All Active Problems (Updated 04/20/25 @ 02:22 by Mynor Dawson MD) Chronic GERD (Acute) History of seizure disorder (Acute) Asymptomatic bacteriuria (Acute) Metabolic dysfunction-associated steatotic liver disease (MASLD) (Chronic) COPD (chronic obstructive pulmonary disease) (Chronic) Diabetes mellitus type 2, insulin dependent (Acute) Acquired pancytopenia (Acute) Hypomagnesemia (Acute) Abdominal pain (Acute) Constipation (Acute) Pneumatosis coli (Acute) Ischemia, bowel (Acute) Hyponatremia (Acute) Edema of both lower legs (Acute) 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 (Acute) Hemorrhoid (Acute) Irritation of vulva (Acute) Nail dystrophy (Acute) Medical History (Updated 04/20/25 @ 02:22 by Mynor Dawson MD) Thrombocytopenia Type 2 diabetes mellitus Pancytopenia Liver cirrhosis secondary to MUÑOZ (nonalcoholic steatohepatitis) Surgical History (Updated 04/12/25 @ 00:33 by Ernesto Ruff MD) S/P cholecystectomy S/P hysterectomy S/P TIPS (transjugular intrahepatic portosystemic shunt) Social History Smoking/Tobacco Use Status: Never Smoking risk assessment performed?: Yes Alcohol Intake: never Drug use: Never Substance use type: does not use Housing: half-way Do you feel safe at home: Yes Do you feel safe in your relationship?: Yes Additional Social history: lives at the [facility] Time Spent with Patient Time Spent with Patient: 45-69 minutes Time was spent: preparing to see the patient(eg.review tests), obtaining and/or reviewing separately otained hiistory, ordering medications,tests, procedures, referring, communicating with other health family member caretaker, indepentently interpreting results and counseling the patient
--- NOTE | 2025-04-21 12:04 | W.PC.ACHO ---
Registration Status: ADM CORRINE Primary Language: Preferred Language: ED Information & Data Chief Complaint Abd Prob 04/19/25 14:37 Triage Note pt c/o abdominal pain and 04/19/25 14:28 constipation pt on lactulose Medical / Surgical History (Last Reviewed 04/11/25 @ 22:34 by Ernesto Ruff MD) Thrombocytopenia Type 2 diabetes mellitus Pancytopenia Liver 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) (Last Updated 04/12/25 @ 00:33 by Ernesto Ruff MD) S/P cholecystectomy S/P hysterectomy S/P TIPS (transjugular intrahepatic portosystemic shunt) Most Recent Vital Signs Temperature 37.1 C 04/21/25 07:23 Temperature Source Temporal Artery Scan 04/21/25 07:23 Pulse 84 04/21/25 07:23 Pulse Rhythm Regular 04/19/25 21:59 Pulse 84 04/19/25 17:16 Respiratory Rate 17 04/21/25 07:23 Respiratory Effort Normal 04/19/25 21:59 Respiratory Depth Normal 04/19/25 21:59 Respiratory Pattern Normal 04/19/25 21:59 Blood Pressure 109/53 L 04/21/25 07:23 Blood Pressure Mean 71 04/21/25 07:23 Pulse Oximetry 94 04/21/25 07:23 Oxygen Delivery Method Room Air 04/21/25 07:23 Oxygen Flow Rate 0 04/21/25 07:23 Pain Level 7 04/19/25 14:41 Comment rn notified 04/21/25 07:23 Allergies amitriptyline Allergy (Intermediate, Verified 03/12/25 13:20) Unknown azithromycin Allergy (Intermediate, Verified 03/12/25 13:20) Unknown ciprofloxacin Allergy (Intermediate, Verified 03/12/25 13:20) Unknown codeine Allergy (Intermediate, Verified 04/19/25 15:00) Unknown cortisone Allergy (Intermediate, Verified 04/19/25 15:00) Unknown erythromycin base Allergy (Intermediate, Verified 04/19/25 15:00) Unknown guaifenesin (From Robitussin) Allergy (Intermediate, Verified 03/12/25 13:20) Unknown iron Allergy (Intermediate, Verified 04/19/25 15:00) Unknown metronidazole (From Flagyl) Allergy (Intermediate, Verified 04/19/25 15:00) Unknown morphine Allergy (Intermediate, Verified 03/12/25 13:20) Unknown oxycodone (From Percocet) Allergy (Intermediate, Verified 04/19/25 15:00) Unknown Penicillins Allergy (Intermediate, Verified 03/12/25 13:20) Unknown Sulfa (Sulfonamide Antibiotics) Allergy (Intermediate, Verified 03/12/25 13:20) Unknown acetaminophen Allergy (Unknown, Verified 04/19/25 15:00) Other (See Comment) per Retirement records cyclosporine Allergy (Unknown, Verified 04/19/25 15:00) Other (See Comment) per Retirement records fluticasone (From Advair Diskus) Allergy (Unknown, Verified 04/19/25 15:00) Other (See Comment) per Retirement records ibuprofen Allergy (Unknown, Verified 04/19/25 15:00) Other (See Comment) per Retirement records pregabalin (From Lyrica) Allergy (Unknown, Verified 04/19/25 15:00) Other (See Comment) per Retirement records salmeterol Allergy (Unknown, Verified 04/19/25 15:00) Other (See Comment) per Retirement Records strawberry Allergy (Unknown, Verified 04/19/25 15:00) Other (See Comment) per Retirement records Active Medications Generic Name Dose Route Start Last Admin Trade Name Freq PRN Reason Stop Dose Admin Acidophilus/Pectin 1 cap 04/20/25 08:30 04/21/25 08:22 Lactobacillus Acidophilus Cap PO 1 cap DAILY YVROSE Administration Insulin Aspart 0 units 04/20/25 08:00 04/21/25 08:21 Insulin Aspart 300 Units/3 Ml Pen SC 3 units 0800,1200,1700 YVROSE Administration Protocol Insulin Glargine 10 units 04/19/25 22:00 04/20/25 21:49 Insulin Glargine 300 Units/3 Ml Pen SC 10 units Q12H YVROSE Administration Lactulose 30 gm 04/20/25 08:30 04/21/25 08:22 Lactulose 20 Gm/30 Ml Cup PO 30 gm QID YVROSE Administration Levetiracetam 1,000 mg 04/20/25 08:30 04/21/25 08:23 Levetiracetam 500 Mg Tab PO 1,000 mg BID YVROSE Administration Pantoprazole Sodium 40 mg 04/20/25 07:30 04/21/25 06:10 Pantoprazole 40 Mg Tabcr PO 40 mg DAILY@0730 YVROSE Administration Polyethylene Glycol 17 gm 04/20/25 08:30 04/20/25 08:21 Polyethylene Glycol 3350 17 Gm Packet PO 17 gm On Hold: 04/20/25 13:34 BID YVROSE Administration Polyethylene Glycol 17 gm 04/20/25 14:00 04/21/25 08:24 Polyethylene Glycol 3350 17 Gm Packet PO 17 gm TID YVROSE Administration Quetiapine Fumarate 25 mg 04/20/25 08:30 04/21/25 08:23 Quetiapine 25 Mg Tab PO 25 mg BID YVROSE Administration Rifaximin 550 mg 04/20/25 08:30 04/21/25 08:23 Rifaximin 550 Mg Tab PO 550 mg BID YVROSE Administration Sodium Chloride 0 ml 04/19/25 15:43 04/19/25 15:44 Normal Saline Flush 10 Ml Syr IVP 10 ml PRN PRN Administration Spironolactone 50 mg 04/20/25 08:30 04/21/25 08:22 Spironolactone 50 Mg Tab PO 50 mg DAILY YVROSE Administration Torsemide 40 mg 04/20/25 08:30 04/21/25 08:22 Torsemide 20 Mg Tab PO 40 mg BID YVROSE Administration Umeclidinium [place] 0 cap 04/20/25 08:30 04/21/25 09:19 Umeclidinium 7 Cap Inhaler IH 1 puff DAILY YVROSE Administration IV IV Catheter Type [Right Peripheral IV Forearm] IV Catheter Type [Right Wrist] Saline Lock IV Catheter Gauge [Right 18 Forearm] IV Catheter Gauge [Right Wrist 18 ] 04/20/25 02:30 Urine Culture - Preliminary Urine - Reflex from [facility] Enterococcus species Gram negative marylu [id number] Documentation Fingerstick Glucose Start: 04/19/25 21:14 Freq: AC & HS Status: Active Protocol: Activity Type Activity Date Activity User E-sign Co-sign Detail Recorded Client Recorded Date Recorded By Document 04/21/25 11:35 BKG DAEMON(5) [id number] 04/21/25 11:36 BKG DAEMON(6) Intake and Output - 24 Hour Total 04/19/25 14:20 thru 04/21/25 02:06 Intake Total 1250 Output Total 300 Balance 950 Weight 89.811 kg Intake: IV 1010 Oral 240 Output: Urine 300 Other: Urine Color Yellow Urine Appearance Clear Stool Size Moderate Stool Characteristics Soft Falls Risk Assessment History of Falls No History 04/19/25 21:05 Contributing Factors No Factors 04/19/25 21:05 Ambulatory Aids Independent 04/19/25 14:36 Tubes/Lines None 04/19/25 14:36 Gait Evaluation No gait disturbance 04/19/25 14:36 Cognition No cognitive impairment 04/19/25 14:36 Fall Total Score 0 04/19/25 21:05 Level of Risk Standard/Low Risk 04/19/25 21:05 Problems (Last Reviewed 04/11/25 @ 22:34 by Ernesto Ruff MD) Chronic GERD (Acute) History of seizure disorder (Acute) Asymptomatic bacteriuria (Acute) Metabolic dysfunction-associated steatotic liver disease (MASLD) (Chronic) COPD (chronic obstructive pulmonary disease) (Chronic) Diabetes mellitus type 2, insulin dependent (Acute) Acquired pancytopenia (Acute) Hypomagnesemia (Acute) Abdominal pain (Acute) Constipation (Acute) Pneumatosis coli (Acute) Hyponatremia (Acute) Notes 04/19/25 17:56 Nursing Notes by Kirsten Mahan Access pt chart of [facility] for Dr. Cruzito Ovalle. Patient was just discharged from that facility 04/15/2025. Printed DC summary, H&P, Nephrology and Surgical notes. Nursing Note: Initialized on 04/19/25 17:56 - END OF NOTE v v v v v v v v v Sending and/or Receiving Nurses: Please use comment section below to note any information pertinent to the patient hand-off not included above. Information / Comments: Report received from:Report called to Tye at 1155am to [facility]. She is doing well with current BP of 109/53, respiratory rate of 18, pulse is 84, and temperature of 37.1. She is anxious to return to [facility]. RN will continue to monitor and stabilize.
[2025-04-21] MEDS: Insulin Glargine 300 UNITS/3 ML PEN 10 UNITS SC (12:15)
--- NOTE | 2025-04-21 13:43 | CMPROGNOTE_ITS ---
Date of service: 04/21/25 Time of Service: 09:35 Care Management Progress Note Progress Note Text Progress Note Text: Reny was admitted to [facility] on 04/19/25. She presented to the ER with constipation. She had just been seen in the ED on 04/11 for same issue. Case was discussed with MARTIN, who knows Reny well, and she is not a surgical candidate. Over the course of her stay at [facility], Reny's constipation resolved and she was discharged back to the [facility] this afternoon, where she resides. Reny's legal guardian visited today. There was some concern voiced from Lorelei, the guardian, that her guardianship paperwork was not in the chart, and she was unable to get any information from staff regarding Reny. Paperwork is confirmed in chart, and new HIPAA with guardians name has been filed. Reny is fully aware of this HIPAA change, and she was in full agreement with discharge today. Discharge Potential Discharge Needs: PCP F/U Appt Anticipated Barriers to Discharge: None Identified Patient/Family Education Needs: Review discharge instructions, discuss Ask Me Three Transportation: [facility] Transportation: Private vechicle Plan: Reny was discharged back to the [facility] today. She was happy to be discharged. CM did communicate with the facility regarding her discharge. Reny will f/u with the facility PCP and continue per her plan of care. Reny transported via [facility] private vehicle. Social Determinants of Health Screening Social Determinants of health last assessed in clinic: 04/19/25 Will the Patient Participate in the Screening?: Declined to provide Do you worry about having a steady place to live?: no Problems where you live: no known problems In the past 12 months, have you had to go without electric, gas, oil or water in your home?: no Has lack of transportation kept you from medical appointments or from doing things needed for daily living?: no Has anyone in your life made you feel unsafe or unsupported?: no How hard is it for you to pay for the very basics like food, housing, medical care, and heating? Would you say it is:: Not hard at all Do you want help finding or keeping work or a job?: I do not need or want help If for any reason you need help with day-to-day activities such as bathing, preparing meals, shopping, managing finances, etc., do you get the help you need?: I don?t need any help How often do you feel lonely or isolated from those around you?: Never Do you speak a language other than Icelandic at home?: No Does the patient want assistance with any of the above?: No
== END 2025-04-21 13:02 | disposition skilled nursing facility (03) ==
LOC: ER 19:45 → MS 20:48
PROVIDERS: Admitting Provider Family Medicine; Emergency Provider General Practice; PCP Nurse Practitioner Gerontology; Responsible Provider Nurse Practitioner Acute Care; Visit Provider Family Medicine
DX: K63.89 Other specified diseases of intestine (principal); K59.00 Constipation, unspecified; E87.1 Hypo-osmolality and hyponatremia; R82.71 Bacteriuria; D61.818 Other pancytopenia; E11.9 Type 2 diabetes mellitus without complications; Z79.4 Long term (current) use of insulin; J44.9 Chronic obstructive pulmonary disease, unspecified; K21.9 Gastro-esophageal reflux disease without esophagitis; E83.42 Hypomagnesemia; K75.81 Nonalcoholic steatohepatitis (NASH); G40.909 Epilepsy, unspecified, not intractable, without status epilepticus; Z79.899 Other long term (current) drug therapy
CPT/HCPCS: 00123; 36415; 80053; 83690; 87077; 93005; 94640; 96361; 96365; 96366; 99285; 74177; 81003; 81015; 82140; 83605; 83735; 84484; 85025; 85610; 85730; 87086; 87186; 93010; 94664; 99222; 99233; 99239; G0378; J1815; J3475; J3490

== ENCOUNTER 2025-04-27 18:59 | Outpatient (REF) | payer MEDICARE, MEDICAID, SELFPAY ==
[2025-04-27 20:24] LABS: Abs Immature Grans 0.00 10^3/uL (0.0-0.06); HCT 31.9 % (36.0-46.0); HGB 11.7 g/dL (11.2-15.7); Immature Grans % 0.0 %; MCH 30.4 pg (27.0-33.0); MCHC 36.7 % (32.0-36.0); MCV 83 fL (80-95); MPV 9.8 fL (8.0-11.0); Platelet Count 100 10^3/uL (130-400); RBC 3.85 10^6/uL (3.93-5.22); RDW 15.8 % (11.7-14.6); RDW-SD 47.2 fL; WBC 3.43 10^3/uL (4.4-10.8)
[2025-04-27 20:35] LABS: Anion Gap 12.0 mmol/L (3-11); BUN 15 mg/dL (7-18); CO2 29.0 mmol/L (21.0-32.0); Calcium 9.1 mg/dL (8.5-10.1); Chloride 82 mmol/L (98-107); Estimated GFR 49.31 (mL/min/1.73m2); Glucose 315 mg/dL (74-106); Potassium 4.0 mmol/L (3.5-5.1)
[2025-04-27 20:44] LABS: Sodium 123 mmol/L (136-145)
== END 2025-04-27 19:00 | disposition home or self-care (01) ==
LOC: LBN 18:59
PROVIDERS: PCP Nurse Practitioner Gerontology; Visit Provider Nurse Practitioner Gerontology
DX: E87.8 Other disorders of electrolyte and fluid balance, not elsewhere classified (principal)
CPT/HCPCS: 80048; 85025

== ENCOUNTER 2025-05-04 19:34 | Outpatient (REF) | payer MEDICARE, MEDICAID, SELFPAY ==
[2025-05-04 19:58] LABS: Abs Immature Grans 0.03 10^3/uL (0.0-0.06); HCT 32.0 % (36.0-46.0); HGB 11.5 g/dL (11.2-15.7); Immature Grans % 0.8 %; MCH 29.9 pg (27.0-33.0); MCHC 35.9 % (32.0-36.0); MCV 83 fL (80-95); MPV 10.6 fL (8.0-11.0); RBC 3.85 10^6/uL (3.93-5.22); RDW 15.6 % (11.7-14.6); RDW-SD 47.0 fL; WBC 3.85 10^3/uL (4.4-10.8)
[2025-05-04 20:09] LABS: Iron 79 ug/dL (50-170); Total Iron Binding Capacity 411 ug/dL (250-450); Transferrin Sat 19 % (15-50)
[2025-05-04 20:17] LABS: Platelet Count 89 10^3/uL (130-400)
[2025-05-04 20:22] LABS: Anion Gap 12.4 mmol/L (3-11); BUN 14 mg/dL (7-18); CO2 28.6 mmol/L (21.0-32.0); Calcium 9.1 mg/dL (8.5-10.1); Chloride 80 mmol/L (98-107); Estimated GFR 49.31 (mL/min/1.73m2); Ferritin 85 ng/mL (8-252); Glucose 291 mg/dL (74-106); Potassium 3.7 mmol/L (3.5-5.1)
[2025-05-04 20:25] LABS: Sodium 121 mmol/L (136-145)
[2025-05-04 20:30] LABS: Hemoglobin A1C 7.6 % (<5.7)
== END 2025-05-04 19:35 | disposition home or self-care (01) ==
LOC: LBN 19:34
PROVIDERS: PCP Nurse Practitioner Gerontology; Visit Provider Nurse Practitioner Gerontology
DX: D63.1 Anemia in chronic kidney disease (principal); R73.03 Prediabetes; E87.8 Other disorders of electrolyte and fluid balance, not elsewhere classified
CPT/HCPCS: 80048; 80177; 82728; 83036; 83540; 83550; 85025

== ENCOUNTER 2025-05-11 18:35 | Outpatient (REF) | payer MEDICARE, MEDICAID, SELFPAY ==
[2025-05-11 19:51] LABS: Abs Immature Grans 0.01 10^3/uL (0.0-0.06); HCT 29.3 % (36.0-46.0); HGB 10.8 g/dL (11.2-15.7); Immature Grans % 0.3 %; MCH 30.5 pg (27.0-33.0); MCHC 36.9 % (32.0-36.0); MCV 83 fL (80-95); MPV 10.2 fL (8.0-11.0); RBC 3.54 10^6/uL (3.93-5.22); RDW 15.9 % (11.7-14.6); RDW-SD 48.1 fL; WBC 3.67 10^3/uL (4.4-10.8)
[2025-05-11 20:12] LABS: Anion Gap 8.2 mmol/L (3-11); BUN 11 mg/dL (7-18); CO2 29.8 mmol/L (21.0-32.0); Calcium 8.7 mg/dL (8.5-10.1); Chloride 79 mmol/L (98-107); Estimated GFR 54.73 (mL/min/1.73m2); Glucose 297 mg/dL (74-106); Potassium 3.7 mmol/L (3.5-5.1)
[2025-05-11 20:15] LABS: Sodium 117 mmol/L (136-145)
[2025-05-11 20:40] LABS: Platelet Count 80 10^3/uL (130-400)
[2025-05-11 20:41] LABS: RBC Morphology Normal
== END 2025-05-11 18:36 | disposition home or self-care (01) ==
LOC: LBN 18:35
PROVIDERS: PCP Nurse Practitioner Gerontology; Visit Provider Nurse Practitioner Gerontology
DX: E87.8 Other disorders of electrolyte and fluid balance, not elsewhere classified (principal); D63.1 Anemia in chronic kidney disease
CPT/HCPCS: 80048; 85025

== ENCOUNTER 2025-05-12 09:04 | Emergency (ER) | payer MEDICARE, MEDICAID, SELFPAY ==
[2025-05-12] VITALS (40 sets, daily range): BP systolic 112–136; BP diastolic 38–74; PULSE 70–84; RESP 8–35; TEMP 36.4–37.1; O2SAT 91–100
--- NOTE | 2025-05-12 09:20 | W.ED.GENAD ---
Discharge Plan Disposition Patient Disposition: Residential Facility(SNF) Condition: Improving Discharge Details Clinical Impression: Hyponatremia, Hypomagnesemia Primary Care Provider: Lianet Smith ED Provider: Jenny Bustillos [place] Meds and New Rx's Prescriptions: Continued hydrocortisone-pramoxine 1-1 % cream 1 applic LA TID-QID PRN (Reason: itching) Qty: 30 1RF pantoprazole [Protonix] 40 mg tablet,delayed release (DR/EC) 40 mg PO DAILY levetiracetam 1,000 mg tablet 1,000 mg PO BID Incruse Ellipta 62.5 mcg/actuation blister with device 1 inh inhalation DAILY lactulose 10 gram/15 mL solution 30 g PO QID Xifaxan 550 mg tablet 550 mg PO BID insulin degludec [Tresiba FlexTouch U-200] 200 unit/mL (3 mL) insulin pen 40 unit subcut BID albuterol 90 mcg/actuation aerosol 180 mcg inhalation .Q4 PRN epinephrine 0.3 mg/0.3 mL auto-injector 0.3 ml subcut Q5-15M PRN Rx Instructions: do not exceed 2 doses per episode torsemide 20 mg tablet 40 mg PO BID quetiapine [Seroquel] 25 mg tablet 25 mg PO BID gabapentin 300 mg capsule 600 mg PO HS spironolactone 50 mg tablet 50 mg PO DAILY cholecalciferol (vitamin D3) [Vitamin D3] 50 mcg (2,000 unit) capsule 50 mcg PO DAILY nitrofurantoin macrocrystal 100 mg capsule 100 mg PO BID Rx Instructions: Stop 04/20/25 magnesium L-lactate 84 mg tablet extended release 84 mg PO QID folic acid 1 mg tablet 1 mg PO DAILY Patient Comments: GIVE ONE TABLET BY MOUTH EVERY MORNING FOR SUPPLEMENT insulin lispro 100 unit/mL insulin pen 1 sliding scale dose SUBCUT TID Rx Instructions: Use per sliding scale SQ TID; inject 10 units SQ TID in addition to sliding scale; hold for BS <201 Acidophilus probiotic 0.5 mg tablet 0.5 mg PO BID bisacodyl 10 mg suppository 10 mg LA DAILY PRN polyethylene glycol 3350 [ClearLax] 17 gram/dose powder 17 g PO BID Discharge Instructions Instructions: Hyponatremia, Hypomagnesemia Additional Instructions: While still low, your sodium has come up to 120. This sounds to have been worsened by recent medication changes which your primary provider is working to improve with your care team. Your magnesium was also low which was replenished orally. You received both magnesium and sodium while here. Please continue to restrict fluids as previously recommended. Please continue to monitor your symptoms as well as laboratory values and if something changes please return to emergency department. Follow-up for recheck of your labs in the next 48 hours. Referrals: Lianet Smith NP [Primary Care Provider, Medicine] Discharge Data Discharge Date/Time-TO BE ENTERED AT DEPARTURE: 05/12/25 15:02 HPI General Date/Time Provider Initiated Documentation: 05/12/25 09:15. Limitations to Documentation: no limitations. Information obtained by: patient, RN/MD, RN notes reviewed and old records reviewed. History of Present Illness 69 year old F presents to the emergency department with the chief complaint of Hyponatremia, Patient started experiencing this day(s) (drawn yesterday) Patient notes no other symptoms.. Related Data Home Medications ?Medication ?Instructions ?Recorded ?Confirmed albuterol 90 mcg/actuation aerosol 180 mcg inhalation .Q4 PRN 06/11/24 05/12/25 inhaler epinephrine 0.3 mg/0.3 mL 0.3 ml subcut Q5-15M PRN 06/11/24 05/12/25 injection, auto-injector insulin degludec 200 unit/mL (3 40 unit subcut BID 06/11/24 05/12/25 mL) subcutaneous pen (Tresiba FlexTouch U-200 insulin) lactulose 10 gram/15 mL oral 30 g PO QID 06/11/24 05/12/25 solution levetiracetam 1,000 mg tablet 1,000 mg PO BID 06/11/24 05/12/25 pantoprazole 40 mg tablet,delayed 40 mg PO DAILY 06/11/24 05/12/25 release (Protonix) rifaximin 550 mg tablet (Xifaxan) 550 mg PO BID 06/11/24 05/12/25 umeclidinium 62.5 mcg/actuation 1 inh inhalation DAILY 06/11/24 05/12/25 blister powder for inhalation (Incruse Ellipta) quetiapine 25 mg tablet (Seroquel) 25 mg PO BID 09/01/24 05/12/25 torsemide 20 mg tablet 40 mg PO BID 09/01/24 05/12/25 gabapentin 300 mg capsule 600 mg PO HS 11/13/24 05/12/25 polyethylene glycol 3350 17 17 g PO BID 11/25/24 05/12/25 gram/dose oral powder (ClearLax) spironolactone 50 mg tablet 50 mg PO DAILY 12/04/24 05/12/25 hydrocortisone-pramoxine 1 %-1 % 1 applic LA TID-QID PRN itching 03/12/25 05/12/25 rectal cream #30 grams Acidophilus probiotic 0.5 mg PO BID 04/19/25 05/12/25 bisacodyl 10 mg rectal suppository 10 mg LA DAILY PRN 04/19/25 05/12/25 cholecalciferol (vitamin D3) 50 50 mcg PO DAILY 04/19/25 05/12/25 mcg (2,000 unit) capsule (Vitamin D3) folic acid 1 mg tablet 1 mg PO DAILY 04/19/25 05/12/25 insulin lispro 100 unit/mL 1 sliding scale dose subcut TID 04/19/25 05/12/25 subcutaneous pen magnesium L-lactate 84 mg 84 mg PO QID 04/19/25 05/12/25 tablet,extended release nitrofurantoin macrocrystal 100 mg 100 mg PO BID 04/19/25 04/30/25 capsule Previous Rx's ?Medication ?Instructions ?Recorded hydrocortisone-pramoxine 1 %-1 % 1 applic LA TID-QID PRN itching 03/12/25 rectal cream #30 grams Allergies Allergy/AdvReac Type Severity Reaction Status Date / Time amitriptyline Allergy Intermediate Unknown Verified 05/12/25 08:59 azithromycin Allergy Intermediate Unknown Verified 05/12/25 08:59 ciprofloxacin Allergy Intermediate Unknown Verified 05/12/25 08:59 codeine Allergy Intermediate Unknown Verified 05/12/25 08:59 cortisone Allergy Intermediate Unknown Verified 05/12/25 08:59 erythromycin base Allergy Intermediate Unknown Verified 05/12/25 08:59 guaifenesin (From Robitussin) Allergy Intermediate Unknown Verified 05/12/25 08:59 iron Allergy Intermediate Unknown Verified 05/12/25 08:59 metronidazole (From Flagyl) Allergy Intermediate Unknown Verified 05/12/25 08:59 morphine Allergy Intermediate Unknown Verified 05/12/25 08:59 oxycodone (From Percocet) Allergy Intermediate Unknown Verified 05/12/25 08:59 Penicillins Allergy Intermediate Unknown Verified 05/12/25 08:59 Sulfa (Sulfonamide Allergy Intermediate Unknown Verified 05/12/25 08:59 Antibiotics) acetaminophen Allergy Unknown Other (See Verified 05/12/25 08:59 Comment) cyclosporine Allergy Unknown Other (See Verified 05/12/25 08:59 Comment) fluticasone (From Advair Allergy Unknown Other (See Verified 05/12/25 08:59 Diskus) Comment) ibuprofen Allergy Unknown Other (See Verified 05/12/25 08:59 Comment) pregabalin (From Lyrica) Allergy Unknown Other (See Verified 05/12/25 08:59 Comment) salmeterol Allergy Unknown Other (See Verified 05/12/25 08:59 Comment) strawberry Allergy Unknown Other (See Verified 05/12/25 08:59 Comment) General Stated Complaint: GenMedical MARCELLO: 3 Review of Systems Narrative: Review of system is limited based on patient baseline confusion Constitutional Constitutional: Reports as per HPI, Denies chills, Denies fever(s), Denies headache(s) and Denies poor appetite ENT Ears, Nose, Mouth, and Throat: Denies dizziness and Denies headache(s) Cardiovascular Cardiovascular: Reports as per HPI and Denies dyspnea Respiratory Respiratory: Reports as per HPI, Denies chest congestion, Denies cough, Denies pain on inspiration, Denies pain with cough and Denies dyspnea Gastrointestinal Gastrointestinal: Reports as per HPI, Denies abdominal pain, Denies diarrhea, Denies nausea and Denies vomiting Integumentary/Breasts Skin/Breast: Reports as per HPI and Denies rash Neurologic Neurologic: Reports as per HPI, Denies dizziness and Denies headache(s) Exam Const General: cooperative, comfortable, no acute distress, well developed and ill appearing chronically Nutritional Appearance: well nourished Orientation: alert, awake and oriented x3 HENMT Head: normal to inspection Mouth: moist mucous membranes Chest Chest: normal inspection of the chest, normal palpation of entire chest wall and no crepitus Resp Effort & Inspection: normal respiratory effort, able to speak in complete sentences and no respiratory distress Auscultation: clear to auscultation bilaterally, no rales, no rhonchi and no wheezes Cardio Rate: regular rate Rhythm: regular rhythm Heart Sounds: murmur GI Inspection: normal to inspection, no edema and distended Palpation: soft, not firm, no guarding, not rigid and nontender Back/Spine/Pelvis Back: no CVA tenderness Thoracic/Lumbar Spine: thoracic and lumbar spine normal to inspection Skin General skin exam: no rashes or lesions noted Trauma: no lacerations or abrasions Neuro General: patient alert, patient awake and patient oriented x3 Cognition: normal cognition Speech: speech normal Gait: normal gait Extrem General: normal to inspection, capillary refill normal, no pedal edema, no calf tenderness and normal gait Course Vital Signs Vital signs: Vital Signs Temperature 37.1 C 05/12/25 08:57 Pulse 79 05/12/25 08:57 Respiratory Rate 16 05/12/25 08:57 Blood Pressure 126/40 L 05/12/25 08:57 Pulse Oximetry 92 05/12/25 08:57 Temperature 37.1 C 05/12/25 08:57 Temperature Source Tympanic 05/12/25 08:57 Pulse 79 05/12/25 08:57 Respiratory Rate 16 05/12/25 08:57 Blood Pressure 126/40 L 05/12/25 08:57 Pulse Oximetry 92 05/12/25 08:57 Oxygen Delivery Method Room Air 05/12/25 08:57 Oxygen Flow Rate 0 05/12/25 08:57 Medical Decision Making Patient is a pleasant 61-year-old female who resides at the [facility], presenting today with chief complaint of hyponatremia diagnosed yesterday during routine lab evaluation. 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 Patient status postcholecystectomy, history x-ray and TIPS. Patient did have recent admission for pneumatosis coli but due to the severity of her cirrhosis, was deemed to be not be a surgical candidate. Patient has had chronic hyponatremia with this is continued to drop, particular over the recent weeks. When checked yesterday, her sodium level was found to be 117. Patient denies any new neurologic symptoms, denies any history of seizures or recent seizure activity. She reports having some lethargy but this sounds to be chronic in nature and she feels that she is largely unchanged. She is interested in pursuing inpatient care for her hyponatremia but does not want heroic measures if she declined. On exam, patient appears chronically ill but not acutely toxic. Hemodynamically stable. Intact mentation, moving appropriately. She does have a distended abdomen, does have some mild jaundice. She is nontender. Lungs are clear. She does have a systolic murmur but patient reports that this is chronic. Patient is alert and oriented but her mentation does seem to alter throughout her visit, apparently this is baseline per [facility] and nursing staff who know the patient. She is appropriate and answering questions though it seems to be a normal fashion. Following recommendations for hyponatremia, we will begin the patient with a 50 cc bolus of 3% saline as well as 80 mg IV Lasix. Currently, chemistry machine for the lab is down but we will plan to repeat this. Patient will require admission for slow correction of her hyponatremia so we will reach out to the hospitalist as well. After consultation with the hospitalist, labs are still pending, they advised that they did speak with the [facility] where the patient typically receives her care. The [facility] feels that the worsening hyponatremia is associated with increased dose of Keppra that can had side effect of hyponatremia further exacerbating a chronic issue for this patient. They would like to see if we are able to get her sodium to 120 and feel that if we are able to do that, with the identified cause that is exacerbating her chronic hyponatremia, they feel that she is able to go back to the [facility] safely and continue to be medically managed there. Patient has also not been compliant with her fluid restriction that have been managed by the [facility]. Sodium is improved to 120, plans is willing to take patient back at this time. Will replace the magnesium as well, giving 800 mg orally. [place] had advised the [facility] inpatient team that if the sodium came up to 120 they are happy to take her back and do have a continued plan moving forward to help event this from recurring. They believe that this was brought on by increasing her dosing of Keppra. Discussed these recommendations with the patient. We discussed the chronic nature of her hyponatremia. She has underlying cause of the acute change identified by her care team and there is now a plan for treatment for this. They will continue to monitor her sodium and symptoms. She feels safe with this plan. She, and her care team, are struggling with fluid restriction. Patient and I discussed the importance of this again- she agrees to work on this with them. Spoke with her state assigned advocate as well and updated her as well. Strict return precautions were discussed. All oftheir questions/concerns were addressed, she is in agreement iwth this plan. Transferred back to the [facility]. Quality:SDOH Health Related Social Needs: Health related social needs daily activities PFSH All Active Problems (Updated 05/19/25 @ 00:03 by ELIAZAR BLACKWOOD) Hypomagnesemia (Acute) Advanced care planning/counseling discussion (Acute) Chronic GERD (Acute) History of seizure disorder (Acute) Asymptomatic bacteriuria (Acute) Metabolic dysfunction-associated steatotic liver disease (MASLD) (Chronic) COPD (chronic obstructive pulmonary disease) (Chronic) Diabetes mellitus type 2, insulin dependent (Acute) Acquired pancytopenia (Acute) Pneumatosis coli (Acute) Ischemia, bowel (Acute) Hyponatremia (Acute) Edema of both lower legs (Acute) 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 (Acute) Hemorrhoid (Acute) Irritation of vulva (Acute) Nail dystrophy (Acute) Medical History (Updated 05/19/25 @ 00:03 by ELIAZAR BLACKWOOD) Constipation Thrombocytopenia Type 2 diabetes mellitus Pancytopenia 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
[2025-05-12 10:17] LABS: INR 1.2 (0.9-1.1); PTT Activated 27.5 sec (20.6-30.2); Prothrombin Time 11.6 sec (9.1-11.1)
[2025-05-12 10:26] LABS: Ammonia 31 umol/L (11-32)
[2025-05-12 10:42] LABS: ALT 25 U/L (14-59); AST 23 U/L (15-37); Albumin 3.6 g/dL (3.4-5.0); Alkaline Phosphatase 135 U/L (46-116); Anion Gap 10.1 mmol/L (3-11); BUN 10 mg/dL (7-18); Bilirubin, Total 3.9 mg/dL (0.2-1.0); CO2 30.9 mmol/L (21.0-32.0); Calcium 9.0 mg/dL (8.5-10.1); Chloride 77 mmol/L (98-107); Estimated GFR 54.73 (mL/min/1.73m2); Glucose 234 mg/dL (74-106); Magnesium 1.2 mg/dL (1.8-2.4); Potassium 3.6 mmol/L (3.5-5.1); Total Protein 6.2 g/dL (6.4-8.2)
[2025-05-12 10:44] LABS: Sodium 118 mmol/L (136-145)
[2025-05-12 11:08] LABS: Abs Immature Grans 0.02 10^3/uL (0.0-0.06); HCT 28.9 % (36.0-46.0); HGB 10.9 g/dL (11.2-15.7); Immature Grans % 0.6 %; MCH 30.4 pg (27.0-33.0); MCV 81 fL (80-95); MPV 9.3 fL (8.0-11.0); RBC 3.59 10^6/uL (3.93-5.22); RDW 15.6 % (11.7-14.6); RDW-SD 45.1 fL; WBC 3.52 10^3/uL (4.4-10.8)
[2025-05-12] MEDS: SODIUM CHLORIDE 3% 150 ML 50 ML IV (11:12)
[2025-05-12 11:14] LABS: Platelet Count 82 10^3/uL (130-400)
[2025-05-12 11:15] LABS: Anisocytosis 2+; Microcytosis 1+
[2025-05-12] MEDS: Furosemide 100 MG/10 ML VIAL 80 MG IVP (11:22)
--- NOTE | 2025-05-12 12:48 | NUR.NOTE ---
Patient caregiver Lorelei (Guardian) called requesting an update on patient. Guardian state she needs to give consent before patient is to treated. Reported also that our system should be flagged to notify this situation. Guardian was informed that i am unaware of this because [facility], prior to my arrival for shift. Charge and Providers was informed of this.
[2025-05-12 13:13] LABS: Anion Gap 8.8 mmol/L (3-11); BUN 10 mg/dL (7-18); CO2 32.2 mmol/L (21.0-32.0); Calcium 9.3 mg/dL (8.5-10.1); Chloride 79 mmol/L (98-107); Estimated GFR 61.36 (mL/min/1.73m2); Glucose 216 mg/dL (74-106); Potassium 3.6 mmol/L (3.5-5.1)
[2025-05-12 13:15] LABS: Sodium 120 mmol/L (136-145)
[2025-05-12] MEDS: Magnesium Oxide 400 MG TAB 800 MG PO (14:16)
== END 2025-05-12 15:02 | disposition skilled nursing facility (03) ==
PROVIDERS: Emergency Provider Physician Assistant; PCP Nurse Practitioner Gerontology
DX: E83.42 Hypomagnesemia (principal); E87.1 Hypo-osmolality and hyponatremia; Z86.2 Personal history of diseases of the blood and blood-forming organs and certain disorders involving the immune mechanism
CPT/HCPCS: 99284 ×2; 96374; 36415; 80048; 80053; 82140; 83735; 85025; 85610; 85730; J1938

== ENCOUNTER 2025-05-18 15:52 | Outpatient (REF) | payer MEDICARE, MEDICAID, SELFPAY ==
[2025-05-18 14:46] LABS: Abs Immature Grans 0.01 10^3/uL (0.0-0.06); HCT 30.2 % (36.0-46.0); HGB 10.9 g/dL (11.2-15.7); Immature Grans % 0.3 %; MCH 30.4 pg (27.0-33.0); MCHC 36.1 % (32.0-36.0); MCV 84 fL (80-95); MPV 10.1 fL (8.0-11.0); RBC 3.58 10^6/uL (3.93-5.22); RDW 15.9 % (11.7-14.6); RDW-SD 48.0 fL; WBC 3.25 10^3/uL (4.4-10.8)
[2025-05-18 14:52] LABS: Anion Gap 9.3 mmol/L (3-11); BUN 15 mg/dL (7-18); CO2 28.7 mmol/L (21.0-32.0); Calcium 9.1 mg/dL (8.5-10.1); Chloride 82 mmol/L (98-107); Estimated GFR 49.31 (mL/min/1.73m2); Glucose 345 mg/dL (74-106); Potassium 4.2 mmol/L (3.5-5.1)
[2025-05-18 14:57] LABS: Sodium 120 mmol/L (136-145)
[2025-05-18 15:06] LABS: Platelet Count 71 10^3/uL (130-400); RBC Morphology Normal
== END 2025-05-18 15:53 | disposition home or self-care (01) ==
LOC: LBN 15:52
PROVIDERS: PCP Nurse Practitioner Gerontology; Visit Provider Nurse Practitioner Gerontology
DX: E87.8 Other disorders of electrolyte and fluid balance, not elsewhere classified (principal)
CPT/HCPCS: 80048; 85025

== ENCOUNTER 2025-05-25 16:12 | Outpatient (REF) | payer MEDICARE, MEDICAID, SELFPAY ==
[2025-05-25 16:39] LABS: Abs Immature Grans 0.01 10^3/uL (0.0-0.06); HCT 29.6 % (36.0-46.0); HGB 10.8 g/dL (11.2-15.7); Immature Grans % 0.2 %; MCH 30.6 pg (27.0-33.0); MCHC 36.5 % (32.0-36.0); MCV 84 fL (80-95); MPV 9.3 fL (8.0-11.0); RBC 3.53 10^6/uL (3.93-5.22); RDW 16.0 % (11.7-14.6); RDW-SD 48.9 fL; WBC 4.31 10^3/uL (4.4-10.8)
[2025-05-25 16:42] LABS: Anion Gap 10.6 mmol/L (3-11); BUN 20 mg/dL (7-18); CO2 29.4 mmol/L (21.0-32.0); Calcium 8.3 mg/dL (8.5-10.1); Chloride 79 mmol/L (98-107); Estimated GFR 26.71 (mL/min/1.73m2); Glucose 181 mg/dL (74-106); Potassium 4.2 mmol/L (3.5-5.1)
[2025-05-25 16:49] LABS: Sodium 119 mmol/L (136-145)
[2025-05-25 16:51] LABS: Platelet Count 83 10^3/uL (130-400)
== END 2025-05-25 16:13 | disposition home or self-care (01) ==
LOC: LBN 16:12
PROVIDERS: PCP Nurse Practitioner Gerontology; Visit Provider Nurse Practitioner Gerontology
DX: D63.1 Anemia in chronic kidney disease (principal)
CPT/HCPCS: 80048; 80177; 85025

== ENCOUNTER 2025-06-01 20:54 | Outpatient (REF) | payer MEDICARE, MEDICAID, SELFPAY ==
[2025-06-01 16:51] LABS: Abs Immature Grans 0.01 10^3/uL (0.0-0.06); HCT 28.3 % (36.0-46.0); HGB 10.2 g/dL (11.2-15.7); Immature Grans % 0.3 %; MCH 30.8 pg (27.0-33.0); MCHC 36.0 % (32.0-36.0); MCV 86 fL (80-95); MPV 10.1 fL (8.0-11.0); RBC 3.31 10^6/uL (3.93-5.22); RDW 15.7 % (11.7-14.6); RDW-SD 48.7 fL; WBC 2.90 10^3/uL (4.4-10.8)
[2025-06-01 16:53] LABS: Anion Gap 12.4 mmol/L (3-11); BUN 12 mg/dL (7-18); CO2 28.6 mmol/L (21.0-32.0); Calcium 8.5 mg/dL (8.5-10.1); Chloride 86 mmol/L (98-107); Estimated GFR 49.31 (mL/min/1.73m2); Glucose 233 mg/dL (74-106); Potassium 3.7 mmol/L (3.5-5.1); Sodium 127 mmol/L (136-145)
[2025-06-01 17:01] LABS: RBC Morphology Normal
== END 2025-06-01 20:55 | disposition home or self-care (01) ==
LOC: LBN 20:54
PROVIDERS: PCP Nurse Practitioner Gerontology; Visit Provider Nurse Practitioner Gerontology
DX: E87.8 Other disorders of electrolyte and fluid balance, not elsewhere classified (principal)
CPT/HCPCS: 80048; 85025

== ENCOUNTER 2025-06-08 18:47 | Outpatient (REF) | payer MEDICARE, MEDICAID, SELFPAY ==
[2025-06-08 18:46] LABS: Abs Immature Grans 0.01 10^3/uL (0.0-0.06); HCT 28.2 % (36.0-46.0); HGB 10.4 g/dL (11.2-15.7); Immature Grans % 0.3 %; MCH 31.3 pg (27.0-33.0); MCHC 36.9 % (32.0-36.0); MCV 85 fL (80-95); MPV 10.5 fL (8.0-11.0); RBC 3.32 10^6/uL (3.93-5.22); RDW 15.8 % (11.7-14.6); RDW-SD 48.8 fL; WBC 3.12 10^3/uL (4.4-10.8)
[2025-06-08 19:01] LABS: Anion Gap 12.5 mmol/L (3-11); BUN 14 mg/dL (7-18); CO2 27.5 mmol/L (21.0-32.0); Calcium 8.8 mg/dL (8.5-10.1); Chloride 83 mmol/L (98-107); Estimated GFR 44.79 (mL/min/1.73m2); Glucose 313 mg/dL (74-106); Potassium 3.9 mmol/L (3.5-5.1)
[2025-06-08 19:08] LABS: Sodium 123 mmol/L (136-145)
[2025-06-08 19:18] LABS: Platelet Count 67 10^3/uL (130-400)
== END 2025-06-08 18:48 | disposition home or self-care (01) ==
LOC: LBN 18:47
PROVIDERS: PCP Legal Medicine; Visit Provider Nurse Practitioner Gerontology
DX: E87.8 Other disorders of electrolyte and fluid balance, not elsewhere classified (principal); D63.1 Anemia in chronic kidney disease
CPT/HCPCS: 80048; 85025

== ENCOUNTER 2025-06-10 17:00 | Outpatient (REF) | payer MEDICARE, MEDICAID, SELFPAY ==
[2025-06-10 17:23] LABS: Glucose Negative (Negative)
[2025-06-10 17:34] LABS: RBC 0-2 HPF (0-2); WBC 20-50 HPF (0-5)
== END 2025-06-10 17:01 | disposition home or self-care (01) ==
LOC: LBN 17:00
PROVIDERS: PCP Legal Medicine; Visit Provider Nurse Practitioner Gerontology
DX: N39.0 Urinary tract infection, site not specified (principal)
CPT/HCPCS: 87077; 81003; 81015; 87086; 87186

== ENCOUNTER 2025-06-15 16:36 | Outpatient (REF) | payer MEDICARE, MEDICAID, SELFPAY ==
[2025-06-15 16:38] LABS: Abs Immature Grans 0.01 10^3/uL (0.0-0.06); HCT 32.3 % (36.0-46.0); HGB 11.8 g/dL (11.2-15.7); Immature Grans % 0.2 %; MCH 30.9 pg (27.0-33.0); MCHC 36.5 % (32.0-36.0); MCV 85 fL (80-95); MPV 10.5 fL (8.0-11.0); RBC 3.82 10^6/uL (3.93-5.22); RDW 15.9 % (11.7-14.6); RDW-SD 48.6 fL; WBC 4.20 10^3/uL (4.4-10.8)
[2025-06-15 16:45] LABS: Anion Gap 9.8 mmol/L (3-11); BUN 16 mg/dL (7-18); CO2 29.2 mmol/L (21.0-32.0); Calcium 9.2 mg/dL (8.5-10.1); Chloride 82 mmol/L (98-107); Estimated GFR 54.73 (mL/min/1.73m2); Glucose 303 mg/dL (74-106); Potassium 4.2 mmol/L (3.5-5.1)
[2025-06-15 16:48] LABS: Sodium 121 mmol/L (136-145)
[2025-06-15 16:53] LABS: Platelet Count 67 10^3/uL (130-400); RBC Morphology Normal
== END 2025-06-15 16:37 | disposition home or self-care (01) ==
LOC: LBN 16:36
PROVIDERS: PCP Legal Medicine; Visit Provider Nurse Practitioner Gerontology
DX: E87.8 Other disorders of electrolyte and fluid balance, not elsewhere classified (principal)
CPT/HCPCS: 80048; 85025

== ENCOUNTER 2025-06-22 19:27 | Outpatient (REF) | payer MEDICARE, MEDICAID, SELFPAY ==
[2025-06-22 19:07] LABS: Abs Immature Grans 0.02 10^3/uL (0.0-0.06); HCT 28.0 % (36.0-46.0); HGB 10.5 g/dL (11.2-15.7); Immature Grans % 0.5 %; MCH 31.5 pg (27.0-33.0); MCHC 37.5 % (32.0-36.0); MCV 84 fL (80-95); MPV 10.2 fL (8.0-11.0); RBC 3.33 10^6/uL (3.93-5.22); RDW 15.5 % (11.7-14.6); RDW-SD 47.1 fL; WBC 3.89 10^3/uL (4.4-10.8)
[2025-06-22 19:18] LABS: Anion Gap 7.3 mmol/L (3-11); BUN 15 mg/dL (7-18); CO2 31.7 mmol/L (21.0-32.0); Calcium 8.7 mg/dL (8.5-10.1); Chloride 79 mmol/L (98-107); Glucose 385 mg/dL (74-106); Potassium 4.0 mmol/L (3.5-5.1)
[2025-06-22 19:21] LABS: Platelet Count 65 10^3/uL (130-400); RBC Morphology Normal; Sodium 118 mmol/L (136-145)
== END 2025-06-22 19:28 | disposition home or self-care (01) ==
LOC: LBN 19:27
PROVIDERS: PCP Legal Medicine; Visit Provider Nurse Practitioner Gerontology
DX: E87.8 Other disorders of electrolyte and fluid balance, not elsewhere classified (principal); D63.1 Anemia in chronic kidney disease
CPT/HCPCS: 80048; 85025

== ENCOUNTER 2025-07-02 15:56 | Outpatient (REF) | payer MEDICARE, MEDICAID, SELFPAY ==
[2025-07-02 16:56] LABS: Abs Immature Grans 0.01 10^3/uL (0.0-0.06); HCT 28.5 % (36.0-46.0); HGB 10.6 g/dL (11.2-15.7); Immature Grans % 0.3 %; MCH 31.0 pg (27.0-33.0); MCHC 37.2 % (32.0-36.0); MCV 83 fL (80-95); MPV 10.2 fL (8.0-11.0); RBC 3.42 10^6/uL (3.93-5.22); RDW 15.5 % (11.7-14.6); RDW-SD 46.5 fL; WBC 3.97 10^3/uL (4.4-10.8)
[2025-07-02 17:12] LABS: Platelet Count 71 10^3/uL (130-400)
[2025-07-02 17:13] LABS: Anion Gap 9.9 mmol/L (3-11); BUN 17 mg/dL (9-23); CO2 28.3 mmol/L (20.0-31.0); Calcium 8.7 mg/dL (8.3-10.6); Chloride 80 mmol/L (98-107); Glucose 277 mg/dL (74-106); Potassium 4.0 mmol/L (3.5-5.1); Sodium 118 mmol/L (136-145)
== END 2025-07-02 15:57 | disposition home or self-care (01) ==
LOC: NCHCN 15:56
PROVIDERS: PCP Legal Medicine; Referring Provider Nurse Practitioner Gerontology; Visit Provider Nurse Practitioner Gerontology
DX: D63.1 Anemia in chronic kidney disease (principal); E87.8 Other disorders of electrolyte and fluid balance, not elsewhere classified
CPT/HCPCS: 80048; 85025

== ENCOUNTER 2025-07-06 18:44 | Outpatient (REF) | payer MEDICARE, MEDICAID, SELFPAY ==
[2025-07-06 15:30] LABS: Abs Immature Grans 0.01 10^3/uL (0.0-0.06); HCT 29.4 % (36.0-46.0); HGB 10.8 g/dL (11.2-15.7); Immature Grans % 0.3 %; MCH 31.5 pg (27.0-33.0); MCHC 36.7 % (32.0-36.0); MCV 86 fL (80-95); MPV 10.0 fL (8.0-11.0); RBC 3.43 10^6/uL (3.93-5.22); RDW 15.4 % (11.7-14.6); RDW-SD 47.4 fL; WBC 3.65 10^3/uL (4.4-10.8)
[2025-07-06 15:43] LABS: Platelet Count 73 10^3/uL (130-400); RBC Morphology Normal
[2025-07-06 16:00] LABS: Anion Gap 8.5 mmol/L (3-11); BUN 16 mg/dL (9-23); CO2 28.6 mmol/L (20.0-31.0); Calcium 8.9 mg/dL (8.3-10.6); Chloride 84 mmol/L (98-107); Glucose 321 mg/dL (74-106); Potassium 4.1 mmol/L (3.5-5.1); Sodium 121 mmol/L (136-145)
== END 2025-07-06 18:45 | disposition home or self-care (01) ==
LOC: LBN 18:44
PROVIDERS: PCP Legal Medicine; Visit Provider Nurse Practitioner Gerontology
DX: E87.8 Other disorders of electrolyte and fluid balance, not elsewhere classified (principal); D63.1 Anemia in chronic kidney disease
CPT/HCPCS: 80048; 85025

== ENCOUNTER 2025-07-09 18:39 | Outpatient (REF) | payer MEDICARE, MEDICAID, SELFPAY ==
[2025-07-09 18:15] LABS: Glucose 500 mg/dL (Negative)
== END 2025-07-09 18:40 | disposition home or self-care (01) ==
LOC: LBN 18:39
PROVIDERS: PCP Legal Medicine; Visit Provider Nurse Practitioner Gerontology
DX: N39.0 Urinary tract infection, site not specified (principal)
CPT/HCPCS: 81003; 81015; 87086

== ENCOUNTER 2025-07-13 15:59 | Outpatient (REF) | payer MEDICARE, MEDICAID, SELFPAY ==
[2025-07-13 16:04] LABS: Abs Immature Grans 0.02 10^3/uL (0.0-0.06); HCT 28.4 % (36.0-46.0); HGB 10.4 g/dL (11.2-15.7); Immature Grans % 0.5 %; MCH 31.2 pg (27.0-33.0); MCHC 36.6 % (32.0-36.0); MCV 85 fL (80-95); MPV 10.5 fL (8.0-11.0); RBC 3.33 10^6/uL (3.93-5.22); RDW 15.0 % (11.7-14.6); RDW-SD 46.7 fL; WBC 4.12 10^3/uL (4.4-10.8)
[2025-07-13 16:27] LABS: Anion Gap 6.7 mmol/L (3-11); BUN 17 mg/dL (9-23); CO2 27.7 mmol/L (20.0-31.0); Calcium 8.8 mg/dL (8.3-10.6); Chloride 84 mmol/L (98-107); Glucose 308 mg/dL (74-106); Potassium 4.3 mmol/L (3.5-5.1); Sodium 118 mmol/L (136-145)
[2025-07-13 16:35] LABS: Platelet Count 69 10^3/uL (130-400)
== END 2025-07-13 16:00 | disposition home or self-care (01) ==
LOC: LBN 15:59
PROVIDERS: PCP Legal Medicine; Visit Provider Nurse Practitioner Gerontology
DX: D63.1 Anemia in chronic kidney disease (principal); E87.8 Other disorders of electrolyte and fluid balance, not elsewhere classified
CPT/HCPCS: 80048; 85025

== ENCOUNTER 2025-07-19 13:22 | Outpatient (REF) | payer MEDICARE, MEDICAID, SELFPAY ==
[2025-07-19 13:57] LABS: Glucose Negative (Negative)
== END 2025-07-19 13:23 | disposition home or self-care (01) ==
LOC: LBN 13:22
PROVIDERS: PCP Legal Medicine
DX: N39.0 Urinary tract infection, site not specified (principal)
CPT/HCPCS: 81003; 81015; 87086

== ENCOUNTER 2025-07-19 14:21 | Observation (INO) | payer MEDICARE, MEDICAID, SELFPAY ==
[2025-07-19 14:08] VITALS: BP 98/49; PULSE 70; RESP 18; TEMP 37; O2SAT 95
--- NOTE | 2025-07-19 14:15 | RT.EKG_ITS ---
APPROVED REPORT Exam: Resting ECG Reason for Exam: Abd pain Patient Location: E HR:67 bpm ECG Measurements Heart Rate 67 AXIS NH 197 P 39 QRSd 104 QRS 63 QT 460 T 63 QTc 486 Conclusion Sinus rhythm...normal P axis, V-rate 60- 99 No Occlusion MT
--- NOTE | 2025-07-19 14:15 | DI.CT_ITS ---
Exam(s) CT ABDOMEN PELVIS W EXAM: CT ABDOMEN PELVIS W CLINICAL HISTORY: abd pain TECHNIQUE: Imaging Protocol: Axial computed tomography images with coronal and sagittal reformatted images were created and reviewed. CONTRAST MATERIAL: Intravenous: Omnipaque 350 contrast volume:75 mL Oral: No COMPARISON: CT CT CHEST/ABD/PEL W from 11/25/[address] ABDOMEN PELVIS W from 04/12/[address] ABDOMEN PELVIS W from 04/19/2025 FINDINGS: ABDOMEN: Lung Bases: No acute abnormality. Liver: Normal density. No measurable mass. The patient has a TIPS. Portal, Superior Mesenteric, and Splenic Veins: Unremarkable. Gallbladder and Biliary Tract: Status post cholecystectomy. There is no significant biliary ductal dilatation. Pancreas: Normal density, no abnormal calcifications or inflammatory process. Spleen: Splenomegaly. Adrenals: No masses seen. Kidneys: Normal size, contour and axis. No radiodense stones or obstructive uropathy. No masses seen. Abdominal Aorta: Abdominal portion non-dilated. Atherosclerotic calcification is present. Bowel: There is diverticulosis seen in the colon but no evidence of acute diverticulitis. There is no evidence of appendicitis. There is no evidence of bowel wall thickening or obstruction. Peritoneal Cavity: No ascites, collection or mesenteric inflammatory response. There is free air seen in the left abdomen adjacent to the distal transverse colon. There may also appear to be a few foci of free air adjacent to or within the wall of the right colon. There is no air seen in the superior mesenteric or portal vein. Lymph Nodes: Within normal limits. Bones: Within normal limits for the patient's age. There are asymmetric endplate changes seen at the L4-L5 disc space. The findings are most marked on the right side. This may be progressive degenerative changes. Infection cannot be entirely excluded. Please correlate clinically. Soft Tissues: Unremarkable. PELVIS: Bladder: Symmetric distention, no gross wall thickening. Reproductive Organs: Status post hysterectomy. Lymph Nodes: Within normal limits. Bones: Within normal limits for the patient's age. IMPRESSION: 1. Extraluminal air in the left abdomen associated with the transverse colon. This is of uncertain etiology. There is no free fluid in the abdomen or bowel wall thickening present. 2. Asymmetric endplate changes at L4-L5 which may reflect progressive degenerative changes. Infection cannot be entirely excluded. Please correlate clinically. 3. Findings consistent with hepatic cirrhosis with a known TIPS. Splenomegaly. 4. The preliminary [facility] report was reviewed. Unexpected findings RADIATION DOSE DELIVERED: 665.62mGy.cm Total DLP DATA REPOSITORY: All CT scans at this facility are submitted to the National Radiology Data Registry (NRDR) Dose Index Registry (DIR) with the [employer] (A[employer]). RADIATION OPTIMIZATION: All CT scans at this facility use at least one of these dose optimization techniques: automated exposure control; mA and/or kV adjustment per patient size (includes targeted exams where dose is matched to clinical indication); or iterative reconstruction.
--- NOTE | 2025-07-19 14:27 | W.ED.GENAD ---
Discharge Plan Disposition Patient Disposition: Admit to [facility] Condition: Stable Discharge Details Clinical Impression: Pneumatosis coli, Abdominal pain Admit Date/Time: 07/19/25 17:26 Admit Provider: Mynor Dawson Attending Provider: Mynor Dawson Primary Care Provider: Laina Leal ED Provider: Cecilia Kaur Discharge Data Discharge Date/Time-TO BE ENTERED AT DEPARTURE: 07/19/25 18:37 HPI General Mode of arrival: EMS. Date/Time Provider Initiated Documentation: 07/19/25 14:27. Limitations to Documentation: no limitations. Information obtained by: patient, EMS and old records reviewed. HPI Narrative: This is a 70-year-old female patient with a past medical history significant for cirrhosis, COPD, diabetes, presenting for evaluation of abdominal pain. The patient reports that for the last week she has had abdominal discomfort, in her right upper and lower quadrants radiating down into her groin/anterior thigh. She states that she has had some nausea and nonbloody emesis, has passed 2 stools today which were normal for her. She does have some hemorrhoidal bleeding and often has bright red blood per rectum, this is unchanged from her baseline. Denies dysuria or hematuria, has a history of hysterectomy, cholecystectomy. The patient states that she has allergies to numerous medications and for this reason cannot take anything for pain such as Tylenol, ibuprofen, or narcotics. She did not receive anything for nausea from EMS given a concern for prolonged QTc. No fevers reported, poor p.o. intake is reported due to the nausea and vomiting. Related Data Home Medications ?Medication ?Instructions ?Recorded ?Confirmed albuterol 90 mcg/actuation aerosol 180 mcg inhalation .Q4 PRN 06/11/24 07/19/25 inhaler epinephrine 0.3 mg/0.3 mL 0.3 ml subcut Q5-15M PRN 06/11/24 07/19/25 injection, auto-injector insulin degludec 200 unit/mL (3 40 unit subcut BID 06/11/24 07/19/25 mL) subcutaneous pen (Tresiba FlexTouch U-200 insulin) lactulose 10 gram/15 mL oral 30 g PO QID 06/11/24 07/19/25 solution levetiracetam 1,000 mg tablet 1,000 mg PO BID 06/11/24 07/19/25 pantoprazole 40 mg tablet,delayed 40 mg PO DAILY 06/11/24 07/19/25 release (Protonix) rifaximin 550 mg tablet (Xifaxan) 550 mg PO BID 06/11/24 07/19/25 umeclidinium 62.5 mcg/actuation 1 inh inhalation DAILY 06/11/24 07/19/25 blister powder for inhalation (Incruse Ellipta) quetiapine 25 mg tablet (Seroquel) 25 mg PO BID 09/01/24 07/19/25 torsemide 20 mg tablet 40 mg PO BID 09/01/24 07/19/25 gabapentin 300 mg capsule 600 mg PO HS 11/13/24 07/19/25 polyethylene glycol 3350 17 17 g PO BID 11/25/24 07/19/25 gram/dose oral powder (ClearLax) spironolactone 50 mg tablet 50 mg PO DAILY 12/04/24 07/19/25 hydrocortisone-pramoxine 1 %-1 % 1 applic [place] TID-QID PRN itching 03/12/25 07/19/25 rectal cream #30 grams Acidophilus probiotic 0.5 mg PO BID 04/19/25 07/19/25 bisacodyl 10 mg rectal suppository 10 mg MT DAILY PRN 04/19/25 07/19/25 cholecalciferol (vitamin D3) 50 50 mcg PO DAILY 04/19/25 07/19/25 mcg (2,000 unit) capsule (Vitamin D3) folic acid 1 mg tablet 1 mg PO DAILY 04/19/25 07/19/25 insulin lispro 100 unit/mL 1 sliding scale dose subcut TID 04/19/25 07/19/25 subcutaneous pen magnesium L-lactate 84 mg 84 mg PO QID 04/19/25 07/19/25 tablet,extended release nitrofurantoin macrocrystal 100 mg 100 mg PO BID 04/19/25 07/19/25 capsule Previous Rx's ?Medication ?Instructions ?Recorded hydrocortisone-pramoxine 1 %-1 % 1 applic [place] TID-QID PRN itching 03/12/25 rectal cream #30 grams Allergies Allergy/AdvReac Type Severity Reaction Status Date / Time amitriptyline Allergy Intermediate Unknown Verified 07/19/25 14:21 azithromycin Allergy Intermediate Unknown Verified 07/19/25 14:21 ciprofloxacin Allergy Intermediate Unknown Verified 07/19/25 14:21 codeine Allergy Intermediate Unknown Verified 07/19/25 14:21 cortisone Allergy Intermediate Unknown Verified 07/19/25 14:21 erythromycin base Allergy Intermediate Unknown Verified 07/19/25 14:21 guaifenesin (From Robitussin) Allergy Intermediate Unknown Verified 07/19/25 14:21 iron Allergy Intermediate Unknown Verified 07/19/25 14:21 metronidazole (From Flagyl) Allergy Intermediate Unknown Verified 07/19/25 14:21 morphine Allergy Intermediate Unknown Verified 07/19/25 14:21 oxycodone (From Percocet) Allergy Intermediate Unknown Verified 07/19/25 14:21 Penicillins Allergy Intermediate Unknown Verified 07/19/25 14:21 Sulfa (Sulfonamide Allergy Intermediate Unknown Verified 07/19/25 14:21 Antibiotics) acetaminophen Allergy Unknown Other (See Verified 07/19/25 14:21 Comment) cyclosporine Allergy Unknown Other (See Verified 07/19/25 14:21 Comment) fluticasone (From Advair Allergy Unknown Other (See Verified 07/19/25 14:21 Diskus) Comment) ibuprofen Allergy Unknown Other (See Verified 07/19/25 14:21 Comment) pregabalin (From Lyrica) Allergy Unknown Other (See Verified 07/19/25 14:21 Comment) salmeterol Allergy Unknown Other (See Verified 07/19/25 14:21 Comment) strawberry Allergy Unknown Other (See Verified 07/19/25 14:21 Comment) General Stated Complaint: Abd Prob MARCELLO: 3 Exam Narrative Exam Narrative: Gen: Awake and alert, in no apparent distress HEENT: Non-icteric sclera Neck: Supple Lungs: No apparent respiratory distress, normal respiratory effort. Lung sounds clear and equal bilaterally without wheezes, rhonchi, rales CV: Appears well perfused, heart with regular rate and rhythm, strong distal pulses Abdomen: Non-distended, soft, tender to palpation in the right upper and lower quadrants with guarding but no rigidity or rebound MSK: Moves 4 extremities without apparent limitation in ROM. No peripheral edema Skin: Visualized skin without rashes, cyanosis. Neuro: No obvious focal deficits or facial asymmetry. Speaks in full, clear sentences. Psych: Appropriate for situation. Course Vital Signs Vital signs: Vital Signs Temperature 37.0 C 07/19/25 14:08 Pulse 70 07/19/25 14:08 Respiratory Rate 18 07/19/25 14:08 Blood Pressure 98/49 L 07/19/25 14:08 Pulse Oximetry 95 07/19/25 14:08 Temperature 37.0 C 07/19/25 14:08 Temperature Source Oral 07/19/25 14:08 Pulse 70 07/19/25 14:08 Respiratory Rate 18 07/19/25 14:08 Blood Pressure 98/49 L 07/19/25 14:08 Blood Pressure Position Supine 07/19/25 14:08 Pulse Oximetry 95 07/19/25 14:08 Oxygen Delivery Method Room Air 07/19/25 14:08 Oxygen Flow Rate 0 07/19/25 14:08 Pain Level 9 07/19/25 14:08 Comment RLQ pain that radiates to right groin to knee 07/19/25 14:08 Medical Decision Making This is a 70-year-old female patient presenting for evaluation of abdominal pain. My differential includes, but is not limited to, gastritis/PUD, gastroenteritis, pancreatitis, choledocholithiasis, hepatitis, appendicitis, diverticulitis, small bowel obstruction, hernia. Considered urinary pathology including UTI, nephrolithiasis. Considered mesenteric ischemia, aortic pathology, though this is less concerning based on the patient's history and physical exam. We will obtain an EKG prior to administering any antinausea medications. We will obtain labs to include CBC, CMP, magnesium, troponin, lipase, lactate, and urinalysis. I will obtain a CT of the abdomen and pelvis with contrast to better characterize any abnormalities which might explain the patient's pain. - EKG shows a normal sinus rhythm without evidence of ischemia, borderline prolonged QTc and no evidence of ectopy. Given the QTc prolongation I do feel it reasonable to trial a non-QTc prolonging agent for her nausea, Tigan was provided. I reviewed the patient's laboratory studies, which show a mild leukopenia, no anemia and an improving thrombocytopenia from her baseline at 90 today. Her INR is normal at 1.1, her lactate is not significantly elevated at 1.8, she has a baseline hyponatremia that is improved today compared to prior studies at 128. No evidence of kidney dysfunction, but the patient does have an elevated bilirubin to 4.2, which has been noted on prior laboratory workups. Her troponin is negative and without interval increase in 1 hour delta recheck, and the lipase is low. Urinalysis is noninfectious and without hematuria. The patient CT was reviewed by myself and discussed with the radiologist, there is evidence of a small amount of mesenteric air, as well as a small bubble of air just outside the right colon, concerning for potential microperforation. There is no evidence of wall thickening to suggest mesenteric ischemia, and no other abnormality to explain the patient's pain. I discussed this case with Dr. Antony of general surgery, and he reviewed the CT scan. He recommends managing her with antibiotics and admission given her pain, though notes that the CT actually looks improved from her most recent prior. The patient was graciously accepted for admission to the hospitalist service, remained hemodynamically appropriate throughout her time under my care, was transferred from our department without incident. Cecilia Kaur MD Quality:SDOH Health Related Social Needs: Health related social needs daily activities PFSH All Active Problems (Updated 07/19/25 @ 19:46 by Cecilia Kaur MD) Abdominal pain (Acute) Advanced care planning/counseling discussion (Acute) Chronic GERD (Acute) History of seizure disorder (Acute) Asymptomatic bacteriuria (Acute) Metabolic dysfunction-associated steatotic liver disease (MASLD) (Chronic) COPD (chronic obstructive pulmonary disease) (Chronic) Diabetes mellitus type 2, insulin dependent (Acute) Acquired pancytopenia (Acute) Pneumatosis coli (Acute) Ischemia, bowel (Acute) Hyponatremia (Acute) Edema of both lower legs (Acute) 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 (Acute) Hemorrhoid (Acute) Irritation of vulva (Acute) Nail dystrophy (Acute) Medical History (Updated 07/19/25 @ 19:46 by Cecilia Kaur MD) Constipation Thrombocytopenia Type 2 diabetes mellitus Pancytopenia Liver 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) Surgical History (Updated 04/12/25 @ 00:33 by Ernesto Ruff MD) S/P cholecystectomy S/P hysterectomy S/P TIPS (transjugular intrahepatic portosystemic shunt) Social History Smoking/Tobacco Use Status: Never Smoking risk assessment performed?: Yes Alcohol Intake: never Drug use: Never Substance use type: does not use Housing: jail Do you feel safe at home: Yes Do you feel safe in your relationship?: Yes Additional Social history: lives at the [facility]
[2025-07-19 15:06] LABS: Abs Immature Grans 0.01 10^3/uL (0.0-0.06); HCT 32.8 % (36.0-46.0); HGB 12.0 g/dL (11.2-15.7); Immature Grans % 0.3 %; MCH 31.5 pg (27.0-33.0); MCHC 36.6 % (32.0-36.0); MCV 86 fL (80-95); MPV 9.4 fL (8.0-11.0); RBC 3.81 10^6/uL (3.93-5.22); RDW 14.9 % (11.7-14.6); RDW-SD 46.7 fL; WBC 3.97 10^3/uL (4.4-10.8)
[2025-07-19] MEDS: Lactated Ringers 1,000 ML 1000 ML IV (15:06)
[2025-07-19 15:15] LABS: INR 1.1 (0.9-1.1); Prothrombin Time 11.3 sec (9.1-11.1)
[2025-07-19 15:16] LABS: Platelet Count 90 10^3/uL (130-400); RBC Morphology Normal
[2025-07-19] MEDS: Omnipaque 350 MG/ML 100 ML BTL IJ (15:23)
[2025-07-19] MEDS: Normal Saline Flush 10 ML SYR IVP ×2 (15:23→23:23)
[2025-07-19] MEDS: Normal Saline - Diluent 50 ML VIAL IJ (15:23)
[2025-07-19 15:26] LABS: Magnesium 1.8 mg/dL (1.6-2.6)
[2025-07-19 15:28] LABS: ALT 22 U/L (10-49); AST 41 U/L (<34); Albumin 4.1 g/dL (3.2-5.0); Alkaline Phosphatase 103 U/L (46-116); Anion Gap 7.2 mmol/L (3-11); BUN 16 mg/dL (9-23); Bilirubin, Total 4.20 mg/dL (0.2-1.2); CO2 30.3 mmol/L (20.0-31.0); Calcium 9.4 mg/dL (8.3-10.6); Chloride 90 mmol/L (98-107); Glucose 139 mg/dL (74-106); Potassium 4.2 mmol/L (3.5-5.1); Sodium 128 mmol/L (136-145); Total Protein 6.5 g/dL (5.7-8.2)
[2025-07-19 15:40] LABS: Lipase 64 U/L (<53)
[2025-07-19 15:42] LABS: Troponin I 9 ng/L (<35)
[2025-07-19] MEDS: Trimethobenzamide 200 MG/2 ML VIAL IM (15:54)
--- NOTE | 2025-07-19 15:57 | DI.VRAD_ITS ---
PROCEDURE INFORMATION: Exam: CT Abdomen And Pelvis With Contrast Exam date and time: 07/19/2025 3:23 PM Age: 70 years old Clinical indication: Other: Abd pain TECHNIQUE: Imaging protocol: Computed tomography of the abdomen and pelvis with contrast. Radiation optimization: All CT scans at this facility use at least one of these dose optimization techniques: automated exposure control; mA and/or kV adjustment per patient size (includes targeted exams where dose is matched to clinical indication); or iterative reconstruction. Contrast material: OMNI 350 GIVEN; Contrast volume: 75 ml; Contrast route: INTRAVENOUS (IV); COMPARISON: CT ABDOMEN PELVIS W 04/19/2025 3:45 PM FINDINGS: Liver: Tips shunt in place. There is internal contrast attenuation suggesting patency. Mild nodular change to the hepatic surface without focal lesion. Gallbladder and biliary ducts: Status post cholecystectomy. Pancreas: Normal. No ductal dilation. Spleen: Splenomegaly consistent with portal hypertension. The spleen measures up to 13.4 cm. Adrenal glands: Normal. No mass. Kidneys and ureters: Normal. No hydronephrosis. Stomach and bowel: Previously seen right-sided colonic pneumatosis has resolved. There is extraluminal mesenteric air seen in the left upper quadrant anteriorly presumably associated with the transverse colon. No definite pneumatosis is identified. There is no abnormal distension or bowel wall thickening. There may be a solitary extraluminal air focus adjacent to the right colon series 8, image 43. No anterior free intraperitoneal air is identified. Appendix: No evidence of appendicitis. Intraperitoneal space: See Stomach and bowel finding. Vasculature: See Spleen finding. Lymph nodes: Unremarkable. No enlarged lymph nodes. Urinary bladder: Unremarkable as visualized. Reproductive: Status post hysterectomy. Bones/joints: Moderate to severe lumbar spondylosis. Soft tissues: Unremarkable. IMPRESSION: 1. Left upper quadrant extraluminal air within the mesentery. Etiology not evident. Possible trace extraluminal air adjacent to the right colon. No definite pneumatosis is identified. 2. Hepatic changes consistent with known cirrhosis. Tips shunt as seen previously appears patent. No change splenomegaly. I discussed case findings with Cecilia Kaur 07/19/2025 3:55 PM EST. Dictated and Authenticated by: Milvia Baig MD. Orderin [facility] MD
[2025-07-19 16:22] VITALS: BP 133/71; PULSE 72; RESP 18; O2SAT 97
[2025-07-19 16:27] LABS: Troponin I 6 ng/L (<35)
[2025-07-19 16:34] LABS: Glucose Negative (Negative)
[2025-07-19] MEDS: PIPERACILLIN/TAZO 4.5 GM in Normal Saline 100 ML IVPB (17:01)
--- NOTE | 2025-07-19 17:28 | W.PM.HP.N ---
Date of service: 07/19/25 Time of Service: 17:28 Assessment and Plan Assessment and plan (1) Abdominal pain: Status: Acute Assessment and plan: work up in the ED shows possible microperforation of bowel with CT findings: IMPRESSION: 1. Extraluminal air in the left abdomen associated with the transverse colon. This is of uncertain etiology. There is no free fluid in the abdomen or bowel wall thickening present. 2. Asymmetric endplate changes at L4-L5 which may reflect progressive degenerative changes. Infection cannot be entirely excluded. Please correlate clinically. 3. Findings consistent with hepatic cirrhosis with a known TIPS. Splenomegaly. white count normal, lactic normal, no fever. surgical consultation zosyn q6h clear liquids for now. (2) Hyponatremia: Status: Acute Assessment and plan: Na 128, which is above her baseline follow labs closely (3) Metabolic dysfunction-associated steatotic liver disease (MASLD): Status: Chronic Assessment and plan: Chronic with subsequent cirrhosis Sees [facility] palliative care has seen her in the past, consult ordered for continuity of care Ongoing lactulose, spironolactone, torsemide, rifaximin (4) Acquired pancytopenia: Status: Acute Assessment and plan: platelets stable at 90 which is above her baseline Secondary to cirrhosis INR 1.1 high risk for DVT, placed on enoxaparin, monitor closely for bleeding. (5) Diabetes mellitus type 2, insulin dependent: Status: Acute Assessment and plan: Finger stick AC and HS with SSI coverage moderate correctional scale Home regimen reportedly degludec 40 BID, decreased to 20 u BID adjust as needed. (6) COPD (chronic obstructive pulmonary disease): Status: Chronic Assessment and plan: no exacerbation albuterol PRN (7) History of seizure disorder: Status: Acute Assessment and plan: stable, continue home dose levetiracetam (8) Chronic GERD: Status: Acute Assessment and plan: Continue home dose PPI Discussed with Dr. Dawson History of Present Illness Narrative: presents to the ED with c/o abd pain, complex GI history with cirrhosis s/p TIPS, no fever. She reports that she has had the pain for approximately 1 week it is in the right lower quadrant. Denies any similar history. No nausea vomiting. States that her bowels have moving at baseline as she takes laxatives for her cirrhosis. Denies any constipation or diarrhea. No fever, work up in the ED concerning for microperforation with extraluminal air in the left abdomen associated with the transverse colon found on CT scan. Her case discussed with general surgery who recommends hospitalist admission on zon, surgery to follow. labs show no white count and normal lactic acid. she was found hypotensive and responded to IV fluid hydration bolus. Review of Systems All systems reviewed & are unremarkable except as noted in HPI and below PFSH All Active Problems (Updated 07/19/25 @ 17:33 by Lauren Blair NP) Abdominal pain (Acute) Advanced care planning/counseling discussion (Acute) Chronic GERD (Acute) History of seizure disorder (Acute) Asymptomatic bacteriuria (Acute) Metabolic dysfunction-associated steatotic liver disease (MASLD) (Chronic) COPD (chronic obstructive pulmonary disease) (Chronic) Diabetes mellitus type 2, insulin dependent (Acute) Acquired pancytopenia (Acute) Pneumatosis coli (Acute) Ischemia, bowel (Acute) Hyponatremia (Acute) Edema of both lower legs (Acute) 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) Hemorrhoid (Acute) Irritation of vulva (Acute) Nail dystrophy (Acute) Medical History (Updated 07/19/25 @ 17:33 by Lauren Blair NP) Constipation Thrombocytopenia Type 2 diabetes mellitus Pancytopenia Liver 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) Surgical History (Updated 04/12/25 @ 00:33 by Ernesto Ruff MD) S/P cholecystectomy S/P hysterectomy S/P TIPS (transjugular intrahepatic portosystemic shunt) Social History Smoking/Tobacco Use Status: Never Smoking risk assessment performed?: Yes Alcohol Intake: never Drug use: Never Substance use type: does not use Housing: assisted Do you feel safe at home: Yes Do you feel safe in your relationship?: Yes Additional Social history: lives at the [facility] Allergies and Home Medications Allergies Allergy/AdvReac Type Severity Reaction Status Date / Time amitriptyline Allergy Intermediate Unknown Verified 07/19/25 14:21 azithromycin Allergy Intermediate Unknown Verified 07/19/25 14:21 ciprofloxacin Allergy Intermediate Unknown Verified 07/19/25 14:21 codeine Allergy Intermediate Unknown Verified 07/19/25 14:21 cortisone Allergy Intermediate Unknown Verified 07/19/25 14:21 erythromycin base Allergy Intermediate Unknown Verified 07/19/25 14:21 guaifenesin (From Robitussin) Allergy Intermediate Unknown Verified 07/19/25 14:21 iron Allergy Intermediate Unknown Verified 07/19/25 14:21 metronidazole (From Flagyl) Allergy Intermediate Unknown Verified 07/19/25 14:21 morphine Allergy Intermediate Unknown Verified 07/19/25 14:21 oxycodone (From Percocet) Allergy Intermediate Unknown Verified 07/19/25 14:21 Penicillins Allergy Intermediate Unknown Verified 07/19/25 14:21 Sulfa (Sulfonamide Allergy Intermediate Unknown Verified 07/19/25 14:21 Antibiotics) acetaminophen Allergy Unknown Other (See Verified 07/19/25 14:21 Comment) cyclosporine Allergy Unknown Other (See Verified 07/19/25 14:21 Comment) fluticasone (From Advair Allergy Unknown Other (See Verified 07/19/25 14:21 Diskus) Comment) ibuprofen Allergy Unknown Other (See Verified 07/19/25 14:21 Comment) pregabalin (From Lyrica) Allergy Unknown Other (See Verified 07/19/25 14:21 Comment) salmeterol Allergy Unknown Other (See Verified 07/19/25 14:21 Comment) strawberry Allergy Unknown Other (See Verified 07/19/25 14:21 Comment) Home Medications ?Medication ?Instructions ?Recorded ?Confirmed ?Type albuterol 90 mcg/actuation aerosol 180 mcg inhalation .Q4 PRN 06/11/24 07/19/25 History inhaler epinephrine 0.3 mg/0.3 mL 0.3 ml subcut Q5-15M PRN 06/11/24 07/19/25 History injection, auto-injector insulin degludec 200 unit/mL (3 40 unit subcut BID 06/11/24 07/19/25 History mL) subcutaneous pen (Tresiba FlexTouch U-200 insulin) lactulose 10 gram/15 mL oral 30 g PO QID 06/11/24 07/19/25 History solution levetiracetam 1,000 mg tablet 1,000 mg PO BID 06/11/24 07/19/25 History pantoprazole 40 mg tablet,delayed 40 mg PO DAILY 06/11/24 07/19/25 History release (Protonix) rifaximin 550 mg tablet (Xifaxan) 550 mg PO BID 06/11/24 07/19/25 History umeclidinium 62.5 mcg/actuation 1 inh inhalation DAILY 06/11/24 07/19/25 History blister powder for inhalation (Incruse Ellipta) quetiapine 25 mg tablet (Seroquel) 25 mg PO BID 09/01/24 07/19/25 History torsemide 20 mg tablet 40 mg PO BID 09/01/24 07/19/25 History gabapentin 300 mg capsule 600 mg PO HS 11/13/24 07/19/25 History polyethylene glycol 3350 17 17 g PO BID 11/25/24 07/19/25 History gram/dose oral powder (ClearLax) spironolactone 50 mg tablet 50 mg PO DAILY 12/04/24 07/19/25 History hydrocortisone-pramoxine 1 %-1 % 1 applic [place] TID-QID PRN itching 03/12/25 07/19/25 Rx rectal cream #30 grams Acidophilus probiotic 0.5 mg PO BID 04/19/25 07/19/25 History bisacodyl 10 mg rectal suppository 10 mg [place] DAILY PRN 04/19/25 07/19/25 History cholecalciferol (vitamin D3) 50 50 mcg PO DAILY 04/19/25 07/19/25 History mcg (2,000 unit) capsule (Vitamin D3) folic acid 1 mg tablet 1 mg PO DAILY 04/19/25 07/19/25 History insulin lispro 100 unit/mL 1 sliding scale dose subcut TID 04/19/25 07/19/25 History subcutaneous pen magnesium L-lactate 84 mg 84 mg PO QID 04/19/25 07/19/25 History tablet,extended release nitrofurantoin macrocrystal 100 mg 100 mg PO BID 04/19/25 07/19/25 History capsule Exam Narrative Exam Narrative: chronically ill appearing female, no acute distress, ambulating independently, gait steady, head atraumatic, normocephalic, oral mucosa slightly dry. CV RRR, resp even and unlabored, abdomen obese, soft tender right lower quad, no guarding or rebound. neurologic awake alert and oriented. psych blunted mood and affect. cooperative and pleasant. bilateral lower extremities with trace edema. Results Labs 07/19/25 14:50 07/19/25 14:50 Labs: Laboratory Results - last 24 hr 07/19/25 07/19/2525 14:50 16:07 16:20 WBC 3.97 L RBC 3.81 L Hgb 12.0 Hct 32.8 L MCV 86 MCH 31.5 MCHC 36.6 H RDW 14.9 H Plt Count 90 L MPV 9.4 Immature Gran % 0.3 Neutrophils % 67.1 Lymphocytes % 22.4 Monocytes % 8.1 Eosinophils % 1.8 Basophils % 0.3 Nucleated RBC % 0.0 Absolute Neutrophils 2.66 Absolute Lymphocytes 0.89 L Absolute Monocytes 0.32 Absolute Eosinophils 0.07 Absolute Basophils 0.01 RBC Morphology Normal PT 11.3 H INR 1.1 VBG Lactate 1.8 Sodium 128 L Potassium 4.2 Chloride 90 L Carbon Dioxide 30.3 Anion Gap 7.2 BUN 16 Creatinine 0.86 Est GFR (CKD-EPI 2020) 65.42 Glucose 139 H Calcium 9.4 Magnesium 1.8 Total Bilirubin 4.20 H AST 41 H ALT 22 Alkaline Phosphatase 103 Troponin I 9 6 Total Protein 6.5 Albumin 4.1 Lipase 64 H Urine Color Yellow Urine Clarity Clear Urine pH 8.0 Ur Specific [place] 1.010 Urine Protein Negative Urine Ketones Negative Urine Blood Negative Urine Nitrite Negative Urine Bilirubin Negative Urine Urobilinogen 0.2 Ur Leukocyte Esterase Negative Urine Glucose Negative 07/19/25 17:19 WBC RBC Hgb Hct MCV MCH MCHC RDW Plt Count MPV Immature Gran % Neutrophils % Lymphocytes % Monocytes % Eosinophils % Basophils % Nucleated RBC % Absolute Neutrophils Absolute Lymphocytes Absolute Monocytes Absolute Eosinophils Absolute Basophils RBC Morphology PT INR VBG Lactate Sodium Potassium Chloride Carbon Dioxide Anion Gap BUN Creatinine Est GFR (CKD-EPI 2020) Glucose Calcium Magnesium Total Bilirubin AST ALT Alkaline Phosphatase Troponin I Cancelled Total Protein Albumin Lipase Urine Color Urine Clarity Urine pH Ur Specific [place] Urine Protein Urine Ketones Urine Blood Urine Nitrite Urine Bilirubin Urine Urobilinogen Ur Leukocyte Esterase Urine Glucose Last Vital Signs Temp 37.0 C 07/19/25 14:08 Pulse 72 07/19/25 16:22 Resp 18 07/19/25 16:22 BP 133/71 07/19/25 16:22 Pulse Ox 97 07/19/25 16:22 VTE Prohylaxis Risk Level: Moderate/High Risk Contraindications: None Prophylaxis: Pharmacologic and Mechanical Time Spent Time spent with Patient: 55-74 minutes Time was spent: preparing to see the patient(eg.review tests), obtaining and/or reviewing separately otained hiistory, ordering medications,tests, procedures, indepentently interpreting results and counseling the patient
--- NOTE | 2025-07-19 18:27 | W.PC.ACHO ---
Registration Status: REG ER Primary Language: Preferred Language: ED Information & Data Chief Complaint Abd Prob 07/19/25 14:30 Triage Note Per EMS, pt C/O RLQ pain 07/19/25 14:08 radiating down to right groin x1 week. Pt reports nausea and diarrhea, denies vomiting. Takes lactulose and Miralax. Per EMS, pt declined both today. Reports pain 9/10. Urine collected at facility and results pending. Medical / Surgical History (Last Reviewed 04/11/25 @ 22:34 by Ernesto Ruff MD) Constipation Thrombocytopenia Type 2 diabetes mellitus Pancytopenia Liver 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) (Last Updated 04/12/25 @ 00:33 by Ernesto Ruff MD) S/P cholecystectomy S/P hysterectomy S/P TIPS (transjugular intrahepatic portosystemic shunt) Most Recent Vital Signs Temperature 37.0 C 07/19/25 14:08 Temperature Source Oral 07/19/25 14:08 Pulse 72 07/19/25 16:22 Respiratory Rate 18 07/19/25 16:22 Blood Pressure 133/71 07/19/25 16:22 Blood Pressure Mean 91 07/19/25 16:22 Blood Pressure Position Supine 07/19/25 14:08 Pulse Oximetry 97 07/19/25 16:22 Oxygen Delivery Method Room Air 07/19/25 16:22 Oxygen Flow Rate 0 07/19/25 16:22 Pain Level 9 07/19/25 16:22 Comment RLQ pain that radiates to right groin to knee 07/19/25 14:08 Allergies amitriptyline Allergy (Intermediate, Verified 07/19/25 14:21) Unknown azithromycin Allergy (Intermediate, Verified 07/19/25 14:21) Unknown ciprofloxacin Allergy (Intermediate, Verified 07/19/25 14:21) Unknown codeine Allergy (Intermediate, Verified 07/19/25 14:21) Unknown cortisone Allergy (Intermediate, Verified 07/19/25 14:21) Unknown erythromycin base Allergy (Intermediate, Verified 07/19/25 14:21) Unknown guaifenesin (From Robitussin) Allergy (Intermediate, Verified 07/19/25 14:21) Unknown iron Allergy (Intermediate, Verified 07/19/25 14:21) Unknown metronidazole (From Flagyl) Allergy (Intermediate, Verified 07/19/25 14:21) Unknown morphine Allergy (Intermediate, Verified 07/19/25 14:21) Unknown oxycodone (From Percocet) Allergy (Intermediate, Verified 07/19/25 14:21) Unknown Penicillins Allergy (Intermediate, Verified 07/19/25 14:21) Unknown Sulfa (Sulfonamide Antibiotics) Allergy (Intermediate, Verified 07/19/25 14:21) Unknown acetaminophen Allergy (Unknown, Verified 07/19/25 14:21) Other (See Comment) per [facility] cyclosporine Allergy (Unknown, Verified 07/19/25 14:21) Other (See Comment) per [facility] fluticasone (From Advair Diskus) Allergy (Unknown, Verified 07/19/25 14:21) Other (See Comment) per [facility] ibuprofen Allergy (Unknown, Verified 07/19/25 14:21) Other (See Comment) per [facility] pregabalin (From Lyrica) Allergy (Unknown, Verified 07/19/25 14:21) Other (See Comment) per [facility] salmeterol Allergy (Unknown, Verified 07/19/25 14:21) Other (See Comment) per [facility] strawberry Allergy (Unknown, Verified 07/19/25 14:21) Other (See Comment) per [facility] Active Medications Generic Name Dose Route Start Last Admin Trade Name Freq PRN Reason Stop Dose Admin Iohexol 100 ml 07/19/25 15:30 07/19/25 15:23 Omnipaque 350 Mg/Ml 100 Ml Btl IJ 08/18/25 23:59 100 ml DIRECTED YVROSE Administration Sodium Chloride 0 ml 07/19/25 20:00 07/19/25 15:23 Normal Saline Flush 10 Ml Syr IVP 10 ml BID YVROSE Administration Sodium Chloride 50 ml 07/19/25 15:30 07/19/25 15:23 Normal Saline - Diluent 50 Ml Vial IJ 50 ml DIRECTED YVROSE Administration IV IV Catheter Gauge [Right 20 Antecubital] Diagnostics 07/19/25 07/19/25 07/19/25 Range/Units 17:43 17:19 16:20 WBC (4.4-10.8) 10^3/uL RBC (3.93-5.22) 10^6/uL Hgb (11.2-15.7) g/dL Hct (36.0-46.0) % MCV (80-95) fL MCH (27.0-33.0) pg MCHC (32.0-36.0) % RDW (11.7-14.6) % Plt Count (130-400) 10^3/uL MPV (8.0-11.0) fL Immature Gran % % Neutrophils % % Lymphocytes % % Monocytes % % Eosinophils % % Basophils % % Nucleated RBC % (0.0-0.3) % Absolute Neutrophils (1.2-6.7) 10^3/uL Absolute Lymphocytes (1.2-3.4) 10^3/uL Absolute Monocytes (0.1-0.8) 10^3/uL Absolute Eosinophils (0.0-0.7) 10^3/uL Absolute Basophils (0.0-0.2) 10^3/uL RBC Morphology PT (9.1-11.1) sec INR (0.9-1.1) VBG Lactate (<or=2.0) mmol/L Sodium (136-145) mmol/L Potassium (3.5-5.1) mmol/L Chloride (98-107) mmol/L Carbon Dioxide (20.0-31.0) mmol/L Anion Gap (3-11) mmol/L BUN (9-23) mg/dL Creatinine (0.55-1.02) mg/dL Est GFR (CKD-EPI 2020) (mL/min/1.73m2) Glucose (74-106) mg/dL Calcium (8.3-10.6) mg/dL Magnesium (1.6-2.6) mg/dL Total Bilirubin (0.2-1.2) mg/dL AST (<34) U/L ALT (10-49) U/L Alkaline Phosphatase (46-116) U/L Troponin I Cancelled (<35) ng/L Total Protein (5.7-8.2) g/dL Albumin (3.2-5.0) g/dL Lipase (<53) U/L Urine Color Yellow (Yellow) Urine Clarity Clear (Clear) Urine pH 8.0 (5-8) Ur Specific [place] 1.010 (1.005-1.025) Urine Protein Negative (Neg-Trace) mg/dL Urine Ketones Negative (Negative) mg/dL Urine Blood Negative (Negative) Urine Nitrite Negative (Negative) Urine Bilirubin Negative (Negative) Urine Urobilinogen 0.2 (Up to 0.2) mg/dL Ur Leukocyte Esterase Negative (Negative) Urine Glucose Negative (Negative) mg/dL MRSA (TEM-PCR) Pending 07/19/25 07/19/25 Range/Units 16:07 14:50 WBC 3.97 L (4.4-10.8) 10^3/uL RBC 3.81 L (3.93-5.22) 10^6/uL Hgb 12.0 (11.2-15.7) g/dL Hct 32.8 L (36.0-46.0) % MCV 86 (80-95) fL MCH 31.5 (27.0-33.0) pg MCHC 36.6 H (32.0-36.0) % RDW 14.9 H (11.7-14.6) % Plt Count 90 L (130-400) 10^3/uL MPV 9.4 (8.0-11.0) fL Immature Gran % 0.3 % Neutrophils % 67.1 % Lymphocytes % 22.4 % Monocytes % 8.1 % Eosinophils % 1.8 % Basophils % 0.3 % Nucleated RBC % 0.0 (0.0-0.3) % Absolute Neutrophils 2.66 (1.2-6.7) 10^3/uL Absolute Lymphocytes 0.89 L (1.2-3.4) 10^3/uL Absolute Monocytes 0.32 (0.1-0.8) 10^3/uL Absolute Eosinophils 0.07 (0.0-0.7) 10^3/uL Absolute Basophils 0.01 (0.0-0.2) 10^3/uL RBC Morphology Normal PT 11.3 H (9.1-11.1) sec INR 1.1 (0.9-1.1) VBG Lactate 1.8 (<or=2.0) mmol/L Sodium 128 L (136-145) mmol/L Potassium 4.2 (3.5-5.1) mmol/L Chloride 90 L (98-107) mmol/L Carbon Dioxide 30.3 (20.0-31.0) mmol/L Anion Gap 7.2 (3-11) mmol/L BUN 16 (9-23) mg/dL Creatinine 0.86 (0.55-1.02) mg/dL Est GFR (CKD-EPI 2020) 65.42 (mL/min/1.73m2) Glucose 139 H (74-106) mg/dL Calcium 9.4 (8.3-10.6) mg/dL Magnesium 1.8 (1.6-2.6) mg/dL Total Bilirubin 4.20 H (0.2-1.2) mg/dL AST 41 H (<34) U/L ALT 22 (10-49) U/L Alkaline Phosphatase 103 (46-116) U/L Troponin I 6 9 (<35) ng/L Total Protein 6.5 (5.7-8.2) g/dL Albumin 4.1 (3.2-5.0) g/dL Lipase 64 H (<53) U/L Urine Color (Yellow) Urine Clarity (Clear) Urine pH (5-8) Ur Specific [place] (1.005-1.025) Urine Protein (Neg-Trace) mg/dL Urine Ketones (Negative) mg/dL Urine Blood (Negative) Urine Nitrite (Negative) Urine Bilirubin (Negative) Urine Urobilinogen (Up to 0.2) mg/dL Ur Leukocyte Esterase (Negative) Urine Glucose (Negative) mg/dL MRSA (TEM-PCR) Intake and Output - 24 Hour Total 07/19/25 14:01 thru 07/19/25 17:32 Intake Total 1100 Balance 1100 Weight 86.1 kg Intake: IV 1100 Falls Risk Assessment History of Falls No History 07/19/25 14:14 Contributing Factors Unstable,Incontinence, 07/19/25 14:14 Medications Ambulatory Aids Independent 07/19/25 14:14 Tubes/Lines None 07/19/25 14:14 Gait Evaluation No gait disturbance 07/19/25 14:14 Cognition No cognitive impairment 07/19/25 14:14 Fall Total Score 9 07/19/25 14:14 Level of Risk Standard/Low Risk 07/19/25 14:14 Problems (Last Reviewed 04/11/25 @ 22:34 by Ernesto Ruff MD) Abdominal pain (Acute) Chronic GERD (Acute) History of seizure disorder (Acute) Metabolic dysfunction-associated steatotic liver disease (MASLD) (Chronic) COPD (chronic obstructive pulmonary disease) (Chronic) Diabetes mellitus type 2, insulin dependent (Acute) Acquired pancytopenia (Acute) Hyponatremia (Acute) Attestation Statement: By documenting the first initial, last name, and credentials of the reporting nurse below, both parties acknowledge that all relevant information regarding the patient handoff has been communicated, and that all questions have been addressed to ensure continuity and safety of care. Additional Patient Information/Comments: Report Received From: Catie RAMOS in ED at 18:27
[2025-07-19 18:41] VITALS: BP 142/62; PULSE 74; RESP 19; TEMP 36.9; O2SAT 97
[2025-07-19 19:01] LABS: MRSA PCR Negative (Negative)
--- NOTE | 2025-07-19 19:16 | W.SURGCON ---
Date of service: 07/19/25 Time of Service: 19:16 Assessment and Plan Assessment and plan (1) Abdominal pain: Status: Acute Assessment and plan: Although the CT scan does give the appearance of extraluminal air, especially in the area of the splenic flexure, the clinical picture really does not fit with a bowel perforation. Pain is not in the appropriate location, and her hemodynamics, biochemistry, and exam are all inconsistent with acute colonic perforation. Furthermore, her CT scan tonight certainly appears less concerning than the CT scan that was performed in March of this year, which had similar findings, but far more pneumatosis involving the ascending colon. Pneumatosis can also be seen on the CT scan in November of this year. She made a complete recovery from her hospitalization in March without any particular interventions. 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 For now, I think a short period of observation, with empiric antibiotic therapy seems like the safest course of action. It might also be useful to transition her off lactulose. There is also some evidence that Flagyl may be helpful in patients with benign pneumatosis. Obviously, if she has any significant change with regards to hemodynamics, or findings more consistent with diffuse peritonitis, then laparotomy, and likely colostomy would be the recommended therapy. History of Present Illness History of Present Illness Chief Complaint: abdominal pain Narrative: Reny is 70 years old. She comes to the emergency department with a chief complaint of abdominal pain. She says has been going on for about a week to a week and a half, and is mostly on the right side, originating towards the right groin, and radiating down into the right thigh. Over the past day or so she has developed a little bit of nausea associated with this. She denies any fevers or chills or any other systemic signs of infection. She has no new diarrhea. She does have some occasional blood in her stools, that she attributes to her history of hemorrhoids. This seems to be at the baseline. The emergency department, she is afebrile, and has a white blood cell count of 3.9. Differential is essentially normal. There are some abnormalities of her chemistries, but there generally better than her previous tests. In the emergency department, she underwent a CAT scan of the abdomen and pelvis. Relevant findings with regards to the consultation are abnormal air mostly in the left upper abdomen. Interpretation is concerning for extraluminal air, but it seems confined to the mesentery. There are no secondary signs of inflammation in the area. Review of Systems Constitutional Constitutional: Reports fatigue, Denies fever(s), Denies poor appetite and Denies weight loss Eyes Eyes: Reports system reviewed and no additional complaints, except as documented ENT Ears, Nose, Mouth, and Throat: Reports system reviewed and no additional complaints, except as documented Cardiovascular Cardiovascular: Reports system reviewed and no additional complaints, except as documented Respiratory Respiratory: Denies chest congestion and Denies cough Gastrointestinal Gastrointestinal: Reports abdominal pain, Denies belching, Denies bloating, Denies change in bowel habits, Denies coffee ground emesis and Reports loose stools Genitourinary Genitourinary: Reports system reviewed and no additional complaints, except as documented Musculoskeletal Musculoskeletal: Reports system reviewed and no additional complaints, except as documented Endocrine Endocrine: Reports fatigue Hematologic/Lymphatic Hematologic/Lymphatic: Denies easy bleeding and Denies easy bruising PFSH All Active Problems (Updated 07/19/25 @ 19:46 by Cecilia Kaur MD) Abdominal pain (Acute) Advanced care planning/counseling discussion (Acute) Chronic GERD (Acute) History of seizure disorder (Acute) Asymptomatic bacteriuria (Acute) Metabolic dysfunction-associated steatotic liver disease (MASLD) (Chronic) COPD (chronic obstructive pulmonary disease) (Chronic) Diabetes mellitus type 2, insulin dependent (Acute) Acquired pancytopenia (Acute) Pneumatosis coli (Acute) Ischemia, bowel (Acute) Hyponatremia (Acute) Edema of both lower legs (Acute) 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 (Acute) Hemorrhoid (Acute) Irritation of vulva (Acute) Nail dystrophy (Acute) Medical History (Updated 07/19/25 @ 19:46 by Cecilia Kaur MD) Constipation Thrombocytopenia Type 2 diabetes mellitus Pancytopenia Liver 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) Surgical History (Updated 04/12/25 @ 00:33 by Ernesto Ruff MD) S/P cholecystectomy S/P hysterectomy S/P TIPS (transjugular intrahepatic portosystemic shunt) Social History Smoking/Tobacco Use Status: Never Smoking risk assessment performed?: Yes Alcohol Intake: never Drug use: Never Substance use type: does not use Housing: house Do you feel safe at home: Yes Do you feel safe in your relationship?: Yes Additional Social history: lives at the [facility] Exam Const General: cooperative, comfortable and no acute distress Nutritional Appearance: obese Orientation: alert, awake and oriented x3 HENMT Head: normal to inspection Eyes General: appearance normal, both eyes and all related structures GI Inspection: normal to inspection, non-distended and large pannus Palpation: soft, no guarding and nontender Percussion: normal to percussion Auscultation: normal bowel sounds Results Last Vital Signs Temp 98.4 F 07/19/25 18:41 Pulse 74 07/19/25 18:41 Resp 19 07/19/25 18:41 BP 142/62 H 07/19/25 18:41 Pulse Ox 97 07/19/25 18:41 Labs 07/19/25 14:50 07/20/25 06:35 Labs: Laboratory Results - last 24 hr 07/19/25 07/19/25 07/19/25 14:50 16:07 16:20 WBC 3.97 L RBC 3.81 L Hgb 12.0 Hct 32.8 L MCV 86 MCH 31.5 MCHC 36.6 H RDW 14.9 H Plt Count 90 L MPV 9.4 Immature Gran % 0.3 Neutrophils % 67.1 Lymphocytes % 22.4 Monocytes % 8.1 Eosinophils % 1.8 Basophils % 0.3 Nucleated RBC % 0.0 Absolute Neutrophils 2.66 Absolute Lymphocytes 0.89 L Absolute Monocytes 0.32 Absolute Eosinophils 0.07 Absolute Basophils 0.01 RBC Morphology Normal PT 11.3 H INR 1.1 VBG Lactate 1.8 Sodium 128 L Potassium 4.2 Chloride 90 L Carbon Dioxide 30.3 Anion Gap 7.2 BUN 16 Creatinine 0.86 Est GFR (CKD-EPI 2020) 65.42 Glucose 139 H Calcium 9.4 Magnesium 1.8 Total Bilirubin 4.20 H AST 41 H ALT 22 Alkaline Phosphatase 103 Troponin I 9 6 Total Protein 6.5 Albumin 4.1 Lipase 64 H Urine Color Yellow Urine Clarity Clear Urine pH 8.0 Ur Specific [place] 1.010 Urine Protein Negative Urine Ketones Negative Urine Blood Negative Urine Nitrite Negative Urine Bilirubin Negative Urine Urobilinogen 0.2 Ur Leukocyte Esterase Negative Urine Glucose Negative 07/19/25 17:19 WBC RBC Hgb Hct MCV MCH MCHC RDW Plt Count MPV Immature Gran % Neutrophils % Lymphocytes % Monocytes % Eosinophils % Basophils % Nucleated RBC % Absolute Neutrophils Absolute Lymphocytes Absolute Monocytes Absolute Eosinophils Absolute Basophils RBC Morphology PT INR VBG Lactate Sodium Potassium Chloride Carbon Dioxide Anion Gap BUN Creatinine Est GFR (CKD-EPI 2020) Glucose Calcium Magnesium Total Bilirubin AST ALT Alkaline Phosphatase Troponin I Cancelled Total Protein Albumin Lipase Urine Color Urine Clarity Urine pH Ur Specific [place] Urine Protein Urine Ketones Urine Blood Urine Nitrite Urine Bilirubin Urine Urobilinogen Ur Leukocyte Esterase Urine Glucose Imaging Abdomen CT scan report/results: report reviewed and image reviewed CT scan - pelvis: report reviewed and image reviewed
[2025-07-19 20:34] VITALS: BP 119/64; PULSE 72; RESP 18; TEMP 36.1; O2SAT 99
[2025-07-19] MEDS: HYDROmorphone 2 MG/ML SYR 1 MG IVP (22:28)
[2025-07-19] MEDS: PIPERACILLIN/TAZO 3.375 GM in Normal Saline 50 ML IVPB (22:32)
[2025-07-19] MEDS: Ondansetron 4 MG/2 ML VIAL IVP (23:22)
[2025-07-20] MEDS: Ondansetron 4 MG/2 ML VIAL IVP (06:02)
[2025-07-20] MEDS: PIPERACILLIN/TAZO 3.375 GM in Normal Saline 50 ML IVPB ×2 (06:02→12:00)
[2025-07-20 06:44] LABS: Abs Immature Grans 0.01 10^3/uL (0.0-0.06); HCT 31.2 % (36.0-46.0); HGB 11.3 g/dL (11.2-15.7); Immature Grans % 0.2 %; MCH 31.6 pg (27.0-33.0); MCHC 36.2 % (32.0-36.0); MCV 87 fL (80-95); MPV 9.3 fL (8.0-11.0); RBC 3.58 10^6/uL (3.93-5.22); RDW 14.8 % (11.7-14.6); RDW-SD 47.0 fL; WBC 4.02 10^3/uL (4.4-10.8)
[2025-07-20 07:10] LABS: ALT 19 U/L (10-49); AST 31 U/L (<34); Albumin 3.8 g/dL (3.2-5.0); Alkaline Phosphatase 96 U/L (46-116); Anion Gap 10 mmol/L (3-11); BUN 16 mg/dL (9-23); Bilirubin, Direct 1.1 mg/dL (<=0.3); Bilirubin, Total 3.90 mg/dL (0.2-1.2); CO2 26.2 mmol/L (20.0-31.0); Calcium 9.3 mg/dL (8.3-10.6); Chloride 96 mmol/L (98-107); Glucose 164 mg/dL (74-106); Potassium 4.1 mmol/L (3.5-5.1); Sodium 132 mmol/L (136-145); Total Protein 6.2 g/dL (5.7-8.2)
[2025-07-20 07:29] LABS: Platelet Count 72 10^3/uL (130-400); RBC Morphology Normal
[2025-07-20] MEDS: Lactated Ringers 1,000 ML 100 ML IV (07:33)
[2025-07-20 07:39] VITALS: BP 111/55; PULSE 68; RESP 16; TEMP 36.7; O2SAT 100
[2025-07-20] MEDS: Insulin Aspart 300 UNITS/3 ML PEN SC ×2 (08:46→12:19)
--- NOTE | 2025-07-20 08:52 | PDOC.CMIN ---
Date of service: 07/20/25 Time of Service: 08:52 Care Management Initial Assmt Initial Assessment Reason for Hospitalization: abdominal pain Functional Status/Living Situation Patient Presentation: Reny presented to the ED yesterday evening with c/o abdominal pain. Surgical consult obtained and she was started on IV abx. Reny was feeling much better this morning, and her lab work was improved. She tolerated solid food and is eager to return to the [facility]. CM confirmed that the [facility] will accept her back today. Reny was sitting on the edge of the bed when CM met with her today. She had already heard that she will be discharged today, and was very pleased with that. Reny was very pleasant with CM and stated that she plans to leave the [facility] and return to independent living, but for now the [facility] is family. Town of Residence: [place] at [facility] Resides with: Other (at [facility]) Significant Other/Family: Local (sister and niece visit with Reny) Caregiver/Guardian: the [facility] appointed legal guardian is Lorelei Rivera Employment Status: Unemployed Instrumental Activities of Daily Living (ADLs): Requires support Activities/Hobbies/SocialSupport: joins in the activities at [facility] Medications Medication Management: No Issues/Barriers identified Physical Functioning/Mobility Assistive Device: none Advance Directives Advance Directives: Do you have an Advance Directive: AD On File at [facility]: N 02/17/25, 13:32 Date Asked 07/19/25 07/19/25, 14:37 AD Date Reviewed COLST On File at [facility] COLST Date Scanned Code Status Resuscitation Status Full Code Code Status Comment: DNR/DNI Portal Pt does not currently have a portal and education provided: Yes Insurance Coverage/Financial Issues Insurance: AARP/[employer] [place] Replacement Medicaid of [place]? Care Team Visit Care Team Role Provider Type Alejandra Foster NP MD [facility] STAFF PHYSICIAN Laina Leal Primary Care Provider NON-[facility] STAFF PHYSICIAN Karine Tabares RDN, [facility] Other Providers SEARCH ENGINE OPTIMIZATION ANALYST Yonny Dong RDN Other Providers SEARCH ENGINE OPTIMIZATION ANALYST Domo Antony MD Other Providers [facility] STAFF PHYSICIAN Cecilia Kaur MD Emergency Provider [facility] STAFF PHYSICIAN Mynor Dawson MD Admit Provider [facility] STAFF PHYSICIAN Attending Provider Discharge Potential Discharge Needs: PCP F/U Appt and Surgical F/U Appt Anticipated Barriers to Discharge: None Identified Patient/Family Education Needs: Review discharge instructions, discuss Ask Me Three Transportation: [facility] Transportation: Private vechicle Plan: Reny will discharge back to the [facility] today. She will f/u with the facility provider and continue per her plan of care. She will transport via [facility] private vehicle. Social Determinants of Health Screening Social Determinants of health last assessed in clinic: 07/20/25 Will the Patient Participate in the Screening?: Yes Do you worry about having a steady place to live?: yes What is your living situation today?: I have housing today, but am worried about losing it Problems where you live: no known problems In the past 12 months, have you had to go without electric, gas, oil or water in your home?: no 1. Within the past 12 months, we worried whether our food would run out before we got money to buy more.: Don't know/refused 2. Within the past 12 months, the food we bought just didn't last and we didn't have money to get more.: Don't know/refused Has lack of transportation kept you from medical appointments or from doing things needed for daily living?: no Has anyone in your life made you feel unsafe or unsupported?: no How hard is it for you to pay for the very basics like food, housing, medical care, and heating? Would you say it is:: Not hard at all Do you want help finding or keeping work or a job?: I do not need or want help If for any reason you need help with day-to-day activities such as bathing, preparing meals, shopping, managing finances, etc., do you get the help you need?: I don?t need any help How often do you feel lonely or isolated from those around you?: Never Do you speak a language other than Albanian at home?: No Does the patient want assistance with any of the above?: No Health Related Social Needs Health related social needs: housing instability, housed, with risk of homelessness (Z59.811) Health related social needs details: patient live with sister does not worry about homelessness PFSH All Active Problems (Updated 07/19/25 @ 19:46 by Cecilia Kaur MD) Abdominal pain (Acute) Advanced care planning/counseling discussion (Acute) Chronic GERD (Acute) History of seizure disorder (Acute) Asymptomatic bacteriuria (Acute) Metabolic dysfunction-associated steatotic liver disease (MASLD) (Chronic) COPD (chronic obstructive pulmonary disease) (Chronic) Diabetes mellitus type 2, insulin dependent (Acute) Acquired pancytopenia (Acute) Pneumatosis coli (Acute) Ischemia, bowel (Acute) Hyponatremia (Acute) Edema of both lower legs (Acute) 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 (Acute) Hemorrhoid (Acute) Irritation of vulva (Acute) Nail dystrophy (Acute) Medical History (Updated 07/19/25 @ 19:46 by Cecilia Kaur MD) Constipation Thrombocytopenia Type 2 diabetes mellitus Pancytopenia Liver 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) Surgical History (Updated 04/12/25 @ 00:33 by Ernesto Ruff MD) S/P cholecystectomy S/P hysterectomy S/P TIPS (transjugular intrahepatic portosystemic shunt) Social History Smoking/Tobacco Use Status: Never Smoking risk assessment performed?: Yes Alcohol Intake: never Drug use: Never Substance use type: does not use Housing: house Do you feel safe at home: Yes Do you feel safe in your relationship?: Yes Additional Social history: lives at the [facility]
--- NOTE | 2025-07-20 09:10 | NUR.NOTE ---
08:30 this patient refused all meds except for insulin aspart. Education provided and Primary nurse updated.
[2025-07-20] MEDS: Cholecalciferol (Vitamin D3) 1,000 UNIT TAB 2000 UNITS PO (10:48)
[2025-07-20] MEDS: Torsemide 20 MG TAB 40 MG PO (10:58)
[2025-07-20] MEDS: Spironolactone 50 MG TAB PO (10:58)
[2025-07-20] MEDS: QUEtiapine 25 MG TAB PO (11:01)
[2025-07-20] MEDS: Rifaximin 550 MG TAB PO (11:01)
[2025-07-20] MEDS: Folic Acid 1 MG TAB PO (11:02)
[2025-07-20] MEDS: levETIRAcetam 500 MG TAB 1000 MG PO (11:02)
[2025-07-20] MEDS: Lactulose 20 GM/30 ML CUP 30 GM PO (11:04)
[2025-07-20] MEDS: Enoxaparin 40 MG/0.4 ML SYR SC (11:08)
[2025-07-20] MEDS: Insulin Glargine 300 UNITS/3 ML PEN 16 UNITS SC (12:01)
--- NOTE | 2025-07-20 12:12 | DSE_ITS ---
Date of service: 07/20/25 Time of Service: 12:13 DS: Diagnosis Discharge Diagnosis (1) Abdominal pain: Status: Acute (2) Pneumatosis coli: Status: Acute Discharge Plan Disposition Patient Disposition: [facility] Facility(SNF) Condition: Stable Condition: Fair Discharge Details Reason For Visit: Abd Pain Admit Date/Time: 07/19/25 17:26 Admit Provider: Mynor Dawson Attending Provider: Mynor Dawson Primary Care Provider: Laina Leal Hospital Course Hospital Course: This is a 70-year-old female, who presented to the [facility] ED with abdominal pain of 1?1.5 weeks? duration. Pain is primarily right-sided, radiating to the right groin and thigh. She reports mild nausea over the past day but denies fevers, chills, or new diarrhea. She has occasional blood in stools, consistent with baseline hemorrhoids. No other systemic symptoms reported. In the ED, vitals were stable. Labs showed mild cytopenias and electrolyte abnormalities. CT abdomen/pelvis revealed abnormal air in the left upper quadrant, concerning for extraluminal air but confined to the mesentery without secondary signs of inflammation. Imaging * CT abdomen/pelvis: Abnormal air in left upper quadrant/mesentery, consistent with benign pneumatosis coli; less extensive than prior imaging (March 2025). No secondary signs of bowel perforation or diffuse peritonitis. Acute abdominal pain ? Likely benign pneumatosis coli, possibly related to lactulose therapy. Clinical picture not consistent with acute colonic perforation. * Other comorbidities stable. * Observation for changes in abdominal pain or hemodynamics * Empiric antibiotic therapy (consider Flagyl for benign pneumatosis) * Consider transition off lactulose * Monitor labs and vital signs * Educate patient to seek immediate care for worsening pain, fever, or systemic symptoms * Surgical intervention (laparotomy/colostomy) if clinical deterioration or diffuse peritonitis occurs Surgery recommends emperic antibiotics. Patient has allergy to Flagyl and Cipro. Piperacillin-tazobactam: Patient was started on therapy without complications. Lactulose: Consider transitioning off; decision deferred to the primary provider at [facility]. Allergy Update / Delabeling: Patient has a historical penicillin allergy. During hospitalization, she was administered piperacillin-tazobactam (4.5 gm x 1 and 3.375 gm x 3) without any adverse reaction. Given the tolerance of this penicillin-class antibiotic, the penicillin allergy has been declassified/delabeled in the medical record. Patient and care team have been notified. Diet was advanced and tolerated. Patient is discharged on Augmentin twice a day orally x 5 days. She is discharged to the [facility]. Home Meds and New Rx's Prescriptions: New amoxicillin-pot clavulanate 875-125 mg tablet 1 tab PO BID Qty: 10 0RF No Action hydrocortisone-pramoxine 1-1 % cream 1 applic MN TID-QID PRN (Reason: itching) Qty: 30 1RF pantoprazole [Protonix] 40 mg tablet,delayed release (DR/EC) 40 mg PO DAILY levetiracetam 1,000 mg tablet 1,000 mg PO BID Incruse Ellipta 62.5 mcg/actuation blister with device 1 inh inhalation DAILY lactulose 10 gram/15 mL solution 30 g PO QID Xifaxan 550 mg tablet 550 mg PO BID insulin degludec [Tresiba FlexTouch U-200] 200 unit/mL (3 mL) insulin pen 40 unit subcut BID albuterol 90 mcg/actuation aerosol 180 mcg inhalation .Q4 PRN epinephrine 0.3 mg/0.3 mL auto-injector 0.3 ml subcut Q5-15M PRN Patient Comments: emergency use Rx Instructions: do not exceed 2 doses per episode torsemide 20 mg tablet 40 mg PO BID quetiapine [Seroquel] 25 mg tablet 25 mg PO BID gabapentin 300 mg capsule 600 mg PO HS spironolactone 50 mg tablet 50 mg PO DAILY cholecalciferol (vitamin D3) [Vitamin D3] 50 mcg (2,000 unit) capsule 50 mcg PO DAILY nitrofurantoin macrocrystal 100 mg capsule 100 mg PO BID Rx Instructions: Stop 04/20/25 magnesium L-lactate 84 mg tablet extended release 84 mg PO QID folic acid 1 mg tablet 1 mg PO DAILY Patient Comments: GIVE ONE TABLET BY MOUTH EVERY MORNING FOR SUPPLEMENT insulin lispro 100 unit/mL insulin pen 1 sliding scale dose SUBCUT TID Rx Instructions: Use per sliding scale SQ TID; inject 10 units SQ TID in addition to sliding scale; hold for BS <201 Acidophilus probiotic 0.5 mg tablet 0.5 mg PO BID bisacodyl 10 mg suppository 10 mg MN DAILY PRN polyethylene glycol 3350 [ClearLax] 17 gram/dose powder 17 g PO BID Discharge Instructions Additional Instructions: 1. Medications: * Piperacillin-tazobactam (Pip/Tazo): Patient has been started on therapy. Monitor for signs of allergic reaction, although she has tolerated this antibiotic despite a historical penicillin allergy. Allergy has been delabeled. * Augmentin twice a day for 5 days. * Lactulose: Consider tapering or discontinuing. Decision to be made by the primary provider at [facility]. 2. Monitoring: * Vital signs: Monitor routinely, especially for any changes in blood pressure, heart rate, respiratory status, or temperature. * Abdominal status: Observe for increased pain, distension, nausea, vomiting, or signs of peritonitis. Notify provider promptly if symptoms worsen. * Labs: Follow up on CBC, CMP, electrolytes, and liver function tests per provider?s orders. 3. Diet & Activity: * Encourage normal diet as tolerated. * Mobilize as tolerated; monitor for safety. 4. Follow-Up / Communication: * Provider at [facility] to assess whether lactulose should be continued or tapered. 5. Allergies: * Historical penicillin allergy delabeled. Documented tolerance to piperacillin- tazobactam. Referrals: Laina Leal [Primary Care Provider, Medicine] Referral Note: Your pcp will reach out to schedule your follow up Activity:: Activity as Tolerated Equipment/Supplies:: No Equipment Needed Diet:: As Tolerated Discharge Orders Discharge Orders: Discharge Order (Routine); Ordered 07/20/25 Ordered By: Alejandra Foster DS: Summary Time Spent with Patient providing and/or coordinating discharge services: Greater than 30 minutes Status at Discharge Functional status at discharge: independent ambulation Overall status at discharge: patient is back to baseline Mental Status: mental status grossly normal Speech and Movement: speech and movement normal Mood: congruent mood Affect: indifferent Quality:SDOH Health Related Social Needs: Health related social needs risk of homeless Health related social needs details patient live with sister does not worry about homelessness Health related social needs details: patient live with sister does not worry about homelessness Exam Narrative Exam Narrative: General: Cooperative, comfortable, no acute distress; obese HEENT: Normocephalic, atraumatic; eyes, ears, nose, mouth, and throat normal Cardiovascular: Regular rate and rhythm; no murmurs, rubs, or gallops Respiratory: Clear to auscultation bilaterally; no wheezes, rales, or rhonchi Abdomen: Soft, non-tender, non-distended; large pannus; normal bowel sounds; no guarding or rebound Musculoskeletal / Extremities: Normal range of motion; no edema reported Neurologic: Alert and oriented ?3 Skin: Intact; no rashes or lesions Psych Mental Status: mental status grossly normal Speech and Movement: speech and movement normal Mood: congruent mood Affect: indifferent DS: Data Vitals/I&O Vitals and I&O: Vital Signs Temperature 36.7 C 07/20/25 07:39 Temperature Source Temporal Artery Scan 07/20/25 07:39 Pulse 68 07/20/25 07:39 Respiratory Rate 16 07/20/25 07:39 Respiratory Effort Normal 07/19/25 20:31 Respiratory Depth Normal 07/19/25 20:31 Respiratory Pattern Normal 07/19/25 20:31 Blood Pressure 111/55 L 07/20/25 07:39 Blood Pressure Mean 73 07/20/25 07:39 Blood Pressure Position Supine 07/19/25 14:08 Pulse Oximetry 100 07/20/25 07:39 Oxygen Delivery Method Room Air 07/20/25 07:39 Oxygen Flow Rate 0 07/20/25 07:39 Pain Level 0 07/20/25 07:39 Comment see vitals on the chart 07/19/25 20:31 Intake & Output 07/19/25 07/20/25 07/20/25 23:59 11:59 23:59 Intake Total 1150 / 1150 50 / 50 Balance 1150 / 1150 50 / 50 Weight 86.1 kg Intake: IV 1150 / 1150 50 / 50 Other: Urine Appearance Clear Data Completed and Pending Pending Labs at Discharge: 07/19/25 07/19/25 07/19/25 14:50 16:07 16:20 WBC 3.97 L RBC 3.81 L Hgb 12.0 Hct 32.8 L MCV 86 MCH 31.5 MCHC 36.6 H RDW 14.9 H Plt Count 90 L MPV 9.4 Immature Gran % 0.3 Neutrophils % 67.1 Lymphocytes % 22.4 Monocytes % 8.1 Eosinophils % 1.8 Basophils % 0.3 Nucleated RBC % 0.0 Absolute Neutrophils 2.66 Absolute Lymphocytes 0.89 L Absolute Monocytes 0.32 Absolute Eosinophils 0.07 Absolute Basophils 0.01 RBC Morphology Normal PT 11.3 H INR 1.1 VBG Lactate 1.8 Sodium 128 L Potassium 4.2 Chloride 90 L Carbon Dioxide 30.3 Anion Gap 7.2 BUN 16 Creatinine 0.86 Est GFR (CKD-EPI 2020) 65.42 Glucose 139 H Calcium 9.4 Magnesium 1.8 Total Bilirubin 4.20 H Conjugated Bilirubin AST 41 H ALT 22 Alkaline Phosphatase 103 Troponin I 9 6 Total Protein 6.5 Albumin 4.1 Lipase 64 H Urine Color Yellow Urine Clarity Clear Urine pH 8.0 Ur Specific [place] 1.010 Urine Protein Negative Urine Ketones Negative Urine Blood Negative Urine Nitrite Negative Urine Bilirubin Negative Urine Urobilinogen 0.2 Ur Leukocyte Esterase Negative Urine Glucose Negative MRSA (TEM-PCR) 07/19/25 07/19/25 07/20/25 17:19 17:43 06:35 WBC 4.02 L RBC 3.58 L Hgb 11.3 Hct 31.2 L MCV 87 MCH 31.6 MCHC 36.2 H RDW 14.8 H Plt Count 72 L MPV 9.3 Immature Gran % 0.2 Neutrophils % 80.7 Lymphocytes % 13.7 Monocytes % 5.2 Eosinophils % 0.0 Basophils % 0.2 Nucleated RBC % 0.0 Absolute Neutrophils 3.24 Absolute Lymphocytes 0.55 L Absolute Monocytes 0.21 Absolute Eosinophils 0.00 Absolute Basophils 0.01 RBC Morphology Normal PT INR VBG Lactate Sodium 132 L Potassium 4.1 Chloride 96 L Carbon Dioxide 26.2 Anion Gap 10 BUN 16 Creatinine 0.93 Est GFR (CKD-EPI 2020) 59.77 Glucose 164 H Calcium 9.3 Magnesium Total Bilirubin 3.90 H Conjugated Bilirubin 1.1 H AST 31 ALT 19 Alkaline Phosphatase 96 Troponin I Cancelled Total Protein 6.2 Albumin 3.8 Lipase Urine Color Urine Clarity Urine pH Ur Specific [place] Urine Protein Urine Ketones Urine Blood Urine Nitrite Urine Bilirubin Urine Urobilinogen Ur Leukocyte Esterase Urine Glucose MRSA (TEM-PCR) Negative PFSH All Active Problems (Updated 07/19/25 @ 19:46 by Cecilia Kaur MD) Abdominal pain (Acute) Advanced care planning/counseling discussion (Acute) Chronic GERD (Acute) History of seizure disorder (Acute) Asymptomatic bacteriuria (Acute) Metabolic dysfunction-associated steatotic liver disease (MASLD) (Chronic) COPD (chronic obstructive pulmonary disease) (Chronic) Diabetes mellitus type 2, insulin dependent (Acute) Acquired pancytopenia (Acute) Pneumatosis coli (Acute) Ischemia, bowel (Acute) Hyponatremia (Acute) Edema of both lower legs (Acute) DEV TECHNICAL MGR exam for high-risk Medicare patient (Acute) Hemorrhoid (Acute) Irritation of vulva (Acute) Nail dystrophy (Acute) Medical History (Updated 07/19/25 @ 19:46 by Cecilia Kaur MD) Constipation Thrombocytopenia Type 2 diabetes mellitus Pancytopenia Liver 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) Surgical History (Updated 04/12/25 @ 00:33 by Ernesto Ruff MD) S/P cholecystectomy S/P hysterectomy S/P TIPS (transjugular intrahepatic portosystemic shunt) Social History Smoking/Tobacco Use Status: Never Smoking risk assessment performed?: Yes Alcohol Intake: never Drug use: Never Substance use type: does not use Housing: house Do you feel safe at home: Yes Do you feel safe in your relationship?: Yes Additional Social history: [facility] Time Spent with Patient Time Spent with Patient: 70-84 minutes4 Time was spent: preparing to see the patient(eg.review tests), ordering medications,tests, procedures, referring, communicating with other health customer care coordinator, indepentently interpreting results, counseling the patient and care coordination
--- NOTE | 2025-07-20 12:27 | NUR.NOTE ---
Nursing Note: Documentation by ASHA Hsu student reviewed.
[2025-07-20] MEDS: Umeclidinium 7 CAP INHALER 1 CAP IH (13:04)
[2025-07-20] MEDS: Magnesium Lactate-SR 84 MG TABCR PO (13:07)
--- NOTE | 2025-07-20 14:29 | W.NUTRFU ---
Date of service: 07/20/25 Time of Service: 14:29 Nutrition Note NOTE: Rec'd consult request for diabetes ed/mgt. Most recent A1C 05/04/25 During admission fingersticks have been 200-270, fasting glucose a little lower (164 this morning). Pt resides at [facility] where meals and supplied and receives help with glucose monitoring/mgt. home meds inculde insulin degludec 40u bid and lispor on sliding scale does at meals for corrections. Pt with stable weight over the last year. Good po intake reported over this admission - discharge anticipated shortly. Was able to visit briefly today - no significant questions. Does like occ sweets and refined starches are more common on the menu than higher fiber options where she resides. Encouraged continued limits on added sugar - advised <40g per day. Pt aware of outpatient services if she would like continued support/guidance on food choices. SGLT-2i or GLP-1 could be considered as combination therapy options for tighter glucose control and/or weigt reduction to help with insulin resistance. Time Spent in Nutritional Counseling and Treatment: 5 min
== END 2025-07-20 14:15 | disposition skilled nursing facility (03) ==
LOC: ER 16:55 → MS 18:35
PROVIDERS: Nurse Practitioner Acute Care; Admitting Provider Family Medicine; Emergency Provider Emergency Medicine; PCP Legal Medicine; Responsible Provider Nurse Practitioner Family; Visit Provider Family Medicine
DX: K63.89 Other specified diseases of intestine (principal); R10.32 Left lower quadrant pain; E87.1 Hypo-osmolality and hyponatremia; K76.0 Fatty (change of) liver, not elsewhere classified; D61.818 Other pancytopenia; E11.9 Type 2 diabetes mellitus without complications; J44.9 Chronic obstructive pulmonary disease, unspecified; Z79.4 Long term (current) use of insulin; K21.9 Gastro-esophageal reflux disease without esophagitis; G40.909 Epilepsy, unspecified, not intractable, without status epilepticus; E66.9 Obesity, unspecified; Z68.37 Body mass index [BMI] 37.0-37.9, adult; K64.9 Unspecified hemorrhoids; Z59.811 Housing instability, housed, with risk of homelessness
CPT/HCPCS: 00123; 36415; 80048; 80053; 80076; 83690; 87641; 93005; 94640; 96361; 96365; 96375; 99222; 99285; J1650; 74177; 81003; 83605; 83735; 84484; 85025; 85610; 93010; 94664; 99223; 99239; G0378; J1171; J1815; J2405; J2543; J3250; J3490

== ENCOUNTER 2025-07-27 17:37 | Outpatient (REF) | payer MEDICARE, MEDICAID, SELFPAY ==
[2025-07-27 18:31] LABS: Abs Immature Grans 0.01 10^3/uL (0.0-0.06); HCT 30.5 % (36.0-46.0); HGB 10.5 g/dL (11.2-15.7); Immature Grans % 0.3 %; MCH 30.6 pg (27.0-33.0); MCHC 34.4 % (32.0-36.0); MCV 89 fL (80-95); MPV 10.4 fL (8.0-11.0); RBC 3.43 10^6/uL (3.93-5.22); RDW 14.8 % (11.7-14.6); RDW-SD 47.9 fL; WBC 3.98 10^3/uL (4.4-10.8)
[2025-07-27 18:44] LABS: Platelet Count 70 10^3/uL (130-400); RBC Morphology Normal
[2025-07-27 18:50] LABS: ALT 32 U/L (10-49); AST 39 U/L (<34); Albumin 3.9 g/dL (3.2-5.0); Alkaline Phosphatase 92 U/L (46-116); Anion Gap 9.7 mmol/L (3-11); BUN 18 mg/dL (9-23); Bilirubin, Total 2.20 mg/dL (0.2-1.2); CO2 29.2 mmol/L (20.0-31.0); Calcium 9.1 mg/dL (8.3-10.6); Chloride 95 mmol/L (98-107); Glucose 159 mg/dL (74-106); Potassium 3.6 mmol/L (3.5-5.1); Sodium 134 mmol/L (136-145); Total Protein 5.8 g/dL (5.7-8.2)
== END 2025-07-27 17:38 | disposition home or self-care (01) ==
LOC: LBN 17:37
PROVIDERS: PCP Legal Medicine; Visit Provider Nurse Practitioner Gerontology
DX: D63.1 Anemia in chronic kidney disease (principal); E87.8 Other disorders of electrolyte and fluid balance, not elsewhere classified
CPT/HCPCS: 80053; 85025

== ENCOUNTER 2025-08-03 18:26 | Emergency (ER) | payer MEDICARE, MEDICAID, SELFPAY ==
--- NOTE | 2025-08-03 18:30 | DI.CT_ITS ---
Exam(s) CT HEAD WO EXAM: CT HEAD WO CLINICAL HISTORY: Sz, vomiting. TECHNIQUE: Imaging Protocol: Axial computed tomography images with coronal and sagittal reformatted images were created and reviewed COMPARISON: CT CT HEAD WO from 06/11/[address] HEAD WO from 12/02/2024 FINDINGS: Ventricles and Extra axial spaces: Normal in size and morphology for the patient's age. Hemorrhage: None. Cerebral parenchyma: There is no evidence of an acute territorial infarct or mass effect. Midline shift: None. Brainstem/Cerebellum: Normal. Calvarium: Normal. Visualized Paranasal sinuses/Mastoids: Clear. Soft Tissues: Unremarkable. IMPRESSION: 1. No acute intracranial process. 2. The preliminary [facility] report was reviewed. RADIATION DOSE DELIVERED: 849.95mGy.cm Total DLP DATA REPOSITORY: All CT scans at this facility are submitted to the National Radiology Data Registry (NRDR) Dose Index Registry (DIR) with the [employer] (A[employer]). RADIATION OPTIMIZATION: All CT scans at this facility use at least one of these dose optimization techniques: automated exposure control; mA and/or kV adjustment per patient size (includes targeted exams where dose is matched to clinical indication); or iterative reconstruction.
[2025-08-03 18:51] VITALS: BP 128/65; PULSE 83; TEMP 36.8; O2SAT 94
[2025-08-03 19:05] VITALS: BP 128/65; PULSE 81; RESP 18; O2SAT 96
[2025-08-03 19:12] LABS: Abs Immature Grans 0.03 10^3/uL (0.0-0.06); HCT 30.5 % (36.0-46.0); HGB 11.0 g/dL (11.2-15.7); Immature Grans % 0.5 %; MCH 30.5 pg (27.0-33.0); MCHC 36.1 % (32.0-36.0); MCV 85 fL (80-95); MPV 10.4 fL (8.0-11.0); RBC 3.61 10^6/uL (3.93-5.22); RDW 14.2 % (11.7-14.6); RDW-SD 43.4 fL; WBC 5.57 10^3/uL (4.4-10.8)
--- NOTE | 2025-08-03 19:21 | DI.CT_ITS ---
Exam(s) CT ABDOMEN PELVIS W EXAM: CT ABDOMEN PELVIS W CLINICAL HISTORY: n/V/D TECHNIQUE: Imaging Protocol: Axial computed tomography images with coronal and sagittal reformatted images were created and reviewed. CONTRAST MATERIAL: Intravenous: Omnipaque 350 Contrast volume:75 mL Oral: No COMPARISON: CT CT CHEST/ABD/PEL W from 11/25/[address] ABDOMEN PELVIS W from 04/12/[address] ABDOMEN PELVIS W from 07/19/2025 FINDINGS: ABDOMEN: Lung Bases: There is small hiatal hernia. 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 Dependent atelectasis is seen in the lung bases. Liver: There is a patent TIPS in place. No measurable mass. Portal, Superior Mesenteric, and Splenic Veins: Unremarkable. Gallbladder and Biliary Tract: The gallbladder is absent. There is no biliary ductal dilatation. Pancreas: Normal density, no abnormal calcifications or inflammatory process. Spleen: The spleen is enlarged. Adrenals: No masses seen. Kidneys: Normal size, contour and axis. No radiodense stones or obstructive uropathy. No masses seen. Abdominal Aorta: Abdominal portion non-dilated. Atherosclerotic calcification is present. Bowel: There is fluid seen in the colon which may represent a diarrheal illness. There is no wall thickening seen in the colon. There is no evidence of bowel obstruction. Fluid-filled loops of small bowel are present. There is mild thickening of the wall of the stomach. This may be due to decreased distension but gastritis should also be considered. There is no evidence of an appendicitis. Peritoneal Cavity: No ascites, collection or mesenteric inflammatory response. There is still a small amount of extra luminal air in the left upper quadrant. This has significantly decreased compared to the prior examination. Lymph Nodes: There are few mildly prominent lymph nodes seen in the mesentery which may represent mesenteric adenitis. Bones: There is noted to be slight progression of the bone loss at the L4-5 facets and possibly at the L3-L4 disc space. Soft Tissues: Unremarkable. PELVIS: Bladder: Symmetric distention, no gross wall thickening. Reproductive Organs: Status post hysterectomy. Lymph Nodes: Within normal limits. Bones: Within normal limits for the patient's age. IMPRESSION: 1. There is wall thickening seen in the stomach which may be due to underdistention but gastritis should also be considered. 2. Significant interval decrease in the amount of free air seen within the abdomen with only a small amount of air seen in the left upper quadrant. 3. Slight progression of the bone loss seen at the L3-L4 disc space in the L4-L5 facets. While this may be due to worsening degenerative changes, infection should also be considered. Please correlate clinically. If clinically indicated, an MRI without and with contrast of the lumbar spine should be considered. 4. Fluid-filled loops of small and large bowel which may represent an enterocolitis. 5. Findings were discussed with Dr. Escobar at 9:07 a.m. on 08/04/2025. RADIATION DOSE DELIVERED: 639.25mGy.cm Total DLP DATA REPOSITORY: All CT scans at this facility are submitted to the National Radiology Data Registry (NRDR) Dose Index Registry (DIR) with the [employer] (ACR). RADIATION OPTIMIZATION: All CT scans at this facility use at least one of these dose optimization techniques: automated exposure control; mA and/or kV adjustment per patient size (includes targeted exams where dose is matched to clinical indication); or iterative reconstruction.
[2025-08-03 19:22] LABS: INR 1.1 (0.9-1.1); Prothrombin Time 11.0 sec (9.1-11.1)
--- NOTE | 2025-08-03 19:22 | W.ED.GENAD ---
Discharge Plan Disposition Patient Disposition: Home Condition: Improving Discharge Details Clinical Impression: Gastroenteritis, Colitis, Elevated lactic acid level, Acute dehydration, Breakthrough seizure Primary Care Provider: Laina Leal ED Provider: Cecilia Kaur Home Meds and New Rx's Prescriptions: New ondansetron 4 mg tablet,disintegrating 4 mg PO Q8H PRNQty: 7 0RF No Action hydrocortisone-pramoxine 1-1 % cream 1 applic KY TID-QID PRN (Reason: itching) Qty: 30 1RF pantoprazole [Protonix] 40 mg tablet,delayed release (DR/EC) 40 mg PO DAILY levetiracetam 1,000 mg tablet 1,000 mg PO BID Incruse Ellipta 62.5 mcg/actuation blister with device 1 inh inhalation DAILY lactulose 10 gram/15 mL solution 30 g PO QID Xifaxan 550 mg tablet 550 mg PO BID insulin degludec [Tresiba FlexTouch U-200] 200 unit/mL (3 mL) insulin pen 40 unit subcut BID albuterol 90 mcg/actuation aerosol 180 mcg inhalation .Q4 PRN epinephrine 0.3 mg/0.3 mL auto-injector 0.3 ml subcut Q5-15M PRN Patient Comments: emergency use Rx Instructions: do not exceed 2 doses per episode torsemide 20 mg tablet 40 mg PO BID quetiapine [Seroquel] 25 mg tablet 25 mg PO BID gabapentin 300 mg capsule 600 mg PO HS spironolactone 50 mg tablet 50 mg PO DAILY cholecalciferol (vitamin D3) [Vitamin D3] 50 mcg (2,000 unit) capsule 50 mcg PO DAILY nitrofurantoin macrocrystal 100 mg capsule 100 mg PO BID Rx Instructions: Stop 04/20/25 magnesium L-lactate 84 mg tablet extended release 84 mg PO QID folic acid 1 mg tablet 1 mg PO DAILY Patient Comments: GIVE ONE TABLET BY MOUTH EVERY MORNING FOR SUPPLEMENT insulin lispro 100 unit/mL insulin pen 1 sliding scale dose SUBCUT TID Rx Instructions: Use per sliding scale SQ TID; inject 10 units SQ TID in addition to sliding scale; hold for BS <201 Acidophilus probiotic 0.5 mg tablet 0.5 mg PO BID bisacodyl 10 mg suppository 10 mg [place] DAILY PRN polyethylene glycol 3350 [ClearLax] 17 gram/dose powder 17 g PO BID amoxicillin-pot clavulanate 875-125 mg tablet 1 tab PO BID Qty: 10 0RF Discharge Instructions Instructions: Viral gastroenteritis in adults Additional Instructions: You were seen in the emergency department today for evaluation of nausea with vomiting and diarrhea and a breakthrough seizure, likely due to dehydration. In our department you had a full physical examination performed, you had imaging studies of your brain which were reassuring, as well as your abdomen pelvis. This showed evidence of a diarrheal/GI bug, known as gastroenteritis and colitis. There was no sign of obstruction. Your lactic acid was elevated, a lab which can show dehydration. You did receive quite a bit of fluid here in the emergency department and were able to drink fluids after medication. It is so important that you continue to hydrate well at home. I do not recommend that you fluid restrict while you are still having nausea and vomiting. You will also need to take all of your medications as prescribed. To accomplish this I have provided you with a short course of nausea medication called Zofran, to ensure that you are able to stay hydrated and take all of your medicines. You received an intravenous dose of your seizure medication tonight. Your lactate has improved significantly but is not back to normal. This may be due to your liver dysfunction, but your outpatient provider should recheck your laboratory studies in the next few days to ensure that everything is improving as we expect. If you ever have a situation where you are unable to tolerate fluids, and cannot maintain your hydration you need to return to the emergency department immediately for reevaluation. Please follow-up with your primary care provider in the next few days to discuss this visit and any symptoms that change, worsen, or persist. Thank you for allowing us to be part of your care. Stand Alone Forms: Portal Information HPI General Mode of arrival: EMS. Date/Time Provider Initiated Documentation: 08/03/25 18:29. Limitations to Documentation: no limitations. Information obtained by: patient, EMS and old records reviewed. HPI Narrative: This is a 70-year-old female patient with a past medical history significant for seizure disorder, COPD, diabetes, Muñoz cirrhosis, status post TIPS, presenting for evaluation of nausea with vomiting and diarrhea as well as a breakthrough seizure. The patient has been ill with a stomach bug that is going around to the [facility], had several episodes of nonbloody vomiting today, and experienced a tonic-clonic seizure lasting approximately 45 seconds. The patient was postictal after this event, did not require rescue meds, she states that she is not sure if she has thrown up her medications given her recent illness. She states that she just feels generally unwell, no specific area of abdominal discomfort, denies chest pain, states that she is not experiencing a headache, is currently able to answer questions, move extremities and follow commands symmetrically. She states that she always has diarrhea and she takes lactulose for her cirrhosis, no blood reported. Related Data Home Medications ?Medication ?Instructions ?Recorded ?Confirmed albuterol 90 mcg/actuation aerosol 180 mcg inhalation .Q4 PRN 06/11/24 07/19/25 inhaler epinephrine 0.3 mg/0.3 mL 0.3 ml subcut Q5-15M PRN 06/11/24 07/19/25 injection, auto-injector insulin degludec 200 unit/mL (3 40 unit subcut BID 06/11/24 07/19/25 mL) subcutaneous pen (Tresiba FlexTouch U-200 insulin) lactulose 10 gram/15 mL oral 30 g PO QID 06/11/24 07/19/25 solution levetiracetam 1,000 mg tablet 1,000 mg PO BID 06/11/24 07/19/25 pantoprazole 40 mg tablet,delayed 40 mg PO DAILY 06/11/24 07/19/25 release (Protonix) rifaximin 550 mg tablet (Xifaxan) 550 mg PO BID 06/11/24 07/19/25 umeclidinium 62.5 mcg/actuation 1 inh inhalation DAILY 06/11/24 07/19/25 blister powder for inhalation (Incruse Ellipta) quetiapine 25 mg tablet (Seroquel) 25 mg PO BID 09/01/24 07/19/25 torsemide 20 mg tablet 40 mg PO BID 09/01/24 07/19/25 gabapentin 300 mg capsule 600 mg PO HS 11/13/24 07/19/25 polyethylene glycol 3350 17 17 g PO BID 11/25/24 07/19/25 gram/dose oral powder (ClearLax) spironolactone 50 mg tablet 50 mg PO DAILY 12/04/24 07/19/25 hydrocortisone-pramoxine 1 %-1 % 1 applic KY TID-QID PRN itching 03/12/25 07/19/25 rectal cream #30 grams Acidophilus probiotic 0.5 mg PO BID 04/19/25 07/19/25 bisacodyl 10 mg rectal suppository 10 mg [place] DAILY PRN 04/19/25 07/19/25 cholecalciferol (vitamin D3) 50 50 mcg PO DAILY 04/19/25 07/19/25 mcg (2,000 unit) capsule (Vitamin D3) folic acid 1 mg tablet 1 mg PO DAILY 04/19/25 07/19/25 insulin lispro 100 unit/mL 1 sliding scale dose subcut TID 04/19/25 07/19/25 subcutaneous pen magnesium L-lactate 84 mg 84 mg PO QID 04/19/25 07/19/25 tablet,extended release nitrofurantoin macrocrystal 100 mg 100 mg PO BID 04/19/25 07/19/25 capsule amoxicillin 875 mg-potassium 1 tab PO BID #10 tabs 07/20/25 clavulanate 125 mg tablet ondansetron 4 mg disintegrating 4 mg PO Q8H PRN #7 tabs 08/03/25 tablet Previous Rx's ?Medication ?Instructions ?Recorded hydrocortisone-pramoxine 1 %-1 % 1 applic KY TID-QID PRN itching 03/12/25 rectal cream #30 grams amoxicillin 875 mg-potassium 1 tab PO BID #10 tabs 07/20/25 clavulanate 125 mg tablet ondansetron 4 mg disintegrating 4 mg PO Q8H PRN #7 tabs 08/03/25 tablet Allergies Allergy/AdvReac Type Severity Reaction Status Date / Time amitriptyline Allergy Intermediate Unknown Verified 07/19/25 14:21 azithromycin Allergy Intermediate Unknown Verified 07/19/25 14:21 ciprofloxacin Allergy Intermediate Unknown Verified 07/19/25 14:21 codeine Allergy Intermediate Unknown Verified 07/19/25 14:21 cortisone Allergy Intermediate Unknown Verified 07/19/25 14:21 erythromycin base Allergy Intermediate Unknown Verified 07/19/25 14:21 guaifenesin (From Robitussin) Allergy Intermediate Unknown Verified 07/19/25 14:21 iron Allergy Intermediate Unknown Verified 07/19/25 14:21 metronidazole (From Flagyl) Allergy Intermediate Unknown Verified 07/19/25 14:21 morphine Allergy Intermediate Unknown Verified 07/19/25 14:21 oxycodone (From Percocet) Allergy Intermediate Unknown Verified 07/19/25 14:21 Sulfa (Sulfonamide Allergy Intermediate Unknown Verified 07/19/25 14:21 Antibiotics) acetaminophen Allergy Unknown Other (See Verified 07/19/25 14:21 Comment) cyclosporine Allergy Unknown Other (See Verified 07/19/25 14:21 Comment) fluticasone (From Advair Allergy Unknown Other (See Verified 07/19/25 14:21 Diskus) Comment) ibuprofen Allergy Unknown Other (See Verified 07/19/25 14:21 Comment) pregabalin (From Lyrica) Allergy Unknown Other (See Verified 07/19/25 14:21 Comment) salmeterol Allergy Unknown Other (See Verified 07/19/25 14:21 Comment) strawberry Allergy Unknown Other (See Verified 07/19/25 14:21 Comment) General Stated Complaint: Seizure MARCELLO: 3 Exam Narrative Exam Narrative: Gen: Awake and alert, in no apparent distress HEENT: Non-icteric sclera, PERRL. Oral pharynx/lips with vomitus around them Neck: Supple Lungs: No apparent respiratory distress, normal respiratory effort. Lung sounds clear and equal bilaterally without wheezes, rhonchi, rales CV: Appears well perfused, heart with regular rate and rhythm, strong distal pulses Abdomen: Non-distended, soft, nontender to palpation without rigidity, rebound, or guarding. MSK: Moves 4 extremities without apparent limitation in ROM. No peripheral edema Skin: Visualized skin without rashes, cyanosis. Neuro: Symmetrical facial strength, bulk plant agent strength, and lower extremity strength, no sensory deficits, speaks in full, clear sentences. Psych: Appropriate for situation. Course Vital Signs Vital signs: Vital Signs Temperature 36.8 C 08/03/25 18:51 Pulse 83 08/03/25 18:51 Blood Pressure 128/65 08/03/25 18:51 Pulse Oximetry 94 08/03/25 18:51 Temperature 36.8 C 08/03/25 18:51 Temperature Source Oral 08/03/25 18:51 Pulse 81 08/03/25 19:05 Respiratory Rate 18 08/03/25 19:05 Respiratory Effort Normal, Non-Labored 08/03/25 19:10 Respiratory Depth Normal 08/03/25 19:10 Respiratory Pattern Normal 08/03/25 19:10 Blood Pressure 128/65 08/03/25 19:05 Blood Pressure Mean 86 08/03/25 19:05 Pulse Oximetry 96 08/03/25 19:05 Oxygen Delivery Method Nasal Cannula 08/03/25 19:05 Oxygen Flow Rate 2 08/03/25 19:05 Pain Level 8 08/03/25 18:30 Lab/Test Results Lab/Test Results: Laboratory Tests Range/Units 08/03/25 19:00 VBG Lactate (<or=2.0) mmol/L 6.8 H* Medical Decision Making This is a 70-year-old female patient presenting for evaluation of nausea with vomiting and diarrhea as well as a breakthrough seizure. My differential includes but is not limited to gastroenteritis, colitis, certainly considered bowel obstruction, metabolic and electrolyte derangement, dehydration, kidney injury. The patient has no hematemesis or blood in her stool to suggest GI bleed, variceal bleed, mesenteric ischemia. Considered other intra-abdominal pathology including diverticulitis, appendicitis, choledocholithiasis, and regarding her seizure considered breakthrough seizure, intracranial pathology including hemorrhage, stroke, intracranial mass. Reassuringly, the patient is awake, hemodynamically appropriate and mentating with a reassuring neuro examination. We will provide the patient with a liter of IV fluids, Zofran for her nausea, and proceed with labs to include CBC, CMP, magnesium, lactate, urinalysis. The patient endorses a concern for viral infection, a Fluvid was sent. We will obtain a CT of her brain and a CT abdomen pelvis to better characterize any abnormalities which might account for her symptoms today. -Fluvid negative, I reviewed the rest of her labs, which showed no leukocytosis, a very mild anemia at 11, and a stable thrombocytopenia at 80. INR 1.1, lactate is initially elevated to 6.8, down to 3.9 after the first liter of fluids. She has a mild hyponatremia to 130, normal renal function, a borderline low magnesium at 1.5 and a bilirubin of 2.3 which is actually improved compared to her priors. No other liver enzyme abnormalities other than a slight AST bump to 38. Urinalysis with hematuria but no infectious findings. CT of her abdomen pelvis shows numerous fluid-filled loops of bowel, concerning for gastroenteritis and colitis. No evidence for obstruction or perforation. CT head shows no acute abnormalities and I am most concerned for breakthrough seizure in the setting of her GI illness. I did provide her with a dose of Keppra intravenously, the patient has been much more awake and well-appearing, tolerated oral fluids, I did provide her with a second liter of fluids given the persistently elevated lactate. Her subsequent lactate has decreased further to 3, while still elevated, the patient is now tolerating oral intake, and with her liver dysfunction may be expected to clear the lactate a little bit more slowly. She is desiring of discharge to home which I do not feel is unreasonable, I did provide her with Zofran for symptomatic management and counseled her on good hydration and close outpatient follow-up with repeat laboratory studies to ensure resolution of her lactate elevation. At this time, the patient has had a full medical evaluation and is safe for discharge to home. They are hemodynamically stable, ambulatory, and tolerating PO. They are understanding of the follow-up plan and return precautions. They left our facility without incident. Cecilia Kaur MD Quality:SDOH Health Related Social Needs: Health related social needs risk of homeless Health related social needs details patient live with sister does not worry about homelessness PFSH All Active Problems (Updated 08/03/25 @ 23:07 by Cecilia Kaur MD) Breakthrough seizure (Acute) Acute dehydration (Acute) Elevated lactic acid level (Acute) Colitis (Acute) Gastroenteritis (Acute) Abdominal pain (Acute) Advanced care planning/counseling discussion (Acute) Asymptomatic bacteriuria (Acute) Pneumatosis coli (Acute) Ischemia, bowel (Acute) Edema of both lower legs (Acute) MEDICAL TRANSCRIPTION EDITOR exam for high-risk Medicare patient (Acute) Hemorrhoid (Acute) Irritation of vulva (Acute) Nail dystrophy (Acute) Medical History (Updated 08/03/25 @ 23:07 by Cecilia Kaur MD) Chronic GERD History of seizure disorder Metabolic dysfunction-associated steatotic liver disease (MASLD) COPD (chronic obstructive pulmonary disease) Diabetes mellitus type 2, insulin dependent Acquired pancytopenia Hyponatremia Constipation Thrombocytopenia Type 2 diabetes mellitus Pancytopenia 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
[2025-08-03 19:27] LABS: Platelet Count 80 10^3/uL (130-400)
[2025-08-03 19:28] LABS: Magnesium 1.5 mg/dL (1.6-2.6)
[2025-08-03 19:30] LABS: ALT 31 U/L (10-49); AST 38 U/L (<34); Albumin 4.2 g/dL (3.2-5.0); Alkaline Phosphatase 104 U/L (46-116); Anion Gap 14.3 mmol/L (3-11); BUN 18 mg/dL (9-23); Bilirubin, Total 2.3 mg/dL (0.2-1.2); CO2 23.2 mmol/L (20.0-31.0); Calcium 9.6 mg/dL (8.3-10.6); Chloride 92 mmol/L (98-107); Glucose 244 mg/dL (74-106); Potassium 3.5 mmol/L (3.5-5.1); Sodium 130 mmol/L (136-145); Total Protein 6.6 g/dL (5.7-8.2)
[2025-08-03] MEDS: Normal Saline Flush 10 ML SYR IVP (19:33)
[2025-08-03] MEDS: Omnipaque 350 MG/ML 100 ML BTL IJ (19:34)
[2025-08-03] MEDS: Normal Saline - Diluent 50 ML VIAL IJ (19:34)
[2025-08-03 19:49] LABS: COVID-19 PCR Negative (Negative); RSV PCR Negative (Negative)
--- NOTE | 2025-08-03 20:29 | DI.VRAD_ITS ---
PROCEDURE INFORMATION: Exam: CT Head Without Contrast Exam date and time: 08/03/2025 7:26 PM Age: 70 years old Clinical indication: Other: Sz, vomiting TECHNIQUE: Imaging protocol: Computed tomography of the head without contrast. COMPARISON: CT HEAD WO 12/02/2024 8:06 PM FINDINGS: Brain: There is no evidence for acute intra-axial or extra-axial hemorrhage. There is no intracranial mass or mass effect. The basilar cisterns are patent. There is normal tian-white differentiation throughout the brain. There is no CT evidence of acute cortical infarct. Cerebral ventricles: The ventricles, cisterns and sulci are normal in size for the patient's age. Paranasal sinuses: Visualized sinuses are unremarkable. No fluid levels. Mastoid air cells: Visualized mastoid air cells are well aerated. Bones: Unremarkable. No acute fracture. Soft tissues: Unremarkable. IMPRESSION: No acute intracranial process identified. Dictated and Authenticated by: Avery Merlos MD. Orderin [facility] Brooks MD
[2025-08-03] MEDS: Lactated Ringers 1,000 ML 1000 ML IV ×2 (20:30→21:49)
[2025-08-03 21:00] LABS: Glucose 100 mg/dL (Negative)
--- NOTE | 2025-08-03 21:03 | DI.VRAD_ITS ---
PROCEDURE INFORMATION: Exam: CT Abdomen And Pelvis With Contrast Exam date and time: 08/03/2025 7:33 PM Age: 70 years old Clinical indication: Nausea and vomiting and other: Diarhea; Prior surgery; Surgery date: 6+ months; Surgery type: Tips, cholecystectomy, hysterectomy; N. V. D; Additional info: Sz, vomiting TECHNIQUE: Imaging protocol: Computed tomography of the abdomen and pelvis with contrast. Radiation optimization: All CT scans at this facility use at least one of these dose optimization techniques: automated exposure control; mA and/or kV adjustment per patient size (includes targeted exams where dose is matched to clinical indication); or iterative reconstruction. Contrast material: OMNIPAQUE 350; Contrast volume: 75 ml; Contrast route: INTRAVENOUS (IV); COMPARISON: CT ABDOMEN PELVIS W 19/07/2025 15:23 FINDINGS: Lungs: There is minimal bibasilar atelectasis. Heart: There is calcification of the cardiac mitral valve annulus. Coronary arteries: There is mild atherosclerotic calcification of the coronary arteries. Esophagus: Moderate thickening of the distal esophagus consider esophagitis. Liver: There is a finely nodular contour to the liver and hypertrophy of the caudate lobe, consistent with end-stage cirrhosis. There are no focal liver lesions present. There is no evidence of intrahepatic or extrahepatic biliary ductal dilation. Gallbladder and biliary ducts: There has been a cholecystectomy. Pancreas: The pancreas is normal. Spleen: The spleen is mildly enlarged. Adrenal glands: The adrenal glands are normal. Kidneys and ureters: The kidneys are normal. Stomach and bowel: Thickening of the gastric wall with enhancement consistent with acute gastritis.There are fluid-filled loops of small bowel with a few scattered air-fluid levels. No significant bowel wall thickening or inflammatory changes. No evidence of obstruction. Consider early gastroenteritis. There are diffuse fluid filled loops of colon with air fluid levels. The bowel loops are moderately distended. There are associated areas of bowel wall thickening and inflammatory changes. No evidence of obstruction. Findings most consistent with diffuse colitis. Appendix: No evidence of appendicitis. Intraperitoneal space: No free air. No significant fluid collection. Vasculature: There is a transjugular intrahepatic portosystemic shunt present extending from the confluence of the inferior vena cava and the hepatic vein to the main portal vein. The stent appears widely patent. The superior and inferior mesenteric vein appeared normal. No definitive mesenteric or perirectal varices were identified. The aorta demonstrates mild atherosclerotic calcification. The arterial peripheral vasculature demonstrates diffuse mild atherosclerotic calcification. Lymph nodes: There are mildly enlarged nonspecific lymph nodes in the mesenteric fat. This nonspecific mesenteric adenitis can be secondary to a variety of bacterial, viral, or other inflammatory processes. Urinary bladder: The bladder is moderately distended. The bladder is otherwise normal. Reproductive: There has been a hysterectomy. No adnexal cysts or masses are identified. Bones/joints: The lumbar spine demonstrates moderate degenerative changes. Soft tissues: There is a fat-containing umbilical hernia. The extra-abdominal soft tissues are normal. IMPRESSION: 1. There is a transjugular intrahepatic portosystemic shunt present extending from the confluence of the inferior vena cava and the hepatic vein to the main portal vein. The stent appears widely patent. There perisplenic varices present. There are short gastric varices present. The portal vein is normal caliber measuring 13 mm in diameter. 2. There are mildly enlarged nonspecific lymph nodes in the mesenteric fat. This nonspecific mesenteric adenitis can be secondary to a variety of bacterial, viral, or other inflammatory processes. 3. Thickening of the gastric wall with enhancement consistent with acute gastritis.There are fluid-filled loops of small bowel with a few scattered air-fluid levels. No significant bowel wall thickening or inflammatory changes. No evidence of obstruction. Consider early gastroenteritis. 4. There are diffuse fluid filled loops of colon with air fluid levels. The bowel loops are moderately distended. There are associated areas of bowel wall thickening and inflammatory changes. No evidence of obstruction. Findings most consistent with diffuse colitis. 5. Moderate thickening of the distal esophagus consider esophagitis. Dictated and Authenticated by: Hogn Castro MD. Orderin [facility] MD
[2025-08-03 21:07] LABS: C & S Indicated? No; WBC 0-2 HPF (0-5)
[2025-08-03] MEDS: levETIRAcetam 500 MG in Normal Saline 100 ML 400 MG IVPB (21:46)
[2025-08-03 21:50] VITALS: O2SAT 99
[2025-08-03 23:10] VITALS: PULSE 83; RESP 16; O2SAT 99
[2025-08-03] MEDS: Ondansetron O.D.T. 4 MG TABEF, 3 TABS/BTL PO (23:43)
[2025-08-03 23:47] VITALS: BP 109/50
--- NOTE | 2025-08-04 09:07 | W.ED.FU ---
Date of service: 08/04/25 Time of Service: 09:07 Follow Up Plan: Patient was in the emergency department yesterday. She reportedly had a seizure and was vomiting. She had an abdominal CT scan obtained. Radiology noted slight progression of the bone loss seen at the L3-L4 disc space in the L4-L5 facets noted on final radiology read. She was having no back pain and so I did not feel that she required an MRI. Patient was discharged from the emergency department.
== END 2025-08-03 23:10 | disposition home or self-care (01) ==
PROVIDERS: Emergency Provider Emergency Medicine; PCP Legal Medicine
DX: G40.919 Epilepsy, unspecified, intractable, without status epilepticus (principal); K52.9 Noninfective gastroenteritis and colitis, unspecified; R79.89 Other specified abnormal findings of blood chemistry; E86.0 Dehydration
CPT/HCPCS: 36415; 80053; 87637; 96361; 96365; 99285; 70450; 74177; 81003; 81015; 83605; 83735; 85025; 85610; 99284; J1953; J3490

== ENCOUNTER 2025-08-06 13:50 | Outpatient (REF) | payer MEDICARE, MEDICAID, SELFPAY ==
[2025-08-06 13:33] LABS: Anion Gap 10.5 mmol/L (3-11); BUN 17 mg/dL (9-23); CO2 29.1 mmol/L (20.0-31.0); Calcium 9.0 mg/dL (8.3-10.6); Chloride 91 mmol/L (98-107); Glucose 237 mg/dL (74-106); Potassium 4.1 mmol/L (3.5-5.1); Sodium 131 mmol/L (136-145)
[2025-08-06 15:13] LABS: HCT 30.7 % (36.0-46.0); HGB 10.7 g/dL (11.2-15.7); RBC 3.46 10^6/uL (3.93-5.22); WBC 4.06 10^3/uL (4.4-10.8)
[2025-08-06 15:14] LABS: MCH 30.9 pg (27.0-33.0); MCHC 34.9 % (32.0-36.0); MCV 89 fL (80-95)
[2025-08-06 15:15] LABS: MPV 10.2 fL (8.0-11.0); Platelet Count 76 10^3/uL (130-400); RDW 14.6 % (11.7-14.6); RDW-SD 46.2 fL
[2025-08-06 15:16] LABS: Immature Grans % 0.2 %
== END 2025-08-06 13:51 | disposition home or self-care (01) ==
LOC: LBN 13:50
PROVIDERS: PCP Legal Medicine; Visit Provider Nurse Practitioner Gerontology
DX: E87.8 Other disorders of electrolyte and fluid balance, not elsewhere classified (principal); D63.1 Anemia in chronic kidney disease; G40.89 Other seizures
CPT/HCPCS: 80048; 80177; 85025

== ENCOUNTER 2025-08-10 16:16 | Outpatient (REF) | payer MEDICARE, MEDICAID, SELFPAY ==
[2025-08-10 14:23] LABS: Abs Immature Grans 0.01 10^3/uL (0.0-0.06); HCT 28.2 % (36.0-46.0); HGB 10.2 g/dL (11.2-15.7); Immature Grans % 0.3 %; MCH 30.8 pg (27.0-33.0); MCHC 36.2 % (32.0-36.0); MCV 85 fL (80-95); MPV 10.6 fL (8.0-11.0); RBC 3.31 10^6/uL (3.93-5.22); RDW 14.3 % (11.7-14.6); RDW-SD 44.4 fL; WBC 3.60 10^3/uL (4.4-10.8)
[2025-08-10 14:40] LABS: TSH (W/Ref FT4) 5.11 uIU/mL (0.55-4.78)
[2025-08-10 14:45] LABS: Anion Gap 8.7 mmol/L (3-11); BUN 15 mg/dL (9-23); CO2 29.1 mmol/L (20.0-31.0); Calcium 8.6 mg/dL (8.3-10.6); Chloride 87 mmol/L (98-107); Glucose 203 mg/dL (74-106); Potassium 3.9 mmol/L (3.5-5.1); Sodium 125 mmol/L (136-145)
[2025-08-10 15:13] LABS: Platelet Count 65 10^3/uL (130-400)
== END 2025-08-10 16:17 | disposition home or self-care (01) ==
LOC: LBN 16:16
PROVIDERS: PCP Legal Medicine; Visit Provider Nurse Practitioner Gerontology
DX: D63.1 Anemia in chronic kidney disease (principal); E87.8 Other disorders of electrolyte and fluid balance, not elsewhere classified
CPT/HCPCS: 80048; 84439; 84443; 85025

== ENCOUNTER 2025-08-11 16:24 | Observation (INO) | payer MEDICARE, MEDICAID, SELFPAY ==
[2025-08-11] VITALS (29 sets, daily range): BP systolic 101–129; BP diastolic 42–54; PULSE 71–92; RESP 13–25; O2SAT 93–100
--- NOTE | 2025-08-11 16:15 | RT.EKG_ITS ---
APPROVED REPORT Exam: Resting ECG Reason for Exam: seizure Patient Location: E HR:74 bpm ECG Measurements Heart Rate 74 AXIS MA 186 P 31 QRSd 99 QRS 68 QT 438 T 67 QTc 486 Conclusion Sinus rhythm...normal P axis, V-rate 60- 99
--- NOTE | 2025-08-11 16:30 | DI.CT_ITS ---
Exam(s) CT HEAD WO EXAM: CT HEAD WO CLINICAL HISTORY: Seizure. TECHNIQUE: Imaging Protocol: Axial computed tomography images with coronal and sagittal reformatted images were created and reviewed COMPARISON: CT CT HEAD WO from 08/03/2025 FINDINGS: Ventricles and Extra axial spaces: Normal in size and morphology for the patient's age. Hemorrhage: None. Cerebral parenchyma: There is no evidence of a territorial infarct. No acute mass effect is identified. Midline shift: None. Brainstem/Cerebellum: Normal. Calvarium: Normal. Visualized Paranasal sinuses/Mastoids: Clear. Soft Tissues: Unremarkable. IMPRESSION: 1. No acute intracranial process. 2. If symptoms persist, an MRI of the brain without and with contrast should be considered for further evaluation. RADIATION DOSE DELIVERED: 797.59mGy.cm Total DLP DATA REPOSITORY: All CT scans at this facility are submitted to the National Radiology Data Registry (NRDR) Dose Index Registry (DIR) with the [employer] (ACR). RADIATION OPTIMIZATION: All CT scans at this facility use at least one of these dose optimization techniques: automated exposure control; mA and/or kV adjustment per patient size (includes targeted exams where dose is matched to clinical indication); or iterative reconstruction.
--- NOTE | 2025-08-11 16:31 | DI.RAD_ITS ---
Exam(s) XR CHEST 1V IN DI DEPT EXAM: XR CHEST 1V IN DI DEPT CLINICAL HISTORY: Seizure TECHNIQUE: 2D digital imaging was performed of the chest. One image was obtained. An AP view was obtained. COMPARISON: CR XR PORTABLE CHEST AP from 06/11/2024 CR XR CHEST 2V PA LATERAL from 11/13/2024 FINDINGS: MEDIASTINUM: Normal. HEART: Normal. PULMONARY VASCULATURE: Normal. LUNGS: Clear. PLEURAL SPACE: No pleural effusion or pneumothorax. BONE:Within normal limits for the patient's age. OTHER FINDINGS:Normal. IMPRESSION: No acute pulmonary findings. DATA REPOSITORY: RADIATION DOSE DELIVERED:
--- NOTE | 2025-08-11 16:32 | W.ED.GENAD ---
Discharge Plan Disposition Patient Disposition: Admit to [facility] Condition: Stable Discharge Details Clinical Impression: Breakthrough seizure, Hypomagnesemia Primary Care Provider: Laina Leal ED Provider: Carmela Yadav Home Meds and New Rx's Prescriptions: New lorazepam [Ativan] 0.5 mg tablet 0.5 mg PO BID PRN (Reason: seizures) Qty: 7 0RF Rx Instructions: Please take 1 tablet by mouth to twice daily as needed for breakthrough seizures Continued hydrocortisone-pramoxine 1-1 % cream 1 applic NH TID-QID PRN (Reason: itching) Qty: 30 1RF pantoprazole [Protonix] 40 mg tablet,delayed release (DR/EC) 40 mg PO DAILY levetiracetam 1,000 mg tablet 1,000 mg PO BID Incruse Ellipta 62.5 mcg/actuation blister with device 1 inh inhalation DAILY lactulose 10 gram/15 mL solution 30 g PO QID Xifaxan 550 mg tablet 550 mg PO BID insulin degludec [Tresiba FlexTouch U-200] 200 unit/mL (3 mL) insulin pen 56 unit subcut BID albuterol 90 mcg/actuation aerosol 180 mcg inhalation .Q4 PRN epinephrine 0.3 mg/0.3 mL auto-injector 0.3 ml subcut Q5-15M PRN Patient Comments: emergency use Rx Instructions: do not exceed 2 doses per episode torsemide 20 mg tablet 40 mg PO BID quetiapine [Seroquel] 25 mg tablet 25 mg PO BID gabapentin 300 mg capsule 600 mg PO HS spironolactone 50 mg tablet 50 mg PO DAILY cholecalciferol (vitamin D3) [Vitamin D3] 50 mcg (2,000 unit) capsule 50 mcg PO DAILY nitrofurantoin macrocrystal 100 mg capsule 100 mg PO BID Rx Instructions: Stop 04/20/25 magnesium L-lactate 84 mg tablet extended release 84 mg PO QID folic acid 1 mg tablet 1 mg PO DAILY Patient Comments: GIVE ONE TABLET BY MOUTH EVERY MORNING FOR SUPPLEMENT insulin lispro 100 unit/mL insulin pen 1 sliding scale dose SUBCUT TID Rx Instructions: Use per sliding scale SQ TID; inject 10 units SQ TID in addition to sliding scale; hold for BS <201 Acidophilus probiotic 0.5 mg tablet 0.5 mg PO BID bisacodyl 10 mg suppository 10 mg NH DAILY PRN levetiracetam 750 mg tablet 1,000 mg PO BID lorazepam 2 mg/mL solution 0.5 mg IM ONCE polyethylene glycol 3350 [ClearLax] 17 gram/dose powder 17 g PO BID ondansetron 4 mg tablet,disintegrating 4 mg PO Q8H PRNQty: 7 0RF HPI General Mode of arrival: EMS. Date/Time Provider Initiated Documentation: 08/11/25 16:30. Limitations to Documentation: altered mental status and physical limitation. Information obtained by: patient, EMS, RN notes reviewed and old records reviewed. HPI Narrative: 70-year-old female presents to the ER by EMS from the [facility] with a chief complaint of multiple focal seizures which have increased over the last couple of weeks. Denies any known trauma, there were witnessed episodes lasting a few seconds, does have periods of aphasia after the episodes. Upon initial presentation she does have some aphasia and word salad, after a couple of seconds she is able to speak clearly she does follow commands without difficulty, no focal neurodeficits no facial droop no pronator drift, agency appointments supervisor are equal bilaterally. She does take Keppra 1 g twice daily she did take it this morning. They have recently been changing her dose. BGL prior to arrival to 79. Other past medical history include COPD, GERD fatty liver disease, type 2 diabetes and liver cirrhosis. Surgical history include cholecystectomy hysterectomy and. Related Data Home Medications ?Medication ?Instructions ?Recorded ?Confirmed albuterol 90 mcg/actuation aerosol 180 mcg inhalation .Q4 PRN 06/11/24 08/11/25 inhaler epinephrine 0.3 mg/0.3 mL 0.3 ml subcut Q5-15M PRN 06/11/24 08/11/25 injection, auto-injector insulin degludec 200 unit/mL (3 56 unit subcut BID 06/11/24 08/11/25 mL) subcutaneous pen (Tresiba FlexTouch U-200 insulin) lactulose 10 gram/15 mL oral 30 g PO QID 06/11/24 08/11/25 solution levetiracetam 1,000 mg tablet 1,000 mg PO BID 06/11/24 08/11/25 pantoprazole 40 mg tablet,delayed 40 mg PO DAILY 06/11/24 08/11/25 release (Protonix) rifaximin 550 mg tablet (Xifaxan) 550 mg PO BID 06/11/24 08/11/25 umeclidinium 62.5 mcg/actuation 1 inh inhalation DAILY 06/11/24 08/11/25 blister powder for inhalation (Incruse Ellipta) quetiapine 25 mg tablet (Seroquel) 25 mg PO BID 09/01/24 08/11/25 torsemide 20 mg tablet 40 mg PO BID 09/01/24 08/11/25 gabapentin 300 mg capsule 600 mg PO HS 11/13/24 08/11/25 polyethylene glycol 3350 17 17 g PO BID 11/25/24 08/11/25 gram/dose oral powder (ClearLax) spironolactone 50 mg tablet 50 mg PO DAILY 12/04/24 08/11/25 hydrocortisone-pramoxine 1 %-1 % 1 applic NH TID-QID PRN itching 03/12/25 08/11/25 rectal cream #30 grams Acidophilus probiotic 0.5 mg PO BID 04/19/25 08/11/25 bisacodyl 10 mg rectal suppository 10 mg NH DAILY PRN 04/19/25 08/11/25 cholecalciferol (vitamin D3) 50 50 mcg PO DAILY 04/19/25 08/11/25 mcg (2,000 unit) capsule (Vitamin D3) folic acid 1 mg tablet 1 mg PO DAILY 04/19/25 08/11/25 insulin lispro 100 unit/mL 1 sliding scale dose subcut TID 04/19/25 08/11/25 subcutaneous pen magnesium L-lactate 84 mg 84 mg PO QID 04/19/25 08/11/25 tablet,extended release nitrofurantoin macrocrystal 100 mg 100 mg PO BID 04/19/25 08/11/25 capsule ondansetron 4 mg disintegrating 4 mg PO Q8H PRN #7 tabs 08/03/25 08/11/25 tablet levetiracetam 750 mg tablet 1,000 mg PO BID 08/11/25 08/11/25 lorazepam 0.5 mg tablet (Ativan) 0.5 mg PO BID PRN seizures #7 tabs 08/11/25 lorazepam 2 mg/mL injection 0.5 mg IM ONCE 08/11/25 08/11/25 solution Previous Rx's ?Medication ?Instructions ?Recorded hydrocortisone-pramoxine 1 %-1 % 1 applic NH TID-QID PRN itching 03/12/25 rectal cream #30 grams ondansetron 4 mg disintegrating 4 mg PO Q8H PRN #7 tabs 08/03/25 tablet lorazepam 0.5 mg tablet (Ativan) 0.5 mg PO BID PRN seizures #7 tabs 08/11/25 Allergies Allergy/AdvReac Type Severity Reaction Status Date / Time amitriptyline Allergy Intermediate Unknown Verified 07/19/25 14:21 azithromycin Allergy Intermediate Unknown Verified 07/19/25 14:21 ciprofloxacin Allergy Intermediate Unknown Verified 07/19/25 14:21 codeine Allergy Intermediate Unknown Verified 07/19/25 14:21 cortisone Allergy Intermediate Unknown Verified 07/19/25 14:21 erythromycin base Allergy Intermediate Unknown Verified 07/19/25 14:21 guaifenesin (From Robitussin) Allergy Intermediate Unknown Verified 07/19/25 14:21 iron Allergy Intermediate Unknown Verified 07/19/25 14:21 metronidazole (From Flagyl) Allergy Intermediate Unknown Verified 07/19/25 14:21 morphine Allergy Intermediate Unknown Verified 07/19/25 14:21 oxycodone (From Percocet) Allergy Intermediate Unknown Verified 07/19/25 14:21 Sulfa (Sulfonamide Allergy Intermediate Unknown Verified 07/19/25 14:21 Antibiotics) acetaminophen Allergy Unknown Other (See Verified 07/19/25 14:21 Comment) cyclosporine Allergy Unknown Other (See Verified 07/19/25 14:21 Comment) fluticasone (From Advair Allergy Unknown Other (See Verified 07/19/25 14:21 Diskus) Comment) ibuprofen Allergy Unknown Other (See Verified 07/19/25 14:21 Comment) pregabalin (From Lyrica) Allergy Unknown Other (See Verified 07/19/25 14:21 Comment) salmeterol Allergy Unknown Other (See Verified 07/19/25 14:21 Comment) strawberry Allergy Unknown Other (See Verified 07/19/25 14:21 Comment) General Stated Complaint: Seizure MARCELLO: 2 Review of Systems All systems reviewed & are unremarkable except as noted in HPI and below Neurologic Neurologic: Reports as per HPI, Reports abnormal speech and Reports convulsions Exam Narrative Exam Narrative: Constitutional: Alert and oriented x3. Appears stated age. Normal body habitus. No signs of trauma noted. Head: Normocephalic, no trauma. Eyes: Pupils PERRL, Red reflex noted, EOM's intact. Eyelids symmetrical without lesions, discharge, or swelling. ENT: Bilateral TM's WNL, External ear normal to inspection, no mastoid TTP, swelling, or erythema, Nasal turbinates WNL, no nasal discharge. Normal dentition, Posterior pharynx WNL, no exudate. Chest: RRR, Normal S1, S2, distal pulses intact. Resp: Lungs clear to auscultation bilaterally, no wheezes, rales, or rhonchi. Abdomen: Soft, non-distended, Normoactive bowel sounds all 4 quads. Musculoskeletal: Unable to assess gait moves all 4 extremities without difficulty. Skin: No suspicious rashes or lesions. Capillary refill less than 2 sec. Neurologic: No focal motor neurodeficits noted, no facial droop no pronator drift. She does have episodes of expressive aphasia which resolves on its own. She has had multiple of these episodes while being here. Hematologic/Lymphatic: No ecchymosis, no lymphadenopathy. Course Vital Signs Vital signs: Vital Signs Pulse 82 08/11/25 16:25 Respiratory Rate 18 08/11/25 16:25 Blood Pressure 129/54 L 08/11/25 16:25 Pulse Oximetry 99 08/11/25 16:25 Pulse 82 08/11/25 16:25 Respiratory Rate 18 08/11/25 16:25 Blood Pressure 129/54 L 08/11/25 16:25 Pulse Oximetry 99 08/11/25 16:25 Oxygen Delivery Method Room Air 08/11/25 16:25 Oxygen Flow Rate 0 08/11/25 16:25 Medical Decision Making 70-year-old female presents to the ER by EMS from the [facility] with a chief complaint of multiple focal seizures which have increased over the last couple of weeks. Denies any known trauma, there were witnessed episodes lasting a few seconds, does have periods of aphasia after the episodes. Upon initial presentation she does have some aphasia and word salad, after a couple of seconds she is able to speak clearly she does follow commands without difficulty, no focal neurodeficits no facial droop no pronator drift, agency appointments supervisor are equal bilaterally. She does take Keppra 1 g twice daily she did take it this morning. They have recently been changing her dose. BGL prior to arrival to 79. Other past medical history include COPD, GERD fatty liver disease, type 2 diabetes and liver cirrhosis. Surgical history include cholecystectomy hysterectomy and. Workup ordered including CBC CMP lipase, TSH, urinalysis, EKG troponin CT head chest x-ray and 1 g of Keppra IV piggyback. Will give 0.5mg IV lorazepam. EKG was reviewed by Dr. Palafox and myself ER attending, old EKG available for review. 175: Patient reevaluation she reports that she did have another episode, she is alert and oriented and conversive at this time. She is up to the commode to give a urine sample. She has gotten 1 g of Keppra. CBC shows white blood cell count of 3.91 hemoglobin 11.1 hematocrit 30.9 platelets are 92, this is are improved from her baseline does have a history of thrombocytopenia, sodium is 125 which she also has a history of hyponatremia, potassium 4.1 chloride 86 creatinine is 1.16, glucose 240 magnesium is slightly low at 1.4 which she does also have a history of hypomagnesemia bilirubin slightly elevated 2.6, lipase is 71 TSH is 5.29. Chest x-ray shows no acute pulmonary findings, head CT shows no acute intracranial process. Will replenish Magnesium, send patient back to [facility] with Lorazepam 0.5 mg PO x 1 and have patient follow up with neurology for EEG. As patient has a history of seizures I do feel that thsi can be managed as an outpatient. On patient reevaluation she reports she feels better has not had any seizure activity since receiving 0.5 mg of lorazepam p.o. I will send her with 1 tablet and give a prescription for as needed. Patient did ring call [facility] to inform ED staff that she had another seizure. No LOC, no aphasia. Negative Covid, FLu, RSV. Patient to be transported back to the [facility] assisted living facility. Informed by chief of staff doctor upon attempt to discharge patient she is refusing to be discharged and wants to be admitted. ALthough patient has a history of seizures she states they are getting worse and her Mother of seizures. Call made to [facility] and rehab, spoke with Deisy who is a nurse at the [facility], she states that the aphasic episodes in not normal for her. Will consult with Hospitalist for possible admission for MRI. 2102: Contacted Dr. Zheng hospitalist via [employer] for admission request. Ammonia level is high at 55 2201: Tele neuro in process at this time. 2228: Spoke with telemetry neurologist at [facility] he recommends MRI with and without contrast and EEG testing and possible continuous EEG. He also recommends giving another 1 g of Keppra IV piggyback and dosing 1250 mg of Keppra twice daily. Will contact hospitalist and give recommendations. He states that he does believe that this could be questionable epileptic episodes Patient to be admitted to the hospital for MRI and further evaluation. Patient discussed with plan of care and verbalizes understanding. This text was generated using [employer] system, please disregard any oddities of phrase or misspellings. Medical Records Medical records reviewed: Yes I reviewed the patient's medical records. Lab Data Lab results reviewed: Yes I reviewed the patient's lab results. Labs: Laboratory Tests Range/Units 08/11/25 08/11/25 08/11/25 16:44 17:50 18:10 WBC (4.4-10.8) 10^3/uL 3.91 L RBC (3.93-5.22) 10^6/uL 3.73 L Hgb (11.2-15.7) g/dL 11.1 L Hct (36.0-46.0) % 30.9 L MCV (80-95) fL 83 MCH (27.0-33.0) pg 29.8 MCHC (32.0-36.0) % 35.9 RDW (11.7-14.6) % 14.4 Plt Count (130-400) 10^3/uL 92 L MPV (8.0-11.0) fL 9.2 Immature Gran % % 0.5 Neutrophils % % 70.1 Lymphocytes % % 18.7 Monocytes % % 8.2 Eosinophils % % 2.0 Basophils % % 0.5 Nucleated RBC % (0.0-0.3) % 0.0 Absolute Neutrophils (1.2-6.7) 10^3/uL 2.74 Absolute Lymphocytes (1.2-3.4) 10^3/uL 0.73 L Absolute Monocytes (0.1-0.8) 10^3/uL 0.32 Absolute Eosinophils (0.0-0.7) 10^3/uL 0.08 Absolute Basophils (0.0-0.2) 10^3/uL 0.02 Sodium (136-145) mmol/L 125 L Potassium (3.5-5.1) mmol/L 4.1 Chloride (98-107) mmol/L 86 L Carbon Dioxide (20.0-31.0) mmol/L 29.1 Anion Gap (3-11) mmol/L 9.6 BUN (9-23) mg/dL 15 Creatinine (0.55-1.02) mg/dL 1.16 H Est GFR (CKD-EPI 2020) (mL/min/1.73m2) 46.31 Glucose (74-106) mg/dL 240 H Calcium (8.3-10.6) mg/dL 9.7 Magnesium (1.6-2.6) mg/dL 1.4 L Total Bilirubin (0.2-1.2) mg/dL 2.6 H AST (<34) U/L 32 ALT (10-49) U/L 28 Alkaline Phosphatase (46-116) U/L 107 Troponin I (<35) ng/L 9 12 Total Protein (5.7-8.2) g/dL 6.8 Albumin (3.2-5.0) g/dL 4.3 Lipase (<53) U/L 71 H TSH (0.55-4.78) uIU/mL 5.29 H Free T4 (0.89-1.76) ng/mL 1.09 Urine Color (Yellow) Yellow Urine Clarity (Clear) Clear Urine pH (5-8) 7.5 Ur Specific [place] (1.005-1.025) 1.015 Urine Protein (Neg-Trace) mg/dL 30 H Urine Ketones (Negative) mg/dL Negative Urine Blood (Negative) Negative Urine Nitrite (Negative) Negative Urine Bilirubin (Negative) Negative Urine Urobilinogen (Up to 0.2) mg/dL 0.2 Ur Leukocyte Esterase (Negative) Moderate H Urine RBC (0-2) HPF Negative Urine WBC (0-5) HPF 3-5 Ur Epithelial Cells (Negative) HPF Moderate Urine Crystals (Negative) HPF Negative Urine Bacteria (Negative) HPF Negative Urine Casts (Negative) LPF Negative Urine Mucus (Negative) Negative Ur Culture Indicated? No/Sq. Contamination Urine Glucose (Negative) mg/dL Negative Range/Units 08/11/25 19:36 WBC (4.4-10.8) 10^3/uL RBC (3.93-5.22) 10^6/uL Hgb (11.2-15.7) g/dL Hct (36.0-46.0) % MCV (80-95) fL MCH (27.0-33.0) pg MCHC (32.0-36.0) % RDW (11.7-14.6) % Plt Count (130-400) 10^3/uL MPV (8.0-11.0) fL Immature Gran % % Neutrophils % % Lymphocytes % % Monocytes % % Eosinophils % % Basophils % % Nucleated RBC % (0.0-0.3) % Absolute Neutrophils (1.2-6.7) 10^3/uL Absolute Lymphocytes (1.2-3.4) 10^3/uL Absolute Monocytes (0.1-0.8) 10^3/uL Absolute Eosinophils (0.0-0.7) 10^3/uL Absolute Basophils (0.0-0.2) 10^3/uL Sodium (136-145) mmol/L Potassium (3.5-5.1) mmol/L Chloride (98-107) mmol/L Carbon Dioxide (20.0-31.0) mmol/L Anion Gap (3-11) mmol/L BUN (9-23) mg/dL Creatinine (0.55-1.02) mg/dL Est GFR (CKD-EPI 2020) (mL/min/1.73m2) Glucose (74-106) mg/dL Calcium (8.3-10.6) mg/dL Magnesium (1.6-2.6) mg/dL Total Bilirubin (0.2-1.2) mg/dL AST (<34) U/L ALT (10-49) U/L Alkaline Phosphatase (46-116) U/L Troponin I (<35) ng/L Cancelled Total Protein (5.7-8.2) g/dL Albumin (3.2-5.0) g/dL Lipase (<53) U/L TSH (0.55-4.78) uIU/mL Free T4 (0.89-1.76) ng/mL Urine Color (Yellow) Urine Clarity (Clear) Urine pH (5-8) Ur Specific [place] (1.005-1.025) Urine Protein (Neg-Trace) mg/dL Urine Ketones (Negative) mg/dL Urine Blood (Negative) Urine Nitrite (Negative) Urine Bilirubin (Negative) Urine Urobilinogen (Up to 0.2) mg/dL Ur Leukocyte Esterase (Negative) Urine RBC (0-2) HPF Urine WBC (0-5) HPF Ur Epithelial Cells (Negative) HPF Urine Crystals (Negative) HPF Urine Bacteria (Negative) HPF Urine Casts (Negative) LPF Urine Mucus (Negative) Ur Culture Indicated? Urine Glucose (Negative) mg/dL Quality:SDOH Health Related Social Needs: Health related social needs risk of homeless Health related social needs details patient live with sister does not worry about homelessness PFSH All Active Problems (Updated 08/11/25 @ 18:51 by Carmela Yadav NP) Hypomagnesemia (Acute) Breakthrough seizure (Acute) Acute dehydration (Acute) Elevated lactic acid level (Acute) Colitis (Acute) Gastroenteritis (Acute) Abdominal pain (Acute) Advanced care planning/counseling discussion (Acute) Asymptomatic bacteriuria (Acute) Pneumatosis coli (Acute) Ischemia, bowel (Acute) Edema of both lower legs (Acute) [employer] exam for high-risk Medicare patient (Acute) Hemorrhoid (Acute) Irritation of vulva (Acute) Nail dystrophy (Acute) Medical History Chronic GERD History of seizure disorder Metabolic dysfunction-associated steatotic liver disease (MASLD) COPD (chronic obstructive pulmonary disease) Diabetes mellitus type 2, insulin dependent Acquired pancytopenia Hyponatremia Constipation Thrombocytopenia Type 2 diabetes mellitus Pancytopenia Liver 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) Surgical History S/P cholecystectomy S/P hysterectomy S/P TIPS (transjugular intrahepatic portosystemic shunt) Social History Smoking/Tobacco Use Status: Never Smoking risk assessment performed?: Yes Alcohol Intake: never Drug use: Never Substance use type: does not use Housing: house Do you feel safe at home: Yes Do you feel safe in your relationship?: Yes Additional Social history: [facility]
[2025-08-11 16:54] LABS: Abs Immature Grans 0.02 10^3/uL (0.0-0.06); HCT 30.9 % (36.0-46.0); HGB 11.1 g/dL (11.2-15.7); Immature Grans % 0.5 %; MCH 29.8 pg (27.0-33.0); MCHC 35.9 % (32.0-36.0); MCV 83 fL (80-95); MPV 9.2 fL (8.0-11.0); Platelet Count 92 10^3/uL (130-400); RBC 3.73 10^6/uL (3.93-5.22); RDW 14.4 % (11.7-14.6); RDW-SD 42.8 fL; WBC 3.91 10^3/uL (4.4-10.8)
[2025-08-11] MEDS: levETIRAcetam 1,000 MG in Normal Saline 100 ML 400 MG IVPB (17:07)
[2025-08-11 17:08] LABS: Lipase 71 U/L (<53); Magnesium 1.4 mg/dL (1.6-2.6)
[2025-08-11 17:09] LABS: Troponin I 9 ng/L (<35)
[2025-08-11 17:10] LABS: ALT 28 U/L (10-49); AST 32 U/L (<34); Albumin 4.3 g/dL (3.2-5.0); Alkaline Phosphatase 107 U/L (46-116); Anion Gap 9.6 mmol/L (3-11); BUN 15 mg/dL (9-23); Bilirubin, Total 2.6 mg/dL (0.2-1.2); CO2 29.1 mmol/L (20.0-31.0); Calcium 9.7 mg/dL (8.3-10.6); Chloride 86 mmol/L (98-107); Glucose 240 mg/dL (74-106); Potassium 4.1 mmol/L (3.5-5.1); Sodium 125 mmol/L (136-145); Total Protein 6.8 g/dL (5.7-8.2)
[2025-08-11 17:13] LABS: TSH (W/Ref FT4) 5.29 uIU/mL (0.55-4.78)
[2025-08-11] MEDS: LORazepam 2 MG/ML VIAL 0.5 MG IVP (17:50)
[2025-08-11] MEDS: Normal Saline 500 ML IV (17:50)
[2025-08-11 18:10] LABS: Glucose Negative (Negative)
[2025-08-11 18:21] LABS: RBC Negative HPF (0-2)
[2025-08-11 18:33] LABS: Troponin I 12 ng/L (<35)
[2025-08-11] MEDS: MAGNESIUM SULFATE 1 GM/100 ML BAG IV_INF (19:12)
[2025-08-11] MEDS: Benzonatate 100 MG CAP PO (19:24)
[2025-08-11 20:12] LABS: COVID-19 PCR Negative (Negative); RSV PCR Negative (Negative)
[2025-08-11] MEDS: Ondansetron O.D.T. 4 MG TABEF PO (21:16)
[2025-08-11 21:37] LABS: Ammonia 55 umol/L (11-32)
--- NOTE | 2025-08-11 23:27 | W.PM.HP.N ---
Date of service: 08/11/25 Time of Service: 23:27 Assessment and Plan Assessment and plan (1) Breakthrough seizure: Status: Acute Assessment and plan: She is having recurrent seizure like episodes. Episodes are tonic, a/w stuttering speach, but she is aware of what is happening. PNES very possible. Teleneuro consulted, per recommendation will admit for MRI w/wo and EEG Of note had MRI december 2023 at [place], no actue findings (2) Liver 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): Assessment and plan: Child Bob Class B S/p TIPs, high risk for hepatic encephalopathy, but intermittent nature of the episodes not c/w encephalopahty She appears to be at her baseline liver function. Monitor (3) Chronic GERD: Assessment and plan: continue PPI (4) Diabetes mellitus type 2, insulin dependent: Assessment and plan: Last A1c 7.6%, reasonably controlled. Contnue basal/bolus insulin. (5) COPD (chronic obstructive pulmonary disease): Assessment and plan: Not exacerbated, continue home inhalers (6) Hyponatremia: Assessment and plan: moderate/severe hyponatremia similar to her baseline. A/w cirrhosis, also possibly psychiatry medcations contributing. I don't think this is causing seizure activity as it is chronic will fluid restrict (7) JUSTO (acute kidney injury): Status: Acute Assessment and plan: Cr 1.16 up from 0.84. Baldder scan for retention. [facility] Discharge Planning Discharge Plannin-2 days for EEG, MRI, monitor on medication changes History of Present Illness History of Present Illness Chief Complaint: seizure-like activity Narrative: 70 yo F with history of seizure disorder, IDDM, decompensated MASLD cirrhosis s/p TIPs, who resides at [facility] and was sent to evaluate seizure activity. The patient states she has been having seizures since she was seen here 08/04 for gastroenteritis. The diarrhea and vomiting have resolved but she is having recurrent episodes of seizures since then. He states she gets stiff and can't move or talk, and she gradually gets better after a few minutes. She states they are coming every 30 minutes now. She has some diffuse bilateral headache to her neck, not severe, she can't say when that started. She can't tell me how long she has had a seizure disorder. 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 (Acute) Abdominal pain (Acute) Hemorrhoid (Acute) Irritation of vulva (Acute) Edema of both lower legs (Acute) Nail dystrophy (Acute) Medical History Chronic GERD History of seizure disorder Metabolic dysfunction-associated steatotic liver disease (MASLD) COPD (chronic obstructive pulmonary disease) Diabetes mellitus type 2, insulin dependent Acquired pancytopenia Constipation Type 2 diabetes mellitus Hyponatremia Thrombocytopenia Liver 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) Pancytopenia Surgical History S/P cholecystectomy S/P hysterectomy S/P TIPS (transjugular intrahepatic portosystemic shunt) Social History Smoking/Tobacco Use Status: Never Smoking risk assessment performed?: Yes Alcohol Intake: never Drug use: Never Substance use type: does not use Housing: house Do you feel safe at home: Yes Do you feel safe in your relationship?: Yes Additional Social history: lives at the [facility] Allergies and Home Medications Allergies Allergy/AdvReac Type Severity Reaction Status Date / Time amitriptyline Allergy Intermediate Unknown Verified 07/19/25 14:21 azithromycin Allergy Intermediate Unknown Verified 07/19/25 14:21 ciprofloxacin Allergy Intermediate Unknown Verified 07/19/25 14:21 codeine Allergy Intermediate Unknown Verified 07/19/25 14:21 cortisone Allergy Intermediate Unknown Verified 07/19/25 14:21 erythromycin base Allergy Intermediate Unknown Verified 07/19/25 14:21 guaifenesin (From Robitussin) Allergy Intermediate Unknown Verified 07/19/25 14:21 iron Allergy Intermediate Unknown Verified 07/19/25 14:21 metronidazole (From Flagyl) Allergy Intermediate Unknown Verified 07/19/25 14:21 morphine Allergy Intermediate Unknown Verified 11/30/25 14:21 oxycodone (From Percocet) Allergy Intermediate Unknown Verified 07/19/25 14:21 Sulfa (Sulfonamide Allergy Intermediate Unknown Verified 07/19/25 14:21 Antibiotics) acetaminophen Allergy Unknown Other (See Verified 07/19/25 14:21 Comment) cyclosporine Allergy Unknown Other (See Verified 07/19/25 14:21 Comment) fluticasone (From Advair Allergy Unknown Other (See Verified 07/19/25 14:21 Diskus) Comment) ibuprofen Allergy Unknown Other (See Verified 07/19/25 14:21 Comment) pregabalin (From Lyrica) Allergy Unknown Other (See Verified 07/19/25 14:21 Comment) salmeterol Allergy Unknown Other (See Verified 07/19/25 14:21 Comment) strawberry Allergy Unknown Other (See Verified 07/19/25 14:21 Comment) Home Medications ?Medication ?Instructions ?Recorded ?Confirmed ?Type albuterol 90 mcg/actuation aerosol 180 mcg inhalation .Q4 PRN 06/11/24 08/11/25 History inhaler epinephrine 0.3 mg/0.3 mL 0.3 ml subcut Q5-15M PRN 06/11/24 08/11/25 History injection, auto-injector insulin degludec 200 unit/mL (3 56 unit subcut BID 06/11/24 08/11/25 History mL) subcutaneous pen (Tresiba FlexTouch U-200 insulin) lactulose 10 gram/15 mL oral 30 g PO QID 06/11/24 08/11/25 History solution levetiracetam 1,000 mg tablet 1,000 mg PO BID 06/11/24 08/11/25 History pantoprazole 40 mg tablet,delayed 40 mg PO DAILY 06/11/24 08/11/25 History release (Protonix) rifaximin 550 mg tablet (Xifaxan) 550 mg PO BID 06/11/24 08/11/25 History umeclidinium 62.5 mcg/actuation 1 inh inhalation DAILY 06/11/24 08/11/25 History blister powder for inhalation (Incruse Ellipta) quetiapine 25 mg tablet (Seroquel) 25 mg PO BID 09/01/24 08/11/25 History torsemide 20 mg tablet 40 mg PO BID 09/01/24 08/11/25 History gabapentin 300 mg capsule 600 mg PO HS 11/13/24 08/11/25 History polyethylene glycol 3350 17 17 g PO BID 11/25/24 08/11/25 History gram/dose oral powder (ClearLax) spironolactone 50 mg tablet 50 mg PO DAILY 12/04/24 08/11/25 History hydrocortisone-pramoxine 1 %-1 % 1 applic WI TID-QID PRN itching 03/12/25 08/11/25 Rx rectal cream #30 grams Acidophilus probiotic 0.5 mg PO BID 04/19/25 08/11/25 History bisacodyl 10 mg rectal suppository 10 mg WI DAILY PRN 04/19/25 08/11/25 History cholecalciferol (vitamin D3) 50 50 mcg PO DAILY 04/19/25 08/11/25 History mcg (2,000 unit) capsule (Vitamin D3) folic acid 1 mg tablet 1 mg PO DAILY 04/19/25 08/11/25 History insulin lispro 100 unit/mL 1 sliding scale dose subcut TID 04/19/25 08/11/25 History subcutaneous pen magnesium L-lactate 84 mg 84 mg PO QID 04/19/25 08/11/25 History tablet,extended release nitrofurantoin macrocrystal 100 mg 100 mg PO BID 04/19/25 08/11/25 History capsule ondansetron 4 mg disintegrating 4 mg PO Q8H PRN #7 tabs 08/03/25 08/11/25 Rx tablet levetiracetam 750 mg tablet 1,000 mg PO BID 08/11/25 08/11/25 History lorazepam 0.5 mg tablet (Ativan) 0.5 mg PO BID PRN seizures #7 tabs 08/11/25 Rx lorazepam 2 mg/mL injection 0.5 mg IM ONCE 08/11/25 08/11/25 History solution Exam Narrative Exam Narrative: GEN: Alert and oriented to self, cannot name place, coming holiday. She is pleasant and cooperative, gives vague history. No acute distress at rest, but in episodes she holds entire body stiff, will follow commands partially but with muscles tense. . HEENT: Head atraumatic. Conjunctiva clear, no icterus. PEERL, EOMI. no rhinorrhea. MMM, OP benign. Neck is supple with no masses or lymphadenopathy, trachea midline LUNGS: CTAB with normal effort CV: RRR with no murmurs, gallops, or rubs. ABD: active bowel sounds, soft, nontender and nondistended. No masses. EXT: no cyanosis, clubbing. Trace lila LE edema MSK: No joint redness or swelling. No spinal tenderness NEURO: CN 2-12 grossly intact. no pronator drift. Normal movement of 4 extremities. Normal speech and coordination. No tremor/asterixis. Hypertonic tone during episode with very stuttering speach. SKIN: No rashes or open wounds. PSYCH: normal mood and affect. loses thought process frequently. Results Imaging Chest x-ray: report reviewed (No acute pulmonary findings) EKG: report reviewed and image reviewed Imaging Studies: CT Head: 1. No acute intracranial process. 2. If symptoms persist, an MRI of the brain without and with contrast should be considered for further evaluation. Labs 08/11/25 16:44 08/11/25 16:44 Labs: Laboratory Results - last 24 hr 08/11/25 08/11/25 08/11/25 16:44 17:50 18:10 WBC 3.91 L RBC 3.73 L Hgb 11.1 L Hct 30.9 L MCV 83 MCH 29.8 MCHC 35.9 RDW 14.4 Plt Count 92 L MPV 9.2 Immature Gran % 0.5 Neutrophils % 70.1 Lymphocytes % 18.7 Monocytes % 8.2 Eosinophils % 2.0 Basophils % 0.5 Nucleated RBC % 0.0 Absolute Neutrophils 2.74 Absolute Lymphocytes 0.73 L Absolute Monocytes 0.32 Absolute Eosinophils 0.08 Absolute Basophils 0.02 Sodium 125 L Potassium 4.1 Chloride 86 L Carbon Dioxide 29.1 Anion Gap 9.6 BUN 15 Creatinine 1.16 H Est GFR (CKD-EPI 2020) 46.31 Glucose 240 H Calcium 9.7 Magnesium 1.4 L Total Bilirubin 2.6 H AST 32 ALT 28 Alkaline Phosphatase 107 Ammonia Troponin I 9 12 Total Protein 6.8 Albumin 4.3 Lipase 71 H TSH 5.29 H Free T4 1.09 Urine Color Yellow Urine Clarity Clear Urine pH 7.5 Ur Specific Stout 1.015 Urine Protein 30 H Urine Ketones Negative Urine Blood Negative Urine Nitrite Negative Urine Bilirubin Negative Urine Urobilinogen 0.2 Ur Leukocyte Esterase Moderate H Urine RBC Negative Urine WBC 3-5 Ur Epithelial Cells Moderate Urine Crystals Negative Urine Bacteria Negative Urine Casts Negative Urine Mucus Negative Ur Culture Indicated? No/Sq. Contamination Urine Glucose Negative COVID-19 Source SARS-CoV-2 (PCR) Influenza Type A (PCR) Influenza Type B (PCR) RSV (PCR) 08/11/25 08/11/25 08/11/25 19:26 19:36 21:11 WBC RBC Hgb Hct MCV MCH MCHC RDW Plt Count MPV Immature Gran % Neutrophils % Lymphocytes % Monocytes % Eosinophils % Basophils % Nucleated RBC % Absolute Neutrophils Absolute Lymphocytes Absolute Monocytes Absolute Eosinophils Absolute Basophils Sodium Potassium Chloride Carbon Dioxide Anion Gap BUN Creatinine Est GFR (CKD-EPI 2020) Glucose Calcium Magnesium Total Bilirubin AST ALT Alkaline Phosphatase Ammonia 55 H Troponin I Cancelled Total Protein Albumin Lipase TSH Free T4 Urine Color Urine Clarity Urine pH Ur Specific Stout Urine Protein Urine Ketones Urine Blood Urine Nitrite Urine Bilirubin Urine Urobilinogen Ur Leukocyte Esterase Urine RBC Urine WBC Ur Epithelial Cells Urine Crystals Urine Bacteria Urine Casts Urine Mucus Ur Culture Indicated? Urine Glucose COVID-19 Source Nasopharynx SARS-CoV-2 (PCR) Negative Influenza Type A (PCR) Negative Influenza Type B (PCR) Negative RSV (PCR) Negative Last Vital Signs Pulse 92 H 08/11/25 20:40 Resp 20 08/11/25 18:31 BP 109/45 L 08/11/25 18:30 Pulse Ox 100 08/11/25 20:40 VTE Prohylaxis Risk Level: Moderate/High Risk Contraindications: Active bleed/high bleed risk Prophylaxis: Pharmacologic (benefit out weigh risk with cihrrhosis unless platelets drop <50) Time Spent Time spent with Patient: >75 minutes Time was spent: preparing to see the patient(eg.review tests), obtaining and/or reviewing separately otained hiistory, ordering medications,tests, procedures, referring, communicating with other health care transitions manager, indepentently interpreting results, counseling the patient and care coordination
[2025-08-12] VITALS (7 sets, daily range): BP systolic 108–126; BP diastolic 48–76; PULSE 76–107; RESP 15–19; TEMP 36–36.7; O2SAT 97–100
--- NOTE | 2025-08-12 | DI.MRI_ITS ---
Exam(s) MR BRAIN WO/W EXAM: MR BRAIN WO/W CLINICAL HISTORY: intermittent aphasia, seizures? TECHNIQUE: Multiplanar multisequence MRI of the brain was performed. Both noninfused and contrast infused sequences were performed. IV Contrast injected was 19 cc Dotarem. COMPARISON: No exams were available for comparison FINDINGS: CEREBRAL PARENCHYMA: No evidence of intracranial hemorrhage, mass effect nor shift of midline structure. No extraaxial fluid collections. Ventricles are not enlarged nor shifted. There is no significant focal signal abnormality in the cerebellar hemispheres nor within the dhruv, midbrain, and thalami. There is no abnormal signal abnormality in the periventricular white matter. DWI: No areas of restricted diffusion to suggest acute ischemic event. SWI: No microhemorrhages evident. There are no ring enhancing lesions in the brain. There is no abnormal meningeal enhancement. PITUITARY GLAND: No mass nor parasellar abnormality. No obvious abnormality in the cavernous sinuses. FLOW VOIDS: The expected flow void are noted. No evidence of obvious aneurysm nor obvious vascular malformation. PARANASAL SINUSES: The visualized paranasal sinuses appear unremarkable. ORBITS: Previous bilateral cataract surgery. IMPRESSION: 1. No significant intracranial findings on this MRI scan of the brain. 2. No abnormal enhancing intracranial findings. There are no ring enhancing lesions in the brain and there is no abnormal meningeal enhancement. DATA REPOSITORY:
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
--- NOTE | 2025-08-12 01:37 | NUR.NOTE ---
Nursing Note: Deisy from the [facility] called for an update. I explained that we are trying to get ahold of her appointed guardian, Lorelei, at this time to let her know about the admission plan, and refusal of interventions up to this point. Deisy has acknowledged this information.
--- NOTE | 2025-08-12 01:41 | NUR.NOTE ---
Nursing Note: Lorelei Diaz (pt's guardian) called back. I informed Lorelei of admission status as well as pt refusal for interventions at this time. Lorelei has acknowledged this informations, and has stated that we can call back at any time for updates or concerns.
[2025-08-12] MEDS: levETIRAcetam 1,000 MG in Normal Saline 100 ML 400 MG IVPB (02:25)
--- NOTE | 2025-08-12 03:13 | NUR.NOTE ---
Nursing Note: updated the [facility] of admission status
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
[2025-08-12 07:08] LABS: HCT 30.2 % (36.0-46.0); HGB 10.7 g/dL (11.2-15.7); MCH 30.0 pg (27.0-33.0); MCHC 35.4 % (32.0-36.0); MCV 85 fL (80-95); RBC 3.57 10^6/uL (3.93-5.22); RDW 14.2 % (11.7-14.6); RDW-SD 43.5 fL; WBC 4.13 10^3/uL (4.4-10.8)
[2025-08-12 07:18] LABS: INR 1.1 (0.9-1.1); Prothrombin Time 11.1 sec (9.1-11.1)
[2025-08-12 07:26] LABS: Magnesium 1.7 mg/dL (1.6-2.6)
[2025-08-12 07:31] LABS: ALT 24 U/L (10-49); AST 28 U/L (<34); Albumin 4.1 g/dL (3.2-5.0); Alkaline Phosphatase 100 U/L (46-116); Anion Gap 9.2 mmol/L (3-11); BUN 16 mg/dL (9-23); Bilirubin, Direct 1.1 mg/dL (<=0.3); Bilirubin, Total 2.9 mg/dL (0.2-1.2); CO2 29.8 mmol/L (20.0-31.0); Calcium 9.0 mg/dL (8.3-10.6); Chloride 94 mmol/L (98-107); Glucose 155 mg/dL (74-106); Potassium 3.5 mmol/L (3.5-5.1); Sodium 133 mmol/L (136-145); Total Protein 6.4 g/dL (5.7-8.2)
[2025-08-12] MEDS: Insulin Aspart 300 UNITS/3 ML PEN SC ×3 (08:52→17:20)
[2025-08-12] MEDS: Polyethylene Glycol 3350 17 GM PACKET PO ×2 (08:53→19:56)
[2025-08-12] MEDS: Insulin Aspart 300 UNITS/3 ML PEN 8 UNITS SC ×3 (08:53→17:21)
[2025-08-12] MEDS: Folic Acid 1 MG TAB PO (08:54)
[2025-08-12] MEDS: QUEtiapine 25 MG TAB PO ×2 (08:54→19:59)
[2025-08-12] MEDS: Torsemide 20 MG TAB 40 MG PO ×2 (08:54→19:57)
[2025-08-12] MEDS: Lactulose 20 GM/30 ML CUP 30 GM PO ×4 (08:54→19:56)
[2025-08-12] MEDS: Lactobacillus Acidophilus CAP 1 CAP PO ×2 (08:54→19:59)
[2025-08-12] MEDS: Pantoprazole 40 MG TABCR PO (08:54)
[2025-08-12] MEDS: Cholecalciferol (Vitamin D3) 1,000 UNIT TAB 2000 UNITS PO (08:54)
[2025-08-12] MEDS: Spironolactone 50 MG TAB PO (08:54)
[2025-08-12] MEDS: Rifaximin 550 MG TAB PO ×2 (08:55→19:58)
[2025-08-12] MEDS: Magnesium Lactate-SR 84 MG TABCR PO ×4 (08:55→19:58)
[2025-08-12] MEDS: levETIRAcetam 500 MG TAB 1250 MG PO ×2 (08:56→19:57)
[2025-08-12] MEDS: Normal Saline Flush 10 ML SYR IVP ×3 (08:57→20:00)
[2025-08-12] MEDS: Umeclidinium 7 CAP INHALER 1 CAP IH (09:08)
--- NOTE | 2025-08-12 09:31 | INITIAL_ITS ---
Date of service: 08/12/25 Time of Service: 09:31 Care Management Initial Assmt Initial Assessment Reason for Hospitalization: seizure/ hypomagnesemia Functional Status/Living Situation Patient Presentation: Reny presented to the ED yesterday afternoon with c/o multiple seizures which increased over the last couple of days. Some episodes were witnessed and were noted to last a few sections. She was noted to have periods of aphasia after the episodes. On arrival to ED, she had some aphasia and word salad, but that cleared very quickly. She is on Keppra 1g twice a day, and reportedly did take it yesterday morning. MAXWELL received a call from the [facility] this morning. They wanted to relay that Reny receives all of her specialist care at [facility] - she has 7 specialists. She has appointments upcoming with all of these specialists in August and September. Hannah stated that all medication changes are discussed with her specialists before the [facility] provider will follow through with any of these changes. [facility] also wanted to be sure that we had Reny's guardianship paperwork. It is scanned into her chart and guardian is listed as contact and on HIPAA form. MAXWELL also talked with Lorelei Steele, Reny's guardian, and updated her on Reny. has visited Reny a couple of times today. First visit, Reny seemed great, and then her speech became garbled. Reny stated that this is how her seizures present. Later in the day Reny's speech was improved, but she did seem a bit confused, which MAXWELL has not noticed on previous admissions. Town of Residence: [place] at the [facility] Resides with: Other (the [facility]) Significant Other/Family: Local (sister and niece visit with Reny) Caregiver/Guardian: the [facility] is caregiver. Lorelei Diaz is state appointed guardian. Employment Status: Unemployed Instrumental Activities of Daily Living (ADLs): Requires support Activities/Hobbies/SocialSupport: joins in the activities at the [facility] Medications Medication Management: No Issues/Barriers identified Physical Functioning/Mobility Assistive Device: none Advance Directives Advance Directives: Do you have an Advance Directive: AD On File at [facility]: N 02/17/25, 13:32 Date Asked 08/11/25 08/11/25, 16:27 AD Date Reviewed COLST On File at [facility] COLST Date Scanned Code Status Resuscitation Status DNR/DNI Insurance Coverage/Financial Issues Insurance: AARP/UN.[facility] - [id number] Medicaid of [place]? Care Team Visit Care Team Role Provider Type Mynor Dawson MD MD [facility] STAFF PHYSICIAN Laina Leal Primary Care Provider NON-[facility] STAFF PHYSICIAN Carmela Yadav, SECURITY ARCHITECT Emergency Provider NURSE PRACTITIONER Avery Zheng Admit Provider [facility] STAFF PHYSICIAN Attending Provider Discharge Potential Discharge Needs: Imaging/labs (MRI and EEG), PCP F/U Appt and Other (specialists in Aug-sep) Anticipated Barriers to Discharge: Treatment delay (availability of testing) Patient/Family Education Needs: Review discharge instructions, discuss Ask Me Three Transportation: [facility] Transportation: Private vechicle Plan: Anticipate that Reny will return to the [facility] once she is medically cleared. She will f/u with the facility provider, and all of her specialists, and continue per her plan of care. Reny will transport via [facility] private vehicle. CM will continue to follow. Social Determinants of Health Screening Will the Patient Participate in the Screening?: Unable to obtain In the past 12 months, have you had to go without electric, gas, oil or water in your home?: choose not to answer Has lack of transportation kept you from medical appointments or from doing things needed for daily living?: no Has anyone in your life made you feel unsafe or unsupported?: no How hard is it for you to pay for the very basics like food, housing, medical care, and heating? Would you say it is:: Not hard at all Do you want help finding or keeping work or a job?: I do not need or want help If for any reason you need help with day-to-day activities such as bathing, preparing meals, shopping, managing finances, etc., do you get the help you need?: I don?t need any help How often do you feel lonely or isolated from those around you?: Sometimes Do you speak a language other than Italian at home?: No Does the patient want assistance with any of the above?: No Health Related Social Needs Health related social needs: material hardship(utilities) (Z59.12) and feeling lonely/isolated (Z60.8) Health related social needs details: Unable to obtain [facility], [facility] All Active Problems (Updated 08/12/25 @ 03:18 by ELIAZAR BLACKWOOD) JUSTO (acute kidney injury) (Acute) Hypomagnesemia (Acute) Breakthrough seizure (Acute) Acute dehydration (Acute) Elevated lactic acid level (Acute) Colitis (Acute) Gastroenteritis (Acute) Abdominal pain (Acute) Advanced care planning/counseling discussion (Acute) Asymptomatic bacteriuria (Acute) Pneumatosis coli (Acute) Ischemia, bowel (Acute) Edema of both lower legs (Acute) CALIBRATION SPECIALIST exam for high-risk Medicare patient (Acute) Hemorrhoid (Acute) Irritation of vulva (Acute) Nail dystrophy (Acute) Medical History Chronic GERD History of seizure disorder Metabolic dysfunction-associated steatotic liver disease (MASLD) COPD (chronic obstructive pulmonary disease) Diabetes mellitus type 2, insulin dependent Acquired pancytopenia Constipation Type 2 diabetes mellitus Hyponatremia Thrombocytopenia Liver 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) Pancytopenia Surgical History S/P cholecystectomy S/P hysterectomy S/P TIPS (transjugular intrahepatic portosystemic shunt) Social History Smoking/Tobacco Use Status: Never Smoking risk assessment performed?: Yes Alcohol Intake: never Drug use: Never Substance use type: does not use Housing: alf Do you feel safe at home: Yes Do you feel safe in your relationship?: Yes Additional Social history: lives at the [facility] Within the Past 30 Days Yes or No: Yes Date of First Admission Date of 1st Admission: 07/19/25 Date of this Admission Date of Admission: 08/11/25 This admission was: Through ED Office Visit Since 1st Admission Have you seen your PCP in the office since discharge?: Yes Date of PCP Appointment: seen by the [facility] provider Speicalist Appointments Specialist Seen: several specialist appointments in Aug and Sep 2025 ED visits How many ED visits in the past 12 months: 7 Assessment for Readmission Summary of readmission circumstances, based upon interviews: circumstances are not related
[2025-08-12] MEDS: LORazepam 1 MG TAB PO (11:32)
--- NOTE | 2025-08-12 11:43 | PHACLINREV_ITS ---
Pharmacy Admission Review Admission Clinical Review Admission Pharmacy Review: JUSTO (acute kidney injury) (Acute) Breakthrough seizure (Acute) amitriptyline Allergy (Intermediate, Verified 07/19/25 14:21) Unknown azithromycin Allergy (Intermediate, Verified 07/19/25 14:21) Unknown ciprofloxacin Allergy (Intermediate, Verified 07/19/25 14:21) Unknown codeine Allergy (Intermediate, Verified 07/19/25 14:21) Unknown cortisone Allergy (Intermediate, Verified 07/19/25 14:21) Unknown erythromycin base Allergy (Intermediate, Verified 07/19/25 14:21) Unknown guaifenesin (From Robitussin) Allergy (Intermediate, Verified 07/19/25 14:21) Unknown iron Allergy (Intermediate, Verified 07/19/25 14:21) Unknown metronidazole (From Flagyl) Allergy (Intermediate, Verified 07/19/25 14:21) Unknown morphine Allergy (Intermediate, Verified 07/19/25 14:21) Unknown oxycodone (From Percocet) Allergy (Intermediate, Verified 07/19/25 14:21) Unknown Sulfa (Sulfonamide Antibiotics) Allergy (Intermediate, Verified 07/19/25 14:21) Unknown acetaminophen Allergy (Unknown, Verified 07/19/25 14:21) Other (See Comment) cyclosporine Allergy (Unknown, Verified 07/19/25 14:21) Other (See Comment) fluticasone (From Advair Diskus) Allergy (Unknown, Verified 07/19/25 14:21) Other (See Comment) ibuprofen Allergy (Unknown, Verified 07/19/25 14:21) Other (See Comment) pregabalin (From Lyrica) Allergy (Unknown, Verified 07/19/25 14:21) Other (See Comment) salmeterol Allergy (Unknown, Verified 07/19/25 14:21) Other (See Comment) strawberry Allergy (Unknown, Verified 07/19/25 14:21) Other (See Comment) Resuscitation Status DNR/DNI Height 5 ft 2 in Weight 80.8 kg Pharmacy Admission Review Renal Dosing Renal Dosing: BUN 16 mg/dL (9-23) 08/12/25 06:35 Creatinine 1.04 mg/dL (0.55-1.02) H 08/12/25 06:35 Medications needing adjustments: Reviewed (CrCl 50.15 mL/min) List of meds needing interventions: Current medications are okay Anticoagulation Anticoagulation: Hgb 10.7 g/dL (11.2-15.7) L 08/12/25 06:35 Hct 30.2 % (36.0-46.0) L 08/12/25 06:35 Plt Count 10^3/uL (130-400) 08/12/25 06:35 INR 1.1 (0.9-1.1) 08/12/25 06:35 Creatinine 1.04 mg/dL (0.55-1.02) H 08/12/25 06:35 DVT Prophylaxis: Reviewed Medications: Enoxaparin (40mg daily) Relevant Labs Relevant Labs: Sodium 133 mmol/L (136-145) L 08/12/25 06:35 Potassium 3.5 mmol/L (3.5-5.1) 08/12/25 06:35 Chloride 94 mmol/L (98-107) L 08/12/25 06:35 Magnesium 1.7 mg/dL (1.6-2.6) 08/12/25 06:35 Electrolytes, C-Reactive P, ESR: Reviewed (Na increased from 125, total bilirubin increased from 2.6 to 2.9) DM Control DM Control: Glucose 155 mg/dL (74-106) H 08/12/25 06:35 Finger Stick Blood Glucose 374 1130 Finger Stick Blood Glucose 374 1130 Finger Stick Blood Glucose 197 0853 Finger Stick Blood Glucose 197 0852 Finger Stick Blood Glucose 197 0756 Finger Stick Blood Glucose 197 0756 DM Control: Reviewed Insulin Dosing, Diabetic Medication: Has orders for SS insulin, 5 units carb coverage with meals and glargine 45 units twice daily. Changed Tresiba (non- formulary) to glargine with 20% reduction in dose. Cardiac Review Cardiac Review: Troponin I Cancelled 08/11/25 19:36 BP, HR, EF%: Reviewed (HR and BP WNL) List meds needing interventions: Has orders for spironolactone 50mg daily and torsemide 40mg BID QTc Review QTc: Reviewed (486 from 08/11/25) IV to PO Switch IV Medications: Reviewed Home Meds Home Med List reviewed: Intervened Relevent Home Meds Not ordered & why?: Epipen (PRN) and lorazepam (PRN) Recently filled but not on home med list - levothyroxine. Informed provider who is looking into it Changed hydrocortisone/pramoxine rectal cream to patients own order (non- formulary). Will need to be brought in from home if patient wants to use while inpatient. Current Meds Current Medication Order Review: Intervened Comments: Added 2nd PRN to ondansetron order Changed pantoprazole timing from 0830 to 0730 per pharmacy protocol
[2025-08-12] MEDS: Gadoterate meglumine 20 ML SYRINGE IJ (12:31)
[2025-08-12 15:25] LABS: MRSA PCR Negative (Negative)
--- NOTE | 2025-08-12 16:22 | W.PM.PROGNOT ---
Date of Service Date of service: 08/12/25 Time of Service: 08:00 Assessment and Plan Assessment and plan (1) Breakthrough seizure: Status: Acute Assessment and plan: She is having recurrent seizure like episodes. Episodes are tonic, a/w stuttering speach, but she is aware of what is happening. PNES very possible. Teleneuro consulted, per recommendation will admit for MRI w/wo and EEG Of note had MRI december 2023 at [place], no actue findings Aug 12: MRI unremarkable. EEG likely to be done here. Teleneuro reconsulted. (2) Liver 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): Assessment and plan: Child Bob Class B S/p TIPs, high risk for hepatic encephalopathy, but intermittent nature of the episodes not c/w encephalopahty She appears to be at her baseline liver function. Monitor (3) Chronic GERD: Assessment and plan: continue PPI (4) Diabetes mellitus type 2, insulin dependent: Assessment and plan: Last A1c 7.6%, reasonably controlled. Contnue basal/bolus insulin. (5) COPD (chronic obstructive pulmonary disease): Assessment and plan: Not exacerbated, continue home inhalers (6) Hyponatremia: Assessment and plan: moderate/severe hyponatremia similar to her baseline. A/w cirrhosis, also possibly psychiatry medcations contributing. I don't think this is causing seizure activity as it is chronic will fluid restrict (7) JUSTO (acute kidney injury): Status: Acute Assessment and plan: Cr 1.16 up from 0.84. Baldder scan for retention. Func Subjective Subjective Interval history since last seen: Ms. Lewis continues to have seizure-like activity followed by poor speech control. Exam Narrative Exam Narrative: General: This is a somnolent woman in no distress HEENT: Normocephalic, atraumatic CV: RRR Resp: CTAB Abd: soft, NTND MSK: voluntary motion x4 Neuro: somnolent, rousable, difficulty finding words, slow speech Objective Last Vital Signs Temp 36.3 C L 08/12/25 11:28 Pulse 83 08/12/25 11:28 Resp 15 08/12/25 11:28 BP 126/76 08/12/25 11:28 Pulse Ox 97 08/12/25 11:28 Laboratory Results - last 24 hr 08/11/25 08/11/25 08/11/25 16:44 17:50 18:10 WBC 3.91 L RBC 3.73 L Hgb 11.1 L Hct 30.9 L MCV 83 MCH 29.8 MCHC 35.9 RDW 14.4 Plt Count 92 L MPV 9.2 Immature Gran % 0.5 Neutrophils % 70.1 Lymphocytes % 18.7 Monocytes % 8.2 Eosinophils % 2.0 Basophils % 0.5 Nucleated RBC % 0.0 Absolute Neutrophils 2.74 Absolute Lymphocytes 0.73 L Absolute Monocytes 0.32 Absolute Eosinophils 0.08 Absolute Basophils 0.02 PT INR Sodium 125 L Potassium 4.1 Chloride 86 L Carbon Dioxide 29.1 Anion Gap 9.6 BUN 15 Creatinine 1.16 H Est GFR (CKD-EPI 2020) 46.31 Glucose 240 H Calcium 9.7 Magnesium 1.4 L Total Bilirubin 2.6 H Conjugated Bilirubin AST 32 ALT 28 Alkaline Phosphatase 107 Ammonia Troponin I 9 12 Total Protein 6.8 Albumin 4.3 Lipase 71 H TSH 5.29 H Free T4 1.09 Urine Color Yellow Urine Clarity Clear Urine pH 7.5 Ur Specific [place] 1.015 Urine Protein 30 H Urine Ketones Negative Urine Blood Negative Urine Nitrite Negative Urine Bilirubin Negative Urine Urobilinogen 0.2 Ur Leukocyte Esterase Moderate H Urine RBC Negative Urine WBC 3-5 Ur Epithelial Cells Moderate Urine Crystals Negative Urine Bacteria Negative Urine Casts Negative Urine Mucus Negative Ur Culture Indicated? No/Sq. Contamination Urine Glucose Negative COVID-19 Source SARS-CoV-2 (PCR) Influenza Type A (PCR) Influenza Type B (PCR) RSV (PCR) MRSA (TEM-PCR) 08/11/25 08/11/25 08/11/25 19:26 19:36 21:11 WBC RBC Hgb Hct MCV MCH MCHC RDW Plt Count MPV Immature Gran % Neutrophils % Lymphocytes % Monocytes % Eosinophils % Basophils % Nucleated RBC % Absolute Neutrophils Absolute Lymphocytes Absolute Monocytes Absolute Eosinophils Absolute Basophils PT INR Sodium Potassium Chloride Carbon Dioxide Anion Gap BUN Creatinine Est GFR (CKD-EPI 2020) Glucose Calcium Magnesium Total Bilirubin Conjugated Bilirubin AST ALT Alkaline Phosphatase Ammonia 55 H Troponin I Cancelled Total Protein Albumin Lipase TSH Free T4 Urine Color Urine Clarity Urine pH Ur Specific [place] Urine Protein Urine Ketones Urine Blood Urine Nitrite Urine Bilirubin Urine Urobilinogen Ur Leukocyte Esterase Urine RBC Urine WBC Ur Epithelial Cells Urine Crystals Urine Bacteria Urine Casts Urine Mucus Ur Culture Indicated? Urine Glucose COVID-19 Source Nasopharynx SARS-CoV-2 (PCR) Negative Influenza Type A (PCR) Negative Influenza Type B (PCR) Negative RSV (PCR) Negative MRSA (TEM-PCR) 08/12/25 08/12/25 06:35 13:13 WBC 4.13 L RBC 3.57 L Hgb 10.7 L Hct 30.2 L MCV 85 MCH 30.0 MCHC 35.4 RDW 14.2 Plt Count MPV Immature Gran % Neutrophils % Lymphocytes % Monocytes % Eosinophils % Basophils % Nucleated RBC % Absolute Neutrophils Absolute Lymphocytes Absolute Monocytes Absolute Eosinophils Absolute Basophils PT 11.1 INR 1.1 Sodium 133 L Potassium 3.5 Chloride 94 L Carbon Dioxide 29.8 Anion Gap 9.2 BUN 16 Creatinine 1.04 H Est GFR (CKD-EPI 2020) 52.53 Glucose 155 H Calcium 9.0 Magnesium 1.7 Total Bilirubin 2.9 H Conjugated Bilirubin 1.1 H AST 28 ALT 24 Alkaline Phosphatase 100 Ammonia Troponin I Total Protein 6.4 Albumin 4.1 Lipase TSH Free T4 Urine Color Urine Clarity Urine pH Ur Specific [place] Urine Protein Urine Ketones Urine Blood Urine Nitrite Urine Bilirubin Urine Urobilinogen Ur Leukocyte Esterase Urine RBC Urine WBC Ur Epithelial Cells Urine Crystals Urine Bacteria Urine Casts Urine Mucus Ur Culture Indicated? Urine Glucose COVID-19 Source SARS-CoV-2 (PCR) Influenza Type A (PCR) Influenza Type B (PCR) RSV (PCR) MRSA (TEM-PCR) Negative VTE Prohylaxis Risk Level: Moderate/High Risk Contraindications: Active bleed/high bleed risk Prophylaxis: Pharmacologic (benefit out weigh risk with cihrrhosis unless platelets drop <50) Time Spent with Patient Time Spent with Patient: 25-34 minutes Time was spent: preparing to see the patient(eg.review tests), obtaining and/or reviewing separately otained hiistory, ordering medications,tests, procedures, referring, communicating with other health nurse care manager, indepentently interpreting results, counseling the patient and care coordination
[2025-08-12] MEDS: Insulin Glargine 300 UNITS/3 ML PEN 45 UNITS SC (20:03)
[2025-08-13] MEDS: Melatonin 3 MG TAB PO (01:26)
[2025-08-13 04:57] VITALS: BP 107/51; PULSE 86; TEMP 37.1; O2SAT 94
[2025-08-13] MEDS: Lactulose 20 GM/30 ML CUP 30 GM PO ×4 (07:38→21:22)
[2025-08-13] MEDS: Enoxaparin 40 MG/0.4 ML SYR SC (07:39)
[2025-08-13] MEDS: levETIRAcetam 500 MG TAB 1250 MG PO ×2 (07:39→21:24)
[2025-08-13] MEDS: Polyethylene Glycol 3350 17 GM PACKET PO ×2 (07:39→21:24)
[2025-08-13] MEDS: Cholecalciferol (Vitamin D3) 1,000 UNIT TAB 2000 UNITS PO (07:40)
[2025-08-13] MEDS: Folic Acid 1 MG TAB PO (07:40)
[2025-08-13] MEDS: Magnesium Lactate-SR 84 MG TABCR PO ×4 (07:40→21:25)
[2025-08-13] MEDS: Rifaximin 550 MG TAB PO ×2 (07:40→21:25)
[2025-08-13] MEDS: Lactobacillus Acidophilus CAP 1 CAP PO ×2 (07:40→21:22)
[2025-08-13] MEDS: Spironolactone 50 MG TAB PO (07:40)
[2025-08-13] MEDS: Normal Saline Flush 10 ML SYR IVP ×2 (07:41→21:31)
[2025-08-13] MEDS: QUEtiapine 25 MG TAB PO ×2 (07:41→21:25)
[2025-08-13] MEDS: Torsemide 20 MG TAB 40 MG PO ×2 (07:41→21:24)
[2025-08-13] MEDS: Insulin Aspart 300 UNITS/3 ML PEN SC ×3 (07:43→16:33)
[2025-08-13] MEDS: Insulin Aspart 300 UNITS/3 ML PEN 8 UNITS SC ×3 (07:43→16:33)
[2025-08-13 07:49] VITALS: BP 115/72; PULSE 88; RESP 16; TEMP 37; O2SAT 98
[2025-08-13] MEDS: Pantoprazole 40 MG TABCR PO (08:11)
[2025-08-13] MEDS: Umeclidinium 7 CAP INHALER 1 CAP IH (08:29)
[2025-08-13] MEDS: Insulin Glargine 300 UNITS/3 ML PEN 45 UNITS SC ×2 (09:36→21:39)
[2025-08-13 11:39] VITALS: BP 101/71; PULSE 91; RESP 16; TEMP 36.8; O2SAT 98
[2025-08-13] MEDS: Benzonatate 100 MG CAP PO ×2 (12:45→21:25)
--- NOTE | 2025-08-13 15:17 | W.PM.PROGNOT ---
Date of Service Date of service: 08/13/25 Time of Service: 08:00 Assessment and Plan Assessment and plan (1) Breakthrough seizure: Status: Acute Assessment and plan: She is having recurrent seizure like episodes. Episodes are tonic, a/w stuttering speach, but she is aware of what is happening. PNES very possible. Teleneuro consulted, per recommendation will admit for MRI w/wo and EEG Of note had MRI december 2023 at [place], no actue findings Aug 12: MRI unremarkable. EEG likely to be done here. Teleneuro reconsulted. Aug 13: Awaiting teleneuro consult, apparently difficult on the holiday. (2) Liver 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): Assessment and plan: Child Bob Class B S/p TIPs, high risk for hepatic encephalopathy, but intermittent nature of the episodes not c/w encephalopahty She appears to be at her baseline liver function. Monitor (3) Chronic GERD: Assessment and plan: continue PPI (4) Diabetes mellitus type 2, insulin dependent: Assessment and plan: Last A1c 7.6%, reasonably controlled. Contnue basal/bolus insulin. (5) COPD (chronic obstructive pulmonary disease): Assessment and plan: Not exacerbated, continue home inhalers (6) Hyponatremia: Assessment and plan: moderate/severe hyponatremia similar to her baseline. A/w cirrhosis, also possibly psychiatry medcations contributing. I don't think this is causing seizure activity as it is chronic will fluid restrict (7) JUSTO (acute kidney injury): Status: Acute Assessment and plan: Cr 1.16 up from 0.84. Baldder scan for retention. [facility] Subjective Subjective Interval history since last seen: Ms. Lewis continues to have episodes of seizure-like activity followed by slowed speech with word-finding difficulty. Awaiting teleneuro consult. Exam Narrative Exam Narrative: General: This is a somnolent woman in no distress HEENT: Normocephalic, atraumatic CV: RRR Resp: CTAB Abd: soft, NTND MSK: voluntary motion x4 Neuro: somnolent, rousable, difficulty finding words, slow speech Objective Last Vital Signs Temp 36.8 C 08/13/25 11:39 Pulse 91 H 08/13/25 11:39 Resp 16 08/13/25 11:39 BP 101/71 08/13/25 11:39 Pulse Ox 98 08/13/25 11:39 Laboratory Results - last 24 hr 08/12/25 13:13 MRSA (TEM-PCR) Negative VTE Prohylaxis Risk Level: Moderate/High Risk Contraindications: Active bleed/high bleed risk Prophylaxis: Pharmacologic (benefit out weigh risk with cihrrhosis unless platelets drop <50) Time Spent with Patient Time Spent with Patient: 25-34 minutes Time was spent: preparing to see the patient(eg.review tests), obtaining and/or reviewing separately otained hiistory, ordering medications,tests, procedures, referring, communicating with other health manager critical care unit, indepentently interpreting results, counseling the patient and care coordination
[2025-08-13 16:34] VITALS: BP 107/64; PULSE 88; RESP 16; TEMP 36.7; O2SAT 97
[2025-08-13 19:18] VITALS: BP 121/72; PULSE 89; RESP 16; TEMP 36.9; O2SAT 99
[2025-08-13 22:57] VITALS: BP 121/72; PULSE 89; O2SAT 99
[2025-08-14 04:56] VITALS: BP 115/62; PULSE 86; RESP 17; TEMP 36.7; O2SAT 93
[2025-08-14] MEDS: Pantoprazole 40 MG TABCR PO (06:14)
[2025-08-14] MEDS: Umeclidinium 7 CAP INHALER 1 CAP IH (08:03)
[2025-08-14] MEDS: Polyethylene Glycol 3350 17 GM PACKET PO (08:17)
[2025-08-14] MEDS: Benzonatate 100 MG CAP PO (08:17)
[2025-08-14] MEDS: Torsemide 20 MG TAB 40 MG PO (08:17)
[2025-08-14] MEDS: QUEtiapine 25 MG TAB PO (08:17)
[2025-08-14] MEDS: Folic Acid 1 MG TAB PO (08:17)
[2025-08-14] MEDS: Enoxaparin 40 MG/0.4 ML SYR SC (08:18)
[2025-08-14] MEDS: Rifaximin 550 MG TAB PO (08:18)
[2025-08-14] MEDS: Cholecalciferol (Vitamin D3) 1,000 UNIT TAB 2000 UNITS PO (08:18)
[2025-08-14] MEDS: Spironolactone 50 MG TAB PO (08:18)
[2025-08-14] MEDS: Magnesium Lactate-SR 84 MG TABCR PO (08:18)
[2025-08-14] MEDS: Lactobacillus Acidophilus CAP 1 CAP PO (08:19)
[2025-08-14] MEDS: Lactulose 20 GM/30 ML CUP 30 GM PO (08:19)
[2025-08-14] MEDS: levETIRAcetam 500 MG TAB 1250 MG PO (08:19)
[2025-08-14] MEDS: Insulin Glargine 300 UNITS/3 ML PEN 45 UNITS SC (08:24)
[2025-08-14] MEDS: Normal Saline Flush 10 ML SYR IVP (08:25)
[2025-08-14] MEDS: Insulin Aspart 300 UNITS/3 ML PEN 8 UNITS SC (08:30)
[2025-08-14] MEDS: Insulin Aspart 300 UNITS/3 ML PEN SC (08:30)
[2025-08-14 08:43] VITALS: BP 123/66; PULSE 88; RESP 20; TEMP 36.6; O2SAT 97
--- NOTE | 2025-08-14 09:15 | PDOC.CMPRO ---
Date of service: 08/14/25 Care Management Progress Note Progress Note Text Progress Note Text: Reny is continuing to have episodes of slurred speech. She is awaiting teleneuro consult and EEG. Discharge Potential Discharge Needs: Consult (teleneuro), Imaging/labs (EEG) and Other (specialists in Aug-sep) Anticipated Barriers to Discharge: None Identified Patient/Family Education Needs: Review discharge instructions, discuss Ask Me Three Transportation: [facility] Transportation: Private vechicle Plan: Anticipate that Reny will return to the [facility] once she is medically cleared. She will f/u with the facility provider, and all of her specialists, and continue per her plan of care. Reny will transport via [facility] private vehicle. CM will continue to follow. Social Determinants of Health Screening Will the Patient Participate in the Screening?: Unable to obtain In the past 12 months, have you had to go without electric, gas, oil or water in your home?: choose not to answer Has lack of transportation kept you from medical appointments or from doing things needed for daily living?: no Has anyone in your life made you feel unsafe or unsupported?: no How hard is it for you to pay for the very basics like food, housing, medical care, and heating? Would you say it is:: Not hard at all Do you want help finding or keeping work or a job?: I do not need or want help If for any reason you need help with day-to-day activities such as bathing, preparing meals, shopping, managing finances, etc., do you get the help you need?: I don?t need any help How often do you feel lonely or isolated from those around you?: Sometimes Do you speak a language other than Danish at home?: No Does the patient want assistance with any of the above?: No Health Related Social Needs Health related social needs: material hardship(utilities) (Z59.12) and feeling lonely/isolated (Z60.8) Health related social needs details: Unable to obtain
--- NOTE | 2025-08-14 09:40 | PDOC.CMDIS ---
Date of service: 08/14/25 Time of Service: 09:40 LACE Index Scoring Tool Questions: Length of Stay (in days): 3 Was the patient admitted via the E.D.?: Yes Comorbidities: Diabetes w/o Complication, Chronic Pulmonary Disease and Liver or Renal Disease E.D. Visits: 7 Answers: Total Score: 15 Risk of Readmission: High Risk Care Management Discharge Plan Reason for Hospitalization: seizures Discharge Plan: Reny will transfer back to the [facility] today. She will f/u with the facility provider and all of her specialist in the next 2 months. Reny will transport via [facility] private vehicle and continue per her plan of care. The [facility] has been notified of Reny's discharge. Patient/Family Education Needs: Review of discharge instructions, activity, limitations, and discuss Ask me 3. SDOH Health Related Social Needs: Health related social needs risk of homeless Health related social needs details patient live with sister does not worry about homelessness Health related social needs details: Unable to obtain
--- NOTE | 2025-08-14 10:08 | W.PM.DS.N ---
Date of service: 08/14/25 Time of Service: 08:00 DS: Diagnosis Discharge Diagnosis (1) Breakthrough seizure: Status: Acute Asessment and Plan: She is having recurrent seizure like episodes. Episodes are tonic, a/w stuttering speach, but she is aware of what is happening. PNES very possible. Teleneuro consulted, per recommendation will admit for MRI w/wo and EEG Of note had MRI december 2023 at [place], no actue findings August 12 MRI unremarkable[place] [facility] [place], advising outpatient followup with EEG. (2) Liver 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): Asessment and Plan: Child Bob Class B S/p TIPs, high risk for hepatic encephalopathy, but intermittent nature of the episodes not c/w encephalopahty She appears to be at her baseline liver function. (3) Chronic GERD: Asessment and Plan: continue PPI (4) Diabetes mellitus type 2, insulin dependent: Asessment and Plan: Last A1c 7.6%, reasonably controlled. Contnue basal/bolus insulin. (5) COPD (chronic obstructive pulmonary disease): Asessment and Plan: Not exacerbated, continue home inhalers (6) Hyponatremia: Asessment and Plan: moderate/severe hyponatremia similar to her baseline. A/w cirrhosis, also possibly psychiatry medcations contributing. Unlikely to be causing seizure activity as it is chronic (7) JUSTO (acute kidney injury): Status: Resolved Asessment and Plan: Cr 1.16 up from 0.84. Improved to 1.04 overnight Likely due to muscle strain from seizure-like episodes Discharge Plan Disposition Patient Disposition: Long Term Facility(SNF) Anticipated Discharge Date/Time: 08/14/25 09:30 Condition: Fair Condition: Fair Discharge Details Reason For Visit: Episodic Dysphasia Admit Date/Time: 08/11/25 22:45 Admit Provider: Avery Zheng Attending Provider: Avery Zheng Primary Care Provider: Laina Leal Hospital Course Hospital Course: 70 yo F with history of seizure disorder, IDDM, decompensated MASLD cirrhosis s/p TIPs, who [place] [facility] was sent to evaluate seizure activity. The patient states she has been having seizures since she was seen here 08/04 for gastroenteritis. The diarrhea and vomiting have resolved but she is having recurrent episodes of seizures since then. He states she gets stiff and can't move or talk, and she gradually gets better after a few minutes. She states they are coming every 30 minutes now. She has some diffuse bilateral headache to her neck, not severe, she can't say when that started. She can't tell me how long she has had a seizure disorder. Patient was evaluated by teleneurology in the ED, with recommendation for MRI and EEG. MRI unremarkable. Teleneurology followup after MRI cleared patient for discharge, with recommendation for outpatient followup with neurology. At this time, patient is safe to return [place] [facility] Home Meds and New Rx's Prescriptions: New lorazepam [Ativan] 0.5 mg tablet 0.5 mg PO BID PRN (Reason: seizures) Qty: 7 0RF Rx Instructions: Please take 1 tablet by mouth to twice daily as needed for breakthrough seizures levetiracetam 500 mg tablet 1,250 mg PO Q12H Qty: 150 0RF Rx Instructions: Increased dose as of August 12, 2025. Hospitalized for breakthrough seizures. [facility] [place]. Continued hydrocortisone-pramoxine 1-1 % cream 1 applic CO TID-QID PRN (Reason: itching) Qty: 30 1RF pantoprazole [Protonix] 40 mg tablet,delayed release (DR/EC) 40 mg PO DAILY levetiracetam 1,000 mg tablet 1,000 mg PO BID Incruse Ellipta 62.5 mcg/actuation blister with device 1 inh inhalation DAILY lactulose 10 gram/15 mL solution 30 g PO QID Xifaxan 550 mg tablet 550 mg PO BID insulin degludec [Tresiba FlexTouch U-200] 200 unit/mL (3 mL) insulin pen 56 unit subcut BID albuterol 90 mcg/actuation aerosol 180 mcg inhalation .Q4 PRN epinephrine 0.3 mg/0.3 mL auto-injector 0.3 ml subcut Q5-15M PRN Patient Comments: emergency use Rx Instructions: do not exceed 2 doses per episode torsemide 20 mg tablet 40 mg PO BID quetiapine [Seroquel] 25 mg tablet 25 mg PO BID spironolactone 50 mg tablet 50 mg PO DAILY cholecalciferol (vitamin D3) [Vitamin D3] 50 mcg (2,000 unit) capsule 50 mcg PO DAILY magnesium L-lactate 84 mg tablet extended release 84 mg PO QID folic acid 1 mg tablet 1 mg PO DAILY Patient Comments: GIVE ONE TABLET BY MOUTH EVERY MORNING FOR SUPPLEMENT insulin lispro 100 unit/mL insulin pen 1 sliding scale dose SUBCUT TID Rx Instructions: Use per sliding scale SQ TID; inject 10 units SQ TID in addition to sliding scale; hold for BS <201 Acidophilus probiotic 0.5 mg tablet 0.5 mg PO BID bisacodyl 10 mg suppository 10 mg CO DAILY PRN lorazepam 2 mg/mL solution 0.5 mg IM ONCE polyethylene glycol 3350 [ClearLax] 17 gram/dose powder 17 g PO BID No Action ondansetron HCl 4 mg tablet 4 mg PO Q8H PRN Discharge Instructions Instructions: Low Magnesium Level (DC), Seizures, Adult ED Additional Instructions: Your dose of Keppra (levetiracetam) is increased to 1250 mg twice per day. You are prescribed Ativan (lorazepam) 0.5 mg to be taken for seizure activity. Please follow up with your neurologist. Referrals: [facility] [Outside, Neurology] - 2 weeks Referral Note: Call for an appointment Problems: Breakthrough seizure Laina Leal [Primary Care Provider, Medicine] - 2 days Problems: Breakthrough seizure; Hypomagnesemia Activity:: Activity as Tolerated Equipment/Supplies:: No Equipment Needed Diet:: As Tolerated DS: Summary Time Spent with Patient providing and/or coordinating discharge services: Greater than 30 minutes Status at Discharge Functional status at discharge: independent ambulation Overall status at discharge: patient is progressing back to baseline Mental Status: mental status grossly normal Speech and Movement: delayed speech, slurred speech and other (at baseline) Mood: congruent mood Affect: normal affect Quality:SDOH Health Related Social Needs: Health related social needs risk of homeless Health related social needs details Unable to obtain Health related social needs details: Unable to obtain Exam Narrative Exam Narrative: General: This is a somnolent woman in no distress HEENT: Normocephalic, atraumatic CV: RRR Resp: CTAB Abd: soft, NTND MSK: voluntary motion x4 Neuro: somnolent, rousable, difficulty finding words, slow speech Psych Mental Status: mental status grossly normal Speech and Movement: delayed speech, slurred speech and other (at baseline) Mood: congruent mood Affect: normal affect DS: Data Vitals/I&O Vitals and I&O: Vital Signs Temperature 36.6 C 08/14/25 08:43 Temperature Source Tympanic 08/14/25 08:43 Pulse 88 08/14/25 08:43 Pulse 85 08/11/25 18:31 Respiratory Rate 20 08/14/25 08:43 Respiratory Effort Normal 08/12/25 03:46 Respiratory Depth Normal 08/12/25 03:06 Respiratory Pattern Normal 08/12/25 03:06 Blood Pressure 123/66 08/14/25 08:43 Blood Pressure Mean 85 08/14/25 08:43 Pulse Oximetry 97 08/14/25 08:43 Oxygen Delivery Method Room Air 08/14/25 08:43 Oxygen Flow Rate 0 08/14/25 08:43 Pain Level 0 08/14/25 08:47 Intake & Output 08/13/25 08/13/25 08/14/25 11:59 23:59 11:59 Intake Total 240 / 460 220 / 460 Output Total 300 / 700 400 / 700 800 / 800 Balance -60 / -240 -180 / -240 -800 / -800 Intake: Oral 240 / 460 220 / 460 Output: Urine 300 / 700 400 / 700 800 / 800 Other: Urine Color Yellow Yellow Yellow Urine Appearance Clear Cloudy Clear Urine Odor Normal Normal Normal Comment pt is incontinent of urine. Stool Size Moderate Moderate Stool Characteristics Soft Soft Data Completed and Pending Pending Labs at Discharge: 08/11/25 08/11/25 08/11/25 16:44 17:50 18:10 WBC 3.91 L RBC 3.73 L Hgb 11.1 L Hct 30.9 L MCV 83 MCH 29.8 MCHC 35.9 RDW 14.4 Plt Count 92 L MPV 9.2 Immature Gran % 0.5 Neutrophils % 70.1 Lymphocytes % 18.7 Monocytes % 8.2 Eosinophils % 2.0 Basophils % 0.5 Nucleated RBC % 0.0 Absolute Neutrophils 2.74 Absolute Lymphocytes 0.73 L Absolute Monocytes 0.32 Absolute Eosinophils 0.08 Absolute Basophils 0.02 PT INR Sodium 125 L Potassium 4.1 Chloride 86 L Carbon Dioxide 29.1 Anion Gap 9.6 BUN 15 Creatinine 1.16 H Est GFR (CKD-EPI 2020) 46.31 Glucose 240 H Calcium 9.7 Magnesium 1.4 L Total Bilirubin 2.6 H Conjugated Bilirubin AST 32 ALT 28 Alkaline Phosphatase 107 Ammonia Troponin I 9 12 Total Protein 6.8 Albumin 4.3 Lipase 71 H TSH 5.29 H Free T4 1.09 Urine Color Yellow Urine Clarity Clear Urine pH 7.5 Ur Specific Gilliam 1.015 Urine Protein 30 H Urine Ketones Negative Urine Blood Negative Urine Nitrite Negative Urine Bilirubin Negative Urine Urobilinogen 0.2 Ur Leukocyte Esterase Moderate H Urine RBC Negative Urine WBC 3-5 Ur Epithelial Cells Moderate Urine Crystals Negative Urine Bacteria Negative Urine Casts Negative Urine Mucus Negative Ur Culture Indicated? No/Sq. Contamination Urine Glucose Negative COVID-19 Source SARS-CoV-2 (PCR) Influenza Type A (PCR) Influenza Type B (PCR) RSV (PCR) MRSA (TEM-PCR) 08/11/25 08/11/25 08/11/25 19:26 19:36 21:11 WBC RBC Hgb Hct MCV MCH MCHC RDW Plt Count MPV Immature Gran % Neutrophils % Lymphocytes % Monocytes % Eosinophils % Basophils % Nucleated RBC % Absolute Neutrophils Absolute Lymphocytes Absolute Monocytes Absolute Eosinophils Absolute Basophils PT INR Sodium Potassium Chloride Carbon Dioxide Anion Gap BUN Creatinine Est GFR (CKD-EPI 2020) Glucose Calcium Magnesium Total Bilirubin Conjugated Bilirubin AST ALT Alkaline Phosphatase Ammonia 55 H Troponin I Cancelled Total Protein Albumin Lipase TSH Free T4 Urine Color Urine Clarity Urine pH Ur Specific Gilliam Urine Protein Urine Ketones Urine Blood Urine Nitrite Urine Bilirubin Urine Urobilinogen Ur Leukocyte Esterase Urine RBC Urine WBC Ur Epithelial Cells Urine Crystals Urine Bacteria Urine Casts Urine Mucus Ur Culture Indicated? Urine Glucose COVID-19 Source Nasopharynx SARS-CoV-2 (PCR) Negative Influenza Type A (PCR) Negative Influenza Type B (PCR) Negative RSV (PCR) Negative MRSA (TEM-PCR) 08/12/25 08/12/25 06:35 13:13 WBC 4.13 L RBC 3.57 L Hgb 10.7 L Hct 30.2 L MCV 85 MCH 30.0 MCHC 35.4 RDW 14.2 Plt Count MPV Immature Gran % Neutrophils % Lymphocytes % Monocytes % Eosinophils % Basophils % Nucleated RBC % Absolute Neutrophils Absolute Lymphocytes Absolute Monocytes Absolute Eosinophils Absolute Basophils PT 11.1 INR 1.1 Sodium 133 L Potassium 3.5 Chloride 94 L Carbon Dioxide 29.8 Anion Gap 9.2 BUN 16 Creatinine 1.04 H Est GFR (CKD-EPI 2021) 52.53 Glucose 155 H Calcium 9.0 Magnesium 1.7 Total Bilirubin 2.9 H Conjugated Bilirubin 1.1 H AST 28 ALT 24 Alkaline Phosphatase 100 Ammonia Troponin I Total Protein 6.4 Albumin 4.1 Lipase TSH Free T4 Urine Color Urine Clarity Urine pH Ur Specific Gilliam Urine Protein Urine Ketones Urine Blood Urine Nitrite Urine Bilirubin Urine Urobilinogen Ur Leukocyte Esterase Urine RBC Urine WBC Ur Epithelial Cells Urine Crystals Urine Bacteria Urine Casts Urine Mucus Ur Culture Indicated? 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 (Acute) Hemorrhoid (Acute) Irritation of vulva (Acute) Nail dystrophy (Acute) Medical History Chronic GERD History of seizure disorder Metabolic dysfunction-associated steatotic liver disease (MASLD) COPD (chronic obstructive pulmonary disease) Diabetes mellitus type 2, insulin dependent Acquired pancytopenia Constipation Type 2 diabetes mellitus Hyponatremia Thrombocytopenia Liver 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) Pancytopenia Surgical History S/P cholecystectomy S/P hysterectomy S/P TIPS (transjugular intrahepatic portosystemic shunt) Social History Smoking/Tobacco Use Status: Never Smoking risk assessment performed?: Yes Alcohol Intake: never Drug use: Never Substance use type: does not use Housing: residential Do you feel safe at home: Yes Do you feel safe in your relationship?: Yes Additional Social history: lives at the [facility] Time Spent with Patient Time Spent with Patient: <45 minutes Time was spent: preparing to see the patient(eg.review tests), obtaining and/or reviewing separately otained hiistory, ordering medications,tests, procedures, referring, communicating with other health health care recruiter, indepentently interpreting results, counseling the patient and care coordination
--- NOTE | 2025-08-14 11:06 | NUR.NOTE ---
Nursing Note: At 10 am report given to the nurse Priscila RN at the [facility]. pt is alert and oriented x 3 pt offered no complaints pt assited into WC pt transfered to the [facility] at 11am discharge packet given to straddle bug driver
== END 2025-08-14 10:53 | disposition skilled nursing facility (03) ==
LOC: ER 23:29 → MS 08-12 07:22
PROVIDERS: Admitting Provider Family Medicine; Emergency Provider Registered Nurse Emergency; PCP Legal Medicine; Responsible Provider Family Medicine; Visit Provider Family Medicine
DX: G40.909 Epilepsy, unspecified, not intractable, without status epilepticus (principal); K75.81 Nonalcoholic steatohepatitis (NASH); K74.69 Other cirrhosis of liver; E11.9 Type 2 diabetes mellitus without complications; K21.9 Gastro-esophageal reflux disease without esophagitis; J44.9 Chronic obstructive pulmonary disease, unspecified; Z79.4 Long term (current) use of insulin; N17.9 Acute kidney failure, unspecified; E87.1 Hypo-osmolality and hyponatremia; F79 Unspecified intellectual disabilities; R47.02 Dysphasia; Z59.811 Housing instability, housed, with risk of homelessness; E83.42 Hypomagnesemia; E87.20 Acidosis, unspecified; D69.6 Thrombocytopenia, unspecified; D61.818 Other pancytopenia
CPT/HCPCS: 00123; 36415; 36416; 51701; 70553; 80048; 80053; 80076; 82962; 83690; 85027; 87637; 87641; 93005; 94640; 96365; 96366; 96367; 96375; 99285; J1650; 70450; 71045; 81003; 81015; 82140; 83735; 84439; 84443; 84484; 85025; 85610; 93010; 94664; 99223; 99231; 99238; G0378; J1815; J1953; J2060; J3475; J3490

== ENCOUNTER 2025-08-17 14:56 | Outpatient (REF) | payer MEDICARE, MEDICAID, SELFPAY ==
[2025-08-17 15:30] LABS: Abs Immature Grans 0.02 10^3/uL (0.0-0.06); HCT 28.8 % (36.0-46.0); HGB 10.3 g/dL (11.2-15.7); Immature Grans % 0.4 %; MCH 30.0 pg (27.0-33.0); MCHC 35.8 % (32.0-36.0); MCV 84 fL (80-95); MPV 10.1 fL (8.0-11.0); RBC 3.43 10^6/uL (3.93-5.22); RDW 14.5 % (11.7-14.6); RDW-SD 43.7 fL; WBC 4.83 10^3/uL (4.4-10.8)
[2025-08-17 15:48] LABS: Platelet Count 78 10^3/uL (130-400); RBC Morphology Normal
[2025-08-17 15:56] LABS: Anion Gap 10 mmol/L (3-11); BUN 22 mg/dL (9-23); CO2 26.6 mmol/L (20.0-31.0); Calcium 9.0 mg/dL (8.3-10.6); Chloride 85 mmol/L (98-107); Glucose 212 mg/dL (74-106); Potassium 4.0 mmol/L (3.5-5.1); Sodium 122 mmol/L (136-145)
== END 2025-08-17 14:57 | disposition home or self-care (01) ==
LOC: LBN 14:56
PROVIDERS: PCP Legal Medicine; Visit Provider Nurse Practitioner Gerontology
DX: D63.1 Anemia in chronic kidney disease (principal); E87.8 Other disorders of electrolyte and fluid balance, not elsewhere classified
CPT/HCPCS: 80048; 85025